=== PATIENT | female | born 1960 | race Caucasian/White ===

== ENCOUNTER 2016-06-09 10:45 | Outpatient (CLI) | payer MEDICAID ==
[~2016-06-09] VITALS: Ht 172.7 cm; Wt 99.1 kg
[~2016-06-09 10:45] MED LIST: ACET-93 PO; AMIT100T2 PO; AMIT150T3 PO; AMIT25TA9 PO; AMIT50TA3 PO; AMIT75TA2 PO; AMT10T PO; ATRV10T PO; BACL10TA; BACL10TA PC; BACL10TA PO; BREX0.5T PO; BSP10T PO; BUSP15TA60 PO; BUTA1TAB46 PO; CARI250T PO; CARI350T PO; CEFD300C16; CEFD300C3 PO; CEFU250S PO; CEFU500T63 PO; CELE-63 PO; CEPH-507 PO; CINN1CAP PO; CIPR500T78 PO; CLIN150C17 PO; CLON0.1T PO; CPR500T PO; CRS350T PO; CYCL10TA9 PO; DICL75TA2 PO; DICY10CA26; DIPH1TAB25 PO; DULO60CA58 PO; ESCI20TA2 PO; ESTR1TAB24 PO; ETD200C PO; FAMO-119 PO; FAMO20TA5 PO; FNT100TD TD; FURO20TA4 PO; GABA600T2 PO; GABA800T PO; GABA800T2 PO; GBPN300C PO; GLMP4T PO; HYDR-3583 PO; HYDR-3812 PO; HYDR-700 PO; HYDR118S10 PO; HYDROXYZINE PO; INSU100C SQ; INSU100I14 SC; INSU100I14 SQ; INSU100I23 SQ; INSU100I29 SC; INSU100I29 SQ; INSU100V16 SQ; INSU100V3 SC; INSU100V5 SQ; INSULIN DETEMIR SQ; KETO10TA PO; LD5PT TOP; LEVE1U SQ; LEVO500T2 PO; LOPE1TAB13 PO; LOSA25TA2 PO; LOSA25TA21 PO; MAGN400T6 PO; MELO-195 PO; MELO15TA39 PO; METF500T8 PO; METO10TA3 PO; METO5TAB79 PO; METR500T PO; MGX400T PO; MORP30TA28 PO; MTF500T PO; Meloxicam PO; Metoclopramide Hcl PO; NITR-65 PO; NITR100C10 PO; ONDA-42 SL; ONDA8TAB13 PO; ONDN4T PO; OXC5T PO; PANT40SU PO; PANT40TA3 PO; PHEN200T27 PO; POTA10CA43 PO; POTA10TA6 PO; PRAV20TA3 PO; PRAV40TA PO; PRD20T PO; PREG25CA PO; PROC10TA PO; PROC10TA23 PO; PROC5TAB PO; PRV20T PO; RANI150T90 PO; RT-ALBUINH IH; RT-ALBUINH INH; SUCR1TAB PO; SULF1TAB38 PO; TIZA4TAB3 PO; TIZA4TAB55 PO; TOPI50TA13 PO; TRAM50TA2 PO; TRAZ50TA67 PO; TRM50T PO; TRM50TRX; VALA100033 PO; flexeril PO
--- OUTSIDE RECORDS SUMMARY | 2016-06-09 10:48 | XMS REPORT | Continuity of Care Document ---
Author Author [facility] Organization [facility] Address Unknown Phone Unavailable Care Team Providers Care Clinical Coordinator Name Role Phone Burt Rivera PCP [phone] Source Comments Some departments are not documenting in the electronic medical record. If you do not see the information that you expected, contact Release of Information in the Health Information Management department at [phone] for further assistance in locating additional records.[facility] Active Allergies and Adverse Reactions No Known [...]
[2016-06-09] MEDS ORDERED: LIDOCAINE 1% INJ 20 ML (XYLOCAINE) VIAL ONE (11:19)
[2016-06-09] MEDS ORDERED: BUPIVACAINE 0.25% 30 ML (SENSORCAINE) VIAL ONE (11:19)
[2016-06-09] MEDS ORDERED: TRIAMCINOLONE ACET (KENALOG-40) 40 MG/ML 1 ML VIAL ONE (11:19)
[2016-06-09 11:36] VITALS: BP 159/98
[2016-06-09 12:04] VITALS: BP 117/105
--- NOTE | 2016-06-09 13:28 | Pain Medicine-Procedure ---
Procedure Pre-Op/Post-Op Diagnosis Diagnosis: hip osteoarthritis Indications for Operation Hip pain Attending Surgeon Brian Procedure Date of Service: Jun 09, 2016 PROCEDURE: Left hip injection under flouroscopic guidance PROCEDURE IN DETAIL: After obtaining informed consent from the patient, the patient's chart was reviewed. The patient was brought to the procedure room and placed in the supine position. The left hip was prepped with antiseptic solution. Then, the joint was identified under fluoroscopic guidance. 2 ml's of 1% Lidocaine was used to anesthetize the skin. A 22 gauge 3.5 inch spinal needle was inserted through the skin under fluoroscopic guidance until the needle touched the femur at the neck on the left side. Then, after negative aspiration, 2 ml of Omnipaque 300 dye was injected under fluoroscopic guidance which showed good spread of the dye inside the joint. Then, after negative aspiration, 80 mg of kenalog was injected mixed with 4 ml of 0.25% Marcaine. The needle was then flushed with 1% lidocaine and removed. The patient tolerated the procedure well and a band-Aid was applied and the patient was taken to the recovery room in stable condition. Complications None SABRINA ROGERS MD Jun 09, 2016 1:28 pm
[2016-06-19] MEDS ORDERED: MAGN400T6 PO (09:30)
[2016-06-19] MEDS ORDERED: HYDR-3816 PO (09:30)
[2016-06-19] MEDS ORDERED: INSU100I29 SQ (09:30)
== END 2016-06-09 12:07 | disposition home or self-care (01) ==
LOC: CARD 10:45
PROVIDERS: ATTEND Pain Medicine Pain Medicine
DX: M16.12 Unilateral primary osteoarthritis, left hip (principal); M51.16 Intervertebral disc disorders with radiculopathy, lumbar region; M41.86 Other forms of scoliosis, lumbar region; Z79.899 Other long term (current) drug therapy
CPT/HCPCS: 20610

== ENCOUNTER 2016-06-13 10:47 | Emergency (ER) | payer MEDICAID ==
[~2016-06-13] VITALS: Ht 172.7 cm; Wt 99.1 kg
--- NOTE | 2016-06-13 10:56 | ED General ---
General Stated Complaint: HIGH BLOOD SUGAR Source of Information: Patient, EMS Exam Limitations: No Limitations History of Present Illness Time Seen by Provider: 10:54 Initial Comments To ER from Dr. Leonel Marquez's office with reports of hyperglycemia. States that her blood sugar was too high to read this morning prior to taking her morning dose of 20 units of NovoLog. She called Dr. Marquez who instructed her to come to the office. They gave her 10 units of NovoLog subcutaneous at 930. Upon EMS arrival at 1045 she remained too high to read. She reports a slight cough/shortness of breath recently. No unilateral leg swelling. No fevers or chills. No dysuria. Timing/Duration: 1-2 Days Severity: Moderate Associated Systoms: No Fever/Chills, No Headaches, No Loss of Appetite, No Nausea/Vomiting Allergies and Home Medications Allergies Coded Allergies: No Known Drug Allergies (Unverified , 11/24/09) Home Medications Albuterol Sulfate 8.5 Gm Hfa.aer.ad 2 PUFF IH Q4H PRN PRN SHORTNESS OF BREATH ( Reported) Amitriptyline HCl 100 Mg Tablet 100 MG PO HS (Reported) Brexpiprazole 0.5 Mg Tablet 0.5 MG PO 1400 (Reported) LAST FILLED #30 04-02-16 Cefdinir 300 Mg Capsule #10 300 MG PO BID Prescribed by: LEONEL MARQUEZ on 05/21/16 1241 Cefuroxime Axetil 500 Mg Tablet #14 500 MG PO BID Prescribed by: DESIREE SEPULVEDA on 06/13/16 1355 Fluconazole 100 Mg Tablet #3 100 MG PO DAILY Prescribed by: DESIREE SEPULVEDA on 06/13/16 1355 Furosemide 20 Mg Tablet 20 MG PO DAILY PRN PRN SWELLING (Reported) LAST FILLED #7 02-02-16 Gabapentin 800 Mg Tablet #30 800 MG PO QID PRN PRN PAIN LAST FILLED #120 03-16-16 Prescribed by: LEONEL MARQUEZ on 05/12/16 0859 Insulin Aspart 300 Units/3 Ml Solution #15 1 UNITS SQ UD (Reported) Insulin Detemir 100 Unit/1 Ml Insuln.pen #30 20 UNIT SQ BID Prescribed by: LEONEL MARQUEZ on 05/12/16 0859 Magnesium Oxide 400 Mg Tablet 10Days 400 MG PO BIDPC Prescribed by: LEONEL MARQUEZ on 05/12/16 0859 Meloxicam 15 Mg Tablet 15 MG PO DAILY (Reported) Potassium Chloride 10 Meq Tablet.er #30 20 MEQ PO DAILY Prescribed by: LEONEL MARQUEZ on 05/12/16 0859 Pravastatin Sodium 20 Mg Tablet 20 MG PO HS (Reported) LAST FILLED #30 03-16-16 Ranitidine HCl 150 Mg Tablet 75 MG PO BID (Reported) LAST FILLED #30 03-07-16 TAKES 1/2 (150MG) TABLET Sucralfate 1 Gm Tablet 1 GM PO ACHS (Reported) LAST FILLED #120 03-09-16 Constitutional: see HPI EENTM: other (also reports thrush on her tongue) see HPI Respiratory: see HPI cough Genitourinary: no symptoms reported Skin: no symptoms reported Psychiatric/Neurological: No Symptoms Reported Hematologic/Lymphatic: No Symptoms Reported Past Wgifwwk-Ojorbz-Ltflrc Hx Patient Social History Type Used: Cigarettes Recent Hopitalizations: Yes (ALTERED MENTAL STATUS) Immunizations Up To Date Tetanus Booster (TDap): Less than 5yrs PED Vaccines UTD: Yes Date of Pneumonia Vaccine: Apr 04, 2013 Date of Influenza Vaccine: Apr 18, 2016 Seasonal Allergies Seasonal Allergies: No Surgeries HX Surgeries: Yes (HERNIA REPAIR, URETHRAL DILATION? 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 Genitourinary Hx Genitourinary Disorders: Yes (URETHRAL DILATION) Genitourinary Disorders: Bladder Infection, UTI-Chronic Gastrointestinal Hx Gastrointestinal Disorders: Yes Gastrointestinal Disorders: Gastroesophageal Reflux, Chronic Diarrhea, Gall Bladder Disease Musculoskeletal Hx Musculoskeletal Disorders: Yes (SCIATICA; CHRONIC PAIN COMPLAINTS) Musculoskeletal Disorders: Degenerate Disk Disease, Osteoporosis, Arthritis, Chronic Back Pain Endocrine Hx Endocrine Disorders: Yes Endocrine Disorders: Diabetes, Insulin dep HEENT HX ENT Disorders: No Cancer Hx Cancer: No Psychosocial Hx Psychiatric Problems: Yes (EXTENSIVE PSYCH ISSUES) Behavioral Health Disorders: Sleep Difficulties Integumentary HX Skin/Integumentary Disorder: No Blood Transfusions Hx Blood Disorders: No Family Medical History Significant Family History: No Pertinent Family Hx, Asthma, CAD Under 55 Years Old, COPD, Diabetes, Hypertension, Migraines, Psychiatric Problems, Renal Disease, Seizures, Stroke Family Medial History: Arthritis Asthma 19 MOTHER Cardiovascular disease 19 MOTHER Completed stroke Coronary thrombosis Diabetes mellitus 19 MOTHER Glaucoma 19 MOTHER Headache disorder 19 MOTHER Hypercholesterolemia 19 MOTHER Hypertension 19 MOTHER Kidney disease Myocardial infarction 19 FATHER 19 MOTHER Neoplasm Psychosocial problem Respiratory disorder Seizure disorder No Family History of: AIDS Abdominal aortic aneurysm [place]'s disease Alcoholism Alzheimer's disease Aphasia Cancer of mouth Cataracts Colon cancer Congenital disease Congenital heart disease Cystic fibrosis Deafness or hearing loss Dementia Drug abuse Dysphasia Fibrocystic disease of breast Gastroenteritis Infertility Not obtainable due to adoption Osteoporosis Parkinson's disease Prostate cancer Severe allergy Thyroid disease Tuberculosis Visual disorder Physical Exam Vital Signs Vital Sign - Last 12Hours 06/13/16 11:00 Temp 97.9 Pulse 108 Resp 25 B/P 120/74 Pulse Ox 98 O2 Delivery Nasal Cannula O2 Flow Rate 2 Capillary Refill : General Appearance: No Apparent Distress WD/WN Chronically ill Eyes: Bilateral Eye EOMI, Bilateral Eye Normal Inspection, Bilateral Eye PERRL HEENT: PERRL/EOMI TMs Normal Other (thrush noted) Neck: Full Range of Motion Normal Inspection Respiratory: Normal Breath Sounds No Accessory Muscle Use No Respiratory Distress Gastrointestinal: Normal Bowel Sounds Non Tender Soft Extremity: Normal Capillary Refill Normal Inspection Neurologic/Psychiatric: Alert Oriented x3 No Motor/Sensory Deficits Other ( surprisingly, patient is alert and oriented and sitting up in bed talking today. This is much different from her usual presentation) Skin: Normal Color Warm/Dry Progress/Results/Core Measures Results/Orders Lab Results Laboratory Tests Test 06/13/16 10:52 06/13/16 11:21 06/13/16 12:04 06/13/16 13:01 Range/Units Glucometer > 600 *H 362 H 255 H 70-110 MG/DL Alanine Aminotransferase (ALT/SGPT) 13 0-55 U/L Albumin 3.7 3.2-4.5 G/DL Alkaline Phosphatase 665 H 40-136 U/L Anion Gap 16 H 5-14 MMOL/L Aspartate Amino Transf (AST/SGOT) 16 5-34 U/L BUN/Creatinine Ratio 14 Basophils # (Auto) 0.1 0.0-0.1 10^3/uL Basophils (%) (Auto) 1 0-10 % Blood Urea Nitrogen 19 H 7-18 MG/DL Calcium Level 9.5 8.5-10.1 MG/DL Carbon Dioxide Level 16 L 21-32 MMOL/L Chloride Level 96 L 98-107 MMOL/L Creatinine 1.38 H 0.60-1.30 MG/DL Eosinophils # (Auto) 0.0 0.0-0.3 10^3/uL Eosinophils (%) (Auto) 0 0-10 % Estimat Glomerular Filtration Rate 40 Glucose Level 636 *H 70-105 MG/DL Hematocrit 33 L 35-52 % Hemoglobin 11.7 11.5-16.0 G/DL Lymphocytes # (Auto) 3.2 1.0-4.0 X 10^3 Lymphocytes (%) (Auto) 38 12-44 % Mean Corpuscular Hemoglobin 29 25-34 PG Mean Corpuscular Hemoglobin Concent 36 32-36 G/DL Mean Corpuscular Volume 81 80-99 FL Mean Platelet Volume 11.0 H 7.4-10.4 FL Monocytes # (Auto) 0.8 0.0-1.0 X 10^3 Monocytes (%) (Auto) 10 0-12 % Neutrophils # (Auto) 4.2 1.8-7.8 X 10^3 Neutrophils (%) (Auto) 51 42-75 % Platelet Count 248 130-400 10^3/uL Potassium Level 4.2 3.6-5.0 MMOL/L Red Blood Count 4.08 L 4.35-5.85 10^6/uL Red Cell Distribution Width 14.5 10.0-14.5 % Sodium Level 128 L 135-145 MMOL/L Total Bilirubin 0.6 0.1-1.0 MG/DL Total Protein 7.4 6.4-8.2 G/DL White Blood Count 8.3 4.3-11.0 10^3/uL Test 06/13/16 13:13 06/13/16 13:18 Range/Units Urine Bacteria MODERATE H /HPF Urine Bilirubin NEGATIVE NEGATIVE Urine Casts NONE /LPF Urine Clarity SLIGHTLY CLOUDY Urine Color YELLOW Urine Crystals NONE /LPF Urine Culture Indicated YES Urine Glucose (UA) 4+ H NEGATIVE Urine Ketones 3+ H NEGATIVE Urine Leukocyte Esterase 3+ H NEGATIVE Urine Mucus NEGATIVE /LPF Urine Nitrite NEGATIVE NEGATIVE Urine Protein 2+ H NEGATIVE Urine RBC 0-2 /HPF Urine RBC (Auto) 1+ H NEGATIVE Urine Specific [place] 1.010 L 1.016-1.022 Urine Squamous Epithelial Cells 5-10 /HPF Urine Urobilinogen 1 NORMAL MG/DL Urine WBC >100 H /HPF Urine pH 6.5 5-9 Anion Gap 13 5-14 MMOL/L BUN/Creatinine Ratio 18 Blood Urea Nitrogen 19 H 7-18 MG/DL Calcium Level 9.2 8.5-10.1 MG/DL Carbon Dioxide Level 17 L 21-32 MMOL/L Chloride Level 101 98-107 MMOL/L Creatinine 1.06 0.60-1.30 MG/DL Estimat Glomerular Filtration Rate 54 Glucose Level 213 H 70-105 MG/DL Potassium Level 3.6 3.6-5.0 MMOL/L Sodium Level 131 L 135-145 MMOL/L My Orders Orders-DESIREE SEPULVEDA APRN Cbc With Automated Diff (06/13/16 10:53) Comprehensive Metabolic Panel (06/13/16 10:53) Ua Culture If Indicated (06/13/16 10:53) Chest Pa/Lat (2 View) (06/13/16 10:53) Insulin (Regular) Human (Humulin R (Per (06/13/16 11:00) Ns Iv 1000 Ml (Sodium Chloride 0.9%) (06/13/16 12:00) Ns Iv 1000 Ml (Sodium Chloride 0.9%) (06/13/16 12:00) Ondansetron Injection (Zofran Injectio (06/13/16 12:15) Accucheck Stat ONCE (06/13/16 13:02) Accucheck Stat ONCE (06/13/16 13:02) Accucheck Stat ONCE (06/13/16 13:02) Basic Metabolic Panel (06/13/16 13:09) Urine Culture (06/13/16 13:13) Ceftriaxone Injection (Rocephin Injectio (06/13/16 13:45) Medications Given in ED Current Medications Medications Dose Ordered Sig/Aurea Route Start Time Stop Time Status Last Admin Dose Admin Ceftriaxone Sodium/Sodium Chloride 50 ml @ 100 mls/hr ONCE ONCE IV 06/13/16 13:45 06/13/16 14:14 06/13/16 13:50 100 MLS/HR Insulin Human Regular 10 unit ONCE ONCE IV 06/13/16 11:00 06/13/16 11:01 DC 06/13/16 11:21 10 UNIT Ondansetron HCl 4 mg 4 mg ONCE ONCE IVP 1/10/17 12:15 06/13/16 12:16 DC 06/13/16 12:14 4 MG Vital Signs/I&O Vital Sign - Last 12Hours 06/13/16 11:00 Temp 97.9 Pulse 108 Resp 25 B/P 120/74 Pulse Ox 98 O2 Delivery Nasal Cannula O2 Flow Rate 2 Diagnostic Imaging Diagonstic Imaging: Xray Comments NAME: [facility] REC#: [id number] PT STATUS: REG ER : 1960 PHYSICIAN: DESIREE SEPULVEDA APRN ADMIT DATE: 06/13/16/ER Draft Date of Exam:06/13/16 CHEST PA/LAT (2 VIEW) INDICATION: Hyperglycemia, shortness of air. Compared 05/21/2016. FINDINGS: The lungs are clear. Rightward convexity thoracic scoliosis noted. There is no acute chest wall pathology. No effusion. No free air beneath the diaphragms. IMPRESSION: No acute-appearing abnormality. Dictated on workstation # [id number] Dict: 06/13/16 1134 Trans: 06/13/16 1140 YASSINE [id number] Interpreted by: KIRILL ARGUETA Electronically signed by: Departure Communication Progress Notes 1400-GCS remains 15, she is alert no distress and remains better than her typical appearance in the emergency room which is to say that she is not currently obtunded or altered. Impression Impression: Primary Impression: UTI (urinary tract infection) Additional Impressions: DKA (diabetic ketoacidoses) Thrush Disposition: HOME, SELF-CARE Condition: Stable Departure-Patient Inst. Decision time for Depature: 13:53 Referrals: LEONEL MARQUEZ MD (PCP/Family) Primary Care Physician Patient Instructions: Diabetic Ketoacidosis, Thrush, Urinary Tract Infection, Adult (DC) Add. Discharge Instructions: 1. Keep a very close eye on her blood sugars checking them at least 3 times a day for the next 3 days because of the urinary tract infection will make her sugars go higher than usual. You should take insulin according to her sliding scale take care 2. Follow-up with Dr. Marquez this week 3. Scripts Fluconazole (Diflucan)100 Mg [id number] Mg PO DAILY #3 TAB Prov:DESIREE SEPULVEDA APRN 06/13/16 Cefuroxime Axetil (Ceftin)500 Mg [id number] Mg PO BID #14 TAB Prov:DESIREE SEPULVEDA APRN 06/13/16 Copy Copies To 1: LEONEL MARQUEZ MD, PETER J APRN Jun 13, 2016 10:56
[2016-06-13] MEDS ORDERED: inSUlin (REGULAR) HUMAN 1 UNIT/0.01 ML (CHARGE PER UNIT) IV ONE (11:00)
[2016-06-13 11:30] LABS: BASOPHILS # (AUTO) 0.1 10^3/uL (0.0-0.1); BASOPHILS % (AUTO) 1 % (0-10); EOSINOPHILS % (AUTO) 0 % (0-10); LYMPHOCYTES # (AUTO) 3.2 X 10^3 (1.0-4.0); LYMPHOCYTES % (AUTO) 38 % (12-44); MEAN CORPUSCULAR HEMOGLOBIN 29 PG (25-34); MEAN CORPUSCULAR HGB CONC 36 G/DL (32-36); MEAN CORPUSCULAR VOLUME 81 FL (80-99); MONOCYTES # (AUTO) 0.8 X 10^3 (0.0-1.0); MONOCYTES % (AUTO) 10 % (0-12); NEUTROPHILS # (AUTO) 4.2 X 10^3 (1.8-7.8); NEUTROPHILS % (AUTO) 51 % (42-75); PLATELET COUNT 248 10^3/uL (130-400); RED BLOOD COUNT 4.08 10^6/uL (4.35-5.85); RED CELL DISTRIBUTION WIDTH 14.5 % (10.0-14.5); WHITE BLOOD COUNT 8.3 10^3/uL (4.3-11.0)
--- NOTE | 2016-06-13 11:40 | Diagnostic Imaging Report ---
INDICATION: Hyperglycemia, shortness of air. Compared 05/21/2016. FINDINGS: The lungs are clear. Rightward convexity thoracic scoliosis noted. There is no acute chest wall pathology. No effusion. No free air beneath the diaphragms. IMPRESSION: No acute-appearing abnormality. Dictated by: Dictated on workstation # [id number]
[2016-06-13 11:47] LABS: ALBUMIN 3.7 G/DL (3.2-4.5); BILIRUBIN,TOTAL 0.6 MG/DL (0.1-1.0); CALCIUM 9.5 MG/DL (8.5-10.1); CREATININE SERUM 1.38 MG/DL (0.60-1.30); POTASSIUM 4.2 MMOL/L (3.6-5.0); TOTAL PROTEIN 7.4 G/DL (6.4-8.2)
[2016-06-13] MEDS ORDERED: NS IV 1000 ML 1,000 ML IV SCH ×2 (12:00)
[2016-06-13] MEDS ORDERED: ONDANSETRON 4 MG/2 ML (SDV) Z0FRAN IVP ONE (12:15)
[2016-06-13 13:21] LABS: BILIRUBIN,URINE NEGATIVE (NEGATIVE); KETONES,URINE 3+ (NEGATIVE); LEUKOCYTE ESTERASE ,URINE 3+ (NEGATIVE); NITRITE,URINE NEGATIVE (NEGATIVE); PH,URINE 6.5 (5-9); PROTEIN,URINE 2+ (NEGATIVE); UROBILINOGEN,URINE 1 MG/DL (NORMAL)
[2016-06-13 13:32] LABS: WBC,URINE >100 /HPF
[2016-06-13 13:37] LABS: CALCIUM 9.2 MG/DL (8.5-10.1); CREATININE SERUM 1.06 MG/DL (0.60-1.30); POTASSIUM 3.6 MMOL/L (3.6-5.0)
[2016-06-13] MEDS ORDERED: cefTRIAXone INJECTION 1,000 MG in NORMAL SALINE (BAXTER MINI) 50 ML IV ONE (13:45)
[2016-06-13] MEDS ORDERED: FLUC100T PO (13:55)
[2016-06-13] MEDS ORDERED: CEFU500T PO (13:55)
[2016-06-13 14:22] VITALS: BP 120/74
[2016-06-14] MEDS ORDERED: GABA800T2 PO (12:45)
[2016-06-14] MEDS ORDERED: INSU100I29 SQ (13:23)
[2016-06-14] MEDS ORDERED: RANI150T11 PO (13:23)
[2016-06-14] MEDS ORDERED: LIDO15SO2 MM (13:58)
[2016-06-14] MEDS ORDERED: BACL10TA PO (13:58)
[2016-06-14] MEDS ORDERED: NYST1000 MM (13:58)
[2016-06-14] MEDS ORDERED: FLUC200T5 PO (13:58)
[2016-06-14] MEDS ORDERED: CEFU500T PO (13:58)
[2016-06-19] MEDS ORDERED: INSU100I29 SQ (09:30)
[2016-06-19] MEDS ORDERED: MAGN400T6 PO (09:30)
[2016-06-19] MEDS ORDERED: HYDR-3816 PO (09:30)
== END 2016-06-13 14:22 | disposition home or self-care (01) ==
LOC: EDUNIT# 10:47 → ER 10:48
DX: E11.69 Type 2 diabetes mellitus with other specified complication (principal); N39.0 Urinary tract infection, site not specified; B37.0 Candidal stomatitis; I10 Essential (primary) hypertension; Z79.899 Other long term (current) drug therapy; Z79.4 Long term (current) use of insulin
CPT/HCPCS: 36415; 71020; 80048; 80053; 81000; 82962; 85025; 87088; 96361; 96365; 96375

== ENCOUNTER 2016-06-14 08:43 | Inpatient (IN) | payer MEDICAID ==
[~2016-06-14] VITALS: Ht 172.7 cm; Wt 93.4 kg
[2016-06-14] VITALS (8 sets, daily range): BP systolic 83–118; BP diastolic 61–90
[~2016-06-14 08:43] MED LIST changes: +CEFU500T PO; +FLUC100T PO
--- OUTSIDE RECORDS SUMMARY | 2016-06-14 08:48 | XMS REPORT | Continuity of Care Document ---
Author Author [facility] Organization [facility] Address Unknown Phone Unavailable Care Team Providers Care Quill Cleaning Machine Operator Name Role Phone Burt Rivera PCP [phone] Source Comments Some departments are not documenting in the electronic medical record. If you do not see the information that you expected, contact Release of Information in the Health Information Management department at [phone] for further assistance in locating additional records.[facility] Active Allergies and Adverse Reactions No Known [...]
[2016-06-14 09:02] LABS: BASOPHILS # (AUTO) 0.1 10^3/uL (0.0-0.1); BASOPHILS % (AUTO) 2 % (0-10); EOSINOPHILS % (AUTO) 0 % (0-10); LYMPHOCYTES # (AUTO) 2.7 X 10^3 (1.0-4.0); LYMPHOCYTES % (AUTO) 38 % (12-44); MEAN CORPUSCULAR HEMOGLOBIN 29 PG (25-34); MEAN CORPUSCULAR HGB CONC 35 G/DL (32-36); MEAN CORPUSCULAR VOLUME 81 FL (80-99); MEAN PLATELET VOLUME 11.4 FL (7.4-10.4); MONOCYTES # (AUTO) 0.7 X 10^3 (0.0-1.0); MONOCYTES % (AUTO) 9 % (0-12); NEUTROPHILS # (AUTO) 3.7 X 10^3 (1.8-7.8); NEUTROPHILS % (AUTO) 52 % (42-75); PLATELET COUNT 248 10^3/uL (130-400); RED BLOOD COUNT 4.02 10^6/uL (4.35-5.85); RED CELL DISTRIBUTION WIDTH 14.8 % (10.0-14.5); WHITE BLOOD COUNT 7.2 10^3/uL (4.3-11.0)
[2016-06-14 09:22] LABS: ALBUMIN 3.5 G/DL (3.2-4.5); BILIRUBIN,TOTAL 0.4 MG/DL (0.1-1.0); CALCIUM 9.1 MG/DL (8.5-10.1); CREATININE SERUM 1.69 MG/DL (0.60-1.30); POTASSIUM 4.2 MMOL/L (3.6-5.0); TOTAL PROTEIN 7.2 G/DL (6.4-8.2)
[2016-06-14] MEDS ORDERED: inSUlin REGULAR TPN/DRIP ONLY 250 UNITS in NORMAL SALINE 247.5 ML IV STA (09:25)
[2016-06-14 09:30] LABS: ACETAMINOPHEN < 10 UG/ML (10-30); ALCOHOL < 10 MG/DL (<10); MAGNESIUM 1.6 MG/DL (1.8-2.4); SALICYLATE < 5.0 MG/DL (5.0-20.0)
[2016-06-14] MEDS ORDERED: inSUlin (REGULAR) HUMAN 1 UNIT/0.01 ML (CHARGE PER UNIT) IV ONE (09:30)
[2016-06-14] MEDS ORDERED: NS IV 1000 ML 1,000 ML IV ONE (09:30)
[2016-06-14 10:01] LABS: ABG BASE EXCESS -16.7 MMOL/L (-2.5-2.5); ABG OXYGEN SATURATION 99 % (94-100); ABG PO2 122 MMHG (79-93); ABG TCO2 8.5 MMOL/L (21.0-31.0)
[2016-06-14 10:03] LABS: ABG PCO2 17 MMHG (35-45); ABG PH 7.29 (7.37-7.43)
[2016-06-14 10:04] LABS: ABG HCO3 8 MMOL/L (23-27); ALLENS TEST POSITIVE; PATIENT TEMP 97.7
--- NOTE | 2016-06-14 10:13 | ED General ---
General Chief Complaint: Trauma-Non Activation Stated Complaint: FALL/HEAD INJURY Nursing Triage Note: PT ARRIVED PER EMS, PT FELL AT HOME AND HIT L SIDE OF HEAD. NO LOC. FSBS FOR [id number] Nursing Sepsis Screen: No Definite Risk Source of Information: Patient, EMS Exam Limitations: No Limitations History of Present Illness Time Seen by Provider: 09:00 Initial Comments Patient lost her balance and fell at home striking the back of her head on the floor. She called 911. They noticed patient had decreased level of consciousness. She denies vomiting. She was seen in the [facility] department yesterday for hyperglycemia and urinary tract infection. She received supplemental insulin and was prescribed an antibiotic. Location Injury Occurred: HOME Allergies and Home Medications Allergies Coded Allergies: No Known Drug Allergies (Unverified , 11/24/09) Home Medications Albuterol Sulfate 8.5 Gm Hfa.aer.ad 2 PUFF IH Q4H PRN PRN SHORTNESS OF BREATH ( Reported) Amitriptyline HCl 100 Mg Tablet 100 MG PO HS (Reported) Brexpiprazole 0.5 Mg Tablet 0.5 MG PO 1400 (Reported) LAST FILLED #30 16 Cefdinir 300 Mg Capsule #10 300 MG PO BID Prescribed by: LEONEL MARQUEZ on 05/21/16 1241 Cefuroxime Axetil 500 Mg Tablet #14 500 MG PO BID Prescribed by: DESIREE SEPULVEDA on 06/13/16 1355 Fluconazole 100 Mg Tablet #3 100 MG PO DAILY Prescribed by: DESIREE SEPULVEDA on 06/13/16 1355 Furosemide 20 Mg Tablet 20 MG PO DAILY PRN PRN SWELLING (Reported) LAST FILLED #7 02-02-16 Gabapentin 800 Mg Tablet #30 800 MG PO QID PRN PRN PAIN LAST FILLED #120 03-16-16 Prescribed by: LEONEL MARQUEZ on 05/12/16 0859 Insulin Aspart 300 Units/3 Ml Solution #15 1 UNITS SQ UD (Reported) Insulin Detemir 100 Unit/1 Ml Insuln.pen #30 20 UNIT SQ BID Prescribed by: LEONEL MARQUEZ on 05/12/16 08 Magnesium Oxide 400 Mg Tablet 10Days 400 MG PO BIDPC Prescribed by: LEONEL MARQUEZ on 05/12/16 0859 Meloxicam 15 Mg Tablet 15 MG PO DAILY (Reported) Potassium Chloride 10 Meq Tablet.er #30 20 MEQ PO DAILY Prescribed by: LEONEL MARQUEZ on 05/12/16 0859 Pravastatin Sodium 20 Mg Tablet 20 MG PO HS (Reported) LAST FILLED #30 03-16-16 Ranitidine HCl 150 Mg Tablet 75 MG PO BID (Reported) LAST FILLED #30 03-07-16 TAKES 1/2 (150MG) TABLET Sucralfate 1 Gm Tablet 1 GM PO ACHS (Reported) LAST FILLED #120 03-09-16 Constitutional: No fever, malaise weakness Respiratory: no symptoms reported Cardiovascular: no symptoms reported Gastrointestinal: No vomiting Musculoskeletal: no symptoms reported Psychiatric/Neurological: Headache Hematologic/Lymphatic: No Symptoms Reported All Other Systems Reviewed Negative Unless Noted: Yes Past Okxzwml-Tgngar-Klcson Hx Patient Social History Alcohol Use: Denies Use Recreational Drug Use: Yes (TOBACCO) Smoking Status: Current Everyday Smoker Type Used: Cigarettes Recent Foreign Travel: No Contact w/Someone Who Travel: No Recent Infectious Disease Expo: No Recent Hopitalizations: Yes (ALTERED MENTAL STATUS) Physical Abuse Screen: No Sexual Abuse: No Immunizations Up To Date Tetanus Booster (TDap): Less than 5yrs PED Vaccines UTD: Yes Date of Pneumonia Vaccine: Apr 04, 2013 Date of Influenza Vaccine: Apr 18, 2016 Seasonal Allergies Seasonal Allergies: No Surgeries HX Surgeries: Yes (HERNIA REPAIR, URETHRAL DILATION? 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 Genitourinary Hx Genitourinary Disorders: Yes (URETHRAL DILATION) Genitourinary Disorders: Bladder Infection, UTI-Chronic Gastrointestinal Hx Gastrointestinal Disorders: Yes Gastrointestinal Disorders: Gastroesophageal Reflux, Chronic Diarrhea, Gall Bladder Disease Musculoskeletal Hx Musculoskeletal Disorders: Yes (SCIATICA; CHRONIC PAIN COMPLAINTS) Musculoskeletal Disorders: Degenerate Disk Disease, Osteoporosis, Arthritis, Chronic Back Pain Endocrine Hx Endocrine Disorders: Yes Endocrine Disorders: Diabetes, Insulin dep HEENT HX ENT Disorders: No Cancer Hx Cancer: No Psychosocial Hx Psychiatric Problems: Yes (EXTENSIVE PSYCH ISSUES) Behavioral Health Disorders: Sleep Difficulties Integumentary HX Skin/Integumentary Disorder: No Blood Transfusions Hx Blood Disorders: No Family Medical History Significant Family History: No Pertinent Family Hx, Asthma, CAD Under 55 Years Old, COPD, Diabetes, Hypertension, Migraines, Psychiatric Problems, Renal Disease, Seizures, Stroke Family Medial History: Arthritis Asthma 19 MOTHER Cardiovascular disease 19 MOTHER Completed stroke Coronary thrombosis Diabetes mellitus 19 MOTHER Glaucoma 19 MOTHER Headache disorder 19 MOTHER Hypercholesterolemia 19 MOTHER Hypertension 19 MOTHER Kidney disease Myocardial infarction 19 FATHER 19 MOTHER Neoplasm Psychosocial problem Respiratory disorder Seizure disorder No Family History of: AIDS Abdominal aortic aneurysm Winchester's disease Alcoholism Alzheimer's disease Aphasia Cancer of mouth Cataracts Colon cancer Congenital disease Congenital heart disease Cystic fibrosis Deafness or hearing loss Dementia Drug abuse Dysphasia Fibrocystic disease of breast Gastroenteritis Infertility Not obtainable due to adoption Osteoporosis Parkinson's disease Prostate cancer Severe allergy Thyroid disease Tuberculosis Visual disorder Physical Exam Vital Signs Vital Sign - Last 12Hours 06/14/16 08:43 Temp 98.1 Pulse 124 Resp 20 B/P 105/79 Pulse Ox 96 Capillary Refill : Less Than 3 Seconds General Appearance: No Apparent Distress (very drowsy) WD/WN Obese Eyes: Bilateral Eye EOMI, Bilateral Eye PERRL HEENT: PERRL/EOMI Pharynx Normal Neck: Supple Respiratory: Lungs Clear Normal Breath Sounds Cardiovascular: Regular Rate, Rhythm No Edema Gastrointestinal: Non Tender Soft Extremity: Normal Inspection Normal Range of Motion Neurologic/Psychiatric: No Motor/Sensory Deficits 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 Norm as Tested Other (very drowsy) Skin: Normal Color Warm/Dry Progress/Results/Core Measures Results/Orders Lab Results Laboratory Tests Test 06/14/16 08:52 06/14/16 09:39 Range/Units Acetaminophen Level < 10 L 10-30 UG/ML Alanine Aminotransferase (ALT/SGPT) 14 0-55 U/L Albumin 3.5 3.2-4.5 G/DL Alkaline Phosphatase 573 H 40-136 U/L Anion Gap 21 H 5-14 MMOL/L Aspartate Amino Transf (AST/SGOT) 13 5-34 U/L BUN/Creatinine Ratio 16 Basophils # (Auto) 0.1 0.0-0.1 10^3/uL Basophils (%) (Auto) 2 0-10 % Blood Urea Nitrogen 27 H 7-18 MG/DL Calcium Level 9.1 8.5-10.1 MG/DL Carbon Dioxide Level 9 *L 21-32 MMOL/L Chloride Level 98 98-107 MMOL/L Creatinine 1.69 H 0.60-1.30 MG/DL Eosinophils # (Auto) 0.0 0.0-0.3 10^3/uL Eosinophils (%) (Auto) 0 0-10 % Estimat Glomerular Filtration Rate 32 Glucose Level 746 *H 70-105 MG/DL Hematocrit 33 L 35-52 % Hemoglobin 11.5 11.5-16.0 G/DL Lymphocytes # (Auto) 2.7 1.0-4.0 X 10^3 Lymphocytes (%) (Auto) 38 12-44 % Magnesium Level 1.6 L 1.8-2.4 MG/DL Mean Corpuscular Hemoglobin 29 25-34 PG Mean Corpuscular Hemoglobin Concent 35 32-36 G/DL Mean Corpuscular Volume 81 80-99 FL Mean Platelet Volume 11.4 H 7.4-10.4 FL Monocytes # (Auto) 0.7 0.0-1.0 X 10^3 Monocytes (%) (Auto) 9 0-12 % Neutrophils # (Auto) 3.7 1.8-7.8 X 10^3 Neutrophils (%) (Auto) 52 42-75 % Platelet Count 248 130-400 10^3/uL Potassium Level 4.2 3.6-5.0 MMOL/L Red Blood Count 4.02 L 4.35-5.85 10^6/uL Red Cell Distribution Width 14.8 H 10.0-14.5 % Salicylates Level < 5.0 L 5.0-20.0 MG/DL Serum Alcohol < 10 <10 MG/DL Sodium Level 128 L 135-145 MMOL/L Total Bilirubin 0.4 0.1-1.0 MG/DL Total Protein 7.2 6.4-8.2 G/DL White Blood Count 7.2 4.3-11.0 10^3/uL Alexandr Test POSITIVE Arterial Blood Base Excess -16.7 L -2.5-2.5 MMOL/L Arterial Blood HCO3 8 *L 23-27 MMOL/L Arterial Blood Oxygen Saturation 99 94-100 % Arterial Blood Partial Pressure CO2 17 *L 35-45 MMHG Arterial Blood Partial Pressure O2 122 H 79-93 MMHG Arterial Blood Total CO2 8.5 L 21.0-31.0 MMOL/L Arterial Blood pH 7.29 *L 7.37-7.43 Blood Gas Inspired Oxygen NO Blood Gas Patient Temperature 97.7 Blood Gas Puncture Site RIGHT RADIAL Blood Gas Ventilator Setting NO Labs were reviewed My Orders Orders-THEODORE DOHERTY MD Cbc With Automated Diff (06/14/16 08:56) Comprehensive Metabolic Panel (06/14/16 08:56) Ua Culture If Indicated (06/14/16 08:56) Ct Head/Cervical Spine Wo (06/14/16 08:56) Acetaminophen (06/14/16 09:04) Alcohol (06/14/16 09:04) Drug Screen Stat (Urine) (06/14/16 09:04) Magnesium (06/14/16 09:04) Salicylate (06/14/16 09:04) Arterial Blood Gas (06/14/16 09:39) Ns Iv 1000 Ml (Sodium Chloride 0.9%) (06/14/16 09:30) Insulin (Regular) Human (Humulin R (Per (06/14/16 09:30) Insulin Regular Tpn/Drip Only (Humulin R (06/14/16 09:25) Medications Given in ED Current Medications Medications Dose Ordered Sig/Aurea Route Start Time Stop Time Status Last Admin Dose Admin Insulin Human Regular 9 unit ONCE ONCE IV 06/14/16 09:30 06/14/16 09:31 DC 06/14/16 09:44 9 UNIT Sodium Chloride 1,000 ml @ 0 mls/hr Q0M ONCE IV 06/14/16 09:30 06/14/16 09:31 DC 06/14/16 09:44 1,000 MLS/HR Vital Signs/I&O Vital Sign - Last 12Hours 06/14/16 08:43 Temp 98.1 Pulse 124 Resp 20 B/P 105/79 Pulse Ox 96 Blood Pressure Mean: 88 Diagnostic Imaging Comments Date of Exam:06/14/16 CT HEAD/CERVICAL SPINE WO Clinical indication: Patient is status post fall and hit back of head. Exam: Head CT without IV contrast. Axial CT scan of the cervical spine with sagittal and coronal reformations. Comparison: CT scan of brain performed without IV contrast dated 05/09/2016. CT scan of the cervical spine dated 12/20/2015. Findings: Head CT: There is no evidence of acute cerebral infarct, intracranial hemorrhage, or gross mass effect. There is normal roberts-white matter distinction. The brain parenchymal volume appears appropriate for patient's age. There is no significant midline shift or herniation. There is no evidence of hydrocephalus. The basal cisterns are unremarkable. The skull, extracranial soft tissue, and orbits are unremarkable. There is a small mucous retention cyst in right maxillary sinus. Cervical spine: There is no acute cervical spine fracture or dislocation. There is straightening of the cervical spine posture. There is stable cervical spine degenerative disease with vertebral body spurs and mild facet arthropathy. There is stable moderate loss of intervertebral disc height at the C5-C6 and C6-C7 levels. There is no prevertebral soft tissue swelling. The neck soft tissue structures show no significant abnormality. Lung apices are clear. Impression: 1: There is no evidence of acute intracranial process. 2.: Stable cervical spine degenerative disease with no acute fracture or dislocation. Critical Care Note Critical Care Total Time (minutes) Total critical care time so this patient was 45 minutes Departure Communication Time/Spoke to Admitting Phy: 10:[address] Leonel Marquez saw the patient in the emergency department after a contacted him via phone. Impression Impression: Primary Impression: diabetic ketoacidosis Additional Impressions: Urinary tract infection Minor head injury without loss of consciousness Disposition: 01 HOME, SELF-CARE Condition: Stable Decision to Admit Reason: Admit from ER (General) Decision to Admit/Date: Jun 14, 2016 Time/Decision to Admit Time: 10:11 Departure-Patient Inst. Referrals: LEONEL MARQUEZ MD (PCP/Family) Primary Care Physician THEODORE DOHERTY MD Jun 14, 2016 10:13
--- NOTE | 2016-06-14 10:20 | Diagnostic Imaging Report ---
Clinical indication: Patient is status post fall and hit back of head. Exam: Head CT without IV contrast. Axial CT scan of the cervical spine with sagittal and coronal reformations. Comparison: CT scan of brain performed without IV contrast dated 05/09/2016. CT scan of the cervical spine dated 12/20/2015. Findings: Head CT: There is no evidence of acute cerebral infarct, intracranial hemorrhage, or gross mass effect. There is normal roberts-white matter distinction. The brain parenchymal volume appears appropriate for patient's age. There is no significant midline shift or herniation. There is no evidence of hydrocephalus. The basal cisterns are unremarkable. The skull, extracranial soft tissue, and orbits are unremarkable. There is a small mucous retention cyst in right maxillary sinus. Cervical spine: There is no acute cervical spine fracture or dislocation. There is straightening of the cervical spine posture. There is stable cervical spine degenerative disease with vertebral body spurs and mild facet arthropathy. There is stable moderate loss of intervertebral disc height at the C5-C6 and C6-C7 levels. There is no prevertebral soft tissue swelling. The neck soft tissue structures show no significant abnormality. Lung apices are clear. Impression: 1: There is no evidence of acute intracranial process. 2: Stable cervical spine degenerative disease with no acute fracture or dislocation. Dictated by: Dictated on workstation # [id number]
[2016-06-14] MEDS ORDERED: 1/2 NS W/KCL 20 MEQ/L 1,000 ML IV ONE (11:25)
[2016-06-14] MEDS: 1/2 NS W/KCL 20 MEQ/L 1,000 ML IV SCH ×3 (11:45→23:45)
[2016-06-14] MEDS ORDERED: D5 1/2 NS IV 1,000 ML IV SCH (11:45)
[2016-06-14] MEDS: DEXTROSE 10% IV SOLUTION 1,000 ML IV SCH ×2 (11:45→21:45)
[2016-06-14] MEDS: REGULAR inSUlin DRIP 250 UNITS/NS 250 ML IV SCH ×2 (11:45)
[2016-06-14] MEDS: D5 1/2 NS W/KCL 20 MEQ/L 1,000 ML IV SCH ×4 (11:45→22:05)
[2016-06-14] MEDS ORDERED: cefTRIAXone 1 GM/NS 50 ML IVPB IV SCH ×4 (12:00→21:00)
--- NOTE | 2016-06-14 12:36 | History & Physicial ---
History of Present Illness History of Present Illness Reason for visit/HPI 55 yo Female well known to me from clinic and inpatient stays-- Pt has history of multiple inpatient stays for DKA, hypoglycemia, altered mental status. Admitted for DKA today- Pt reports she stood up at home and fell backwards hitting her head. No loss of consciousness. Pt reports for past week she has been trying to get her blood sugar under control- meter keeps reading high- unable to get blood sugar down with sliding scale. Mouth sores- x 2-3 days- white areas on lower lip, tongue, throat that are raw and painful. Pt has lost 10# in the past 2 weeks due to decreased appetite and now mouth pain. Has polydipsia, denies polyuria. Pt was seen at my clinic yesterday for hyperglycemia, mouth sores and generalized weakness- I sent her to the ER via ambulance and she was evaluated - Blood sugars were down to 200s when she left the ER yesterday evening- She was given insulin injections, 2L NS IVF, rocephin. She was dx with DKA, thrush and UTI yesterday - sent home with her SSI, fluconazole. As above pt returned to the ER this AM via EMS because of her continued weakness and now a fall. She reports her blood sugar was 300s this AM. Reports doing alright in regards to her mood- of the [employer] worker who was friend gets her down. -Otherwise pt reports doing alright mentally. Denies SI, HI. -Endorses that general health issues are getting her down. -No LOC episodes as far as she is aware of. -Does go to outpatient PT twice weekly. Date of Admission Jun 14, 2016 at 10:24 I consulted on this patient on 06/14/16 12:27 Attending Physician Leonel Marquez MD Admitting Physician Leonel Marquez MD Consult Allergies and Home Medications Allergies Coded Allergies: No Known Drug Allergies (Unverified , 11/24/09) Home Medications Albuterol Sulfate 8.5 Gm Hfa.aer.ad 2 PUFF IH Q4H PRN PRN SHORTNESS OF BREATH ( Reported) Amitriptyline HCl 100 Mg Tablet 100 MG PO HS (Reported) Baclofen 10 Mg Tablet 10 MG PO TID PRN PRN MUSCLE SPASMS (Reported) Brexpiprazole 0.5 Mg Tablet 0.5 MG PO 1400 (Reported) LAST FILLED #30 12/09/16 Cefuroxime Axetil 500 Mg Tablet 500 MG PO BID (Reported) FILLED 06/13/16 #14 FOR A 7 DAY THERAPY Fluconazole 200 Mg Tablet 200 MG PO DAILY (Reported) FILLED 06/13/16 #10 FOR A 10 DAY THERAPY Furosemide 20 Mg Tablet 20 MG PO DAILY (Reported) LAST FILLED #30 05/12/16 Gabapentin 800 Mg Tablet 800 MG PO QID (Reported) Insulin Aspart 300 Units/3 Ml Solution SQ SLIDING/SCALE (Reported) Insulin Detemir 100 Unit/1 Ml Insuln.pen 20 UNITS SQ BID (Reported) Lidocaine HCl 15 Ml Solution 5 ML MM Q4H PRN PRN PAIN (Reported) FILLED 06/13/16 #100ML Meloxicam 15 Mg Tablet 15 MG PO DAILY (Reported) Nystatin 100,000 Unit/1 Ml Oral.susp 4 ML MM BID (Reported) FILLED 06/13/16 #80ML FOR A 10 DAY THERAPY Pravastatin Sodium 20 Mg Tablet 20 MG PO HS (Reported) LAST FILLED #30 05/12/16 Ranitidine HCl 150 Mg Tablet 150 MG PO DAILY (Reported) Sucralfate 1 Gm Tablet 1 GM PO ACHS (Reported) LAST FILLED #120 05/12/16 Past Dioxaff-Ulrtyg-Axyhhd Hx Patient Social History Alcohol Use: Denies Use Recreational Drug Use: Yes (TOBACCO) Smoking Status: Current Everyday Smoker Type Used: Cigarettes Physical Abuse Screen: No Sexual Abuse: No Recent Foreign Travel: No Contact w/other who traveled: No Recent Hopitalizations: Yes (ALTERED MENTAL STATUS) Recent Infectious Disease Expo: No Immunizations Up To Date Tetanus Booster (TDap): Less than 5yrs Date of Pneumonia Vaccine: Apr 04, 2013 Date of Influenza Vaccine: Apr 18, 2016 Seasonal Allergies Seasonal Allergies: No Surgeries HX Surgeries: Yes (HERNIA REPAIR, URETHRAL DILATION? ) Surgeries: Abdominal, Appendectomy, Bladder Surgery, Gallbladder, Hysterectomy , Tonsillectomy Respiratory Hx Respiratory Disorders: Yes (O2 AT HS) Respiratory Disorders: COPD Cardiovascular Hx Cardiovascular Disorders: Yes Cardiac Disorders: High Cholesterol, Hypertension Neurological Hx Neurological Disorders: Yes Neurological Disorders: Headaches /Migraines Reproductive System Hx Reproductive Disorders: No Sexually Transmitted Disease: No HIV/AIDS: No Female Reproductive Disorders: Denies Genitourinary Hx Genitourinary Disorders: Yes (URETHRAL DILATION) Genitourinary Disorders: Bladder Infection, UTI-Chronic Gastrointestinal Hx Gastrointestinal Disorders: Yes Gastrointestinal Disorders: Gastroesophageal Reflux, Chronic Diarrhea, Gall Bladder Disease Musculoskeletal Hx Musculoskeletal Disorders: Yes (SCIATICA; CHRONIC PAIN COMPLAINTS) Musculoskeletal Disorders: Degenerate Disk Disease, Osteoporosis, Arthritis, Chronic Back Pain Endocrine Hx Endocrine Disorders: Yes Endocrine Disorders: Diabetes, Insulin dep HEENT HX ENT Disorders: No Cancer Hx Cancer: No Psychosocial Hx Psychiatric Problems: Yes (EXTENSIVE PSYCH ISSUES) Behavioral Health Disorders: Sleep Difficulties Integumentary HX Skin/Integumentary Disorder: No Blood Transfusions Hx Blood Disorders: No Family Medical History Significant Family History: No Pertinent Family Hx, Asthma, CAD Under 55 Years Old, COPD, Diabetes, Hypertension, Migraines, Psychiatric Problems, Renal Disease, Seizures, Stroke Family Hx: Arthritis Asthma 19 MOTHER Cardiovascular disease 19 MOTHER Completed stroke Coronary thrombosis Diabetes mellitus 19 MOTHER Glaucoma 19 MOTHER Headache disorder 19 MOTHER Hypercholesterolemia 19 MOTHER Hypertension 19 MOTHER Kidney disease Myocardial infarction 19 FATHER 19 MOTHER Neoplasm Psychosocial problem Respiratory disorder Seizure disorder No Family History of: AIDS Abdominal aortic aneurysm Jin's disease Alcoholism Alzheimer's disease Aphasia Cancer of mouth Cataracts Colon cancer Congenital disease Congenital heart disease Cystic fibrosis Deafness or hearing loss Dementia Drug abuse Dysphasia Fibrocystic disease of breast Gastroenteritis Infertility Not obtainable due to adoption Osteoporosis Parkinson's disease Prostate cancer Severe allergy Thyroid disease Tuberculosis Visual disorder Constitutional: No chills, No diaphoresis, dizzinessNo fever, weakness weight loss EENTM: blurred visionNo double vision, No ear pain Respiratory: dyspnea on exertionNo hemoptysis, No phlegm, short of breath Cardiovascular: No chest pain Gastrointestinal: abdominal painNo constipation, No diarrhea, dysphagia Genitourinary: No dysuria Musculoskeletal: No back pain Skin: No change in hair/nails Psychiatric/Neurological: Anxiety Depressed Physical Exam Vital Signs Vital Sign - Last 12Hours 06/14/16 08:43 Temp 98.1 Pulse 124 Resp 20 B/P 105/79 Pulse Ox 96 Capillary Refill : Less Than 3 Seconds General Appearance: WD/WN Mild Distress HEENT: PERRL/EOMI Other (mouth- thrush noted on tongue, lips palate- white plaques,erythema) Neck: Full Range of Motion Normal Inspection Non Tender Supple Respiratory: Chest Non Tender Lungs Clear Normal Breath Sounds No Accessory Muscle Use No Respiratory Distress Cardiovascular: Regular Rate, Rhythm No Edema Gastrointestinal: Normal Bowel Sounds Non Tender Soft Rectal: Deferred Back: No CVA Tenderness No Vertebral Tenderness Extremity: Normal Inspection Normal Range of Motion Non Tender No Calf Tenderness Neurologic/Psychiatric: Alert Oriented x3 No Motor/Sensory Deficits Normal Mood/Affect Skin: Warm/Dry Other (cap refill 3sec) Assessment/Plan Assessment and Plan 55 yo F Weakness leading to a fall- CT head negative DKA- protocol, insulin gtts High anion gap metabolic acidosis- correcting DKA uncontrolled Diabetes Mellitus II with insulin dependence- hga1c 8.1 04/29/16 - will continue adjusting insulin after DKA episode is resolved. acute renal insufficiency- due to DKA, dehydration- Cr 1.69 continue IVF- No contrast, NSAIDS. Cystitis without hematuria-- rocephin 1g IV Thrush- continue fluconazole, nystatin swish/spit hypomagnesemia-1.6 replacing hypokalemia- replacing in IVF when blood sugar starts going down. pseudohyponatremia due to DKA.- monitor COPD- continue inhalers. Bipolar disorder- continue home meds. Dispo: DKA protocol, monitor in ICU I did tell pt today in ER that with these frequent hospitalizations I would recommend prison placement because it is imminent that she will one of these times. Expect pt to recover from this DKA but overall her Prognosis is poor. LEONEL MARQUEZ MD Jun 14, 2016 12:36 LEONEL MARQUEZ MD Jun 14, 2016 12:36
[2016-06-14] MEDS ORDERED: GABA800T2 PO (12:45)
[2016-06-14] MEDS: NYSTATIN ORAL SUSP 5 ML UDC PO SCH ×2 (12:55→18:00)
[2016-06-14 13:01] LABS: BILIRUBIN,URINE NEGATIVE (NEGATIVE); KETONES,URINE 4+ (NEGATIVE); LEUKOCYTE ESTERASE ,URINE 1+ (NEGATIVE); NITRITE,URINE NEGATIVE (NEGATIVE); PH,URINE 6 (5-9); PROTEIN,URINE 2+ (NEGATIVE); UROBILINOGEN,URINE NORMAL (NORMAL)
[2016-06-14 13:09] LABS: WBC,URINE RARE /HPF; YEAST,URINE FEW /HPF
[2016-06-14] MEDS ORDERED: RANI150T11 PO (13:23)
[2016-06-14] MEDS ORDERED: INSU100I29 SQ (13:23)
[2016-06-14] MEDS ORDERED: BACL10TA PO (13:58)
[2016-06-14] MEDS ORDERED: LIDO15SO2 MM (13:58)
[2016-06-14] MEDS ORDERED: FLUC200T5 PO (13:58)
[2016-06-14] MEDS ORDERED: NYST1000 MM (13:58)
[2016-06-14] MEDS ORDERED: CEFU500T PO (13:58)
[2016-06-14] MEDS ORDERED: RT-ALBUTEROL SULF 2.5 MG/3 ML PRE-MIX VIAL INH PRN (14:00)
[2016-06-14 14:06] LABS: CALCIUM 9.1 MG/DL (8.5-10.1); CREATININE SERUM 1.34 MG/DL (0.60-1.30); POTASSIUM 3.2 MMOL/L (3.6-5.0)
[2016-06-14] MEDS: ONDANSETRON 4 MG/2 ML (SDV) Z0FRAN IV PRN ×2 (14:41→18:53)
--- NOTE | 2016-06-14 15:39 | Diagnostic Imaging Report ---
INDICATION: Central venous catheter evaluation. FINDINGS: Single portable view of the chest is obtained. Since 06/13/2016, there has been placement of right upper extremity PICC with catheter tip projecting over the lower superior vena cava near the right atrial junction. Lungs are clear without evidence of pneumothorax or consolidation. No significant pleural fluid is identified. IMPRESSION: No evidence of complication related to right central venous catheter placement. Dictated by: Dictated on workstation # [id number]
[2016-06-14] MEDS ORDERED: MAGNESIUM 1 GM/100 ML IVPB 100 ML IV ONE ×2 (17:16→18:42)
[2016-06-14] MEDS: MAGNESIUM 1 GM/100 ML IVPB 100 ML IV SCH ×3 (17:23→22:55)
[2016-06-14] MEDS: fluCOnazole (DIFLUCAN) 100 MG TAB PO SCH (17:23)
[2016-06-14] MEDS: cefTRIAXone 1 GM/NS 50 ML IVPB IV SCH ×2 (17:24)
[2016-06-14] MEDS ORDERED: KCL 20 MEQ TAB (K-DUR) PO ONE (18:00)
[2016-06-14] MEDS ORDERED: LIDOCAINE 2% VISCOUS 15 ML UDC MM PRN (18:45)
[2016-06-14] MEDS: KCL 20 MEQ TAB (K-DUR) PO SCH ×2 (18:53→20:39)
[2016-06-14] MEDS: AMITRIPTYLINE 50 MG (ELAVIL) TAB PO SCH (20:40)
[2016-06-14 21:47] LABS: ANION GAP 9 MMOL/L (5-14); BLOOD UREA NITROGEN 20 MG/DL (7-18); BUN/CREATININE RATIO 23; CALCIUM 8.5 MG/DL (8.5-10.1); CARBON DIOXIDE 17 MMOL/L (21-32); CHLORIDE 108 MMOL/L (98-107); CREATININE SERUM 0.86 MG/DL (0.60-1.30); GFR ESTIMATED > 60; GLUCOSE 124 MG/DL (70-105); MAGNESIUM 1.6 MG/DL (1.8-2.4); POTASSIUM 3.4 MMOL/L (3.6-5.0); SODIUM 134 MMOL/L (135-145)
[2016-06-14] MEDS ORDERED: GABAPENTIN 300 MG (NEURONTIN) CAP PO ONE (22:45)
[2016-06-14] MEDS ORDERED: HYDROcodone/APAP 10 MG/325 MG (LORTAB) TAB PO ONE (22:45)
[2016-06-15] VITALS (24 sets, daily range): BP systolic 94–144; BP diastolic 62–93
[2016-06-15] MEDS: MAGNESIUM 1 GM/100 ML IVPB 100 ML IV SCH ×2 (00:02→06:00)
[2016-06-15 01:20] LABS: BASOPHILS % (AUTO) 0 % (0-10); EOSINOPHILS % (AUTO) 0 % (0-10); LYMPHOCYTES # (AUTO) 2.4 X 10^3 (1.0-4.0); LYMPHOCYTES % (AUTO) 36 % (12-44); MEAN CORPUSCULAR HEMOGLOBIN 28 PG (25-34); MEAN CORPUSCULAR HGB CONC 35 G/DL (32-36); MEAN CORPUSCULAR VOLUME 81 FL (80-99); MEAN PLATELET VOLUME 10.5 FL (7.4-10.4); MONOCYTES # (AUTO) 0.7 X 10^3 (0.0-1.0); MONOCYTES % (AUTO) 10 % (0-12); NEUTROPHILS # (AUTO) 3.6 X 10^3 (1.8-7.8); NEUTROPHILS % (AUTO) 54 % (42-75); PLATELET COUNT 215 10^3/uL (130-400); RED BLOOD COUNT 3.35 10^6/uL (4.35-5.85); RED CELL DISTRIBUTION WIDTH 14.8 % (10.0-14.5); WHITE BLOOD COUNT 6.7 10^3/uL (4.3-11.0)
[2016-06-15 01:40] LABS: ANISOCYTOSIS SLIGHT; BAND NEUTROPHILS 0 %; BASOPHILS % (MANUAL) 0 %; EOSINOPHILS % (MANUAL) 0 %; HYPOCHROMASIA SLIGHT; LYMPHOCYTES % (MANUAL) 26 %; MICROCYTOSIS SLIGHT; NEUTROPHILS % (MANUAL) 62 %
[2016-06-15 01:57] LABS: THYROID STIMULATING HORMONE 0.61 UIU/ML (0.35-4.94)
[2016-06-15] MEDS: D5 1/2 NS W/KCL 20 MEQ/L 1,000 ML IV SCH ×6 (02:14→22:49)
[2016-06-15] MEDS: 1/2 NS W/KCL 20 MEQ/L 1,000 ML IV SCH ×6 (03:45→23:45)
[2016-06-15] MEDS: cefTRIAXone 1 GM/NS 50 ML IVPB IV SCH ×2 (04:12)
[2016-06-15 05:06] LABS: BASOPHILS # (AUTO) 0.1 10^3/uL (0.0-0.1); BASOPHILS % (AUTO) 1 % (0-10); EOSINOPHILS % (AUTO) 0 % (0-10); LYMPHOCYTES # (AUTO) 2.6 X 10^3 (1.0-4.0); LYMPHOCYTES % (AUTO) 40 % (12-44); MEAN CORPUSCULAR HEMOGLOBIN 28 PG (25-34); MEAN CORPUSCULAR HGB CONC 35 G/DL (32-36); MEAN CORPUSCULAR VOLUME 81 FL (80-99); MEAN PLATELET VOLUME 10.6 FL (7.4-10.4); MONOCYTES # (AUTO) 0.6 X 10^3 (0.0-1.0); MONOCYTES % (AUTO) 9 % (0-12); NEUTROPHILS # (AUTO) 3.2 X 10^3 (1.8-7.8); NEUTROPHILS % (AUTO) 50 % (42-75); PLATELET COUNT 233 10^3/uL (130-400); RED BLOOD COUNT 3.41 10^6/uL (4.35-5.85); RED CELL DISTRIBUTION WIDTH 14.7 % (10.0-14.5); WHITE BLOOD COUNT 6.3 10^3/uL (4.3-11.0)
[2016-06-15 05:25] LABS: ANION GAP 8 MMOL/L (5-14); BLOOD UREA NITROGEN 15 MG/DL (7-18); BUN/CREATININE RATIO 19; CALCIUM 8.5 MG/DL (8.5-10.1); CARBON DIOXIDE 14 MMOL/L (21-32); CHLORIDE 113 MMOL/L (98-107); CREATININE SERUM 0.77 MG/DL (0.60-1.30); GFR ESTIMATED > 60; GLUCOSE 77 MG/DL (70-105); PHOSPHORUS 1.2 MG/DL (2.3-4.7); POTASSIUM 4.3 MMOL/L (3.6-5.0); SODIUM 135 MMOL/L (135-145)
[2016-06-15] MEDS: POTASSIUM CL 10MEQ/50ML IVPB 50 ML IV SCH (06:00)
[2016-06-15] MEDS: NYSTATIN ORAL SUSP 5 ML UDC PO SCH ×5 (06:00→23:21)
[2016-06-15] MEDS: KCL 20 MEQ TAB (K-DUR) PO SCH (06:00)
--- NOTE | 2016-06-15 06:41 | Progress Note (SOAP) ---
Subjective Subjective/Events-last exam 55 yo F with improving DKA. Pt is complaining about abdominal pain but unable to describe it. Says she feels better- A little hysteric though where she will outburst screaming of abdominal pain then stop screaming and go back to sleep. Denies nausea/vomiting. Pt refusing heparin. Review of Systems General: No Chills, No Night Sweats HEENT: No Head Aches Pulmonary: No Dyspnea, No Cough Cardiovascular: No: Chest Pain, Palpitations Gastrointestinal: : Abdominal PainNo: Nausea, Vomiting Genitourinary: No Dysuria, No Frequency Musculoskeletal: No: neck pain Neurological: : Weakness Objective Exam Vital Signs Date Time Temp Pulse Resp B/P Pulse Ox O2 Delivery O2 Flow Rate FiO2 06/15/16 06:00 87 18 124/80 98 Room Air 06/15/16 05:00 85 18 108/71 98 Room Air 06/15/16 04:00 89 17 106/66 97 Room Air 06/15/16 04:00 97 Room Air 06/15/16 03:00 89 16 101/63 97 Room Air 06/15/16 02:18 98.0 06/15/16 02:00 96 19 96/64 95 Room Air 06/15/16 01:00 93 19 94/62 94 Room Air 06/15/16 01:00 93 06/15/16 00:00 96.6 103 14 115/72 95 Room Air 06/15/16 00:00 97 Room Air 06/14/16 23:00 112 25 104/84 96 Room Air 06/14/16 22:00 110 16 113/71 98 Room Air 06/14/16 21:00 112 14 108/87 100 Room Air 06/14/16 20:17 97 Room Air 06/14/16 20:00 98.0 108 21 112/68 97 Room Air 06/14/16 20:00 97 Room Air 06/14/16 19:00 108 06/14/16 19:00 108 30 83/61 99 Room Air 06/14/16 17:00 107 20 Room Air 06/14/16 16:00 98 Room Air 06/14/16 16:00 111 24 Room Air 06/14/16 14:00 117 13 102/76 98 Room Air 06/14/16 13:46 99 06/14/16 13:00 120 06/14/16 13:00 118 16 111/78 99 Room Air 06/14/16 11:00 98.1 116 18 118/90 99 Room Air 06/14/16 11:00 99 Room Air 06/14/16 10:48 121 20 99 06/14/16 08:43 98.1 124 20 105/79 96 I & O 06/15/16 07:00 Intake Total 3398 ml Output Total 550 ml Balance 2848 ml Capillary Refill : Less Than 3 Seconds General Appearance: No Apparent Distress WD/WN Mild Distress (when she complains of abdominal pain) HEENT: PERRL/EOMI Neck: Full Range of Motion Respiratory: Chest Non Tender Lungs Clear Normal Breath Sounds No Accessory Muscle Use No Respiratory Distress Cardiovascular: Regular Rate, Rhythm No Edema Gastrointestinal: normal bowel sounds non tender soft Extremity: Non Tender No Pedal Edema Neurologic/Psychiatric: Alert Normal Mood/Affect Skin: Warm/Dry Results Lab Laboratory Tests 06/14/16 08:52: Acetaminophen Level < 10L, Alanine Aminotransferase (ALT/SGPT) 14, Albumin 3.5, Alkaline Phosphatase 573H, Anion Gap 21H, Aspartate Amino Transf (AST/SGOT) 13, BUN/Creatinine Ratio 16, Basophils # (Auto) 0.1, Basophils (%) (Auto) 2, Blood Urea Nitrogen 27H, Calcium Level 9.1, Carbon Dioxide Level 9*L, Chloride Level 98, Creatinine 1.69H, Eosinophils # (Auto) 0.0, Eosinophils (%) (Auto) 0, Estimat Glomerular Filtration Rate 32, Glucose Level 746*H, Hematocrit 33L, Hemoglobin 11.5, Lymphocytes # (Auto) 2.7, Lymphocytes (%) (Auto) 38, Magnesium Level 1.6L, Mean Corpuscular Hemoglobin 29, Mean Corpuscular Hemoglobin Concent 35, Mean Corpuscular Volume 81, Mean Platelet Volume 11.4H, Monocytes # (Auto) 0.7, Monocytes (%) (Auto) 9, Neutrophils # (Auto) 3.7, Neutrophils (%) (Auto) 52 , Phosphorus Level 3.6, Platelet Count 248, Potassium Level 4.2, Red Blood Count 4.02L, Red Cell Distribution Width 14.8H, Salicylates Level < 5.0L, Serum Alcohol < 10, Sodium Level 128L, Total Bilirubin 0.4, Total Protein 7.2, White Blood Count 7.2 06/14/16 09:39: Alexandr Test POSITIVE, Arterial Blood Base Excess -16.7L, Arterial Blood HCO3 8*L , Arterial Blood Oxygen Saturation 99, Arterial Blood Partial Pressure CO2 17*L , Arterial Blood Partial Pressure O2 122H, Arterial Blood Total CO2 8.5L, Arterial Blood pH 7.29*L, Blood Gas Inspired Oxygen NO, Blood Gas Patient Temperature 97.7, Blood Gas Puncture Site RIGHT RADIAL, Blood Gas Ventilator Setting NO 06/14/16 12:30: Ur Tricyclic Antidepressants Screen POSITIVEH, Urine Amphetamines Screen NEGATIVE, Urine Bacteria TRACE, Urine Barbiturates Screen NEGATIVE, Urine Benzodiazepines Screen NEGATIVE, Urine Bilirubin NEGATIVE, Urine Cannabinoids Screen NEGATIVE, Urine Casts NONE, Urine Clarity CLEAR, Urine Cocaine Screen NEGATIVE, Urine Color YELLOW, Urine Crystals NONE, Urine Culture Indicated NO, Urine Glucose (UA) 4+H, Urine Ketones 4+H, Urine Leukocyte Esterase 1+H, Urine Methadone Screen NEGATIVE, Urine Methamphetamines Screen NEGATIVE, Urine Mucus NEGATIVE, Urine Nitrite NEGATIVE, Urine Opiates Screen NEGATIVE, Urine Oxycodone Screen NEGATIVE, Urine Phencyclidine Screen NEGATIVE, Urine Propoxyphene Screen NEGATIVE, Urine Protein 2+H, Urine RBC 0-2, Urine RBC (Auto ) 1+H, Urine Specific [place] 1.010L, Urine Squamous Epithelial Cells 2-5, Urine Urobilinogen NORMAL, Urine WBC RARE, Urine Yeast FEWH, Urine pH 6 06/14/16 12:40: Glucometer 356H 06/14/16 13:30: Anion Gap 14, BUN/Creatinine Ratio 19, Blood Urea Nitrogen 25H, Calcium Level 9.1, Carbon Dioxide Level 15L, Chloride Level 106, Creatinine 1.34H, Estimat Glomerular Filtration Rate 41, Glucose Level 253H, Potassium Level 3.2L, Sodium Level 135 06/14/16 13:51: Glucometer 251H 06/14/16 14:45: Glucometer 228H 06/14/16 16:57: Glucometer 205H 06/14/16 17:38: Glucometer 238H 06/14/16 18:52: Glucometer 214H 06/14/16 19:42: Glucometer 205H 06/14/16 21:20: Glucometer 124H, Anion Gap 9, BUN/Creatinine Ratio 23, Blood Urea Nitrogen 20H, Calcium Level 8.5, Carbon Dioxide Level 17L, Chloride Level 108H, Creatinine 0.86, Estimat Glomerular Filtration Rate > 60, Glucose Level 124H, Magnesium Level 1.6L, Potassium Level 3.4L, Sodium Level 134L 06/14/16 21:54: Glucometer 143H 06/14/16 22:29: Glucometer 214H 06/14/16 23:26: Glucometer 245H 06/15/16 00:29: Glucometer 272H 06/15/16 01:10: Anisocytosis SLIGHT, Band Neutrophils 0, Basophils # (Auto) 0.0, Basophils % ( Manual) 0, Basophils (%) (Auto) 0, Eosinophils # (Auto) 0.0, Eosinophils % ( Manual) 0, Eosinophils (%) (Auto) 0, Free Thyroxine 1.02, Hematocrit 27L, Hemoglobin 9.5L, Hypochromasia SLIGHT, Lactic Acid Level 1.6, Lymphocytes # ( Auto) 2.4, Lymphocytes % (Manual) 26, Lymphocytes (%) (Auto) 36, Mean Corpuscular Hemoglobin 28, Mean Corpuscular Hemoglobin Concent 35, Mean Corpuscular Volume 81, Mean Platelet Volume 10.5H, Microcytosis SLIGHT, Monocytes # (Auto) 0.7, Monocytes % (Manual) 12, Monocytes (%) (Auto) 10, Neutrophils # (Auto) 3.6, Neutrophils % (Manual) 62, Neutrophils (%) (Auto) 54, Platelet Count 215, Red Blood Count 3.35L, Red Cell Distribution Width 14.8H, Thyroid Stimulating Hormone (TSH) 0.61, White Blood Count 6.7 06/15/16 01:13: Glucometer 208H 06/15/16 02:16: Glucometer 168H 06/15/16 03:57: Glucometer 107 06/15/16 04:55: Anion Gap 8, BUN/Creatinine Ratio 19, Basophils # (Auto) 0.1, Basophils (%) ( Auto) 1, Blood Urea Nitrogen 15, Calcium Level 8.5, Carbon Dioxide Level 14L, Chloride Level 113H, Creatinine 0.77, Eosinophils # (Auto) 0.0, Eosinophils (%) (Auto) 0, Estimat Glomerular Filtration Rate > 60, Glucose Level 77, Hematocrit 28L, Hemoglobin 9.7L, Lymphocytes # (Auto) 2.6, Lymphocytes (%) (Auto) 40, Magnesium Level 2.0, Mean Corpuscular Hemoglobin 28, Mean Corpuscular Hemoglobin Concent 35, Mean Corpuscular Volume 81, Mean Platelet Volume 10.6H, Monocytes # (Auto) 0.6, Monocytes (%) (Auto) 9, Neutrophils # (Auto) 3.2, Neutrophils (%) (Auto) 50, Phosphorus Level 1.2L, Platelet Count 233, Potassium Level 4.3, Red Blood Count 3.41L, Red Cell Distribution Width 14.7H, Sodium Level 135, White Blood Count 6.3 06/15/16 05:48: Glucometer 148H Assessment/Plan Assessment/Plan Assess & Plan/Chief Complaint 55 yo F Weakness leading to a fall- CT head negative DKA- improved- anion gap closed High anion gap metabolic acidosis- resolved uncontrolled Diabetes Mellitus II with insulin dependence- hga1c 8.1 04/29/16 - will continue adjusting insulin - pt is noncompliant with diet and insulin regimen at home. Usually have good control of blood sugar inpatient as the variables of diet and insulin is controlled. acute renal insufficiency- due to DKA, dehydration- Cr 1.69 continue IVF- No contrast, NSAIDS. improved. Cystitis without hematuria-- rocephin 1g IV- culture pending Thrush- continue fluconazole, nystatin swish/spit x7days hypomagnesemia- replacing hypokalemia- replacing in IVF hypophosphatemia- replacing pseudohyponatremia resolved COPD- continue inhalers. Bipolar disorder- monitor her mental status- will slowly add back psych meds. DVT ppx: SCDs, Pt refusing Heparin Dispo: - I recommend intermediate placement due to her not being able to care for herself. Expect pt to recover from this DKA but overall her Prognosis is poor. Pt is admitted to nearly every 1.5-2weeks for either hypoglycemia, DKA, or altered mental status. She is going to end up dying in the near future if she continues down this path. Diagnosis/Problems: Clinical Quality Measures DVT/VTE Risk/Contraindication: Risk Factor Score Per Nursin RFS Level Per Nursing on Admit: 1=Low/No VTE PPX NALDO MARQUEZ MD Jun 15, 2016 06:41
[2016-06-15] MEDS: DEXTROSE 10% IV SOLUTION 1,000 ML IV SCH ×2 (07:45→16:55)
[2016-06-15] MEDS: FAMOTIDINE 20 MG (PEPCID) TABLET PO SCH (08:00)
[2016-06-15] MEDS: SODIUM PHOSPHATE INJ 15 MM in NS (IVPB) 100 ML IV SCH (08:01)
[2016-06-15] MEDS ORDERED: FUROSEMIDE 20 MG (LASIX) TAB PO SCH (09:00)
[2016-06-15] MEDS ORDERED: CATHETER FLUSH 10 ML SYR IV PRN (10:00)
[2016-06-15 11:10] LABS: ANION GAP 9 MMOL/L (5-14); BLOOD UREA NITROGEN 13 MG/DL (7-18); BUN/CREATININE RATIO 16; CALCIUM 8.6 MG/DL (8.5-10.1); CARBON DIOXIDE 14 MMOL/L (21-32); CHLORIDE 111 MMOL/L (98-107); CREATININE SERUM 0.82 MG/DL (0.60-1.30); GFR ESTIMATED > 60; GLUCOSE 130 MG/DL (70-105); POTASSIUM 4.3 MMOL/L (3.6-5.0); SODIUM 134 MMOL/L (135-145)
[2016-06-15] MEDS: GABAPENTIN 300 MG (NEURONTIN) CAP PO PRN ×2 (11:22→20:27)
--- NOTE | 2016-06-15 11:52 | Diagnostic Imaging Report ---
INDICATION: Diabetic ketoacidosis, head injury, urinary tract infection, ICU care. FINDINGS: A portable upright view of the chest is unchanged from yesterday. A right arm PICC line remains in good position. Lungs are clear. The heart, mediastinum and pulmonary vascularity are normal. IMPRESSION: Normal chest. Dictated by: Dictated on workstation # [id number]
[2016-06-15] MEDS ORDERED: inSUlin DETERMIR 1 UNIT/0.01 ML (LEVEMIR) CHARGE PER UNIT SQ NR ×2 (13:30→21:00)
[2016-06-15 14:51] LABS: ANION GAP 8 MMOL/L (5-14); BLOOD UREA NITROGEN 11 MG/DL (7-18); BUN/CREATININE RATIO 15; CALCIUM 8.1 MG/DL (8.5-10.1); CARBON DIOXIDE 14 MMOL/L (21-32); CHLORIDE 112 MMOL/L (98-107); CREATININE SERUM 0.73 MG/DL (0.60-1.30); GFR ESTIMATED > 60; GLUCOSE 93 MG/DL (70-105); SODIUM 134 MMOL/L (135-145)
[2016-06-15] MEDS: REGULAR inSUlin DRIP 250 UNITS/NS 250 ML IV SCH ×2 (15:03)
[2016-06-15] MEDS: fluCOnazole (DIFLUCAN) 100 MG TAB PO SCH (16:55)
[2016-06-15] MEDS: AMITRIPTYLINE 50 MG (ELAVIL) TAB PO SCH (20:23)
[2016-06-15] MEDS: ONDANSETRON 4 MG/2 ML (SDV) Z0FRAN IV PRN (20:23)
[2016-06-15 20:39] LABS: ANION GAP 8 MMOL/L (5-14); BLOOD UREA NITROGEN 10 MG/DL (7-18); BUN/CREATININE RATIO 11; CARBON DIOXIDE 14 MMOL/L (21-32); CHLORIDE 107 MMOL/L (98-107); CREATININE SERUM 0.87 MG/DL (0.60-1.30); GFR ESTIMATED > 60; GLUCOSE 390 MG/DL (70-105); PHOSPHORUS 2.4 MG/DL (2.3-4.7); POTASSIUM 4.8 MMOL/L (3.6-5.0); SODIUM 129 MMOL/L (135-145)
[2016-06-15] MEDS: inSUlin (REGULAR) HUMAN 1 UNIT/0.01 ML (CHARGE PER UNIT) SC SCH ×2 (20:39→23:26)
[2016-06-15] MEDS: SUCRALFATE 1 GM (CARAFATE) TAB PO SCH (21:00)
[2016-06-15] MEDS ORDERED: SODIUM PHOSPHATE INJ 15 MM in NS (IVPB) 100 ML IV ONE (21:00)
[2016-06-16] VITALS (14 sets, daily range): BP systolic 105–146; BP diastolic 59–84
[2016-06-16] MEDS: D5 1/2 NS W/KCL 20 MEQ/L 1,000 ML IV SCH (02:36)
[2016-06-16] MEDS: inSUlin (REGULAR) HUMAN 1 UNIT/0.01 ML (CHARGE PER UNIT) SC SCH (04:00)
[2016-06-16 04:19] LABS: BASOPHILS % (AUTO) 1 % (0-10); EOSINOPHILS % (AUTO) 1 % (0-10); LYMPHOCYTES # (AUTO) 2.3 X 10^3 (1.0-4.0); LYMPHOCYTES % (AUTO) 46 % (12-44); MEAN CORPUSCULAR HEMOGLOBIN 28 PG (25-34); MEAN CORPUSCULAR HGB CONC 35 G/DL (32-36); MEAN CORPUSCULAR VOLUME 82 FL (80-99); MEAN PLATELET VOLUME 10.9 FL (7.4-10.4); MONOCYTES # (AUTO) 0.4 X 10^3 (0.0-1.0); MONOCYTES % (AUTO) 9 % (0-12); NEUTROPHILS # (AUTO) 2.2 X 10^3 (1.8-7.8); NEUTROPHILS % (AUTO) 44 % (42-75); PLATELET COUNT 208 10^3/uL (130-400); RED BLOOD COUNT 3.15 10^6/uL (4.35-5.85); RED CELL DISTRIBUTION WIDTH 15.3 % (10.0-14.5)
[2016-06-16 04:45] LABS: ANION GAP 9 MMOL/L (5-14); BLOOD UREA NITROGEN 9 MG/DL (7-18); BUN/CREATININE RATIO 12; CARBON DIOXIDE 13 MMOL/L (21-32); CHLORIDE 111 MMOL/L (98-107); CREATININE SERUM 0.74 MG/DL (0.60-1.30); GFR ESTIMATED > 60; GLUCOSE 135 MG/DL (70-105); MAGNESIUM 1.1 MG/DL (1.8-2.4); PHOSPHORUS 2.5 MG/DL (2.3-4.7); POTASSIUM 4.5 MMOL/L (3.6-5.0); SODIUM 133 MMOL/L (135-145)
[2016-06-16] MEDS: 1/2 NS W/KCL 20 MEQ/L 1,000 ML IV SCH (04:52)
[2016-06-16] MEDS: DEXTROSE 10% IV SOLUTION 1,000 ML IV SCH (04:52)
[2016-06-16] MEDS: POTASSIUM CL 10MEQ/50ML IVPB 50 ML IV SCH (04:59)
[2016-06-16] MEDS: KCL 20 MEQ TAB (K-DUR) PO SCH (05:21)
[2016-06-16] MEDS: NYSTATIN ORAL SUSP 5 ML UDC PO SCH ×4 (05:21→23:51)
[2016-06-16] MEDS: SUCRALFATE 1 GM (CARAFATE) TAB PO SCH ×4 (05:21→20:13)
[2016-06-16] MEDS: cefTRIAXone INJECTION 1,000 MG in NORMAL SALINE (BAXTER MINI) 50 ML IV SCH (05:22)
[2016-06-16] MEDS: MAGNESIUM 1 GM/100 ML IVPB 100 ML IV SCH ×2 (05:22→08:49)
[2016-06-16] MEDS: SODIUM PHOSPHATE INJ 15 MM in NS (IVPB) 100 ML IV SCH (06:45)
[2016-06-16] MEDS ORDERED: NS 100 ML (IVPB) BAG IV ONE (08:00)
[2016-06-16] MEDS ORDERED: IOHEXOL 350 MG/ML 100 ML (OMNIPAQUE 350) VIAL IV ONE (08:00)
[2016-06-16] MEDS: FAMOTIDINE 20 MG (PEPCID) TABLET PO SCH (08:08)
[2016-06-16] MEDS: inSUlin DETERMIR 1 UNIT/0.01 ML (LEVEMIR) CHARGE PER UNIT SQ SCH ×2 (08:09→20:56)
--- NOTE | 2016-06-16 08:10 | Progress Note (SOAP) ---
Subjective Subjective/Events-last exam 55 yo F still complaining of abdominal pain- intermittent/worsens. Denies nausea, vomiting. This AM pt reports she will do inpt rehab but refused SNF placement. Pt recognized me as her doctor but forgot my name. Review of Systems General: No Chills, No Night Sweats HEENT: No Head Aches, No Visual Changes Pulmonary: No Dyspnea, No Cough Cardiovascular: No: Chest Pain, Palpitations Gastrointestinal: : Abdominal PainNo: Nausea, Vomiting Genitourinary: No Dysuria, No Frequency Musculoskeletal: No: neck pain Neurological: : Weakness Objective Exam Vital Signs Date Time Temp Pulse Resp B/P Pulse Ox O2 Delivery O2 Flow Rate FiO2 06/16/16 07:50 Nasal Cannula 2.00 06/16/16 06:00 97 20 137/81 97 Room Air 06/16/16 05:00 98 20 127/78 98 Room Air 06/16/16 04:11 97.6 Room Air 06/16/16 04:00 99 126/78 97 Room Air 06/16/16 03:55 99 Room Air 06/16/16 03:00 107 15 123/77 100 Room Air 06/16/16 02:00 104 22 130/83 98 Room Air 06/16/16 01:00 106 06/16/16 01:00 104 20 105/68 97 Room Air 06/16/16 00:00 109 14 129/81 97 Room Air 06/16/16 00:00 99 Room Air 06/15/16 23:35 Nasal Cannula 2.00 06/15/16 23:00 106 24 144/82 98 Room Air 06/15/16 22:15 97 Room Air 06/15/16 22:00 106 22 133/81 Room Air 06/15/16 21:00 107 25 126/73 99 Room Air 06/15/16 20:00 106 13 125/87 99 Room Air 06/15/16 20:00 99 Room Air 06/15/16 20:00 97.6 06/15/16 19:00 105 06/15/16 19:00 104 19 133/93 99 Room Air 06/15/16 18:00 94 22 140/80 98 Room Air 06/15/16 17:00 98 21 142/85 98 Room Air 06/15/16 16:00 101 16 127/78 99 Room Air 06/15/16 16:00 97 Room Air 06/15/16 16:00 97.5 Room Air 06/15/16 15:00 98 20 120/75 99 Room Air 06/15/16 14:00 97 23 135/80 99 Room Air 06/15/16 13:00 93 18 131/80 98 Room Air 06/15/16 13:00 96 06/15/16 12:00 97 16 123/84 98 Room Air 06/15/16 12:00 97 Room Air 06/15/16 12:00 97.5 Room Air 06/15/16 11:00 99 17 123/67 99 Room Air 06/15/16 10:00 96 14 127/84 96 Room Air 06/15/16 09:00 89 15 120/84 100 Room Air 06/15/16 08:20 99 Room Air I & O 06/16/16 07:00 Intake Total 3260 ml Output Total 4400 ml Balance -1140 ml Capillary Refill : Less Than 3 Seconds General Appearance: No Apparent Distress WD/WN Mild Distress (regarding abdominal pain) HEENT: PERRL/EOMI Neck: Full Range of Motion Supple Respiratory: Chest Non Tender Lungs Clear Normal Breath Sounds Cardiovascular: Regular Rate, Rhythm No Edema Gastrointestinal: normal bowel sounds non tender soft Extremity: Normal Capillary Refill Normal Inspection Non Tender Neurologic/Psychiatric: Alert Other (slow mentation) Skin: Normal Color Warm/Dry Results Lab Laboratory Tests 06/15/16 09:16: Glucometer 168H 06/15/16 10:15: Glucometer 139H 06/15/16 10:47: Anion Gap 9, BUN/Creatinine Ratio 16, Blood Urea Nitrogen 13, Calcium Level 8.6 , Carbon Dioxide Level 14L, Chloride Level 111H, Creatinine 0.82, Estimat Glomerular Filtration Rate > 60, Glucose Level 130H, Potassium Level 4.3, Sodium Level 134L 06/15/16 11:16: Glucometer 185H 06/15/16 12:12: Glucometer 208H 06/15/16 13:29: Glucometer 178H 06/15/16 14:19: Glucometer 148H 06/15/16 14:30: Anion Gap 8, BUN/Creatinine Ratio 15, Blood Urea Nitrogen 11, Calcium Level 8.1L , Carbon Dioxide Level 14L, Chloride Level 112H, Creatinine 0.73, Estimat Glomerular Filtration Rate > 60, Glucose Level 93, Potassium Level 4.0, Sodium Level 134L 06/15/16 15:25: Glucometer 119H 06/15/16 16:18: Glucometer 121H 06/15/16 20:17: Anion Gap 8, BUN/Creatinine Ratio 11, Blood Urea Nitrogen 10, Calcium Level 8.0L , Carbon Dioxide Level 14L, Chloride Level 107, Creatinine 0.87, Estimat Glomerular Filtration Rate > 60, Glucose Level 390H, Phosphorus Level 2.4, Potassium Level 4.8, Sodium Level 129L 06/15/16 20:30: Glucometer 370H 06/15/16 23:23: Glucometer 305H 06/16/16 01:47: Glucometer 208H 06/16/16 03:54: Glucometer 156H 06/16/16 04:00: Anion Gap 9, BUN/Creatinine Ratio 12, Basophils # (Auto) 0.0, Basophils (%) ( Auto) 1, Blood Urea Nitrogen 9, Calcium Level 8.0L, Carbon Dioxide Level 13L, Chloride Level 111H, Creatinine 0.74, Eosinophils # (Auto) 0.0, Eosinophils (%) (Auto) 1, Estimat Glomerular Filtration Rate > 60, Glucose Level 135H, Hematocrit 26L, Hemoglobin 8.9L, Lymphocytes # (Auto) 2.3, Lymphocytes (%) (Auto ) 46H, Magnesium Level 1.1L, Mean Corpuscular Hemoglobin 28, Mean Corpuscular Hemoglobin Concent 35, Mean Corpuscular Volume 82, Mean Platelet Volume 10.9H, Monocytes # (Auto) 0.4, Monocytes (%) (Auto) 9, Neutrophils # (Auto) 2.2, Neutrophils (%) (Auto) 44, Phosphorus Level 2.5, Platelet Count 208, Potassium Level 4.5, Red Blood Count 3.15L, Red Cell Distribution Width 15.3H, Sodium Level 133L, White Blood Count 5.0 Assessment/Plan Assessment/Plan Assess & Plan/Chief Complaint 55 yo F Weakness leading to a fall- CT head negative- PT/OT- to be evaluated for inpt rehab DKA- improved- anion gap closed High anion gap metabolic acidosis- resolved uncontrolled Diabetes Mellitus II with insulin dependence- hga1c 8.1 04/29/16 - will continue adjusting insulin - pt is noncompliant with diet and insulin regimen at home. Usually have good control of blood sugar inpatient as the variables of diet and insulin is controlled. acute renal insufficiency- due to DKA, dehydration- Cr 1.69 continue IVF- No contrast, NSAIDS. improved. Chronic pain- gabapentin 800mg qid prn= pt takes this dosing at home and reports that Dr. Torres started her on it. Thrush- continue fluconazole, nystatin swish/spit x7days abdominal pain- diffuse- obtaining a CT ab/pelvis- review of previous imaging - hepatic steatosis, splenomegaly- hypomagnesemia- replacing hypokalemia- replacing in IVF hypophosphatemia- replacing pseudohyponatremia resolved COPD- continue inhalers. Bipolar disorder- monitor her mental status- will slowly add back psych meds. DVT ppx: SCDs, Pt refusing Heparin Dispo: - I recommend alf placement due to her not being able to care for herself. Pt is agreeable to [facility] but refuses SNU. Pt is admitted to nearly every 1.5-2weeks for either hypoglycemia, DKA, or altered mental status. She is going to end up dying in the near future if she continues down this path. Case Management consult -to be evaluated for Inpt rehab Diagnosis/Problems: Clinical Quality Measures DVT/VTE Risk/Contraindication: Risk Factor Score Per Nursin RFS Level Per Nursing on Admit: 1=Low/No VTE PPX NALDO MARQUEZ MD Jun 16, 2016 08:10
[2016-06-16] MEDS: inSUlin ASPART (NovoLOG) 1 UNIT/0.01 ML (CHARGE PER UNIT) SC SCH ×4 (08:17→20:56)
--- NOTE | 2016-06-16 08:47 | Diagnostic Imaging Report ---
INDICATION: Head injury Portable chest 2:59 AM Right upper extremity PICC line tip projects over the SVC. Heart size and pulmonary vascularity are normal. Lungs are clear. There are no effusions or pneumothoraces. There is scoliosis of the thoracic spine convex to the right. IMPRESSION: No acute abnormalities in the chest Dictated by: Dictated on workstation # [id number]
--- NOTE | 2016-06-16 10:46 | Occupational Therapy Eval ---
OT Evaluation-General/PLF Medical Diagnosis Admission Date Jun 14, 2016 at 10:24 Onset Date: Jun 14, 2016 Therapy Diagnosis Therapy Diagnosis: DKA, weakness, fell at home Height/Weight Height (Feet): 5 Height (Inches): 8.00 Weight (Pounds): 206 Weight (Ounces): 1.0 Precautions Precautions/Isolations: Fall Prevention, Standard Precautions Safety Interventions: Bed Exit Alarm, Reorient-Attempt Weight Bear Status Weight Bearing Restriction: Weight Bearing/Tolerated Referral Referral Reason: Evaluation/Treatment Medical History Pertinent Medical History: Arthritis, COPD, DM, GERD, HTN, Renal Insufficiency , Smoking Current History Patient admitted from home due to a fall in which she could not get up. Family called ambulance and she was brought to ER and admitted. She reports today her blood sugar was high. Reviewed History: Yes Social History Home: Single Level Current Living Status: Other Family Entry Into Home: Stairs With Railing ADL-Prior Level of Function DME/Equipment: Bath Bench, Grab Bars DME/Equipment Comments Bars at toilet, walker. She was receiving the services of home care. Lives with multiple family members in the home. Occupation: Disabled Drive Self: Yes OT Current Status Subjective "Ok." Pain Numeric Pain Scale: 8 Location Body Site: Abdomen Pain Description: Acute Appearance Patient semi reclined in bed when OT/PT entered the room for the requested evaluation. Agreeable to assessment. Pleasant and cooperative. Reports she has noticed increased shortness of breath the last several days. She is a smoker with COPD. Mental Status/Objective Patient Orientation: Person, Place, Situation Attachments: IV Current Glasses/Contacts: No Hearing Aids: No Dentures/Partials: No Hand Dominance: Right Upper Extremity ROM Within functional limits. Upper Extremity Coordination Within normal limits. Upper Extremity Sensation Intact Upper Extremity Strength Within normal limits Edema: None ADL-Treatment ADL-Current She reports independent in her self care at home. She does not cook very much or participate in IADL as other family members have assumed this responsibility. Functional [place] Measure 0=Not Assessed/NA 4=Minimal Assistance 1=Total Assistance 5=Supervision or Setup 2=Maximal Assistance 6=Modified [place] 3=Moderate Assistance 7=Complete IndependenceIRFPAI Quality Coding Scale 6 Independent with activity with or without an assistive device 5 Patient requires set up or clean up by helper. Patient completes activity by themselves 4 Supervision or touching assist (CGA). [place] provide cues , steadying assist 3 The helper provides less than half the effort to complete the activity 2 The helper provides more than half the effort to complete the activity 1 Dependent. The helper does all the effort to complete an activity 7 Patient refused to complete or attempt activity 9 The patient did not perform the activity before the current illness or injury 88 Not attempted due to Medical conditions or safety concerns Patient not formally FIM at this time. She was ambulatory with the roller walker and stand by. She ambulated into the bathroom with stand by, seated self independently to void, used bath wipes to cleanse gregg area independently. Washed hands at the sink upon request independently. Ambulated back to bedroom and seated self in chair without problems. Education OT Patient Education: Other (Needs to sit up in the chair to avoid pneumonia.) Teaching Recipient: Patient OT Short Term Goals Short Term Goals Time Frame: Jun 23, 2016 Eating(FIM): 7 Grooming(FIM): 7 Bathing(FIM): 6 Upper Body Dressing(FIM): 6 Lower Body Dressing(FIM): 6 Toileting(FIM): 6 Transfers (B,C,W/C) (FIM): 6 Toilet/Commode Transfer(FIM): 6 Tub Transfer(FIM): 6 Shower Transfer(FIM): 6 1=Demonstrate adherence to instructed precautions during ADL tasks. 2=Patient will verbalize/demonstrate understanding of assistive devices/ modifications for ADL. 3=Patient will improve strength/tolerance for activity to enable patient to perform ADL's. OT Assistant Professor Goals Senior Living Goals Time Frame: 14 days Eating (FIM): 7 Grooming(FIM): 7 Bathing(FIM): 7 Upper Body Dressing(FIM): 7 Lower Body Dressing(FIM): 7 Toileting(FIM): 7 Transfers (B,C,W/C) (FIM): 7 Toilet/Commode Transfer(FIM): 7 Tub Transfer(FIM): 7 Shower Transfer(FIM): 7 1=Demonstrate adherence to instructed precautions during ADL tasks. 2=Patient will verbalize/demonstrate understanding of assistive devices/ modifications for ADL. 3=Patient will improve strength/tolerance for activity to enable patient to perform ADL's. OT Education/Plan Problem List/Assessment Assessment: Decreased Activ Tolerance Patient appeared short of breath during ambulation and with minimal participation in ADL. Questionable safety risk at home due to shortness of breath and reported weakness. Discharge Recommendations Plan/Recommendations: Continue POC Target Placement Home Patient/Family Goals Return prior living situation. Treatment Plan/Plan of Care Treatment,Training & Education: Yes Patient would benefit from OT for education, treatment and training to promote independence in ADL's, mobility, safety and/or upper extremity function for ADL' s. # of days/week Will see daily, length of stay, as needed Sunday. Rehab Potential: Guarded Time/GCodes Start Time: 10:05 Stop Time: 10:30 Total Time Billed (hr/min): 25 Billed Treatment Time Visit, ANTHONY Echevarria Codes Necessary: RIGO Benjamin OT Jun 16, 2016 10:46
--- NOTE | 2016-06-16 11:06 | Physical Therapy Evaluation ---
PT Evaluation-General Medical Diagnosis Admission Date Jun 14, 2016 at 10:24 Medical Diagnosis: DKA Onset Date: Jun 16, 2016 Therapy Diagnosis Therapy Diagnosis: weakness Height/Weight Height (Feet): 5 Height (Inches): 8.00 Weight (Pounds): 206 Weight (Ounces): 1.0 Precautions Precautions/Isolations: Fall Prevention, Standard Precautions Referral Physician: Alfonzo Reason for Referral: Evaluation/Treatment Medical History Pertinent Medical History: Arthritis, COPD, DM, GERD, HTN, Renal Insufficiency , Smoking Additional Medical History Frequent hospitalizations recently due to blood sugar issues and respiratory issues. Current History Admitted due to fall at home and inability to get up. Pt admitted with elevated blood sugar and DKA. Reviewed History: Yes Social History Home: Single Level Current Living Status: Other Family Entry Into Home: Stairs With Railing Prior/Core FIM Prior Level of Function Functional [place] Measure 0=Not Assessed/NA 4=Minimal Assistance 1=Total Assistance 5=Supervision or Setup 2=Maximal Assistance 6=Modified [place] 3=Moderate Assistance 7=Complete [place] Pt reports she was using a FWW at home. Pt reports she is often home alone and performs all self care unassisted. Pt reports she still drives. PT Evaluation-Current Subjective Agreeable to PT. No complaints at this time. Pleasant and cooperative Pain Numeric Pain Scale: 6 Location: Posterior Location Body Site: Back Pain Description: Ache, Pressure Pt/Family Goals Pt expresses that she desires to return home when she is functionally able. Objective Patient Orientation: Person, Confused (slight noted. ), Place, Time, Situation Problem Solving: Fair Attachments: IV ROM/Strength ROM Lower Extremities WNL Strenght Lower Extremities grossly 4/5 Integumentary/Posture Integumentary intact Bowel Incontinence: No Bladder Incontinence: No Posture rounded shoulders in standing; lacks full hip extension in standing; able to correct but her resting posture is forward flexed and rounded shoulders. Neuromuscular (Tone, Coordination, Reflexes) intact for functional activity Sensory Vision: Functional Hearing: Functional Hand Dominance: Right Sensation Right Lower Extremit: Intact Sensation Left Lower Extremity: Intact Transfers Functional [place] Measure 0=Not Assessed/NA 4=Minimal Assistance 1=Total Assistance 5=Supervision or Setup 2=Maximal Assistance 6=Modified [place] 3=Moderate Assistance 7=Complete [place] Transfers (B, C, W/C) (FIM): 5 Pt was able to perform all transfers at a SBA level with no physicial assist necessary. Recorded pt at a SBA level as this is the first time this clinician has seen the patient during this hospital stay. SBA indicated for safety purposes. Gait Mode of Locomotion: Walk Anticipated Mode of Locomotion: Walk Gait (FIM): 5 Distance (FIM): 3=150 ft Gait Level of Assist: 5 Gait Assistive Device: FWW Comments/Gait Description Rounded shoulders and forward flexed at the hips. No physical assist indicated , SBA only for safety purposes. Balance Sitting Static: Good Sitting Dynamic: Good Standing Static: Good Standing Dynamic: Good Treatment Pt transferred on/off toilet, performed gregg care and stood at sink to wash hands with no physical assist; she required supervision for safety but did not need help to complete. Functional mobility in room with turns and sidestepping with FWW with SBA. Pt up in chair with chair alarm activited post treatment. Assessment/Needs Pt presents with a complicated medical history and frequent readmissions for medical issues. Pt has a history of poorly managed diabetes and also experiences respiratory complications often. She does admit to smoking. Pt presents with a decrease in functional activity tolerance as well as becoming SOA with activity. She had no safety issues that presented during evaluaiton and treatment, but concern that she has diminished safety awareness and insight due to her poor self management of medical situation. She is able to complete mobility and transfer tasks without assist but concern lies within the diminished safety awareness presentation. Rehab Potential: Guarded PT Residential Goals Residential Goals PT Assistant Director Of Security Goals Time Frame: Jun 21, 2016 Transfers (B,C,W/C) (FIM): 6 Gait (FIM): 6 Gait distance (FIM): 3=150 ft Gait Assistive Device: FWW Goal is for patient to demonstrate that she is mod indep with functional mobility and improved safety awareness. PT Plan Problem List Problem List: Activity Tolerance, Functional Strength, Safety, Gait Treatment/Plan Treatment Plan: Continue Plan of Care Treatment Plan: Bed Mobility, Education, Functional Activity Fidel, Functional Strength, Gait, Safety, Therapeutic Exercise, Transfers Treatment Duration: Jun 21, 2016 # of days/week 5-6 Visits Per Week: 5-6 Safety Risks/Education Patient Education: Transfer Techniques, Safety Issues Teaching Recipient: Patient Teaching Methods: Demonstration, Discussion Response to Teaching: Reinforcement Needed Time/GCodes Time In: 1005 Time Out: 1030 Total Billed Treatment Time: 25 Total Billed Treatment visit EV 15 FA 10 Co treat with OT for comprehensive assessment of her mobility and self care skills. ALISSA BEASLEY PT Jun 16, 2016 11:06
--- NOTE | 2016-06-16 14:47 | Diagnostic Imaging Report ---
PROCEDURE: CT abdomen and pelvis with contrast. TECHNIQUE: Multiple contiguous axial images were obtained through the abdomen and pelvis after administration of intravenous contrast. INDICATION: Abdominal pain. 100 mL of Omnipaque 350 is administered intravenously. FINDINGS: There is minimal atelectasis in the right lung base. There is mild nodularity in the liver contour suggestive of early cirrhosis. There is minimal amount of perihepatic fluid seen. The portal vein is patent and is slightly dilated at 1.7 cm in caliber. This may relate to early portal hypertension. The gallbladder has been surgically removed. The spleen is mildly enlarged at 15 x 12.9 x 6.3 cm. The adrenals appear unremarkable. There is mild fat stranding seen around the pancreas may relate to pancreatitis without evidence of pancreatic necrosis or associated fluid collections. There is mild prominence of perihepatic lymph nodes including a 1.4 cm node along the common hepatic artery. The kidneys have symmetric enhancement and contrast excretion. There is no hydronephrosis. The abdominal aorta is normal in caliber. No paraaortic significantly enlarged lymph nodes seen. Surgical suture near the base of the cecum is likely related to prior appendectomy and surgical sutures in the pelvis appear to relate to prior hysterectomy. The urinary bladder appears unremarkable. There is no bowel obstruction. There is scoliosis in the lumbar spine with significant curvature, convex to the left and centered around L3 level. IMPRESSION: 1. There is peripancreatic fatty stranding concerning for mild pancreatitis. Correlate clinically and with pancreatic enzymes. Mildly enlarged peripancreatic lymph nodes are also seen. 2. There is suggestion of cirrhosis with minimal perihepatic fluid and mild enlargement of the spleen. Dictated by: Dictated on workstation # [id number]
[2016-06-16] MEDS: GABAPENTIN 400 MG (NEURONTIN) CAP PO PRN (16:08)
[2016-06-16] MEDS: HYDROcodone/APAP 7.5 MG/325 MG (LORTAB, LORCET PLUS) TABLET PO PRN (16:43)
[2016-06-16] MEDS: fluCOnazole (DIFLUCAN) 100 MG TAB PO SCH (17:19)
[2016-06-16] MEDS: LACTATED RINGERS 1,000 ML IV SCH (17:19)
[2016-06-16] MEDS: AMITRIPTYLINE 50 MG (ELAVIL) TAB PO SCH (20:13)
[2016-06-17] VITALS: BP 108/71
[2016-06-17] MEDS: LACTATED RINGERS 1,000 ML IV SCH ×3 (04:05→16:18)
[2016-06-17 04:12] VITALS: BP 116/69
[2016-06-17] MEDS: KCL 20 MEQ TAB (K-DUR) PO SCH (04:21)
[2016-06-17] MEDS: NYSTATIN ORAL SUSP 5 ML UDC PO SCH ×3 (05:20→17:25)
[2016-06-17] MEDS: cefTRIAXone INJECTION 1,000 MG in NORMAL SALINE (BAXTER MINI) 50 ML IV SCH (05:20)
[2016-06-17] MEDS: SUCRALFATE 1 GM (CARAFATE) TAB PO SCH ×4 (05:20→21:40)
[2016-06-17 05:46] LABS: BASOPHILS % (AUTO) 1 % (0-10); EOSINOPHILS # (AUTO) 0.1 10^3/uL (0.0-0.3); EOSINOPHILS % (AUTO) 1 % (0-10); LYMPHOCYTES % (AUTO) 48 % (12-44); MEAN CORPUSCULAR HEMOGLOBIN 29 PG (25-34); MEAN CORPUSCULAR HGB CONC 35 G/DL (32-36); MEAN CORPUSCULAR VOLUME 83 FL (80-99); MEAN PLATELET VOLUME 10.8 FL (7.4-10.4); MONOCYTES # (AUTO) 0.4 X 10^3 (0.0-1.0); MONOCYTES % (AUTO) 10 % (0-12); NEUTROPHILS # (AUTO) 1.7 X 10^3 (1.8-7.8); NEUTROPHILS % (AUTO) 40 % (42-75); PLATELET COUNT 199 10^3/uL (130-400); RED CELL DISTRIBUTION WIDTH 15.5 % (10.0-14.5); WHITE BLOOD COUNT 4.1 10^3/uL (4.3-11.0)
[2016-06-17 06:14] LABS: ALBUMIN 2.6 G/DL (3.2-4.5); ANION GAP 7 MMOL/L (5-14); BLOOD UREA NITROGEN 5 MG/DL (7-18); BUN/CREATININE RATIO 7; CALCIUM 8.5 MG/DL (8.5-10.1); CARBON DIOXIDE 18 MMOL/L (21-32); CHLORIDE 110 MMOL/L (98-107); CREATININE SERUM 0.75 MG/DL (0.60-1.30); GFR ESTIMATED > 60; GLUCOSE 222 MG/DL (70-105); LIPASE 525 U/L (8-78); MAGNESIUM 1.3 MG/DL (1.8-2.4); PHOSPHORUS 2.8 MG/DL (2.3-4.7); POTASSIUM 4.4 MMOL/L (3.6-5.0); SODIUM 135 MMOL/L (135-145)
[2016-06-17] MEDS: HYDROcodone/APAP 7.5 MG/325 MG (LORTAB, LORCET PLUS) TABLET PO PRN ×3 (06:21→22:38)
[2016-06-17] MEDS: inSUlin ASPART (NovoLOG) 1 UNIT/0.01 ML (CHARGE PER UNIT) SC SCH ×4 (06:27→21:42)
--- NOTE | 2016-06-17 06:45 | Progress Note (SOAP) ---
Subjective Subjective/Events-last exam 55 yo F with DKA- improving- now has abdominal pain due to pancreatitis- No overnight events- eating breakfast this AM. Denies nausea/vomiting/diarrhea. Pt does not feel like going home today due to abdominal pain and overall fatigue from frequent medical problems. Review of Systems General: No Chills, No Night Sweats HEENT: No Head Aches, No Visual Changes Pulmonary: No Dyspnea, No Cough Cardiovascular: No: Chest Pain, Palpitations Gastrointestinal: : Abdominal Pain (upper quadrants,)No: Nausea, Vomiting Genitourinary: No Dysuria, No Frequency Musculoskeletal: No: neck pain Neurological: : Weakness Objective Exam Vital Signs Date Time Temp Pulse Resp B/P Pulse Ox O2 Delivery O2 Flow Rate FiO2 06/17/16 04:12 96.6 87 18 116/69 97 Nasal Cannula 06/17/16 00:00 97.9 98 18 108/71 97 Nasal Cannula 2.00 06/16/16 21:00 Room Air 06/16/16 20:49 95 Room Air 06/16/16 20:19 98.4 103 16 118/70 95 Room Air 06/16/16 16:42 97.0 101 18 105/59 100 Room Air 06/16/16 12:00 98.2 96 22 113/79 98 Room Air 06/16/16 09:38 Room Air 06/16/16 09:38 97.2 100 18 119/67 100 Room Air 06/16/16 09:00 109 13 139/82 97 Room Air 06/16/16 08:00 98 Room Air 06/16/16 08:00 98.5 06/16/16 08:00 98 10 134/80 98 Room Air 06/16/16 07:50 Nasal Cannula 2.00 06/16/16 07:00 103 11 146/84 98 Room Air 06/16/16 07:00 98 I & O 06/17/16 07:00 Intake Total 2320 ml Output Total 950 ml Balance 1370 ml Capillary Refill : Less Than 3 Seconds General Appearance: No Apparent Distress WD/WN HEENT: PERRL/EOMI Neck: Full Range of Motion Respiratory: Chest Non Tender Lungs Clear Normal Breath Sounds Cardiovascular: Regular Rate, Rhythm No Edema Gastrointestinal: normal bowel sounds soft tenderness Extremity: Non Tender No Calf Tenderness Neurologic/Psychiatric: Alert Oriented x3 Normal Mood/Affect (back to near baseline) Skin: Warm/Dry Results Lab Laboratory Tests 06/16/16 08:08: Glucometer 368H 06/16/16 10:57: Glucometer 305H 06/16/16 16:04: Glucometer 108 06/16/16 18:15: Magnesium Level 1.6L 06/16/16 20:42: Glucometer 245H 06/17/16 05:40: Albumin 2.6L, Anion Gap 7, BUN/Creatinine Ratio 7, Basophils # (Auto) 0.0, Basophils (%) (Auto) 1, Blood Urea Nitrogen 5L, Calcium Level 8.5, Carbon Dioxide Level 18L, Chloride Level 110H, Creatinine 0.75, Eosinophils # (Auto) 0.1, Eosinophils (%) (Auto) 1, Estimat Glomerular Filtration Rate > 60, Glucose Level 222H, Hematocrit 25L, Hemoglobin 8.6L, Lipase 525H, Lymphocytes # (Auto) 2.0, Lymphocytes (%) (Auto) 48H, Magnesium Level 1.3L, Mean Corpuscular Hemoglobin 29, Mean Corpuscular Hemoglobin Concent 35, Mean Corpuscular Volume 83, Mean Platelet Volume 10.8H, Monocytes # (Auto) 0.4, Monocytes (%) (Auto) 10 , Neutrophils # (Auto) 1.7L, Neutrophils (%) (Auto) 40L, Phosphorus Level 2.8, Platelet Count 199, Potassium Level 4.4, Red Blood Count 3.00L, Red Cell Distribution Width 15.5H, Sodium Level 135, White Blood Count 4.1L Assessment/Plan Assessment/Plan Assess & Plan/Chief Complaint 55 yo F Weakness leading to a fall- CT head negative- PT/OT- to be evaluated for inpt rehab DKA- improved- anion gap closed uncontrolled Diabetes Mellitus II with insulin dependence- hga1c 8.1 04/29/16 - will continue adjusting insulin - pt is noncompliant with diet and insulin regimen at home. Usually have good control of blood sugar inpatient as the variables of diet and insulin is controlled. acute renal insufficiency- due to DKA, dehydration- resolved continue IVF- Avoid contrast, NSAIDS. Chronic pain- gabapentin 800mg qid prn= pt takes this dosing at home and reports that Dr. Torres started her on it. Thrush- continue fluconazole, nystatin swish/spit x7days Abdominal pain due to pancreatitis diffuse- CT ab/pelvis-06/16/16 pancreatitis - lipase elevated- IVF, pain control ADAT hypomagnesemia- replacing hypokalemia- replacing prn hypophosphatemia- improved COPD- continue inhalers. Bipolar disorder- monitor her mental status- will slowly add back psych meds. DVT ppx: SCDs, Pt refusing Heparin Dispo: - I recommend long term placement due to her not being able to care for herself. Pt is admitted to nearly every 1.5-2weeks for either hypoglycemia, DKA, or altered mental status. She is going to end up dying in the near future if she continues down this path. -Pt does not quality for Inpt Rehab- Pt refuses jail home placement. Pt will go home and continue her outpt PT. Possibly d/c 06/18/16 Diagnosis/Problems: Clinical Quality Measures DVT/VTE Risk/Contraindication: Risk Factor Score Per Nursin RFS Level Per Nursing on Admit: 1=Low/No VTE PPX NALDO MARQUEZ MD Jun 17, 2016 06:44
[2016-06-17] MEDS: MAGNESIUM 1 GM/100 ML IVPB 100 ML IV SCH ×6 (08:31→21:42)
[2016-06-17] MEDS: FAMOTIDINE 20 MG (PEPCID) TABLET PO SCH (08:32)
[2016-06-17] MEDS: inSUlin DETERMIR 1 UNIT/0.01 ML (LEVEMIR) CHARGE PER UNIT SQ SCH ×2 (08:33→21:41)
--- NOTE | 2016-06-17 09:57 | Physical Therapy Daily Note ---
PT Daily Note-Current Subjective Pt. in bed and agrees to therapy. Says she hopes to D/C tomorrow. Mental Status Patient Orientation: Person, Place, Time, Situation Transfers Functional [place] Measure 0=Not Assessed/NA 4=Minimal Assistance 1=Total Assistance 5=Supervision or Setup 2=Maximal Assistance 6=Modified [place] 3=Moderate Assistance 7=Complete IndependenceIRFPAI Quality Coding Scale 6 Independent with activity with or without an assistive device 5 Patient requires set up or clean up by helper. Patient completes activity by themselves 4 Supervision or touching assist (CGA). [place] provide cues , steadying assist 3 The helper provides less than half the effort to complete the activity 2 The helper provides more than half the effort to complete the activity 1 Dependent. The helper does all the effort to complete an activity 7 Patient refused to complete or attempt activity 9 The patient did not perform the activity before the current illness or injury 88 Not attempted due to Medical conditions or safety concerns Transfers (B, C, W/C) (FIM): 5 Supine to/from Sit: 6 Sit to/from Stand: 5 toilet transfer: SBA Gait Training Gait (FIM): 4 Distance (FIM): 3=150 ft Distance: 230 ft Gait Level of Assist: 4 Gait Persons Needed: 1 Gait Assistive Device: FWW pt. had 1 mild LOB needing min A from therapist to correct Treatments transfers, gait, toileting Assessment Current Status: Good Progress Pt. did well with transfers and gait, slight unsteadiness on 1 occasion during gait with therapist assist to correct. Pt. up in chair post session with chair alarm set, call light and all needs met. PT Short Term Goals Short Term Goals Transfers (B,C,W/C) (FIM): 6 PT Senior Care Goals Television Script Writer Goals PT Television Script Writer Goals Time Frame: Jun 21, 2016 Transfers (B,C,W/C) (FIM): 6 Gait (FIM): 6 Gait distance (FIM): 3=150 ft Gait Assistive Device: FWW PT Plan Treatment/Plan Treatment Plan: Continue Plan of Care Treatment Plan: Bed Mobility, Education, Functional Activity Fidel, Functional Strength, Gait, Safety, Therapeutic Exercise, Transfers Treatment Duration: Jun 21, 2016 Visits Per Week: 5-6 Time/GCodes Time In: 932 Time Out: 1048 Total Billed Treatment Time: 16 Total Billed Treatment 1, GT 16' PETRONA PALMA PT Jun 17, 2016 09:57
[2016-06-17 11:46] VITALS: BP 87/62
[2016-06-17 16:00] VITALS: BP 100/67
[2016-06-17] MEDS: fluCOnazole (DIFLUCAN) 100 MG TAB PO SCH (17:25)
[2016-06-17 19:50] VITALS: BP 106/67
[2016-06-17] MEDS: AMITRIPTYLINE 50 MG (ELAVIL) TAB PO SCH (21:40)
[2016-06-17] MEDS: GABAPENTIN 400 MG (NEURONTIN) CAP PO PRN (21:41)
[2016-06-18 00:05] VITALS: BP 105/59
[2016-06-18] MEDS: NYSTATIN ORAL SUSP 5 ML UDC PO SCH ×4 (00:32→16:37)
[2016-06-18] MEDS: LACTATED RINGERS 1,000 ML IV SCH (02:36)
[2016-06-18] MEDS: cefTRIAXone INJECTION 1,000 MG in NORMAL SALINE (BAXTER MINI) 50 ML IV SCH (05:00)
[2016-06-18 05:17] LABS: BASOPHILS % (AUTO) 0 % (0-10); EOSINOPHILS # (AUTO) 0.1 10^3/uL (0.0-0.3); EOSINOPHILS % (AUTO) 2 % (0-10); LYMPHOCYTES # (AUTO) 1.8 X 10^3 (1.0-4.0); LYMPHOCYTES % (AUTO) 41 % (12-44); MEAN CORPUSCULAR HEMOGLOBIN 28 PG (25-34); MEAN CORPUSCULAR HGB CONC 34 G/DL (32-36); MEAN CORPUSCULAR VOLUME 84 FL (80-99); MEAN PLATELET VOLUME 10.6 FL (7.4-10.4); MONOCYTES # (AUTO) 0.4 X 10^3 (0.0-1.0); MONOCYTES % (AUTO) 9 % (0-12); NEUTROPHILS # (AUTO) 2.1 X 10^3 (1.8-7.8); NEUTROPHILS % (AUTO) 47 % (42-75); PLATELET COUNT 189 10^3/uL (130-400); RED BLOOD COUNT 2.94 10^6/uL (4.35-5.85); RED CELL DISTRIBUTION WIDTH 15.7 % (10.0-14.5); WHITE BLOOD COUNT 4.5 10^3/uL (4.3-11.0)
[2016-06-18] MEDS: GABAPENTIN 400 MG (NEURONTIN) CAP PO PRN ×2 (05:31→16:37)
[2016-06-18] MEDS: SUCRALFATE 1 GM (CARAFATE) TAB PO SCH ×4 (05:32→20:17)
[2016-06-18 05:34] LABS: ANION GAP 8 MMOL/L (5-14); BLOOD UREA NITROGEN 6 MG/DL (7-18); BUN/CREATININE RATIO 8; CALCIUM 8.5 MG/DL (8.5-10.1); CARBON DIOXIDE 21 MMOL/L (21-32); CHLORIDE 106 MMOL/L (98-107); CREATININE SERUM 0.78 MG/DL (0.60-1.30); GFR ESTIMATED > 60; GLUCOSE 227 MG/DL (70-105); MAGNESIUM 1.8 MG/DL (1.8-2.4); PHOSPHORUS 3.4 MG/DL (2.3-4.7); POTASSIUM 4.5 MMOL/L (3.6-5.0); SODIUM 135 MMOL/L (135-145)
[2016-06-18] MEDS: inSUlin ASPART (NovoLOG) 1 UNIT/0.01 ML (CHARGE PER UNIT) SC SCH ×4 (06:17→21:17)
[2016-06-18] MEDS: HYDROcodone/APAP 7.5 MG/325 MG (LORTAB, LORCET PLUS) TABLET PO PRN ×2 (07:06→16:18)
--- NOTE | 2016-06-18 07:22 | Progress Note (SOAP) ---
Subjective Subjective/Events-last exam 55 yo female with abdominal pain- Pt reports her abdominal pain is a little better- she is not nauseated or vomiting. Tolerating PO okay. Reports she has not had a bowel movement in 8 days. Chart review from nursing says 1 bowel movement yesterday. Pt not quite ready to go home due to her abdominal pain not under control. Review of Systems General: No Chills, No Night Sweats HEENT: No Head Aches, No Visual Changes Pulmonary: No Dyspnea, No Cough Cardiovascular: No: Chest Pain, Palpitations Gastrointestinal: : Abdominal PainNo: Nausea, Vomiting Genitourinary: No Dysuria, No Frequency Musculoskeletal: No: neck pain, shoulder pain Neurological: : Weakness Objective Exam Vital Signs Date Time Temp Pulse Resp B/P Pulse Ox O2 Delivery O2 Flow Rate FiO2 06/18/16 00:05 97.6 93 20 105/59 97 Room Air 06/17/16 19:50 97.4 99 20 106/67 99 Room Air 06/17/16 16:00 97.5 91 20 100/67 97 Room Air 06/17/16 11:46 99.6 100 19 87/62 96 Room Air 06/17/16 09:00 Room Air I & O 06/18/16 07:00 Intake Total 4022 ml Output Total 3500 ml Balance 522 ml Capillary Refill : Less Than 3 SecondsLess Than 3 Seconds General Appearance: Mild Distress HEENT: PERRL/EOMI Neck: Full Range of Motion Non Tender Supple Respiratory: Chest Non Tender Lungs Clear Normal Breath Sounds Cardiovascular: Regular Rate, Rhythm Gastrointestinal: normal bowel soundsNo abnormal bowel sounds, No distended, No guarding, No rebound, tenderness (epigastric- across her abdomen. ) Extremity: Normal Capillary Refill Normal Range of Motion Neurologic/Psychiatric: Alert Oriented x3 No Motor/Sensory Deficits Normal Mood/Affect Skin: Warm/Dry Results Lab Laboratory Tests 06/17/16 11:04: Glucometer 291H 06/17/16 15:55: Glucometer 256H 06/17/16 19:35: Magnesium Level 1.7L 06/17/16 20:36: Glucometer 155H 06/18/16 05:00: Anion Gap 8, BUN/Creatinine Ratio 8, Basophils # (Auto) 0.0, Basophils (%) (Auto ) 0, Blood Urea Nitrogen 6L, Calcium Level 8.5, Carbon Dioxide Level 21, Chloride Level 106, Creatinine 0.78, Eosinophils # (Auto) 0.1, Eosinophils (%) ( Auto) 2, Estimat Glomerular Filtration Rate > 60, Glucose Level 227H, Hematocrit 25L, Hemoglobin 8.3L, Lymphocytes # (Auto) 1.8, Lymphocytes (%) (Auto ) 41, Magnesium Level 1.8, Mean Corpuscular Hemoglobin 28, Mean Corpuscular Hemoglobin Concent 34, Mean Corpuscular Volume 84, Mean Platelet Volume 10.6H, Monocytes # (Auto) 0.4, Monocytes (%) (Auto) 9, Neutrophils # (Auto) 2.1, Neutrophils (%) (Auto) 47, Phosphorus Level 3.4, Platelet Count 189, Potassium Level 4.5, Red Blood Count 2.94L, Red Cell Distribution Width 15.7H, Sodium Level 135, White Blood Count 4.5 Assessment/Plan Assessment/Plan Assess & Plan/Chief Complaint 55 yo F Abdominal pain due to pancreatitis diffuse- CT ab/pelvis-06/16/16 pancreatitis - lipase elevated- IVF, pain control ADAT Weakness leading to a fall- CT head negative- will continue inpt PT- has PT as outpt DKA- improved- anion gap closed uncontrolled Diabetes Mellitus II with insulin dependence- hga1c 8.1 04/29/16 - will continue adjusting insulin - pt is noncompliant with diet and insulin regimen at home. Usually have good control of blood sugar inpatient as the variables of diet and insulin is controlled. acute renal insufficiency- due to DKA, dehydration- resolved continue IVF- Avoid contrast, NSAIDS. Chronic pain- gabapentin 800mg qid prn= pt takes this dosing at home and reports that Dr. Torres started her on it. Thrush- continue fluconazole, nystatin swish/spit x7days hypomagnesemia- replacing starting po replacement hypokalemia- replacing prn hypophosphatemia- improved COPD- continue inhalers. Bipolar disorder- monitor her mental status- will slowly add back psych meds. constipation- miralax DVT ppx: SCDs, Pt refusing Heparin Dispo: - I recommend usp placement due to her not being able to care for herself. Pt is admitted to nearly every 1.5-2weeks for either hypoglycemia, DKA, or altered mental status. She is going to end up dying in the near future if she continues down this path. -Pt does not quality for Inpt Rehab- Pt refuses prison home placement. Pt will go home and continue her outpt PT. Possibly d/c 06/19/16 - need to get her over this bout of pancreatitis Diagnosis/Problems: Clinical Quality Measures DVT/VTE Risk/Contraindication: Risk Factor Score Per Nursin RFS Level Per Nursing on Admit: 1=Low/No VTE PPX NALDO MARQUEZ MD Jun 18, 2016 07:21
[2016-06-18 08:00] VITALS: BP 97/57
[2016-06-18] MEDS: MAGNESIUM OXIDE (MAG-OX)400 MG TAB PO SCH ×2 (08:41→16:37)
[2016-06-18] MEDS: FAMOTIDINE 20 MG (PEPCID) TABLET PO SCH (08:41)
[2016-06-18] MEDS: POLYETHYLENE GLYCOL 17 GM (MIRALAX) PACK PO SCH ×2 (08:41→20:17)
[2016-06-18] MEDS: inSUlin DETERMIR 1 UNIT/0.01 ML (LEVEMIR) CHARGE PER UNIT SQ SCH ×2 (08:42→21:16)
[2016-06-18] MEDS: fluCOnazole (DIFLUCAN) 100 MG TAB PO SCH (16:18)
[2016-06-18 16:56] VITALS: BP 107/57
[2016-06-18] MEDS: AMITRIPTYLINE 50 MG (ELAVIL) TAB PO SCH (20:17)
[2016-06-19] VITALS: BP 117/61
[2016-06-19] MEDS: GABAPENTIN 400 MG (NEURONTIN) CAP PO PRN ×2 (00:04→08:02)
[2016-06-19] MEDS: NYSTATIN ORAL SUSP 5 ML UDC PO SCH ×3 (00:05→11:44)
[2016-06-19] MEDS: cefTRIAXone INJECTION 1,000 MG in NORMAL SALINE (BAXTER MINI) 50 ML IV SCH (04:27)
[2016-06-19] MEDS: HYDROcodone/APAP 7.5 MG/325 MG (LORTAB, LORCET PLUS) TABLET PO PRN (04:27)
[2016-06-19 04:40] LABS: BASOPHILS # (AUTO) 0.1 10^3/uL (0.0-0.1); BASOPHILS % (AUTO) 1 % (0-10); EOSINOPHILS # (AUTO) 0.1 10^3/uL (0.0-0.3); EOSINOPHILS % (AUTO) 2 % (0-10); LYMPHOCYTES # (AUTO) 2.1 X 10^3 (1.0-4.0); LYMPHOCYTES % (AUTO) 42 % (12-44); MEAN CORPUSCULAR HEMOGLOBIN 28 PG (25-34); MEAN CORPUSCULAR HGB CONC 34 G/DL (32-36); MEAN CORPUSCULAR VOLUME 85 FL (80-99); MEAN PLATELET VOLUME 10.1 FL (7.4-10.4); MONOCYTES # (AUTO) 0.5 X 10^3 (0.0-1.0); MONOCYTES % (AUTO) 9 % (0-12); NEUTROPHILS # (AUTO) 2.4 X 10^3 (1.8-7.8); NEUTROPHILS % (AUTO) 46 % (42-75); PLATELET COUNT 184 10^3/uL (130-400); RED BLOOD COUNT 2.99 10^6/uL (4.35-5.85); WHITE BLOOD COUNT 5.1 10^3/uL (4.3-11.0)
[2016-06-19 04:55] LABS: ALANINE AMINOTRANSFERASE 10 U/L (0-55); ALBUMIN 2.6 G/DL (3.2-4.5); ANION GAP 10 MMOL/L (5-14); ASPARTATE AMINO TRANSFERASE 26 U/L (5-34); BILIRUBIN,DIRECT 0.1 MG/DL (0.0-0.3); BILIRUBIN,INDIRECT 0.1 MG/DL; BILIRUBIN,TOTAL 0.2 MG/DL (0.1-1.0); BLOOD UREA NITROGEN 9 MG/DL (7-18); BUN/CREATININE RATIO 12; CALCIUM 8.4 MG/DL (8.5-10.1); CARBON DIOXIDE 22 MMOL/L (21-32); CHLORIDE 104 MMOL/L (98-107); CREATININE SERUM 0.76 MG/DL (0.60-1.30); GFR ESTIMATED > 60; GLUCOSE 146 MG/DL (70-105); MAGNESIUM 1.2 MG/DL (1.8-2.4); PHOSPHORUS 4.3 MG/DL (2.3-4.7); POTASSIUM 4.4 MMOL/L (3.6-5.0); SODIUM 136 MMOL/L (135-145); TOTAL PROTEIN 5.1 G/DL (6.4-8.2)
[2016-06-19] MEDS: SUCRALFATE 1 GM (CARAFATE) TAB PO SCH ×2 (05:30→10:22)
[2016-06-19] MEDS: inSUlin ASPART (NovoLOG) 1 UNIT/0.01 ML (CHARGE PER UNIT) SC SCH ×2 (05:31→11:44)
[2016-06-19 08:01] VITALS: BP 108/61
[2016-06-19] MEDS: MAGNESIUM OXIDE (MAG-OX)400 MG TAB PO SCH (08:02)
[2016-06-19] MEDS: FAMOTIDINE 20 MG (PEPCID) TABLET PO SCH (08:02)
[2016-06-19] MEDS: inSUlin DETERMIR 1 UNIT/0.01 ML (LEVEMIR) CHARGE PER UNIT SQ SCH (08:03)
[2016-06-19] MEDS ORDERED: MAGNESIUM 1 GM/100 ML IVPB 400 ML IV ONE (08:57)
[2016-06-19] MEDS: MAGNESIUM 1 GM/100 ML IVPB 100 ML IV SCH ×3 (09:09→10:03)
--- NOTE | 2016-06-19 09:23 | Discharge Summary ---
Diagnosis/Chief Complaint Date of Admission Jun 14, 2016 at 10:24 am Date of Discharge June 19, 2016 Discharge Date: Admission Diagnosis Admission Diagnosis 55 yo F Weakness leading to a fall- CT head negative DKA- protocol, insulin gtts High anion gap metabolic acidosis- correcting DKA uncontrolled Diabetes Mellitus II with insulin dependence- hga1c 8.1 04/29/16 - will continue adjusting insulin after DKA episode is resolved. acute renal insufficiency- due to DKA, dehydration- Cr 1.69 continue IVF- No contrast, NSAIDS. Cystitis without hematuria-- rocephin 1g IV Thrush- continue fluconazole, nystatin swish/spit hypomagnesemia-1.6 replacing hypokalemia- replacing in IVF when blood sugar starts going down. pseudohyponatremia due to DKA.- monitor COPD- continue inhalers. Bipolar disorder- continue home meds. Dispo: DKA protocol, monitor in ICU I did tell pt today in ER that with these frequent hospitalizations I would recommend long term placement because it is imminent that she will one of these times. Expect pt to recover from this DKA but overall her Prognosis is poor. Discharge Diagnosis Abdominal pain due to pancreatitis- improved Weakness leading to a fall- DKA- resolved uncontrolled Diabetes Mellitus II with insulin dependence- improved acute renal insufficiency- resolved Chronic pain- Thrush- hypomagnesemia- hypokalemia- hypophosphatemia- COPD- Bipolar disorder- constipation- Reason Hospital Visit 55 yo Female well known to me from clinic and inpatient stays-- Pt has history of multiple inpatient stays for DKA, hypoglycemia, altered mental status. Admitted for DKA today- Pt reports she stood up at home and fell backwards hitting her head. No loss of consciousness. Pt reports for past week she has been trying to get her blood sugar under control- meter keeps reading high- unable to get blood sugar down with sliding scale. Mouth sores- x 2-3 days- white areas on lower lip, tongue, throat that are raw and painful. Pt has lost 10# in the past 2 weeks due to decreased appetite and now mouth pain. Has polydipsia, denies polyuria. Pt was seen at my clinic yesterday for hyperglycemia, mouth sores and generalized weakness- I sent her to the ER via ambulance and she was evaluated - Blood sugars were down to 200s when she left the ER yesterday evening- She was given insulin injections, 2L NS IVF, rocephin. She was dx with DKA, thrush and UTI yesterday - sent home with her SSI, fluconazole. As above pt returned to the ER this AM via EMS because of her continued weakness and now a fall. She reports her blood sugar was 300s this AM. 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 -Otherwise pt reports doing alright mentally. Denies SI, HI. -Endorses that general health issues are getting her down. -No LOC episodes as far as she is aware of. -Does go to outpatient PT twice weekly. Discharge Summary Hospital Course Hospital Course 55-year-old female admitted to the ICU for diabetic ketoacidosis. She was started on insulin drip and DKA protocol followed. On day 2 of admission the insulin drip was discontinued but it was noted her bicarbonate level was low. Her anion gap metabolic acidosis was resolved. Patient was continued on subcutaneous insulin. Patient was transferred to fourth floor as she was deemed stable to get out of the ICU. Patient did continue to complain of abdominal pain. A CT abdomen and pelvis was ordered that did demonstrate pancreatitis. She was placed on lactated Ringer IV fluids and her diet was allowed to be advanced as tolerated. Pain was controlled with hydrocodone/ apap. patient's pancreatitis improved over the next couple days as did her bicarbonate with the lactated Ringer's. IV fluids were discontinued. it was noted during this hospitalization patient had low magnesium low potassium. Both of which were replaced IV and by mouth. She will continue magnesium as an outpatient. As for patient's thrush it is greatly improved with fluconazole and nystatin. She'll complete both as an outpatient. As for her weakness she will continue physical therapy as an outpatient. Patient is to start taking MiraLAX for her constipation. Physical therapy and occupational therapy evaluated patient for possible rehabilitation placement but she did not qualify. I suggested to the patient to be placed in an assisted-living facility as her hospital admissions are too frequent and they're constantly either hypoglycemia or hyperglycemia or altered mental status. I have had multiple discussions with patient regarding that she is going to in the near future due to the previous mentioned reasons. Patient declines admission to the assisted living and would like to return home. Patient was deemed stable for discharge and was discharged to home. She'll follow-up with [facility] in 1 week. Procedures None. Discharge Physical Examination Allergies: Coded Allergies: No Known Drug Allergies (Unverified , 11/24/09) Vitals & I&Os Vital Signs Date Time Temp Pulse Resp B/P Pulse Ox O2 Delivery O2 Flow Rate FiO2 06/19/16 14:00 76 18 108/61 90 2.00 06/19/16 09:30 Room Air 06/19/16 08:01 97.2 General Appearance: Alert, Oriented X3 HEENT: Atraumatic Respiratory: Clear to Auscultation Cardiovascular: Regular Rate Abdominal: Normal Bowel Sounds, Soft Extremities: No Clubbing Skin: No Rashes Neuro: Strength at 5/5 X4 Ext Discharge Home Medications Reviewed and agree with Discharge Medication list on patient's Discharge Instruction sheet Condition at Discharge Stable Instructions to Patient/Family Please see electronic discharge instructions given to patient. Clinical Quality Measures DVT/VTE Risk/Contraindication: Risk Factor Score Per Nursin RFS Level Per Nursing on Admit: 1=Low/No VTE NALDO MARTINEZ MD Jun 19, 2016 09:23 Instruction sheet Instructions to Patient/Family Please see electonic discharge instructions given to patient. Clinical Quality Measures DVT/VTE Risk/Contraindication: Risk Factor Score Per Nursin RFS Level Per Nursing on Admit: 1=Low/No VTE NALDO MARTINEZ MD Jun 19, 2016 09:23
[2016-06-19] MEDS ORDERED: HYDR-3816 PO (09:30)
[2016-06-19] MEDS ORDERED: INSU100I29 SQ (09:30)
[2016-06-19] MEDS ORDERED: MAGN400T6 PO (09:30)
[2016-06-19] MEDS ORDERED: POLYETHYLENE GLYCOL 17 GM (MIRALAX) PACK PO PRN (09:30)
--- NOTE | 2016-06-19 09:34 | Discharge Inst-Simple/Standard ---
Discharge Inst-Standard Discharge Medications New, Converted or Re-Newed RX: Other (sent to pharmacy and on chart.) Patient Instructions/Follow Up Plan of Care/Instructions/FU: Will finish fluconazole for oral thrush 06/24/16 Continue outpatient PT Continue magnesium tablets. Activity as Tolerated: Yes Discharge Diet: Eat Small Frequent Meals, ADA Diet Return to The Hospital For: hypoglycemia, hyperglycemia, AMS fever other concerns NALDO MARQUEZ MD Jun 19, 2016 09:34
--- NOTE | 2016-06-19 10:35 | Physical Therapy Progress Note ---
Therapy Progress Note Pt refused PT this morning due to being discharged today and she wanted to rest. Confirmed per nursing, pt is supposed to discharge today. 1 visit (9:55-10:03) NED CORBIN PTA Jun 19, 2016 10:35
[2016-06-19 14:00] VITALS: BP 108/61
== END 2016-06-19 14:20 | disposition home or self-care (01) | DRG 637 ==
LOC: EDUNIT# 08:43 → ER 08:44 → ICU 10:24 → 4TH 06-16 09:37
PROVIDERS: ADMIT Family Medicine; ATTEND Family Medicine
DX: E13.10 Other specified diabetes mellitus with ketoacidosis without coma (principal); E11.65 Type 2 diabetes mellitus with hyperglycemia; E87.2 Acidosis; N28.9 Disorder of kidney and ureter, unspecified; K85.90 Acute pancreatitis without necrosis or infection, unspecified; E86.0 Dehydration; N30.90 Cystitis, unspecified without hematuria; Z79.4 Long term (current) use of insulin; B37.0 Candidal stomatitis; E83.42 Hypomagnesemia; E87.6 Hypokalemia; J44.9 Chronic obstructive pulmonary disease, unspecified; S09.90XA Unspecified injury of head, initial encounter; F31.9 Bipolar disorder, unspecified; W19.XXXA Unspecified fall, initial encounter; Y99.8 Other external cause status; Y92.019 Unspecified place in single-family (private) house as the place of occurrence of the external cause; F17.210 Nicotine dependence, cigarettes, uncomplicated; E78.00 Pure hypercholesterolemia, unspecified; I10 Essential (primary) hypertension; K21.9 Gastro-esophageal reflux disease without esophagitis; M81.0 Age-related osteoporosis without current pathological fracture; M19.90 Unspecified osteoarthritis, unspecified site; E83.39 Other disorders of phosphorus metabolism; K59.09 Other constipation
CPT/HCPCS: 36415; 36569; 70450; 71010; 72125; 74177; 76937; 80048; 80053; 80069; 80076; 80306; 80320; 80329; 81000; 82805; 82962; 83605; 83690; 83735; 84100; 84439; 84443; 85025; 94760; 96361; 96374

== ENCOUNTER 2016-06-20 10:36 | Outpatient (RCR) | payer MEDICAID ==
--- OUTSIDE RECORDS SUMMARY | 2016-05-24 10:02 | XMS REPORT | Continuity of Care Document ---
Author Author [facility] Organization [facility] Address Unknown Phone Unavailable Care Team Providers Care Colon Therapist Name Role Phone Burt Rivera PCP [phone] Source Comments Some departments are not documenting in the electronic medical record. If you do not see the information that you expected, contact Release of Information in the Health Information Management department at [phone] for further assistance in locating additional records.[facility] Active Allergies and Adverse Reactions No Known Allergies Current Medications Prescription Sig. Disp. Refills Start End Date Status Date glimepiride (AMARYL) 4 mg Take 4 mg by mouth daily Active tablet with breakfast. metFORMIN (GLUCOPHAGE) Take 500 mg by mouth Active 500 mg tablet twice daily. Active Problems Not on file Social History Tobacco Use Types Packs/Day Years Used Date Smoker, Current Status 1.5 Unknown Last Filed Vital Signs Vital Sign Reading Time Taken Blood Pressure 152/96 01/22/2007 2:17 PM CDT Pulse 80 01/22/2007 2:17 PM CDT Temperature 36.7 C (98.1 F) 01/22/2007 2:16 PM CDT Respiratory Rate - - Height - - Weight 121.564 kg (268 lb) 01/22/2007 2:16 PM CDT Body Mass Index - - Oxygen Saturation - - Plan of Care Health Maintenance Due Date Last Done Comments Physical (Comprehensive) 1969 Exam Pertussis Vaccine 1973 Tetanus Vaccine 12/24/1979 Cervical Cancer Screening 12/24/1983 Breast Cancer Screening 2002 Colorectal Cancer 2012 Screening Influenza Vaccine 02/03/2016 Results from Last 3 Months Not on file
[~2016-06-20 10:36] MED LIST changes: +FLUC200T5 PO; +HYDR-3816 PO; +LIDO15SO2 MM; +NYST1000 MM; +RANI150T11 PO
[2016-06-26] MEDS ORDERED: POTA10TA10 PO (10:17)
[2016-06-26] MEDS ORDERED: INSU100I29 SQ (10:17)
[2016-06-26] MEDS ORDERED: MAGN400T29 PO (10:17)
[2016-06-26] MEDS ORDERED: INSU100V3 SC (10:17)
[2016-06-26] MEDS ORDERED: HYDR-3816 PO (10:17)
[2016-06-26] MEDS ORDERED: FLUC200T5 PO (10:17)
[2016-06-26] MEDS ORDERED: ACET-77 PO (10:17)
[2016-06-26] MEDS ORDERED: FURO20TA4 PO (10:17)
[2016-06-26] MEDS ORDERED: NCT14P TD (10:17)
[2016-07-11] MEDS ORDERED: ONDA4TAB8 PO (10:56)
[2016-07-11] MEDS ORDERED: MAGN400T29 PO (10:56)
== END 2016-07-18 15:31 | disposition home or self-care (01) ==
PROVIDERS: ATTEND Family Medicine
DX: R53.1 Weakness (principal)

== ENCOUNTER 2016-06-24 14:42 | Inpatient (IN) | payer MEDICAID ==
[~2016-06-24] VITALS: Ht 162.6 cm; Wt 90.3 kg
[2016-06-24] VITALS (9 sets, daily range): BP systolic 100–140; BP diastolic 73–104
--- OUTSIDE RECORDS SUMMARY | 2016-06-24 14:47 | XMS REPORT | Continuity of Care Document ---
Author Author [facility] Organization [facility] Address Unknown Phone Unavailable Care Team Providers Care Process Pumper Name Role Phone Burt Rivera PCP [phone] Source Comments Some departments are not documenting in the electronic medical record. If you do not see the information that you expected, contact Release of Information in the Health Information Management department at [phone] for further assistance in locating additional records.[facility] Active Allergies and Adverse Reactions No [...]
[2016-06-24 15:30] LABS: BASOPHILS # (AUTO) 0.1 10^3/uL (0.0-0.1); BASOPHILS % (AUTO) 1 % (0-10); EOSINOPHILS # (AUTO) 0.2 10^3/uL (0.0-0.3); EOSINOPHILS % (AUTO) 3 % (0-10); LYMPHOCYTES # (AUTO) 2.1 X 10^3 (1.0-4.0); LYMPHOCYTES % (AUTO) 30 % (12-44); MEAN CORPUSCULAR HEMOGLOBIN 29 PG (25-34); MEAN CORPUSCULAR HGB CONC 34 G/DL (32-36); MEAN CORPUSCULAR VOLUME 85 FL (80-99); MEAN PLATELET VOLUME 10.8 FL (7.4-10.4); MONOCYTES # (AUTO) 0.4 X 10^3 (0.0-1.0); MONOCYTES % (AUTO) 6 % (0-12); NEUTROPHILS # (AUTO) 4.3 X 10^3 (1.8-7.8); NEUTROPHILS % (AUTO) 61 % (42-75); PLATELET COUNT 219 10^3/uL (130-400); RED BLOOD COUNT 4.49 10^6/uL (4.35-5.85); RED CELL DISTRIBUTION WIDTH 17.9 % (10.0-14.5); WHITE BLOOD COUNT 7.1 10^3/uL (4.3-11.0)
[2016-06-24] MEDS ORDERED: inSUlin (REGULAR) HUMAN 1 UNIT/0.01 ML (CHARGE PER UNIT) SC ONE (15:45)
--- NOTE | 2016-06-24 15:55 | ED General ---
General Chief Complaint: Glucose Problems Stated Complaint: WEAKNESS Nursing Triage Note: c/o generalized weakness. Pt smells of acetone. Reports BS elevated. Nursing Sepsis Screen: No Definite Risk Source of Information: Patient Exam Limitations: No Limitations History of Present Illness Time Seen by Provider: 15:54 Initial Comments To ER with reports of generalized weakness. She arrives per EMS from home. States that her blood sugar read too high to read last night. She did take her Levemir insulin. No recent fevers or chills. Timing/Duration: 1-2 Days Severity: Moderate Associated Systoms: Denies Symptoms Allergies and Home Medications Allergies Coded Allergies: No Known Drug Allergies (Unverified , 11/24/09) Home Medications Albuterol Sulfate 8.5 Gm Hfa.aer.ad 2 PUFF IH Q4H PRN PRN SHORTNESS OF BREATH ( Reported) Amitriptyline HCl 100 Mg Tablet 100 MG PO HS (Reported) Baclofen 10 Mg Tablet 10 MG PO TID PRN PRN MUSCLE SPASMS (Reported) Fluconazole 200 Mg Tablet 200 MG PO DAILY (Reported) FILLED 06/13/16 #10 FOR A 10 DAY THERAPY Gabapentin 800 Mg Tablet 800 MG PO QID (Reported) Hydrocodone/Acetaminophen 1 Each Tablet #20 1 EA PO Q8HR PRN PRN MODERATE PAIN Prescribed by: LEONEL MEJÍA on 06/19/16 0930 Insulin Aspart 300 Units/3 Ml Solution SQ SLIDING/SCALE (Reported) Insulin Detemir 100 Unit/1 Ml Insuln.pen #6 30 UNITS SQ BID Prescribed by: LEONEL MEJÍA on 06/19/16 0930 Lidocaine HCl 15 Ml Solution 5 ML MM Q4H PRN PRN PAIN (Reported) FILLED 06/13/16 #100ML Magnesium Oxide 400 Mg Tablet #60 400 MG PO BIDPC Prescribed by: LEONEL MEJÍA on 06/19/16 0930 Meloxicam 15 Mg Tablet 15 MG PO DAILY (Reported) Nystatin 100,000 Unit/1 Ml Oral.susp 4 ML MM BID (Reported) FILLED 06/13/16 #80ML FOR A 10 DAY THERAPY Pravastatin Sodium 20 Mg Tablet 20 MG PO HS (Reported) LAST FILLED #30 05/12/16 Ranitidine HCl 150 Mg Tablet 150 MG PO DAILY (Reported) Sucralfate 1 Gm Tablet 1 GM PO ACHS (Reported) LAST FILLED #120 05/12/16 Constitutional: see HPINo chills, No fever, malaise weakness EENTM: see HPI Respiratory: no symptoms reported Cardiovascular: no symptoms reported Genitourinary: no symptoms reported Musculoskeletal: no symptoms reported Psychiatric/Neurological: No Symptoms Reported Hematologic/Lymphatic: No Symptoms Reported Immunological/Allergic: no symptoms reported Past Pyhkhre-Qkwuhn-Ddxmpp Hx Patient Social History Alcohol Use: Denies Use Recreational Drug Use: Yes (TOBACCO) Smoking Status: Unknown if Ever Smoked Type Used: Cigarettes Recent Foreign Travel: No Contact w/Someone Who Travel: No Recent Infectious Disease Expo: No Recent Hopitalizations: Yes (ALTERED MENTAL STATUS) Physical Abuse Screen: No Sexual Abuse: No Immunizations Up To Date Tetanus Booster (TDap): Less than 5yrs PED Vaccines UTD: Yes Date of Pneumonia Vaccine: Apr 04, 2013 Date of Influenza Vaccine: Apr 18, 2016 Seasonal Allergies Seasonal Allergies: No Surgeries HX Surgeries: Yes (HERNIA REPAIR, URETHRAL DILATION? ) Surgeries: Abdominal, Appendectomy, Bladder Surgery, Gallbladder, Hysterectomy , Tonsillectomy Respiratory Hx Respiratory Disorders: Yes (O2 AT HS) Respiratory Disorders: Pneumonia Cardiovascular Hx Cardiac Disorders: Yes Cardiac Disorders: High Cholesterol, Hypertension Neurological Hx Neurological Disorders: Yes Neurological Disorders: Headaches /Migraines Reproductive System : No Hx Reproductive Disorders: No Sexually Transmitted Disease: No HIV/AIDS: No Female Reproductive Disorders: Denies [employer]IC History: Hysterectomy Genitourinary Hx Genitourinary Disorders: Yes (URETHRAL DILATION) Genitourinary Disorders: Bladder Infection, UTI-Chronic Gastrointestinal Hx Gastrointestinal Disorders: Yes Gastrointestinal Disorders: Gastroesophageal Reflux, Chronic Diarrhea, Gall Bladder Disease Musculoskeletal Hx Musculoskeletal Disorders: Yes (SCIATICA; CHRONIC PAIN COMPLAINTS) Musculoskeletal Disorders: Degenerate Disk Disease, Osteoporosis, Arthritis, Chronic Back Pain Endocrine Hx Endocrine Disorders: Yes Endocrine Disorders: Diabetes, Insulin dep HEENT HX ENT Disorders: No Cancer Hx Cancer: No Psychosocial Hx Psychiatric Problems: Yes (EXTENSIVE PSYCH ISSUES) Behavioral Health Disorders: Sleep Difficulties Integumentary HX Skin/Integumentary Disorder: No Blood Transfusions Hx Blood Disorders: No Family Medical History Significant Family History: No Pertinent Family Hx, Asthma, CAD Under 55 Years Old, COPD, Diabetes, Hypertension, Migraines, Psychiatric Problems, Renal Disease, Seizures, Stroke Family Medial History: Arthritis Asthma 19 MOTHER Cardiovascular disease 19 MOTHER Completed stroke Coronary thrombosis Diabetes mellitus 19 MOTHER Glaucoma 19 MOTHER Headache disorder 19 MOTHER Hypercholesterolemia 19 MOTHER Hypertension 19 MOTHER Kidney disease Myocardial infarction 19 FATHER 19 MOTHER Neoplasm Psychosocial problem Respiratory disorder Seizure disorder No Family History of: AIDS Abdominal aortic aneurysm Jin's disease Alcoholism Alzheimer's disease Aphasia Cancer of mouth Cataracts Colon cancer Congenital disease Congenital heart disease Cystic fibrosis Deafness or hearing loss Dementia Drug abuse Dysphasia Fibrocystic disease of breast Gastroenteritis Infertility Not obtainable due to adoption Osteoporosis Parkinson's disease Prostate cancer Severe allergy Thyroid disease Tuberculosis Visual disorder Physical Exam Vital Signs Vital Sign - Last 12Hours 06/24/16 14:42 Temp 97.5 Pulse 119 Resp 20 B/P 108/74 Pulse Ox 100 O2 Delivery Room Air Capillary Refill : Less Than 3 Seconds General Appearance: No Apparent Distress WD/WN Chronically ill Eyes: Bilateral Eye EOMI, Bilateral Eye Normal Inspection, Bilateral Eye PERRL HEENT: PERRL/EOMI TMs Normal Neck: Full Range of Motion Normal Inspection Respiratory: Normal Breath Sounds No Accessory Muscle Use No Respiratory Distress Other (tachypneic) Cardiovascular: Normal Peripheral Pulses Tachycardia Gastrointestinal: Non Tender Soft Extremity: Normal Capillary Refill Normal Inspection Neurologic/Psychiatric: Alert Oriented x3 No Motor/Sensory Deficits Skin: Normal Color Warm/Dry Progress/Results/Core Measures Results/Orders Lab Results Laboratory Tests Test 06/24/16 15:03 06/24/16 15:15 06/24/16 15:25 Range/Units Glucometer 418 *H 70-110 MG/DL Basophils # (Auto) 0.1 0.0-0.1 10^3/uL Basophils (%) (Auto) 1 0-10 % Eosinophils # (Auto) 0.2 0.0-0.3 10^3/uL Eosinophils (%) (Auto) 3 0-10 % Hematocrit 38 35-52 % Hemoglobin 12.8 # 11.5-16.0 G/DL Lymphocytes # (Auto) 2.1 1.0-4.0 X 10^3 Lymphocytes (%) (Auto) 30 12-44 % Mean Corpuscular Hemoglobin 29 25-34 PG Mean Corpuscular Hemoglobin Concent 34 32-36 G/DL Mean Corpuscular Volume 85 80-99 FL Mean Platelet Volume 10.8 H 7.4-10.4 FL Monocytes # (Auto) 0.4 0.0-1.0 X 10^3 Monocytes (%) (Auto) 6 0-12 % Neutrophils # (Auto) 4.3 1.8-7.8 X 10^3 Neutrophils (%) (Auto) 61 42-75 % Platelet Count 219 130-400 10^3/uL Red Blood Count 4.49 4.35-5.85 10^6/uL Red Cell Distribution Width 17.9 H 10.0-14.5 % White Blood Count 7.1 4.3-11.0 10^3/uL Alanine Aminotransferase (ALT/SGPT) 15 0-55 U/L Albumin 3.6 3.2-4.5 G/DL Alkaline Phosphatase 948 H 40-136 U/L Anion Gap 22 H 5-14 MMOL/L Aspartate Amino Transf (AST/SGOT) 17 5-34 U/L BUN/Creatinine Ratio 10 Blood Urea Nitrogen 12 7-18 MG/DL Calcium Level 8.7 8.5-10.1 MG/DL Carbon Dioxide Level 5 *L 21-32 MMOL/L Chloride Level 102 98-107 MMOL/L Creatinine 1.15 0.60-1.30 MG/DL Estimat Glomerular Filtration Rate 49 Glucose Level 432 *H 70-105 MG/DL Potassium Level 6.1 H 3.6-5.0 MMOL/L Sodium Level 129 L 135-145 MMOL/L Total Bilirubin 0.4 0.1-1.0 MG/DL Total Protein 6.6 6.4-8.2 G/DL My Orders Orders-DESIREE SEPULVEDA APRN Cbc With Automated Diff (06/24/16 14:58) Comprehensive Metabolic Panel (06/24/16 14:58) Ua Culture If Indicated (06/24/16 14:58) Saline Lock/Iv-Start (06/24/16 14:58) Accucheck Stat ONCE (06/24/16 14:58) Insulin (Regular) Human (Humulin R (Per (06/24/16 15:45) Ns Iv 1000 Ml (Sodium Chloride 0.9%) (06/24/16 15:45) Drug Screen Stat (Urine) (06/24/16 16:11) Hemoglobin A1c (06/24/16 16:13) Medications Given in ED Current Medications Medications Dose Ordered Sig/Aurea Route Start Time Stop Time Status Last Admin Dose Admin Insulin Human Regular 10 unit ONCE ONCE SC 06/24/16 15:45 06/24/16 15:46 DC 06/24/16 16:05 10 UNIT Vital Signs/I&O Vital Sign - Last 12Hours 06/24/16 06/24/16 14:42 16:05 Temp 97.5 97.5 Pulse 119 Resp 20 B/P 108/74 Pulse Ox 100 O2 Delivery Room Air Blood Pressure Mean: 85 Point of Care Testing Finger Stick Blood Glucose: 418 Blood Glucose Action Taken: RN NOTIFIED Departure Communication Time/Spoke to Admitting Phy: 16:[address] Al who is on-call for Dr. Leonel Mejía, patient's new primary care provider. Given her hypocarbia she'll be admitted to ICU on DKA protocol. Impression Impression: Primary Impression: DKA (diabetic ketoacidoses) Qualified Code: E13.10 - Other specified diabetes mellitus with ketoacidosis without coma Disposition: ADMITTED INPATIENT Condition: Stable Decision to Admit Reason: Admit from ER (General) Decision to Admit/Date: Jun 24, 2016 Time/Decision to Admit Time: 16:14 Departure-Patient Inst. Referrals: LEONEL MEJÍA MD (PCP/Family) Primary Care Physician DESIREE SEPULVEDA APRN Jun 24, 2016 15:55
[2016-06-24 16:01] LABS: ALBUMIN 3.6 G/DL (3.2-4.5); BILIRUBIN,TOTAL 0.4 MG/DL (0.1-1.0); CALCIUM 8.7 MG/DL (8.5-10.1); CREATININE SERUM 1.15 MG/DL (0.60-1.30); TOTAL PROTEIN 6.6 G/DL (6.4-8.2)
[2016-06-24 16:02] LABS: POTASSIUM 6.1 MMOL/L (3.6-5.0)
[2016-06-24] MEDS: NS IV 1000 ML 1,000 ML IV SCH (16:05)
[2016-06-24 16:39] LABS: ABG BASE EXCESS -18.9 MMOL/L (-2.5-2.5); ABG OXYGEN SATURATION 98 % (94-100); ABG PO2 115 MMHG (79-93)
[2016-06-24 16:40] LABS: ABG PCO2 16 MMHG (35-45); ABG PH 7.24 (7.37-7.43)
[2016-06-24 16:41] LABS: ABG HCO3 7 MMOL/L (23-27); ALLENS TEST POSITIVE; PATIENT TEMP 97.5
[2016-06-24] MEDS: D5 1/2 NS W/KCL 20 MEQ/L 1,000 ML IV SCH ×2 (17:26→20:43)
[2016-06-24] MEDS: DEXTROSE 10% IV SOLUTION 1,000 ML IV SCH ×2 (17:26→23:39)
[2016-06-24] MEDS ORDERED: NS IV 1000 ML 1,000 ML IV ONE (17:26)
[2016-06-24] MEDS: 1/2 NS IV SOLUTION 1,000 ML IV SCH ×2 (17:26→21:26)
[2016-06-24] MEDS: 1/2 NS W/KCL 20 MEQ/L 1,000 ML IV SCH ×2 (17:26→21:26)
[2016-06-24] MEDS ORDERED: D5 1/2 NS 1000 ML IV SOLUTION 1,000 ML IV SCH (17:30)
[2016-06-24] MEDS ORDERED: inSUlin REGULAR TPN/DRIP ONLY 250 UNITS in NORMAL SALINE 250 ML IV SCH (17:30)
[2016-06-24] MEDS ORDERED: NS (IVPB) 250 ML ONE (17:31)
[2016-06-24] MEDS ORDERED: SODIUM BICARB 8.4% 50 MEQ/50 ML (ABBOTT) SYR IV ONE (18:00)
[2016-06-24 18:21] LABS: CALCIUM 9.2 MG/DL (8.5-10.1); CREATININE SERUM 1.05 MG/DL (0.60-1.30); POTASSIUM 4.1 MMOL/L (3.6-5.0)
[2016-06-24] MEDS ORDERED: ONDANSETRON 4 MG/2 ML (SDV) Z0FRAN IV PRN ×2 (20:15→20:37)
[2016-06-24 22:20] LABS: BILIRUBIN,URINE NEGATIVE (NEGATIVE); KETONES,URINE 4+ (NEGATIVE); LEUKOCYTE ESTERASE ,URINE 1+ (NEGATIVE); NITRITE,URINE NEGATIVE (NEGATIVE); PH,URINE 6 (5-9); PROTEIN,URINE 3+ (NEGATIVE); UROBILINOGEN,URINE NORMAL (NORMAL)
[2016-06-24] MEDS ORDERED: METOCLOPRAMIDE INJ 10 MG/2 ML (REGLAN) ONE (22:35)
[2016-06-24] MEDS ORDERED: METOCLOPRAMIDE INJ 10 MG/2 ML (REGLAN) IVP ONE (22:45)
[2016-06-25] VITALS (24 sets, daily range): BP systolic 85–122; BP diastolic 51–86
[2016-06-25 00:15] LABS: CALCIUM 8.3 MG/DL (8.5-10.1); CREATININE SERUM 0.97 MG/DL (0.60-1.30); POTASSIUM 3.6 MMOL/L (3.6-5.0)
[2016-06-25] MEDS: 1/2 NS IV SOLUTION 1,000 ML IV SCH ×5 (01:26→17:26)
[2016-06-25] MEDS: D5 1/2 NS W/KCL 20 MEQ/L 1,000 ML IV SCH ×5 (01:26→17:26)
[2016-06-25] MEDS: 1/2 NS W/KCL 20 MEQ/L 1,000 ML IV SCH ×5 (01:26→17:26)
[2016-06-25] MEDS ORDERED: ACETAMINOPHEN 325 MG TABLET/CAPLET (TYLENOL) ONE (01:34)
[2016-06-25] MEDS: NS IV 1000 ML 1,000 ML IV SCH ×2 (01:45→11:45)
[2016-06-25] MEDS ORDERED: ACETAMINOPHEN 325 MG TABLET/CAPLET (TYLENOL) PO ONE (02:00)
[2016-06-25 03:59] LABS: BASOPHILS # (AUTO) 0.1 10^3/uL (0.0-0.1); BASOPHILS % (AUTO) 1 % (0-10); EOSINOPHILS # (AUTO) 0.1 10^3/uL (0.0-0.3); EOSINOPHILS % (AUTO) 1 % (0-10); LYMPHOCYTES # (AUTO) 2.6 X 10^3 (1.0-4.0); LYMPHOCYTES % (AUTO) 35 % (12-44); MEAN CORPUSCULAR HEMOGLOBIN 29 PG (25-34); MEAN CORPUSCULAR HGB CONC 33 G/DL (32-36); MEAN CORPUSCULAR VOLUME 86 FL (80-99); MEAN PLATELET VOLUME 10.1 FL (7.4-10.4); MONOCYTES # (AUTO) 0.8 X 10^3 (0.0-1.0); MONOCYTES % (AUTO) 11 % (0-12); NEUTROPHILS # (AUTO) 3.9 X 10^3 (1.8-7.8); NEUTROPHILS % (AUTO) 53 % (42-75); PLATELET COUNT 218 10^3/uL (130-400); RED BLOOD COUNT 3.39 10^6/uL (4.35-5.85); RED CELL DISTRIBUTION WIDTH 17.5 % (10.0-14.5); WHITE BLOOD COUNT 7.4 10^3/uL (4.3-11.0)
[2016-06-25 04:10] LABS: CALCIUM 8.2 MG/DL (8.5-10.1); CREATININE SERUM 0.97 MG/DL (0.60-1.30); PHOSPHORUS 1.9 MG/DL (2.3-4.7); POTASSIUM 3.2 MMOL/L (3.6-5.0)
[2016-06-25 04:19] LABS: MAGNESIUM 0.9 MG/DL (1.8-2.4)
[2016-06-25] MEDS: POTASSIUM CL 10MEQ/50ML IVPB 50 ML IV SCH (04:52)
[2016-06-25] MEDS: MAGNESIUM 1 GM/100 ML IVPB 100 ML IV SCH ×7 (04:53→10:35)
[2016-06-25] MEDS: KCL 20 MEQ TAB (K-DUR) PO SCH (04:53)
[2016-06-25] MEDS ORDERED: KCL 20 MEQ TAB (K-DUR) PO ONE ×2 (05:00→08:00)
--- NOTE | 2016-06-25 07:55 | Diagnostic Imaging Report ---
Indication: Dyspnea. Diabetic ketoacidosis. Findings: Upright portable chest shows normal heart size and vascularity. The lungs are clear. There is no effusion or pneumothorax. Impression: Normal chest. There is no change from 06/16/16. Dictated by: Dictated on workstation # [id number]
[2016-06-25] MEDS ORDERED: SODIUM BICARB 8.4% 50 MEQ/50 ML (ABBOTT) SYR IV ONE (10:15)
[2016-06-25] MEDS ORDERED: HYDROcodone/APAP 5 MG/325 MG (LORTAB) TAB PO PRN (10:15)
[2016-06-25] MEDS ORDERED: FAMOTIDINE 20MG/2ML IV (PEPCID) IVP ONE (10:15)
--- NOTE | 2016-06-25 10:20 | History & Physicial ---
History of Present Illness History of Present Illness Reason for visit/HPI This is a 55 year old female with a know history of diabetes mellitus--insulin requiring--with poor control who presented to the emergency room with elevated blood sugar and worsening weakness. She reported that she had nausea, vomiting , and diarrhea 3 days prior to her presentation to the emergency room. She states that her blood sugars usually run 200 to 250 but the day that she presented to the emergency room, her blood sugars were too high to read on her monitor. She does state she took her insulin on the days she was sick despite her nause, vomiting and diarrhea. Upon examination in the emergency room, her blood sugar was 432 with a bicarbonate of 5 and anion gap of 22. It was decided she would be admitted to the ICU for diabetic ketoacidosis. Date of Admission Jun 24, 2016 at 16:08 I consulted on this patient on 06/25/16 10:15 Attending Physician Leonel Marquez MD Admitting Physician Leonel Marquez MD Consult Allergies and Home Medications Allergies Coded Allergies: No Known Drug Allergies (Unverified , 11/24/09) Home Medications Albuterol Sulfate 8.5 Gm Hfa.aer.ad 2 PUFF IH Q4H PRN PRN SHORTNESS OF BREATH ( Reported) Amitriptyline HCl 100 Mg Tablet 100 MG PO HS (Reported) Baclofen 10 Mg Tablet 10 MG PO TID PRN PRN MUSCLE SPASMS (Reported) Fluconazole 200 Mg Tablet 200 MG PO DAILY (Reported) FILLED 06/13/16 #10 FOR A 10 DAY THERAPY Gabapentin 800 Mg Tablet 800 MG PO QID (Reported) Hydrocodone/Acetaminophen 1 Each Tablet #20 1 EA PO Q8HR PRN PRN MODERATE PAIN Prescribed by: LEONEL MARQUEZ on 06/19/16 0930 Insulin Aspart 300 Units/3 Ml Solution SQ SLIDING/SCALE (Reported) Insulin Detemir 100 Unit/1 Ml Insuln.pen #6 30 UNITS SQ BID Prescribed by: LEONEL MARQUEZ on 06/19/16 0930 Lidocaine HCl 15 Ml Solution 5 ML MM Q4H PRN PRN PAIN (Reported) FILLED 06/13/16 #100ML Magnesium Oxide 400 Mg Tablet #60 400 MG PO BIDPC Prescribed by: LEONEL MARQUEZ on 06/19/16 0930 Meloxicam 15 Mg Tablet 15 MG PO DAILY (Reported) Nystatin 100,000 Unit/1 Ml Oral.susp 4 ML MM BID (Reported) FILLED 06/13/16 #80ML FOR A 10 DAY THERAPY Pravastatin Sodium 20 Mg Tablet 20 MG PO HS (Reported) LAST FILLED #30 05/12/16 Ranitidine HCl 150 Mg Tablet 150 MG PO DAILY (Reported) Sucralfate 1 Gm Tablet 1 GM PO ACHS (Reported) LAST FILLED #120 05/12/16 Past Lkcliax-[id number]-Sujbkc Hx Patient Social History Employed/Student: unemployed (on disability) Alcohol Use: Denies Use Recreational Drug Use: Yes (TOBACCO) Smoking Status: Unknown if Ever Smoked Type Used: Cigarettes Physical Abuse Screen: No Sexual Abuse: No Recent Foreign Travel: No Contact w/other who traveled: No Recent Hopitalizations: Yes (ALTERED MENTAL STATUS) Recent Infectious Disease Expo: No Immunizations Up To Date Tetanus Booster (TDap): Less than 5yrs Date of Pneumonia Vaccine: Apr 04, 2013 Date of Influenza Vaccine: Apr 18, 2016 Seasonal Allergies Seasonal Allergies: No Surgeries HX Surgeries: Yes (HERNIA REPAIR, URETHRAL DILATION? ) Surgeries: Abdominal, Appendectomy, Bladder Surgery, Gallbladder, Hysterectomy , Tonsillectomy Respiratory Hx Respiratory Disorders: Yes (O2 AT HS) Respiratory Disorders: COPD Cardiovascular Hx Cardiovascular Disorders: Yes Cardiac Disorders: High Cholesterol, Hypertension Neurological Hx Neurological Disorders: Yes Neurological Disorders: Headaches /Migraines Reproductive System : No Hx Reproductive Disorders: No Sexually Transmitted Disease: No HIV/AIDS: No Female Reproductive Disorders: Denies Genitourinary Hx Genitourinary Disorders: Yes (URETHRAL DILATION) Genitourinary Disorders: Bladder Infection, UTI-Chronic Gastrointestinal Hx Gastrointestinal Disorders: Yes Gastrointestinal Disorders: Gastroesophageal Reflux, Chronic Diarrhea, Gall Bladder Disease Musculoskeletal Hx Musculoskeletal Disorders: Yes (SCIATICA; CHRONIC PAIN COMPLAINTS) Musculoskeletal Disorders: Degenerate Disk Disease, Osteoporosis, Arthritis, Chronic Back Pain Endocrine Hx Endocrine Disorders: Yes Endocrine Disorders: Diabetes, Insulin dep HEENT HX ENT Disorders: No Cancer Hx Cancer: No Psychosocial Hx Psychiatric Problems: Yes (EXTENSIVE PSYCH ISSUES) Behavioral Health Disorders: Sleep Difficulties Integumentary HX Skin/Integumentary Disorder: No Blood Transfusions Hx Blood Disorders: No Family Medical History Significant Family History: No Pertinent Family Hx, Asthma, CAD Under 55 Years Old, COPD, Diabetes, Hypertension, Migraines, Psychiatric Problems, Renal Disease, Seizures, Stroke Family Hx: Arthritis Asthma 19 MOTHER Cardiovascular disease 19 MOTHER Completed stroke Coronary thrombosis Diabetes mellitus 19 MOTHER Glaucoma 19 MOTHER Headache disorder 19 MOTHER Hypercholesterolemia 19 MOTHER Hypertension 19 MOTHER Kidney disease Myocardial infarction 19 FATHER 19 MOTHER Neoplasm Psychosocial problem Respiratory disorder Seizure disorder No Family History of: AIDS Abdominal aortic aneurysm [place]'s disease Alcoholism Alzheimer's disease Aphasia Cancer of mouth Cataracts Colon cancer Congenital disease Congenital heart disease Cystic fibrosis Deafness or hearing loss Dementia Drug abuse Dysphasia Fibrocystic disease of breast Gastroenteritis Infertility Not obtainable due to adoption Osteoporosis Parkinson's disease Prostate cancer Severe allergy Thyroid disease Tuberculosis Visual disorder Constitutional: malaise weakness EENTM: No blurred vision, No dental problems, No double vision, No ear discharge, No ear pain, No epistaxis, No eye pain, No hearing loss, No hoarseness, No mouth pain, No mouth swelling, No no symptoms reported, No nose congestion, No nose pain, No other, No see HPI, No tearing, No throat pain, No throat swelling, No vision loss Respiratory: No no symptoms reported, No see HPI, No cough, No dyspnea on exertion, No hemoptysis, No orthopnea, No phlegm, No short of breath, No stridor , No wheezing, No other Cardiovascular: No no symptoms reported, No see HPI, No chest pain, No edema, No Hx of Intervention, No palpitations, No syncope, No vascular heart diseas, No other Gastrointestinal: diarrhea loss of appetite nausea vomiting Genitourinary: No no symptoms reported, No see HPI, No decreased output, No discharge, No dysuria, No frequency, No hematuria, No hesitancy, No incontinence , No nocturia, No pain, No other Musculoskeletal: back pain (chronic) muscle pain muscle weakness Skin: No no symptoms reported, No see HPI, No change in color, No change in hair/nails, No dryness, No hx of skin cancer, No lesions, No lumps, No pruritus , No rash, No other Psychiatric/Neurological: Weakness Physical Exam Vital Signs Vital Sign - Last 12Hours 06/24/16 14:42 Temp 97.5 Pulse 119 Resp 20 B/P 108/74 Pulse Ox 100 O2 Delivery Room Air Capillary Refill : Less Than 3 Seconds General Appearance: No Apparent Distress HEENT: Other Neck: Supple Respiratory: Lungs Clear Cardiovascular: Gallop/S3 Tachycardia Gastrointestinal: Normal Bowel Sounds Soft Tenderness (generalized) Rectal: Deferred Back: No CVA Tenderness Extremity: Non Tender No Calf Tenderness No Pedal Edema Neurologic/Psychiatric: Alert Oriented x3 Skin: Normal Color Warm/Dry Lymphatic: No Adenopathy Comments Laboratory Tests 06/24/16 15:03: Glucometer 418*H 06/24/16 15:15: Basophils # (Auto) 0.1, Basophils (%) (Auto) 1, Eosinophils # (Auto) 0.2, Eosinophils (%) (Auto) 3, Hematocrit 38, Hemoglobin 12.8#, Hemoglobin A1c 12.0H , Lymphocytes # (Auto) 2.1, Lymphocytes (%) (Auto) 30, Mean Corpuscular Hemoglobin 29, Mean Corpuscular Hemoglobin Concent 34, Mean Corpuscular Volume 85, Mean Platelet Volume 10.8H, Monocytes # (Auto) 0.4, Monocytes (%) (Auto) 6, Neutrophils # (Auto) 4.3, Neutrophils (%) (Auto) 61, Platelet Count 219, Red Blood Count 4.49, Red Cell Distribution Width 17.9H, White Blood Count 7.1 06/24/16 15:25: Alanine Aminotransferase (ALT/SGPT) 15, Albumin 3.6, Alkaline Phosphatase 948H, Anion Gap 22H, Aspartate Amino Transf (AST/SGOT) 17, BUN/Creatinine Ratio 10, Blood Urea Nitrogen 12, Calcium Level 8.7, Carbon Dioxide Level 5*L, Chloride Level 102, Creatinine 1.15, Estimat Glomerular Filtration Rate 49, Glucose Level 432*H, Potassium Level 6.1H, Sodium Level 129L, Total Bilirubin 0.4, Total Protein 6.6 06/24/16 16:30: Alexandr Test POSITIVE, Arterial Blood Base Excess -18.9L, Arterial Blood HCO3 7*L , Arterial Blood Oxygen Saturation 98, Arterial Blood Partial Pressure CO2 16*L , Arterial Blood Partial Pressure O2 115H, Arterial Blood Total CO2 7.0L, Arterial Blood pH 7.24*L, Blood Gas Inspired Oxygen N/A, Blood Gas Patient Temperature 97.5, Blood Gas Puncture Site RIGHT RADIAL, Blood Gas Ventilator Setting NO 06/24/16 17:15: Glucometer 216H 06/24/16 17:55: Anion Gap 19H, BUN/Creatinine Ratio 10, Blood Urea Nitrogen 11, Calcium Level 9.2, Carbon Dioxide Level 8*L, Chloride Level 107, Creatinine 1.05, Estimat Glomerular Filtration Rate 55, Glucose Level 223H, Potassium Level 4.1, Sodium Level 134L 06/24/16 18:26: Glucometer 207H 06/24/16 19:41: Glucometer 319H 06/24/16 20:47: Glucometer 252H 06/24/16 21:51: Glucometer 167H 06/24/16 22:00: Ur Tricyclic Antidepressants Screen POSITIVEH, Urine Amphetamines Screen NEGATIVE, Urine Bacteria TRACE, Urine Barbiturates Screen NEGATIVE, Urine Benzodiazepines Screen NEGATIVE, Urine Bilirubin NEGATIVE, Urine Cannabinoids Screen NEGATIVE, Urine Casts NONE, Urine Clarity CLEAR, Urine Cocaine Screen NEGATIVE, Urine Color YELLOW, Urine Crystals NONE, Urine Culture Indicated NO, Urine Glucose (UA) 4+H, Urine Ketones 4+H, Urine Leukocyte Esterase 1+H, Urine Methadone Screen NEGATIVE, Urine Methamphetamines Screen NEGATIVE, Urine Mucus NEGATIVE, Urine Nitrite NEGATIVE, Urine Opiates Screen NEGATIVE, Urine Oxycodone Screen NEGATIVE, Urine Phencyclidine Screen NEGATIVE, Urine Propoxyphene Screen NEGATIVE, Urine Protein 3+H, Urine RBC 50-100H, Urine RBC ( Auto) 4+H, Urine Specific [place] 1.020, Urine Squamous Epithelial Cells 5-10, Urine Urobilinogen NORMAL, Urine WBC NONE, Urine pH 6 06/24/16 22:22: Glucometer 120H 06/24/16 23:04: Glucometer 125H 06/24/16 23:34: Glucometer 146H 06/24/16 23:50: Anion Gap 16H, BUN/Creatinine Ratio 12, Blood Urea Nitrogen 12, Calcium Level 8.3L, Carbon Dioxide Level 10L, Chloride Level 106, Creatinine 0.97, Estimat Glomerular Filtration Rate 60, Glucose Level 136H, Potassium Level 3.6, Sodium Level 132L 06/25/16 00:27: Glucometer 168H 06/25/16 01:26: Glucometer 134H 06/25/16 02:01: Glucometer 149H 06/25/16 03:10: Glucometer 193H 06/25/16 03:20: Anion Gap 15H, BUN/Creatinine Ratio 11, Basophils # (Auto) 0.1, Basophils (%) ( Auto) 1, Blood Urea Nitrogen 11, Calcium Level 8.2L, Carbon Dioxide Level 11L, Chloride Level 105, Creatinine 0.97, Eosinophils # (Auto) 0.1, Eosinophils (%) ( Auto) 1, Estimat Glomerular Filtration Rate 60, Glucose Level 182H, Hematocrit 29L, Hemoglobin 9.7#L, Lymphocytes # (Auto) 2.6, Lymphocytes (%) (Auto) 35, Magnesium Level 0.9*L, Mean Corpuscular Hemoglobin 29, Mean Corpuscular Hemoglobin Concent 33, Mean Corpuscular Volume 86, Mean Platelet Volume 10.1, Monocytes # (Auto) 0.8, Monocytes (%) (Auto) 11, Neutrophils # (Auto) 3.9, Neutrophils (%) (Auto) 53, Phosphorus Level 1.9L, Platelet Count 218, Potassium Level 3.2L, Red Blood Count 3.39L, Red Cell Distribution Width 17.5H, Sodium Level 131L, White Blood Count 7.4 06/25/16 04:05: Glucometer 226H 06/25/16 05:18: Glucometer 129H 06/25/16 06:08: Glucometer 190H 06/25/16 06:55: Glucometer 224H 06/25/16 08:24: Glucometer 221H 06/25/16 09:27: Glucometer 202H Assessment/Plan Assessment and Plan 1. Acute Diabetic Ketoacidosis--admit to ICU on DKA protocol 2. Uncontrolled Diabetes mellitus--insulin requiring 3. Chronic Back Pain with Radiculopathy--on chronic narcotics Clinical Quality Measures DVT/VTE Risk/Contraindication: Risk Factor Score Per Nursin RFS Level Per Nursing on Admit: 2=Moderate ANNETTE MAURICE DO Jun 25, 2016 10:20
[2016-06-25] MEDS ORDERED: inSUlin REGULAR TPN/DRIP ONLY 250 UNITS in NORMAL SALINE 247.5 ML IV SCH (11:15)
[2016-06-25] MEDS: ACETAMINOPHEN 500 MG TAB (TYLENOL) PO PRN (13:07)
[2016-06-25] MEDS: DEXTROSE 10% IV SOLUTION 1,000 ML IV SCH (14:15)
[2016-06-25 14:49] LABS: ANION GAP 11 MMOL/L (5-14); BLOOD UREA NITROGEN 9 MG/DL (7-18); BUN/CREATININE RATIO 9; CALCIUM 8.6 MG/DL (8.5-10.1); CARBON DIOXIDE 16 MMOL/L (21-32); CHLORIDE 105 MMOL/L (98-107); CREATININE SERUM 0.95 MG/DL (0.60-1.30); GFR ESTIMATED > 60; GLUCOSE 126 MG/DL (70-105); POTASSIUM 4.2 MMOL/L (3.6-5.0); SODIUM 132 MMOL/L (135-145)
[2016-06-25] MEDS ORDERED: inSUlin DETERMIR 1 UNIT/0.01 ML (LEVEMIR) CHARGE PER UNIT SQ ONE ×2 (14:53→15:00)
[2016-06-25] MEDS ORDERED: NS W/KCL 20 MEQ/L 1,000 ML IV ONE (16:09)
[2016-06-25] MEDS: inSUlin ASPART (NovoLOG) 1 UNIT/0.01 ML (CHARGE PER UNIT) SC SCH ×2 (16:19→21:13)
[2016-06-25] MEDS: NS W/KCL 20 MEQ/L 1,000 ML IV SCH (20:45)
[2016-06-25] MEDS: FAMOTIDINE 20MG/2ML IV (PEPCID) IVP SCH (21:13)
[2016-06-26] VITALS (15 sets, daily range): BP systolic 102–146; BP diastolic 65–95
[2016-06-26] MEDS: ACETAMINOPHEN 500 MG TAB (TYLENOL) PO PRN (02:17)
[2016-06-26 04:34] LABS: BASOPHILS % (AUTO) 0 % (0-10); EOSINOPHILS # (AUTO) 0.1 10^3/uL (0.0-0.3); EOSINOPHILS % (AUTO) 1 % (0-10); LYMPHOCYTES # (AUTO) 1.6 X 10^3 (1.0-4.0); LYMPHOCYTES % (AUTO) 34 % (12-44); MEAN CORPUSCULAR HEMOGLOBIN 28 PG (25-34); MEAN CORPUSCULAR HGB CONC 33 G/DL (32-36); MEAN CORPUSCULAR VOLUME 84 FL (80-99); MONOCYTES # (AUTO) 0.4 X 10^3 (0.0-1.0); MONOCYTES % (AUTO) 9 % (0-12); NEUTROPHILS # (AUTO) 2.6 X 10^3 (1.8-7.8); NEUTROPHILS % (AUTO) 56 % (42-75); PLATELET COUNT 195 10^3/uL (130-400); RED BLOOD COUNT 3.34 10^6/uL (4.35-5.85); RED CELL DISTRIBUTION WIDTH 17.3 % (10.0-14.5); WHITE BLOOD COUNT 4.7 10^3/uL (4.3-11.0)
[2016-06-26 05:05] LABS: ANION GAP 10 MMOL/L (5-14); BLOOD UREA NITROGEN 7 MG/DL (7-18); BUN/CREATININE RATIO 8; CALCIUM 8.5 MG/DL (8.5-10.1); CARBON DIOXIDE 16 MMOL/L (21-32); CHLORIDE 105 MMOL/L (98-107); CREATININE SERUM 0.84 MG/DL (0.60-1.30); GFR ESTIMATED > 60; GLUCOSE 234 MG/DL (70-105); MAGNESIUM 1.7 MG/DL (1.8-2.4); PHOSPHORUS 2.7 MG/DL (2.3-4.7); POTASSIUM 4.2 MMOL/L (3.6-5.0); SODIUM 131 MMOL/L (135-145)
[2016-06-26] MEDS: KCL 20 MEQ TAB (K-DUR) PO SCH (05:20)
[2016-06-26] MEDS: POTASSIUM CL 10MEQ/50ML IVPB 50 ML IV SCH (05:20)
[2016-06-26] MEDS: MAGNESIUM 1 GM/100 ML IVPB 100 ML IV SCH ×3 (05:20→06:30)
[2016-06-26] MEDS: inSUlin ASPART (NovoLOG) 1 UNIT/0.01 ML (CHARGE PER UNIT) SC SCH ×4 (06:30→22:43)
[2016-06-26] MEDS: FAMOTIDINE 20MG/2ML IV (PEPCID) IVP SCH ×2 (08:42→21:05)
--- NOTE | 2016-06-26 09:02 | Diagnostic Imaging Report ---
EXAMINATION: Portable erect AP chest obtained at 434h. INDICATION: Dyspnea The heart size is within normal limits and stable when compared to 06/25/16. The lungs remain clear. There is still no sign of failure, pneumonia or of a pleural effusion. The mediastinum is not widened. The osseous structures are intact. IMPRESSION: Stable chest. There has been no adverse change since the prior exam. Dictated by: Dictated on workstation # [id number]
[2016-06-26] MEDS: NS W/KCL 20 MEQ/L 1,000 ML IV SCH (09:15)
--- NOTE | 2016-06-26 09:16 | Progress Note (SOAP) ---
Subjective Subjective/Events-last exam 55 yo F admitted for DKA- doing better- insulin gtts is off. Pt reports she had 3 days of not feeling well with some vomiting and diarrhea. This am she reports improving. She has been taking her insulin. ER told her she should not leave the hospital until she gets a port placed due to her being a difficult iv start especially when she is dehydrated and in DKA. Review of Systems General: No Chills, No Night Sweats HEENT: No Head Aches Pulmonary: No Dyspnea, No Cough Cardiovascular: No: Chest Pain Gastrointestinal: No: Nausea, Vomiting Genitourinary: No Dysuria, No Frequency Musculoskeletal: No: shoulder pain Neurological: : WeaknessNo: Numbness Objective Exam Vital Signs Date Time Temp Pulse Resp B/P Pulse Ox O2 Delivery O2 Flow Rate FiO2 06/26/16 08:00 97.3 Room Air 06/26/16 07:00 101 06/26/16 06:00 85 9 115/83 97 Room Air 06/26/16 05:00 87 12 107/65 99 Room Air 06/26/16 04:00 92 12 114/75 96 Room Air 06/26/16 04:00 96 Room Air 06/26/16 04:00 98.0 06/26/16 03:00 93 14 119/72 98 Room Air 06/26/16 02:00 96 12 120/78 98 Room Air 06/26/16 01:00 89 13 104/72 96 Room Air 06/26/16 01:00 92 06/26/16 00:00 96 Room Air 06/26/16 00:00 98 22 102/76 97 Room Air 06/26/16 00:00 97.8 06/25/16 23:00 98 18 121/82 97 Room Air 06/25/16 22:00 97 10 91/55 97 Room Air 06/25/16 21:00 101 12 97/60 97 Room Air 06/25/16 20:00 98.2 105 14 122/77 99 Room Air 06/25/16 20:00 96 Room Air 06/25/16 19:00 100 108/74 97 Room Air 06/25/16 19:00 98 06/25/16 18:00 96 105/77 99 Room Air 06/25/16 17:00 97 110/78 98 Room Air 06/25/16 16:00 98.1 Room Air 06/25/16 16:00 98 109/71 98 Room Air 06/25/16 15:00 96 108/70 98 Room Air 06/25/16 14:00 101 06/25/16 14:00 101 106/73 96 Room Air 06/25/16 13:00 118 120/81 99 Room Air 06/25/16 12:00 100 105/72 95 Room Air 06/25/16 12:00 97.6 Room Air 06/25/16 11:00 104 96/55 96 Room Air 06/25/16 10:00 105 105/76 95 Room Air I & O 06/26/16 07:00 Intake Total 2550 ml Output Total 4800 ml Balance -2250 ml Capillary Refill : Less Than 3 Seconds General Appearance: No Apparent Distress HEENT: PERRL/EOMI Neck: Full Range of Motion Non Tender Respiratory: Chest Non Tender Lungs Clear Cardiovascular: Regular Rate, Rhythm No Edema Gastrointestinal: normal bowel sounds non tender soft Extremity: Normal Capillary Refill Neurologic/Psychiatric: Alert Oriented x3 Skin: Warm/Dry Results Lab Laboratory Tests 06/25/16 09:27: Glucometer 202H 06/25/16 10:33: Glucometer 268H 06/25/16 11:41: Glucometer 262H 06/25/16 12:41: Glucometer 179H 06/25/16 13:42: Glucometer 118H 06/25/16 14:15: Glucometer 137H 06/25/16 14:25: Anion Gap 11, BUN/Creatinine Ratio 9, Blood Urea Nitrogen 9, Calcium Level 8.6, Carbon Dioxide Level 16L, Chloride Level 105, Creatinine 0.95, Estimat Glomerular Filtration Rate > 60, Glucose Level 126H, Magnesium Level 2.5H, Potassium Level 4.2, Sodium Level 132L 06/25/16 16:14: Glucometer 228H 06/25/16 21:09: Glucometer 315H 06/26/16 04:12: Anion Gap 10, BUN/Creatinine Ratio 8, Basophils # (Auto) 0.0, Basophils (%) ( Auto) 0, Blood Urea Nitrogen 7, Calcium Level 8.5, Carbon Dioxide Level 16L, Chloride Level 105, Creatinine 0.84, Eosinophils # (Auto) 0.1, Eosinophils (%) ( Auto) 1, Estimat Glomerular Filtration Rate > 60, Glucose Level 234H, Hematocrit 28L, Hemoglobin 9.3L, Lymphocytes # (Auto) 1.6, Lymphocytes (%) (Auto ) 34, Magnesium Level 1.7L, Mean Corpuscular Hemoglobin 28, Mean Corpuscular Hemoglobin Concent 33, Mean Corpuscular Volume 84, Mean Platelet Volume 10.0, Monocytes # (Auto) 0.4, Monocytes (%) (Auto) 9, Neutrophils # (Auto) 2.6, Neutrophils (%) (Auto) 56, Phosphorus Level 2.7, Platelet Count 195, Potassium Level 4.2, Red Blood Count 3.34L, Red Cell Distribution Width 17.3H, Sodium Level 131L, White Blood Count 4.7 Microbiology 06/24/16 MRSA Screen - Final, Complete MRSA not isolated Assessment/Plan Assessment/Plan Assess & Plan/Chief Complaint 55 yo F admitted 06/24/16 diarrhea- resolved Weakness- improving. DKA- improved- anion gap closed, bicarb improving uncontrolled Diabetes Mellitus II with insulin dependence- hga1c 8.1 04/29/16 - will continue adjusting insulin - pt is noncompliant with diet and insulin regimen at home. Chronic pain- gabapentin 800mg qid prn hypomagnesemia- replacing continuing po replacement hypokalemia- replacing prn COPD- continue inhalers. Bipolar disorder- monitor her mental status- will slowly add back psych meds. constipation- miralax prn- holding as pt reports diarrhea. DVT ppx: SCDs Dispo: - I recommend fpc placement due to her not being able to care for herself. Pt is admitted to nearly every 1.5-2weeks for either hypoglycemia, DKA, or altered mental status. She is going to end up dying in the near future if she continues down this path. -Will order PT for her weakness -consulting Dr Nayak for port placement as IV starts are difficult and eventually infiltrate- need good iv access as pt has frequent DKA admissions and critical Mg levels. Diagnosis/Problems: Clinical Quality Measures DVT/VTE Risk/Contraindication: Risk Factor Score Per Nursin RFS Level Per Nursing on Admit: 2=Moderate NALDO MARQUEZ MD Jun 26, 2016 09:16
[2016-06-26] MEDS: GABAPENTIN 400 MG (NEURONTIN) CAP PO PRN ×2 (09:46→21:05)
[2016-06-26] MEDS ORDERED: INSU100V3 SC (10:17)
[2016-06-26] MEDS ORDERED: HYDR-3816 PO (10:17)
[2016-06-26] MEDS ORDERED: FURO20TA4 PO (10:17)
[2016-06-26] MEDS ORDERED: POTA10TA10 PO (10:17)
[2016-06-26] MEDS ORDERED: MAGN400T29 PO (10:17)
[2016-06-26] MEDS ORDERED: FLUC200T5 PO (10:17)
[2016-06-26] MEDS ORDERED: NCT14P TD (10:17)
[2016-06-26] MEDS ORDERED: ACET-77 PO (10:17)
[2016-06-26] MEDS ORDERED: INSU100I29 SQ (10:17)
--- NOTE | 2016-06-26 10:57 | Progress Note-Standard ---
Standard Progress Note Progress Notes/Assess & Plan Progress/Assessment & Plan 06/26/16:asked to place an [id number] to achieve long-term venous access. Right internal jugular approach would be used. Final Diagnosis poor venous access. Diabetes mellitus KAMALA ANDRADE MD Jun 26, 2016 10:57 am
--- NOTE | 2016-06-26 10:57 | Progress Note-Pre Operative ---
Pre-Operative Progress Note H&P Reviewed The H&P was reviewed, patient examined and no changes noted. Date H&P Reviewed: Jun 26, 2016 Time H&P Reviewed: 10:56 Pre-Operative Diagnosis: Poor venous access KAMALA ANDRADE MD Jun 26, 2016 10:57 am
[2016-06-26] MEDS: inSUlin DETERMIR 1 UNIT/0.01 ML (LEVEMIR) CHARGE PER UNIT SQ SCH ×2 (11:55→22:43)
[2016-06-26] MEDS ORDERED: BUP/EPI 0.25% 1:200,000 (MARCAINE) 30 ML VIAL ONE (11:55)
[2016-06-26] MEDS ORDERED: HEParin (CENTRAL IV FLUSH) 500 UNIT/5 ML SYR ONE (11:55)
[2016-06-26] MEDS ORDERED: proPOfol 200 MG/20 ML (DIPRIVAN) VIAL IV ONE (13:22)
[2016-06-26] MEDS ORDERED: MIDAZOLAM 2 MG/2 ML (VERSED) VIAL ONE (13:22)
[2016-06-26] MEDS ORDERED: fentaNYL INJECTION 100 MCG/2 ML AMP ONE (13:22)
[2016-06-26] MEDS ORDERED: ceFAZolin INJECTION 2,000 MG in NS (IVPB) 50 ML IV NR (14:00)
[2016-06-26] MEDS: LACTATED RINGERS 1,000 ML IV SCH ×2 (15:35→21:20)
[2016-06-26] MEDS ORDERED: SCOPOLAMINE 1.5 MG (TRANSDERM-SCOP) PATCH ONE (17:17)
[2016-06-26] MEDS ORDERED: PHENYLEPHRINE 100 MCG/ML 10 ML (ANESTHESIA) SYR ONE (17:31)
[2016-06-26] MEDS ORDERED: FAMOTIDINE 20MG/2ML IV (PEPCID) ONE (17:31)
[2016-06-26] MEDS ORDERED: SEVOFLURANE (ULTANE) 15 ML INHAL SOLN ONE ×3 (17:31→18:06)
[2016-06-26] MEDS ORDERED: LACTATED RINGERS 1,000 ML IV ONE (17:31)
[2016-06-26] MEDS ORDERED: ONDANSETRON 4 MG/2 ML (SDV) Z0FRAN ONE (17:31)
--- NOTE | 2016-06-26 17:40 | Progress Note-Post Operative ---
Post-Operative Progess Note Pre-Operative Diagnosis Poor venous access Post-Operative Diagnosis same Post-Op Procedure Note Date of Procedure: Jun 26, 2016 Name of Procedure: [id number] placement Anesthesia Type Gen. KAMALA ANDRADE MD Jun 26, 2016 5:40 pm
[2016-06-26] MEDS ORDERED: fentaNYL INJECTION 100 MCG/2 ML AMP IVP PRN (17:45)
--- NOTE | 2016-06-26 19:28 | Diagnostic Imaging Report ---
Indication: Port placement. Examination: Fluoroscopic evaluation of the chest from 06/26/2016. Findings: A single fluoroscopic image of the chest was provided. This is a limited intraoperative evaluation. A right-sided jugular line is seen with the tip likely at the junction of the SVC and right atrium. Followup chest x-ray could better evaluate. Impression: Limited intraoperative evaluation, as described. Dictated by: Dictated on workstation # [id number]
[2016-06-26] MEDS: AMITRIPTYLINE 50 MG (ELAVIL) TAB PO SCH (21:05)
[2016-06-26] MEDS: MAGNESIUM OXIDE (MAG-OX)400 MG TAB PO SCH (21:08)
[2016-06-26] MEDS: HYDROcodone/APAP 7.5 MG/325 MG (LORTAB, LORCET PLUS) TABLET PO PRN (22:44)
[2016-06-27] VITALS: BP 95/57
[2016-06-27 03:30] VITALS: BP 102/62
[2016-06-27] MEDS: ACETAMINOPHEN 500 MG TAB (TYLENOL) PO PRN (04:32)
[2016-06-27 04:51] LABS: BASOPHILS % (AUTO) 0 % (0-10); EOSINOPHILS # (AUTO) 0.1 10^3/uL (0.0-0.3); EOSINOPHILS % (AUTO) 1 % (0-10); LYMPHOCYTES # (AUTO) 2.3 X 10^3 (1.0-4.0); LYMPHOCYTES % (AUTO) 42 % (12-44); MEAN CORPUSCULAR HEMOGLOBIN 29 PG (25-34); MEAN CORPUSCULAR HGB CONC 34 G/DL (32-36); MEAN CORPUSCULAR VOLUME 85 FL (80-99); MEAN PLATELET VOLUME 9.8 FL (7.4-10.4); MONOCYTES # (AUTO) 0.4 X 10^3 (0.0-1.0); MONOCYTES % (AUTO) 8 % (0-12); NEUTROPHILS # (AUTO) 2.7 X 10^3 (1.8-7.8); NEUTROPHILS % (AUTO) 49 % (42-75); PLATELET COUNT 181 10^3/uL (130-400); RED BLOOD COUNT 3.33 10^6/uL (4.35-5.85); RED CELL DISTRIBUTION WIDTH 17.6 % (10.0-14.5); WHITE BLOOD COUNT 5.5 10^3/uL (4.3-11.0)
[2016-06-27 05:27] LABS: ANION GAP 9 MMOL/L (5-14); BLOOD UREA NITROGEN 6 MG/DL (7-18); BUN/CREATININE RATIO 8; CARBON DIOXIDE 20 MMOL/L (21-32); CHLORIDE 109 MMOL/L (98-107); CREATININE SERUM 0.78 MG/DL (0.60-1.30); GFR ESTIMATED > 60; GLUCOSE 105 MG/DL (70-105); PHOSPHORUS 3.5 MG/DL (2.3-4.7); POTASSIUM 3.9 MMOL/L (3.6-5.0); SODIUM 138 MMOL/L (135-145)
[2016-06-27] MEDS: inSUlin ASPART (NovoLOG) 1 UNIT/0.01 ML (CHARGE PER UNIT) SC SCH ×4 (05:57→21:08)
[2016-06-27] MEDS: POTASSIUM CL 10MEQ/50ML IVPB 50 ML IV SCH (05:57)
[2016-06-27] MEDS: MAGNESIUM 1 GM/100 ML IVPB 100 ML IV SCH ×5 (05:57→13:24)
[2016-06-27 08:00] VITALS: BP 95/65
[2016-06-27] MEDS ORDERED: SCOPOLAMINE 1.5 MG (TRANSDERM-SCOP) PATCH ONE (08:00)
[2016-06-27] MEDS: LACTATED RINGERS 1,000 ML IV SCH ×2 (08:12→18:46)
[2016-06-27] MEDS: MAGNESIUM OXIDE (MAG-OX)400 MG TAB PO SCH ×2 (08:14→17:10)
[2016-06-27] MEDS: FAMOTIDINE 20MG/2ML IV (PEPCID) IVP SCH ×2 (08:14→19:53)
[2016-06-27] MEDS: HYDROcodone/APAP 7.5 MG/325 MG (LORTAB, LORCET PLUS) TABLET PO PRN ×2 (08:14→17:10)
[2016-06-27] MEDS: inSUlin DETERMIR 1 UNIT/0.01 ML (LEVEMIR) CHARGE PER UNIT SQ SCH ×2 (08:15→21:08)
[2016-06-27] MEDS: GABAPENTIN 400 MG (NEURONTIN) CAP PO PRN ×2 (08:27→15:24)
--- NOTE | 2016-06-27 08:48 | Progress Note (SOAP) ---
Subjective Subjective/Events-last exam CC: weakness, DKA- No overnight events- successful placement of infusaport- by Dr. Nayak- Pt reports she is feeling well- much improved- likely to go home tomorrow. Review of Systems General: No Chills, No Night Sweats HEENT: No Head Aches, No Visual Changes Pulmonary: No Dyspnea, No Cough Cardiovascular: No: Chest Pain, Palpitations Gastrointestinal: No: Abdominal Pain, Nausea, Vomiting Genitourinary: No Dysuria Neurological: : Weakness Objective Exam Vital Signs Date Time Temp Pulse Resp B/P Pulse Ox O2 Delivery O2 Flow Rate FiO2 06/27/16 03:30 98.0 91 16 102/62 96 Room Air 06/27/16 00:00 98.7 98 16 95/57 93 Room Air 06/26/16 19:39 97.8 99 18 106/75 98 Room Air 06/26/16 14:00 107 18 123/69 99 Room Air 06/26/16 13:00 98 06/26/16 13:00 96 20 126/80 96 Room Air 06/26/16 12:00 92 16 122/80 96 Room Air 06/26/16 12:00 98.3 Room Air 06/26/16 10:00 84 9 132/78 98 Room Air 06/26/16 09:00 76 6 146/95 98 Room Air I & O 06/27/16 07:00 Intake Total 2650 ml Output Total 3800 ml Balance -1150 ml Capillary Refill : Less Than 3 Seconds General Appearance: No Apparent Distress WD/WN HEENT: PERRL/EOMI Respiratory: Chest Non Tender Lungs Clear Normal Breath Sounds No Accessory Muscle Use Other (right chest infusaport) Cardiovascular: Regular Rate, Rhythm No Edema Gastrointestinal: normal bowel sounds non tender soft Extremity: Normal Range of Motion Non Tender Neurologic/Psychiatric: Alert Oriented x3 Results Lab Laboratory Tests 06/26/16 11:34: Glucometer 418*H 06/26/16 16:42: Glucometer 97 06/26/16 18:07: Glucometer 79 06/26/16 19:02: Glucometer 135H 06/26/16 22:11: Glucometer 320H 06/27/16 04:45: Anion Gap 9, BUN/Creatinine Ratio 8, Basophils # (Auto) 0.0, Basophils (%) (Auto ) 0, Blood Urea Nitrogen 6L, Calcium Level 9.0, Carbon Dioxide Level 20L, Chloride Level 109H, Creatinine 0.78, Eosinophils # (Auto) 0.1, Eosinophils (%) (Auto) 1, Estimat Glomerular Filtration Rate > 60, Glucose Level 105, Hematocrit 28L, Hemoglobin 9.5L, Lymphocytes # (Auto) 2.3, Lymphocytes (%) (Auto ) 42, Magnesium Level 1.4L, Mean Corpuscular Hemoglobin 29, Mean Corpuscular Hemoglobin Concent 34, Mean Corpuscular Volume 85, Mean Platelet Volume 9.8, Monocytes # (Auto) 0.4, Monocytes (%) (Auto) 8, Neutrophils # (Auto) 2.7, Neutrophils (%) (Auto) 49, Phosphorus Level 3.5, Platelet Count 181, Potassium Level 3.9, Red Blood Count 3.33L, Red Cell Distribution Width 17.6H, Sodium Level 138, White Blood Count 5.5 Microbiology 06/24/16 MRSA Screen - Final, Complete MRSA not isolated Assessment/Plan Assessment/Plan Assess & Plan/Chief Complaint 55 yo F admitted 06/24/16 diarrhea- resolved Weakness- improving. DKA- improved- anion gap closed, bicarb improving uncontrolled Diabetes Mellitus II with insulin dependence- hga1c 8.1 04/29/16 - will continue adjusting insulin - pt is noncompliant with diet and insulin regimen at home. Chronic pain- gabapentin 800mg qid prn hypomagnesemia- replacing IV continuing po replacement hypokalemia- replacing prn COPD- continue inhalers. Bipolar disorder- monitor her mental status- will slowly add back psych meds. constipation- miralax prn- holding as pt reports diarrhea. DVT ppx: SCDs Dispo: - I recommend intermediate placement due to her not being able to care for herself. Pt declines- will return home. Plan to d/c to home tomorrow - she will continue outpt PT. Pt is admitted to nearly every 1.5-2weeks for either hypoglycemia, DKA, or altered mental status. She is going to end up dying in the near future if she continues down this path. -PT for her weakness -Right side infusa-port placed 06/26/16 Diagnosis/Problems: Clinical Quality Measures DVT/VTE Risk/Contraindication: Risk Factor Score Per Nursin RFS Level Per Nursing on Admit: 2=Moderate NALDO MARQUEZ MD Jun 27, 2016 08:48
--- NOTE | 2016-06-27 09:59 | Physical Therapy Evaluation ---
PT Evaluation-General Medical Diagnosis Admission Date Jun 24, 2016 at 16:08 Medical Diagnosis: DKA Onset Date: Jun 24, 2016 Therapy Diagnosis Therapy Diagnosis: weakness Height/Weight Height (Feet): 5 Height (Inches): 4.00 Weight (Pounds): 199 Weight (Ounces): 5.0 Precautions Precautions/Isolations: Fall Prevention, Standard Precautions Referral Physician: Leonel Mejía Reason for Referral: Evaluation/Treatment Medical History Pertinent Medical History: Arthritis, COPD, DM (insulin dep), GERD, HTN, Renal Insufficiency, Smoking Additional Medical History daily smoker, high cholesterol, HTN, DDD, osteoporosis, chronic back pain. Current History Admitted with DKA. Prior to admit, pt reports 3 day history of nausea, vomiting and diarrhea. Reviewed History: Yes Social History Home: Single Level Current Living Status: Other Family (daughter's family) Entry Into Home: Stairs With Railing PT Steps Into Home: 3 Prior/Core FIM Prior Level of Function Functional [place] Measure 0=Not Assessed/NA 4=Minimal Assistance 1=Total Assistance 5=Supervision or Setup 2=Maximal Assistance 6=Modified [place] 3=Moderate Assistance 7=Complete [place] Pt reports she has a FWW at home but has not been using it. Reports she is indep with functional mobility in home and is still driving. PT Evaluation-Current Subjective Pt reports she is feeling better. Agreeable to PT. When questioned, pt reports she is drinking soda that is 1/2 diet and 1/2 regular; daily soda drinker. Reports "I probably don't eat the right food." Notes she typically eats a sandwich or a microwave meal. Pain Numeric Pain Scale: 3 Location: Posterior Location Body Site: Back Pain Description: Ache ("just my normal pain") Pt/Family Goals Pt's goals are to discharge back to her daughter's home. She wants to return to outpt PT. Objective Patient Orientation: Person, Place, Time, Situation Problem Solving: Fair (poor ability to self manage) Attachments: IV ROM/Strength ROM Lower Extremities WNL Strenght Lower Extremities WFL Integumentary/Posture Integumentary Intact Bowel Incontinence: No Bladder Incontinence: No Posture forward flexed at hips with ambulation; rounded shoulders. Neuromuscular (Tone, Coordination, Reflexes) intact and functional Sensory Vision: Functional Hearing: Functional Hand Dominance: Right Sensation Right Lower Extremit: Intact Sensation Left Lower Extremity: Intact Transfers Functional [place] Measure 0=Not Assessed/NA 4=Minimal Assistance 1=Total Assistance 5=Supervision or Setup 2=Maximal Assistance 6=Modified [place] 3=Moderate Assistance 7=Complete [place] Transfers (B, C, W/C) (FIM): 6 Supine to/from Sit: 6 Sit to/from Stand: 6 Pt is mod indep with all functional transfers including toilet transfer. No LOB or safety concerns noted at this visit. Gait Mode of Locomotion: Walk Anticipated Mode of Locomotion: Walk Gait (FIM): 6 Distance (FIM): 3=150 ft Distance: 300 ft Gait Level of Assist: 6 Gait Assistive Device: FWW Comments/Gait Description Forward flexed with gait using FWW. No LOB noted. Able to manage in room, bathroom and hallway without assist. Balance Sitting Static: Good Sitting Dynamic: Good Standing Static: Good Standing Dynamic: Good Treatment Gait assessment and functional transfers. Education on safety with all mobility. Assessment/Needs Pt presents with multiple history of medical issues as listed above that may impact her functional progress. Medically, multiple systems affected, DM, respiratory, HTN, chronic back pain and her presentation is unstable due to multiple hospital admissions in the recent past. She is mod indep with functional mobility at this time but that could change drastically with her unstable medical issues. She will benefit from short term PT services while hospitalized to maintain her mobility. Rehab Potential: Guarded (complicated medical history) PT Care Home Goals Network Operations Manager Goals PT Network Operations Manager Goals Time Frame: Jun 30, 2016 Transfers (B,C,W/C) (FIM): 7 Gait (FIM): 6 Continue to educate on self are and compliance with follow up therapy and treatment. PT Plan Problem List Problem List: Activity Tolerance, Functional Strength, Safety Treatment/Plan Treatment Plan: Continue Plan of Care Treatment Plan: Functional Activity Fidel, Functional Strength, Gait, Transfers Treatment Duration: Jun 30, 2016 # of days/week 5 Visits Per Week: 5 Pt/Family Agrees w/Plan: Yes Safety Risks/Education Patient Education: Disease Process, Safety Issues Teaching Recipient: Patient Teaching Methods: Discussion Response to Teaching: Verbalize Understanding Spent much time educating on safety in her home as well as discussing the importance of smoking cessation as well ad following her dietary precautions due to DM and multiple hospital admits with DKA. Time/GCodes Time In: 940 Time Out: 1005 Total Billed Treatment Time: 25 Total Billed Treatment visit Virgen 25 ALISSA BEASLEY PT Jun 27, 2016 09:59
--- NOTE | 2016-06-27 09:59 | OPERATIVE REPORT ---
PROCEDURE PHYSICIAN: KAMALA ANDRADE DATE OF PROCEDURE: 06/26/2016 PREOPERATIVE DIAGNOSIS: 1. Diabetes. 2. Poor venous access. POSTOPERATIVE DIAGNOSIS: 1. Diabetes. 2. Poor venous access. OPERATION: 1. Ultrasound localization of right internal jugular vein. 2. Intraoperative fluoroscopy. 3. Zkufop-b-[id number] placement. SURGEON: Nael. ANESTHESIA: General anesthesia. BLOOD LOSS: Minimal. FLUIDS: 500 mL crystalloids. TYPE OF WOUND: Type I (clean wound). INDICATION FOR THE PROCEDURE: This lady has poor venous access and has just been admitted with diabetic ketoacidosis. To facilitate long-term venous access, placing an [id number] was felt to be reasonable. Informed consent was obtained after reviewing the operative details and complications of bacteremia, malfunction of the catheter, requiring replacement and local wound infection. DESCRIPTION OF THE PROCEDURE: She was placed supine on the operating table and general anesthesia induced using a laryngeal mask airway. 2 grams of Ancef were administered intravenously as prophylaxis against wound infection. Sequential compression devices were placed around her legs, to minimize the risk of venous thrombosis. Her neck and upper chest were prepared and draped in the usual sterile manner. Right internal jugular vein was localized using a 10 MHz ultrasound probe and a floppy guidewire introduced into the heart, under fluoroscopy. A subcutaneous pocket was created over the infraclavicular fossa and the Regis catheter brought into the neck, in a retrograde fashion. It was then advanced into the heart, under fluoroscopy, using the peel-away sheath. I was able to aspirate and flush the system without any difficulty. The port was then secured to the pectoralis tissue, using 2-0 Prolene sutures. The incision was then closed using 3-0 Vicryl for the subcutaneous tissue and 4-0 Vicryl for skin, in a subcuticular fashion. Pre-emptive analgesia was established using 0.25% Marcaine with epinephrine. The port was accessed at the end of the operation. She tolerated the procedure well, was extubated in the operating room and taken to the recovery room in a stable condition. [place], sponges, and instruments were correct at the end of the operation. Job ID: [id number] Dictated Date: 06/26/2016 17:39:32 Underground Production Foreperson Date: 06/27/2016 09:54:05 / lauren BALES
--- NOTE | 2016-06-27 10:02 | Anesthesia-General Post-Op ---
General Patient Condition Mental Status/LOC: Same as Preop Cardiovascular: Satisfactory Nausea/Vomiting: Absent Respiratory: Satisfactory Pain: Controlled Complications: Absent Post Op Complications Complications None Follow Up Care/Instructions Patient Instructions None needed. Anesthesia/Patient Condition Patient Condition Patient is doing well, no complaints, stable vital signs, no apparent adverse anesthesia problems. No complications reported per nursing. D/C home per [facility] Criteria: No KULDEEP SCHROEDER CRNA Jun 27, 2016 10:02
[2016-06-27 12:02] VITALS: BP 91/63
[2016-06-27 16:00] VITALS: BP 102/69
[2016-06-27] MEDS: AMITRIPTYLINE 50 MG (ELAVIL) TAB PO SCH (19:53)
[2016-06-28] VITALS: BP 129/84
[2016-06-28] MEDS: GABAPENTIN 400 MG (NEURONTIN) CAP PO PRN ×2 (00:04→08:33)
[2016-06-28 05:36] LABS: BASOPHILS % (AUTO) 0 % (0-10); EOSINOPHILS # (AUTO) 0.1 10^3/uL (0.0-0.3); EOSINOPHILS % (AUTO) 1 % (0-10); LYMPHOCYTES # (AUTO) 2.3 X 10^3 (1.0-4.0); LYMPHOCYTES % (AUTO) 45 % (12-44); MEAN CORPUSCULAR HEMOGLOBIN 29 PG (25-34); MEAN CORPUSCULAR HGB CONC 33 G/DL (32-36); MEAN CORPUSCULAR VOLUME 86 FL (80-99); MONOCYTES # (AUTO) 0.4 X 10^3 (0.0-1.0); MONOCYTES % (AUTO) 9 % (0-12); NEUTROPHILS # (AUTO) 2.2 X 10^3 (1.8-7.8); NEUTROPHILS % (AUTO) 44 % (42-75); PLATELET COUNT 156 10^3/uL (130-400); RED BLOOD COUNT 3.02 10^6/uL (4.35-5.85); RED CELL DISTRIBUTION WIDTH 17.8 % (10.0-14.5)
[2016-06-28] MEDS: inSUlin ASPART (NovoLOG) 1 UNIT/0.01 ML (CHARGE PER UNIT) SC SCH ×2 (06:00→12:01)
[2016-06-28 06:15] LABS: ANION GAP 10 MMOL/L (5-14); BLOOD UREA NITROGEN 9 MG/DL (7-18); BUN/CREATININE RATIO 13; CALCIUM 8.5 MG/DL (8.5-10.1); CARBON DIOXIDE 22 MMOL/L (21-32); CHLORIDE 105 MMOL/L (98-107); GFR ESTIMATED > 60; GLUCOSE 110 MG/DL (70-105); SODIUM 137 MMOL/L (135-145)
[2016-06-28] MEDS: MAGNESIUM 1 GM/100 ML IVPB 100 ML IV SCH ×3 (08:33→10:55)
[2016-06-28] MEDS: MAGNESIUM OXIDE (MAG-OX)400 MG TAB PO SCH (08:33)
[2016-06-28] MEDS: inSUlin DETERMIR 1 UNIT/0.01 ML (LEVEMIR) CHARGE PER UNIT SQ SCH (08:34)
[2016-06-28] MEDS: HYDROcodone/APAP 7.5 MG/325 MG (LORTAB, LORCET PLUS) TABLET PO PRN (08:34)
[2016-06-28] MEDS: FAMOTIDINE 20MG/2ML IV (PEPCID) IVP SCH (08:36)
--- NOTE | 2016-06-28 08:46 | Discharge Summary ---
Diagnosis/Chief Complaint Date of Admission Jun 24, 2016 at 16:08 Date of Discharge Jun 28, 2016 Discharge Date: Admission Diagnosis Admission Diagnosis 1. Acute Diabetic Ketoacidosis--admit to ICU on DKA protocol 2. Uncontrolled Diabetes mellitus--insulin requiring 3. Chronic Back Pain with Radiculopathy--on chronic narcotics Discharge Diagnosis 55 yo F admitted 06/24/16 diarrhea- resolved Weakness- improving. DKA- resolved uncontrolled Diabetes Mellitus II with insulin dependence- Chronic pain- hypomagnesemia- hypokalemia- COPD Bipolar disorder- constipation- improved Reason Hospital Visit 55 yo F admitted for diabetic ketoacidosis provoked by poorly controlled diabetes and acute illness of nausea/vomiting/diarrhea. DKA protocol initiated. Discharge Summary Hospital Course Hospital Course 55 yo F admitted 06/24/16 and discharged 06/28/16. She had another occurence of diabetic ketoacidosis. This resolved without issue following the DKA protocol. Also pt had hypomagnesemia- this was replaced po and IV. Pharmacy/medication review demonstrated she is not taking magnesium at home because her last fill date was in May and the bottle had most of the pills in it. Due to difficult IV -Right side infusa-port placed 06/26/[address] Nayak. - I recommend custodial placement due to her not being able to care for herself. Pt declines- will return home. She will continue outpt PT. Follow up in 1-2 weeks. Labs Procedures Right chest- infusaport Consultations Dr. Nayak Discharge Physical Examination Allergies: Coded Allergies: No Known Drug Allergies (Unverified , 11/24/09) Vitals & I&Os Vital Signs Date Time Temp Pulse Resp B/P Pulse Ox O2 Delivery O2 Flow Rate FiO2 06/28/16 16:00 94 18 110/77 97 06/28/16 11:20 97.2 Room Air General Appearance: Alert, Oriented X3, Cooperative HEENT: Atraumatic, Other (right chest- infusaport) Respiratory: Clear to Auscultation Cardiovascular: Regular Rate Abdominal: Soft Skin: No Rashes Neuro: Normal Gait, Normal Speech Psych/Mental Status: Mental Status NL Discharge Home Medications Reviewed and agree with Discharge Medication list on patient's Discharge Instruction sheet Condition at Discharge stable Instructions to Patient/Family Please see electronic discharge instructions given to patient. Clinical Quality Measures DVT/VTE Risk/Contraindication: Risk Factor Score Per Nursin RFS Level Per Nursing on Admit: 2=Moderate NALDO MARQUEZ MD Jun 28, 2016 08:46 Glucose Level 110H, Hematocrit 26L, Hemoglobin 8.6L, Lymphocytes (%) (Auto) 45H , Magnesium Level 1.5L, Red Blood Count 3.02L, Red Cell Distribution Width 17.8H 06/28/16 06:02: Glucometer 115H Procedures None. Discharge Physical Examination Allergies: Coded Allergies: No Known Drug Allergies (Unverified , 11/24/09) Vitals & I&Os Vital Signs Date Time Temp Pulse Resp B/P Pulse Ox O2 Delivery O2 Flow Rate FiO2 06/28/16 00:00 98.7 99 16 129/84 99 Room Air General Appearance: Alert, Oriented X3, Cooperative HEENT: Atraumatic, Other (right chest- infusaport) Respiratory: Clear to Auscultation Cardiovascular: Regular Rate Abdominal: Soft Skin: No Rashes Neuro: Normal Gait, Normal Speech Psych/Mental Status: Mental Status NL Discharge Home Medications Reviewed and agree with Discharge Medication list on patient's Discharge Instruction sheet Condition at Discharge stable Instructions to Patient/Family Please see electronic discharge instructions given to patient. Clinical Quality Measures DVT/VTE Risk/Contraindication: Risk Factor Score Per Nursin RFS Level Per Nursing on Admit: 2=Moderate NALDO MARQUEZ MD Jun 28, 2016 08:46
--- NOTE | 2016-06-28 09:18 | Discharge Inst-Simple/Standard ---
Discharge Inst-Standard Discharge Medications New, Converted or Re-Newed RX: Other Patient Instructions/Follow Up Plan of Care/Instructions/FU: resume insulin regimen and improve diet and po (cut out the regular soda) Activity as Tolerated: Yes Discharge Diet: ADA Diet NALDO MARQUEZ MD Jun 28, 2016 9:18 am
[2016-06-28 11:20] VITALS: BP 110/77
--- NOTE | 2016-06-28 13:10 | Physical Therapy Daily Note ---
PT Daily Note-Current Subjective Pt sitting up in bed upon arrival. Pt enthusiastically agreed to PT and wanted to walk despite being discharged this afternoon. Pain Numeric Pain Scale: 0-No Pain Location: No Pain Reported Mental Status Patient Orientation: Person, Place, Time, Situation Attachments: IV Transfers Functional [place] Measure 0=Not Assessed/NA 4=Minimal Assistance 1=Total Assistance 5=Supervision or Setup 2=Maximal Assistance 6=Modified [place] 3=Moderate Assistance 7=Complete IndependenceIRFPAI Quality Coding Scale 6 Independent with activity with or without an assistive device 5 Patient requires set up or clean up by helper. Patient completes activity by themselves 4 Supervision or touching assist (CGA). [place] provide cues , steadying assist 3 The helper provides less than half the effort to complete the activity 2 The helper provides more than half the effort to complete the activity 1 Dependent. The helper does all the effort to complete an activity 7 Patient refused to complete or attempt activity 9 The patient did not perform the activity before the current illness or injury 88 Not attempted due to Medical conditions or safety concerns Transfers (B, C, W/C) (FIM): 6 Scootin Rollin Supine to/from Sit: 6 Sit to/from Stand: 6 Weight Bearing Weight Bearing Restriction: Full Weight Bearing Location Restriction: LE Bilateral Gait Training Distance (FIM): 3=150 ft Distance: 200' Gait Level of Assist: 6 Gait Persons Needed: 1 Gait Assistive Device: FWW Pt walked with a steady, normalized gait pattern with no LOB. PT just managed IV pole for pt. Treatments Pt transferred from supine to EOB to standing using FWW at [facility] [place]. Pt ambulated to rest room independently by using FWW. Pt then used FWW to ambulate in hallway at [facility] [place] [facility]. PT just assisted pt with IV pole. Pt reurned back to room to rest at end of walk. Pt was left at end of tx with all needs met. Assessment Current Status: Good Progress Pt fatigues after walk but walks independently with FWW as well as transfers Mod I. PT Composition Floor Setter Goals Senior Living Goals PT Composition Floor Setter Goals Time Frame: Jun 30, 2016 Transfers (B,C,W/C) (FIM): 7 Gait (FIM): 6 PT Plan Problem List Problem List: Activity Tolerance, Gait Treatment/Plan Treatment Plan: Continue Plan of Care Treatment Plan: Functional Activity Fidel, Functional Strength, Gait, Transfers Treatment Duration: Jun 30, 2016 Visits Per Week: 5 Safety Risks/Education Patient Education: Gait Training, Transfer Techniques, Correct Positioning, Safety Issues Teaching Recipient: Patient Teaching Methods: Discussion Response to Teaching: Verbalize Understanding Time/GCodes Time In: 1045 Time Out: 1105 Total Billed Treatment Time: 20 Total Billed Treatment visit, FA (20m) NED CORBIN PTA Jun 28, 2016 13:10
[2016-06-28 16:00] VITALS: BP 110/77
== END 2016-06-28 16:20 | disposition home or self-care (01) | DRG 639 ==
LOC: EDUNIT# 14:42 → ER 14:43 → ICU 16:08 → 4TH 06-26 19:35
PROVIDERS: ADMIT Family Medicine; ATTEND Family Medicine
PROC: 0JH60XZ Insertion of Tunneled Vascular Access Device into Chest Subcutaneous Tissue and Fascia, Open Approach (ICD-10-PCS; 2016-06-26)
PROC: 02HV33Z Insertion of Infusion Device into Superior Vena Cava, Percutaneous Approach (ICD-10-PCS; principal; 2016-06-26 17:00)
DX: E13.10 Other specified diabetes mellitus with ketoacidosis without coma (principal); F17.210 Nicotine dependence, cigarettes, uncomplicated; I10 Essential (primary) hypertension; E78.00 Pure hypercholesterolemia, unspecified; K21.9 Gastro-esophageal reflux disease without esophagitis; J44.9 Chronic obstructive pulmonary disease, unspecified; R19.7 Diarrhea, unspecified; R53.1 Weakness; G89.29 Other chronic pain; E83.42 Hypomagnesemia; E87.6 Hypokalemia; F31.9 Bipolar disorder, unspecified; K59.00 Constipation, unspecified; Z79.4 Long term (current) use of insulin; Z91.11 Patient's noncompliance with dietary regimen; Z91.14 Patient's other noncompliance with medication regimen
CPT/HCPCS: 36415; 71010; 80048; 80053; 80306; 81000; 82805; 82962; 83036; 83735; 84100; 85025; 87081; 93041; 96360; 96372

== ENCOUNTER 2016-07-07 13:45 | Outpatient (RCR) | payer MEDICAID ==
[~2016-07-07] VITALS: Ht 162.6 cm; Wt 90.4 kg
--- OUTSIDE RECORDS SUMMARY | 2016-07-07 13:39 | XMS REPORT | Continuity of Care Document ---
Author Author [facility] Organization [facility] Address Unknown Phone Unavailable Care Team Providers Care Forming Process Worker Name Role Phone Burt Rivera PCP [phone] Source Comments Some departments are not documenting in the electronic medical record. If you do not see the information that you expected, contact Release of Information in the Health Information Management department at [phone] for further assistance in locating additional records.[facility] Active Allergies and Adverse Reactions [...]
[~2016-07-07 13:45] MED LIST changes: +ACET-77 PO; +HEParin (CENTRAL IV FLUSH) 500 UNIT/5 ML SYR ONE; +MAGN400T29 PO; +NCT14P TD; +POTA10TA10 PO
--- OUTSIDE RECORDS SUMMARY | 2016-07-07 13:49 | XMS REPORT | Continuity of Care Document ---
Author Author [facility] Organization [facility] Address Unknown Phone Unavailable Care Team Providers Care Chair Inspector And Leveler Name Role Phone Burt Rivera PCP [phone] Source Comments Some departments are not documenting in the electronic medical record. If you do not see the information that you expected, contact Release of Information in the Health Information Management department at [phone] for further assistance in locating additional records.[facility] Active Allergies and Adverse Reactions [...]
[2016-07-07 13:55] VITALS: BP 108/58
[2016-07-07] MEDS ORDERED: HEParin (CENTRAL IV FLUSH) 500 UNIT/5 ML SYR IV SCH (14:00)
[2016-07-11] MEDS ORDERED: ONDA4TAB8 PO (10:56)
[2016-07-11] MEDS ORDERED: MAGN400T29 PO (10:56)
[2016-07-31] MEDS ORDERED: BACL10TA PO (10:49)
[2016-07-31] MEDS ORDERED: ONDA4TAB11 PO (10:49)
[2016-07-31] MEDS ORDERED: MAGN400T6 PO (10:49)
[2016-08-09] MEDS ORDERED: PANT40TA3 PO (08:34)
[2016-08-09] MEDS ORDERED: GABA-490 PO (08:34)
[2016-08-09] MEDS ORDERED: INSU100V3 SC (08:34)
[2016-08-09] MEDS ORDERED: SULF1TAB35 PO (08:34)
[2016-08-09] MEDS ORDERED: INSU100V5 SQ (08:34)
[2016-08-09] MEDS ORDERED: LORA-404 PO (08:59)
[2016-08-09] MEDS ORDERED: NCT21TD TD (09:05)
== END 2016-10-05 | disposition home or self-care (01) ==
LOC: SDC 13:45
PROVIDERS: ATTEND Family Medicine
DX: Z45.2 Encounter for adjustment and management of vascular access device (principal)
CPT/HCPCS: 96523

== ENCOUNTER 2016-07-10 17:42 | Inpatient (IN) | payer MEDICAID ==
[2016-07-10] VITALS (15 sets, daily range): BP systolic 98–127; BP diastolic 58–108
[~2016-07-10] VITALS: Ht 162.6 cm; Wt 89.1 kg
[~2016-07-10 17:42] MED LIST changes: -HEParin (CENTRAL IV FLUSH) 500 UNIT/5 ML SYR ONE
--- OUTSIDE RECORDS SUMMARY | 2016-07-10 17:48 | XMS REPORT | Continuity of Care Document ---
Author Author [facility] Organization [facility] Address Unknown Phone Unavailable Care Team Providers Care Bowling Alley Floors Installer Name Role Phone Burt Rivera PCP [phone] Source Comments Some departments are not documenting in the electronic medical record. If you do not see the information that you expected, contact Release of Information in the Health Information Management department at [phone] for further assistance in locating additional records.[place] [...]
[2016-07-10] MEDS ORDERED: NS IV 1000 ML 1,000 ML IV ONE ×2 (18:09→20:24)
--- NOTE | 2016-07-10 18:17 | ED General ---
General Chief Complaint: Glucose Problems Stated Complaint: SHORTNESS OF BREATH/WEAKNESS Source of Information: Patient, Old Records History of Present Illness Time Seen by Provider: 17:55 Initial Comments PT ARRIVES VIA POV FROM HOME C/O SHORTNESS OF BREATH X 1 WEEK--NO DIFFERENT TODAY, STATES SHE HAS NOT SOUGHT CARE FOR THIS UNTIL TODAY. STATES "I JUST CAN'T GO ON LIKE THIS" NO CHEST PAIN NO SWELLING IN LEGS/ FEET OR PAIN IN CALVES HAS HAD MILD NON-PRODUCTIVE COUGH X 2-3 DAYS NO FEVER STATES SHE HAS BEEN TOLD HER HEART RATE IS HIGH, BUT HAS NO SENSATION OF RAPID HEART RATE--( NOT A NEW PROBLEM) C/O GENERALIZED WEAKNESS C/O NO APPETITE--STATES SHE HAS NOT HAD ANY FOOD FOR A COUPLE OF DAYS--STATES " I JUST CAN'T EAT"--DENIES ANY NAUSEA/VOMITING/DIARRHEA OR ABDOMINAL PAIN C/O SEVERE THIRST--HAS BEEN DRINKING LOTS OF WATER, BUT MOUTH IS EXTREMELY DRY NO URINARY SYMPTOMS PT IS DIABETIC, STATES HER BLOOD SUGARS HAVE BEEN "HIGH--IN THE 300'S" STATES HER TOLD HER NOT TO TAKE ANY OF HER MEDICATIONS EXCEPT INSULIN, WHICH SHE CLAIMS SHE DID THIS AM. PT CONTINUES TO SMOKE AT LEAST 1 PPD PT WITH MULTITUDE OF VISITS/ADMITS--18 IN LAST YEAR. MOST FOR DKA IN ER 06/13/16 FOR UTI ADMITTED 06/14- 06/19 FOR DKA AND UTI ADMITTED 06/24-06/28 FOR DKA STATES SHE SAW DR. MARQUEZ LAST WEEK FOR FOLLOW UP. NO ADDITIONAL TESTS OR MEDICATIONS, AND CLAIMS HE TOLD HER NOT TO TAKE ANY OF HER MEDICATIONS EXCEPT INSULIN PT WITH EXTREME NON-COMPLIANCE IN ALL ASPECTS OF CARE DOES NOT ROUTINELY CHECK BLOOD SUGAR HAS BEEN ADVISED MULTIPLE TIMES THAT SHE NEEDS [facility] PLACEMENT IT IS OBVIOUS THAT PT CAN NO LONGER CARE FOR HERSELF, BUT PT HAS REFUSED PCP: DR. Brent MARQUEZ Allergies and Home Medications Allergies Coded Allergies: No Known Drug Allergies (Unverified , 11/24/09) Home Medications Amitriptyline HCl 100 Mg Tablet 100 MG PO HS (Reported) LAST FILLED #30 05-12-16 (BUBBLE PACK EMPTY) Gabapentin 800 Mg Tablet 800 MG PO QID (Reported) FILLED #120 05-12-16 (#102 LEFT IN BUBBLE PACK) Hydrocodone/Acetaminophen 1 Each Tablet 1 TAB PO Q8H PRN PRN MODERATE PAIN ( Reported) Insulin Aspart 300 Units/3 Ml Solution SQ SLIDING/SCALE (Reported) Insulin Detemir 100 Unit/1 Ml Insuln.pen 30 UNIT SQ BID (Reported) Meloxicam 15 Mg Tablet 15 MG PO DAILY (Reported) Nicotine 1 Each Patch.td24 14 MG TD DAILY (Reported) #14 FILLED 05-15-16 (#10 PATCHES LEFT IN BOX) Pravastatin Sodium 20 Mg Tablet 20 MG PO HS (Reported) LAST FILLED #30 05/12/16 (#23 TABS LEFT IN BUBBLE PACK) Ranitidine HCl 150 Mg Tablet 75 MG PO BID (Reported) LAST FILLED #30 05-12-16 (#21 TABS LEFT IN BUBBLE PACK) TAKE 1/2 (150MG) TABLET Sucralfate 1 Gm Tablet 1 GM PO ACHS (Reported) LAST FILLED #120 05/12/16 (#87 TABS LEFT IN BUBBLE PACK) Constitutional: see HPINo chills, No diaphoresis, No dizziness, No fever, malaise weakness weight loss (LOTS 25 # IN LAST 1 1/2 MONTHS) EENTM: other (DRY MOUTH) see HPI Respiratory: see HPI cough dyspnea on exertion short of breathNo wheezing Cardiovascular: see HPINo chest pain, No edema, No palpitations, No syncope Gastrointestinal: No abdominal pain, No constipation, No diarrhea, loss of appetiteNo nausea, No vomiting Genitourinary: no symptoms reported Musculoskeletal: no symptoms reported Skin: no symptoms reported Psychiatric/Neurological: No Symptoms ReportedDenies Headache, Denies Numbness , Denies Paresthesia, Denies Seizure, Denies Tingling, Denies Tremors Hematologic/Lymphatic: No Symptoms Reported Immunological/Allergic: no symptoms reported Past Meiwfoo-Wzwsuj-Bvevjk Hx Patient Social History Alcohol Use: Occasionally Uses Recreational Drug Use: No Smoking Status: Current Everyday Smoker (1 PPD) Type Used: Cigarettes Recent Foreign Travel: No Contact w/Someone Who Travel: No Recent Hopitalizations: Yes Immunizations Up To Date Tetanus Booster (TDap): Less than 5yrs PED Vaccines UTD: Yes Date of Pneumonia Vaccine: Apr 04, 2013 Date of Influenza Vaccine: Apr 18, 2016 Seasonal Allergies Seasonal Allergies: No Surgeries HX Surgeries: Yes (HERNIA REPAIR, URETHRAL DILATION? 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 Genitourinary Hx Genitourinary Disorders: Yes (URETHRAL DILATION) Genitourinary Disorders: Bladder Infection, UTI-Chronic Gastrointestinal Hx Gastrointestinal Disorders: Yes Gastrointestinal Disorders: Gastroesophageal Reflux, Chronic Diarrhea, Gall Bladder Disease Musculoskeletal Hx Musculoskeletal Disorders: Yes (SCIATICA; CHRONIC PAIN COMPLAINTS) Musculoskeletal Disorders: Degenerate Disk Disease, Osteoporosis, Arthritis, Chronic Back Pain Endocrine Hx Endocrine Disorders: Yes Endocrine Disorders: Diabetes, Insulin dep HEENT HX ENT Disorders: No Cancer Hx Cancer: No Psychosocial Hx Psychiatric Problems: Yes (EXTENSIVE PSYCH ISSUES) Behavioral Health Disorders: Sleep Difficulties, Anxiety, Depression Integumentary HX Skin/Integumentary Disorder: No Blood Transfusions Hx Blood Disorders: Yes (ANEMIA OF CHRONIC DISEASE) Family Medical History Significant Family History: Asthma, CAD Under 55 Years Old, COPD, Diabetes, Hypertension, Migraines, Psychiatric Problems, Renal Disease, Seizures, Stroke Family Medial History: Arthritis Asthma 19 MOTHER Cardiovascular disease 19 MOTHER Completed stroke Coronary thrombosis Diabetes mellitus 19 MOTHER Glaucoma 19 MOTHER Headache disorder 19 MOTHER Hypercholesterolemia 19 MOTHER Hypertension 19 MOTHER Kidney disease Myocardial infarction 19 FATHER 19 MOTHER Neoplasm Psychosocial problem Respiratory disorder Seizure disorder No Family History of: AIDS Abdominal aortic aneurysm Laclede's disease Alcoholism Alzheimer's disease Aphasia Cancer of mouth Cataracts Colon cancer Congenital disease Congenital heart disease Cystic fibrosis Deafness or hearing loss Dementia Drug abuse Dysphasia Fibrocystic disease of breast Gastroenteritis Infertility Not obtainable due to adoption Osteoporosis Parkinson's disease Prostate cancer Severe allergy Thyroid disease Tuberculosis Visual disorder Physical Exam Vital Signs Vital Sign - Last 12Hours 07/10/16 07/10/16 18:00 20:15 Temp 98.1 Pulse 114 Resp 20 B/P 135/90 Pulse Ox 96 O2 Delivery Room Air Capillary Refill : General Appearance: No Apparent Distress WD/WN Other (REEKS OF CIGARETTES. MILDLY LETHARGIC, SPEECH SLOW AND THICK-TONGUED DUE TO EXTREMELY DRY ORAL MUCOSA. TALKS AT LENGTH WITHOUT DIFFICULTY. NO EVIDENCE OF DISCOMFORT OR DYSPNEA ) HEENT: PERRL/EOMINo Photophobia, Other (DRY ORAL MUCOSA) Neck: Full Range of Motion Normal Inspection Non Tender SuppleNo Carotid Bruit , No JVD Respiratory: Normal Breath Sounds No Accessory Muscle Use No Respiratory Distress Cardiovascular: No Edema No Murmur Normal Peripheral Pulses Tachycardia Gastrointestinal: Normal Bowel Sounds No Organomegaly Non Tender Soft Back: No CVA Tenderness Extremity: Normal Capillary Refill Normal Inspection Normal Range of Motion Non Tender No Calf Tenderness No Pedal Edema Neurologic/Psychiatric: Alert Oriented x3 No Motor/Sensory Deficits 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 Norm as Tested Other (FLAT AFFECT) Skin: Normal Color Warm/Dry Other (POOR TURGOR) Progress/Results/Core Measures Results/Orders Lab Results Laboratory Tests Test 07/10/16 18:06 07/10/16 18:25 07/10/16 18:35 07/10/16 18:52 Range/Units Glucometer > 600 *H 70-110 MG/DL Alexandr Test YES-POS YES-POS Arterial Blood Base Excess -9.7 L -9.9 L -2.5-2.5 MMOL/L Arterial Blood HCO3 11 *L 14 *L 23-27 MMOL/L Arterial Blood Oxygen Saturation 100 98 94-100 % Arterial Blood Partial Pressure CO2 15 *L 26 L 35-45 MMHG Arterial Blood Partial Pressure O2 174 H 92 79-93 MMHG Arterial Blood Total CO2 11.7 L 15.0 L 21.0-31.0 MMOL/L Arterial Blood pH 7.49 H 7.36 L 7.37-7.43 Blood Gas Inspired Oxygen RA RA Blood Gas Patient Temperature 98.8 98.8 Blood Gas Puncture Site L RAD RR Blood Gas Ventilator Setting NO NO Activated Partial Thromboplast Time 29 24-35 SEC Alanine Aminotransferase (ALT/SGPT) < 6 0-55 U/L Albumin 3.3 3.2-4.5 G/DL Alkaline Phosphatase 485 H 40-136 U/L Amylase Level 24 L 25-125 U/L Anion Gap 19 H 5-14 MMOL/L Aspartate Amino Transf (AST/SGOT) 6 5-34 U/L B-Type Natriuretic Peptide 19.6 <100.0 PG/ML BUN/Creatinine Ratio 6 Basophils # (Auto) 0.0 0.0-0.1 10^3/uL Basophils (%) (Auto) 0 0-10 % Blood Urea Nitrogen 8 7-18 MG/DL Calcium Level 9.4 8.5-10.1 MG/DL Carbon Dioxide Level 15 L 21-32 MMOL/L Chloride Level 89 L 98-107 MMOL/L Creatine Kinase MB 0.4 <6.6 NG/ML Creatinine 1.32 H 0.60-1.30 MG/DL Eosinophils # (Auto) 0.0 0.0-0.3 10^3/uL Eosinophils (%) (Auto) 0 0-10 % Estimat Glomerular Filtration Rate 42 Glucose Level 805 *H 70-105 MG/DL Hematocrit 29 L 35-52 % Hemoglobin 9.9 L 11.5-16.0 G/DL INR Comment 1.1 0.8-1.4 Lipase 169 H 8-78 U/L Lymphocytes # (Auto) 1.5 1.0-4.0 X 10^3 Lymphocytes (%) (Auto) 23 12-44 % Magnesium Level 1.4 L 1.8-2.4 MG/DL Mean Corpuscular Hemoglobin 28 25-34 PG Mean Corpuscular Hemoglobin Concent 35 32-36 G/DL Mean Corpuscular Volume 81 80-99 FL Mean Platelet Volume 11.3 H 7.4-10.4 FL Monocytes # (Auto) 0.6 0.0-1.0 X 10^3 Monocytes (%) (Auto) 9 0-12 % Neutrophils # (Auto) 4.4 1.8-7.8 X 10^3 Neutrophils (%) (Auto) 68 42-75 % Platelet Count 276 130-400 10^3/uL Potassium Level 3.6 3.6-5.0 MMOL/L Prothrombin Time 14.2 12.2-14.7 SEC Red Blood Count 3.56 L 4.35-5.85 10^6/uL Red Cell Distribution Width 16.5 H 10.0-14.5 % Sodium Level 123 *L 135-145 MMOL/L TSH [facility] Testing 0.77 0.35-4.94 UIU/ML Total Bilirubin 0.5 0.1-1.0 MG/DL Total Creatine Kinase 8 L 29-168 U/L Total Protein 6.9 6.4-8.2 G/DL Troponin I < 0.30 <0.30 NG/ML White Blood Count 6.5 4.3-11.0 10^3/uL Lactic Acid Level 1.2 0.5-2.0 MMOL/L Test 07/10/16 20:10 07/10/16 20:17 07/10/16 20:42 07/10/16 22:00 Range/Units Ur Tricyclic Antidepressants Screen POSITIVE H NEGATIVE Urine Amphetamines Screen NEGATIVE NEGATIVE Urine Bacteria FEW H /HPF Urine Barbiturates Screen NEGATIVE NEGATIVE Urine Benzodiazepines Screen NEGATIVE NEGATIVE Urine Bilirubin NEGATIVE NEGATIVE Urine Cannabinoids Screen NEGATIVE NEGATIVE Urine Casts NONE /LPF Urine Clarity CLEAR Urine Cocaine Screen NEGATIVE NEGATIVE Urine Color YELLOW Urine Crystals NONE /LPF Urine Culture Indicated YES Urine Glucose (UA) 4+ H NEGATIVE Urine Ketones 4+ H NEGATIVE Urine Leukocyte Esterase 3+ H NEGATIVE Urine Methadone Screen NEGATIVE NEGATIVE Urine Methamphetamines Screen NEGATIVE NEGATIVE Urine Mucus NEGATIVE /LPF Urine Nitrite NEGATIVE NEGATIVE Urine Opiates Screen NEGATIVE NEGATIVE Urine Oxycodone Screen NEGATIVE NEGATIVE Urine Phencyclidine Screen NEGATIVE NEGATIVE Urine Propoxyphene Screen NEGATIVE NEGATIVE Urine Protein 1+ H NEGATIVE Urine RBC 5-10 H /HPF Urine RBC (Auto) 1+ H NEGATIVE Urine Specific Echo 1.005 L 1.016-1.022 Urine Squamous Epithelial Cells 2-5 /HPF Urine Urobilinogen NORMAL NORMAL MG/DL Urine WBC TNTC H /HPF Urine pH 6.5 5-9 Glucometer > 600 *H 254 H 70-110 MG/DL Anion Gap 18 H 5-14 MMOL/L BUN/Creatinine Ratio 6 Blood Urea Nitrogen 7 7-18 MG/DL Calcium Level 9.4 8.5-10.1 MG/DL Carbon Dioxide Level 18 L 21-32 MMOL/L Chloride Level 96 L 98-107 MMOL/L Creatinine 1.19 0.60-1.30 MG/DL Estimat Glomerular Filtration Rate 47 Glucose Level 389 H 70-105 MG/DL Potassium Level 2.5 *L 3.6-5.0 MMOL/L Sodium Level 132 L 135-145 MMOL/L Test 07/10/16 22:53 07/11/16 00:22 07/11/16 00:25 07/11/16 01:26 Range/Units Glucometer 209 H 272 H 356 H 70-110 MG/DL Anion Gap 18 H 5-14 MMOL/L BUN/Creatinine Ratio 8 Blood Urea Nitrogen 7 7-18 MG/DL Calcium Level 8.9 8.5-10.1 MG/DL Carbon Dioxide Level 15 L 21-32 MMOL/L Chloride Level 97 L 98-107 MMOL/L Creatinine 0.88 0.60-1.30 MG/DL Estimat Glomerular Filtration Rate > 60 Glucose Level 280 H 70-105 MG/DL Phosphorus Level 2.0 L 2.3-4.7 MG/DL Potassium Level 3.4 L 3.6-5.0 MMOL/L Sodium Level 130 L 135-145 MMOL/L Test 07/11/16 02:27 07/11/16 03:13 07/11/16 03:15 07/11/16 04:38 Range/Units Glucometer 445 *H 425 *H 258 H 70-110 MG/DL Anion Gap 14 5-14 MMOL/L BUN/Creatinine Ratio 7 Blood Urea Nitrogen 7 7-18 MG/DL Calcium Level 8.5 8.5-10.1 MG/DL Carbon Dioxide Level 17 L 21-32 MMOL/L Chloride Level 96 L 98-107 MMOL/L Creatinine 0.97 0.60-1.30 MG/DL Estimat Glomerular Filtration Rate 60 Glucose Level 408 *H 70-105 MG/DL Potassium Level 2.8 L 3.6-5.0 MMOL/L Sodium Level 127 L 135-145 MMOL/L Basophils # (Auto) 0.0 0.0-0.1 10^3/uL Basophils (%) (Auto) 0 0-10 % Eosinophils # (Auto) 0.1 0.0-0.3 10^3/uL Eosinophils (%) (Auto) 2 0-10 % Hematocrit 26 L 35-52 % Hemoglobin 8.7 L 11.5-16.0 G/DL Lymphocytes # (Auto) 1.9 1.0-4.0 X 10^3 Lymphocytes (%) (Auto) 29 12-44 % Mean Corpuscular Hemoglobin 27 25-34 PG Mean Corpuscular Hemoglobin Concent 34 32-36 G/DL Mean Corpuscular Volume 80 80-99 FL Mean Platelet Volume 10.7 H 7.4-10.4 FL Monocytes # (Auto) 0.5 0.0-1.0 X 10^3 Monocytes (%) (Auto) 7 0-12 % Neutrophils # (Auto) 4.2 1.8-7.8 X 10^3 Neutrophils (%) (Auto) 63 42-75 % Platelet Count 248 130-400 10^3/uL Red Blood Count 3.17 L 4.35-5.85 10^6/uL Red Cell Distribution Width 16.4 H 10.0-14.5 % White Blood Count 6.7 4.3-11.0 10^3/uL Micro Results Microbiology 07/10/16 Influenza Types A,B Antigen (THERESA) - Final, Complete My Orders Orders-ALYSSA SORIA DO Accucheck Stat ONCE (07/10/16 18:09) Saline Lock/Iv-Start (07/10/16 18:09) Ekg Tracing (07/10/16 18:09) Monitor-Rhythm Ecg Trace Only (07/10/16 18:09) Amylase (07/10/16 18:09) Arterial Blood Gas (07/10/16 18:09) BNP (07/10/16 18:09) Cbc With Automated Diff (07/10/16 18:09) Comprehensive Metabolic Panel (07/10/16 18:09) Creatine Kinase (07/10/16 18:09) Creatine Kinase Mb (07/10/16 18:09) Drug Screen Stat (Urine) (07/10/16 18:09) Lactic Acid Analyzer (07/10/16 18:09) Lipase (07/10/16 18:09) Magnesium (07/10/16 18:09) Protime With Inr (07/10/16 18:09) Partial Thromboplastin Time (07/10/16 18:09) Thyroid Analyzer (07/10/16 18:09) Troponin I (07/10/16 18:09) Ua Culture If Indicated (07/10/16 18:09) Blood Culture (07/10/16 18:09) Influenza A And B Antigens (07/10/16 18:09) Chest 1 View, Ap/Pa Only (07/10/16 18:09) Saline Lock/Iv-Start (07/10/16 18:09) Ns Iv 1000 Ml (Sodium Chloride 0.9%) (07/10/16 18:09) Catheter(Urinary) Insert & Ass 03,15 (07/10/16 18:46) Insulin (Regular) Human (Humulin R (Per (07/10/16 19:00) Arterial Blood Gas (07/10/16 18:47) Sodium Bicarbonate 8.4% Syr (Sodium Bica (07/10/16 19:00) Urine Culture (07/10/16 20:10) Medications Given in ED Current Medications Medications Dose Ordered Sig/Aurea Route Start Time Stop Time Status Last Admin Dose Admin Sodium Chloride 1,000 ml @ 0 mls/hr Q0M ONCE IV 07/10/16 18:09 07/10/16 18:11 DC 07/10/16 19:31 0 MLS/HR Vital Signs/I&O Vital Sign - Last 12Hours 07/10/16 07/10/16 07/10/16 07/10/16 18:00 19:59 20:15 20:25 Temp 98.1 98.5 97.2 Pulse 114 105 113 Resp 20 20 18 B/P 135/90 113/65 Pulse Ox 96 96 99 96 O2 Delivery Room Air 07/10/16 07/10/16 07/10/16 07/10/16 20:30 20:38 20:45 21:00 Pulse 117 113 112 112 Resp 13 20 12 B/P 108/68 127/108 100/60 Pulse Ox 98 98 99 O2 Delivery Room Air Room Air Room Air 07/10/16 07/10/16 07/10/16 07/10/16 21:15 21:30 21:45 22:00 Pulse 112 106 111 109 Resp 35 12 12 11 B/P 99/63 99/69 113/58 103/71 Pulse Ox 96 96 97 94 O2 Delivery Room Air Room Air Room Air Room Air 07/10/16 07/10/16 07/10/16 07/10/16 22:15 22:30 22:45 23:00 Pulse 114 112 108 109 Resp 10 16 10 15 B/P 117/82 98/67 104/71 103/71 Pulse Ox 95 96 96 93 O2 Delivery Room Air Room Air Room Air Room Air 07/10/16 07/10/16 07/10/16 07/11/16 23:15 23:30 23:45 00:00 Temp 98.1 Pulse 108 108 107 107 Resp 13 21 16 13 B/P 106/68 106/70 114/70 106/66 Pulse Ox 93 92 94 91 O2 Delivery Room Air Room Air Room Air Room Air 07/11/16 07/11/16 07/11/16 07/11/16 00:15 00:30 00:35 01:00 Pulse 105 104 102 Resp 11 23 B/P 110/63 108/63 Pulse Ox 93 98 94 O2 Delivery Room Air Room Air 2/7/17 2/7/17 2/7/17 2/7/17 01:00 01:15 01:30 01:45 Pulse 102 102 101 103 Resp 19 27 22 10 B/P 96/62 101/61 107/70 103/63 Pulse Ox 94 95 97 93 O2 Delivery Room Air Room Air Room Air Room Air 07/11/16 07/11/16 07/11/16 07/11/16 02:00 02:15 02:30 03:00 Pulse 104 103 102 100 Resp 8 13 11 12 B/P 103/63 101/59 100/62 100/60 Pulse Ox 94 93 93 93 O2 Delivery Room Air Room Air Room Air Room Air 07/11/16 07/11/16 07/11/16 03:30 04:00 04:38 Pulse 99 98 Resp 25 8 B/P 102/65 101/68 Pulse Ox 92 94 98 O2 Delivery Room Air Room Air Progress Note : Progress Note ACCUCHECK "HIGH" ON ARRIVAL--> 600 NO URINE OBTAINED DURING ER STAY AND PT DECLINES CATHETER IN ER. NO DETERIORATION IN PT'S CONDITION DURING ER STAY ECG Initial ECG Impression Time: 17:59 Initial ECG Rate: 117 Initial ECG Rhythm: S.Tach Initial ECG Comparisson: Unchanged Diagnostic Imaging Comments CXR--NO ACUTE PROCESS, PER RADIOLOGIST REPORT @ 1922 Reviewed: Reviewed by Me Departure Communication Progress Notes 1840--SPOKE WITH DR. Brent MARQUEZ, ACCEPTS PT FOR ADMIT Impression Impression: Primary Impression: DKA (diabetic ketoacidoses) Additional Impressions: Non-compliance Electrolyte imbalance Anemia of chronic disease DEHYDRATION WITH ACUTE RENAL INSUFFICIENCY MILD PANCREATITIS Disposition: ADMITTED INPATIENT Condition: Stable Decision to Admit Reason: Admit from ER (General) Decision to Admit/Date: Jul 10, 2016 Time/Decision to Admit Time: 18:40 Departure-Patient Inst. Referrals: NALDO MARQUEZ MD (PCP/Family) Primary Care Physician ALYSSA SORIA DO Jul 10, 2016 18:17
[2016-07-10 18:38] LABS: ABG BASE EXCESS -9.7 MMOL/L (-2.5-2.5); ABG OXYGEN SATURATION 100 % (94-100); ABG PH 7.49 (7.37-7.43); ABG PO2 174 MMHG (79-93); ABG TCO2 11.7 MMOL/L (21.0-31.0)
[2016-07-10 18:39] LABS: ALLENS TEST YES-POS
[2016-07-10 18:40] LABS: PATIENT TEMP 98.8
[2016-07-10 18:41] LABS: ABG HCO3 11 MMOL/L (23-27); ABG PCO2 15 MMHG (35-45)
[2016-07-10 18:45] LABS: BASOPHILS % (AUTO) 0 % (0-10); EOSINOPHILS % (AUTO) 0 % (0-10); LYMPHOCYTES # (AUTO) 1.5 X 10^3 (1.0-4.0); LYMPHOCYTES % (AUTO) 23 % (12-44); MEAN CORPUSCULAR HEMOGLOBIN 28 PG (25-34); MEAN CORPUSCULAR HGB CONC 35 G/DL (32-36); MEAN CORPUSCULAR VOLUME 81 FL (80-99); MEAN PLATELET VOLUME 11.3 FL (7.4-10.4); MONOCYTES # (AUTO) 0.6 X 10^3 (0.0-1.0); MONOCYTES % (AUTO) 9 % (0-12); NEUTROPHILS # (AUTO) 4.4 X 10^3 (1.8-7.8); NEUTROPHILS % (AUTO) 68 % (42-75); PLATELET COUNT 276 10^3/uL (130-400); RED BLOOD COUNT 3.56 10^6/uL (4.35-5.85); RED CELL DISTRIBUTION WIDTH 16.5 % (10.0-14.5); WHITE BLOOD COUNT 6.5 10^3/uL (4.3-11.0)
[2016-07-10 18:51] LABS: ABG BASE EXCESS -9.9 MMOL/L (-2.5-2.5); ABG OXYGEN SATURATION 98 % (94-100); ABG PCO2 26 MMHG (35-45); ABG PH 7.36 (7.37-7.43); ABG PO2 92 MMHG (79-93)
[2016-07-10 18:53] LABS: ABG HCO3 14 MMOL/L (23-27)
[2016-07-10 18:54] LABS: ALLENS TEST YES-POS; PATIENT TEMP 98.8
[2016-07-10] MEDS ORDERED: inSUlin (REGULAR) HUMAN 1 UNIT/0.01 ML (CHARGE PER UNIT) IV ONE (19:00)
[2016-07-10] MEDS ORDERED: SODIUM BICARB 8.4% 50 MEQ/50 ML (ABBOTT) SYR IV ONE (19:00)
[2016-07-10 19:01] LABS: INR 1.1 (0.8-1.4); PROTHROMBIN TIME PATIENT 14.2 SEC (12.2-14.7)
[2016-07-10 19:13] LABS: ALANINE AMINOTRANSFERASE < 6 U/L (0-55); ALBUMIN 3.3 G/DL (3.2-4.5); AMYLASE 24 U/L (25-125); ANION GAP 19 MMOL/L (5-14); ASPARTATE AMINO TRANSFERASE 6 U/L (5-34); BILIRUBIN,TOTAL 0.5 MG/DL (0.1-1.0); BLOOD UREA NITROGEN 8 MG/DL (7-18); BUN/CREATININE RATIO 6; CALCIUM 9.4 MG/DL (8.5-10.1); CARBON DIOXIDE 15 MMOL/L (21-32); CHLORIDE 89 MMOL/L (98-107); CREATINE KINASE 8 U/L (29-168); CREATININE SERUM 1.32 MG/DL (0.60-1.30); GFR ESTIMATED 42; LIPASE 169 U/L (8-78); MAGNESIUM 1.4 MG/DL (1.8-2.4); POTASSIUM 3.6 MMOL/L (3.6-5.0); TOTAL PROTEIN 6.9 G/DL (6.4-8.2)
--- NOTE | 2016-07-10 19:15 | Diagnostic Imaging Report ---
INDICATION: Shortness of breath COMPARISON: 06/26/16 FINDINGS: Single view of the chest demonstrates clear lungs bilaterally. The heart size is normal. There is no pneumothorax. There is a right IJ Port-A-Cath. IMPRESSION: Negative chest. Dictated by: Dictated on workstation # [id number]
[2016-07-10 19:27] LABS: GLUCOSE 805 MG/DL (70-105); SODIUM 123 MMOL/L (135-145)
[2016-07-10 19:33] LABS: TROPONIN I < 0.30 NG/ML (<0.30)
[2016-07-10 20:19] LABS: BILIRUBIN,URINE NEGATIVE (NEGATIVE); KETONES,URINE 4+ (NEGATIVE); LEUKOCYTE ESTERASE ,URINE 3+ (NEGATIVE); NITRITE,URINE NEGATIVE (NEGATIVE); PH,URINE 6.5 (5-9); PROTEIN,URINE 1+ (NEGATIVE); UROBILINOGEN,URINE NORMAL (NORMAL)
[2016-07-10] MEDS ORDERED: inSUlin REGULAR TPN/DRIP ONLY 250 UNITS in NORMAL SALINE 250 ML IV SCH (20:30)
[2016-07-10] MEDS ORDERED: D5 1/2 NS 1000 ML IV SOLUTION 1,000 ML IV SCH (20:30)
[2016-07-10] MEDS ORDERED: NS (IVPB) 100 ML ONE (20:32)
[2016-07-10 20:35] LABS: WBC,URINE TNTC /HPF
--- NOTE | 2016-07-10 20:52 | History & Physicial ---
History of Present Illness History of Present Illness Reason for visit/HPI 55 yo F well known to me in clinic and inpatient setting for frequent admissions for DKA, as well as AMS due to overmedication and/or hypoglycemia. Review of recent admissions goes as follows- 01/24/16, 04/25/16, 05/09/16, , 06/14/16, 06/25/16, 07/10/16. Pt reports that she has felt weak for past few months/weeks. She gets short of breath walking with her walking in her hallway at home. This is multifactorial - with big components due to deconditioning, chronic medical conditions, obesity , and anemia. Pt reports today it has continued- her blood sugars have been elevated to over 300. She has not ate much over the past couple days. She is only using her levemir and not novolog. She has vomited nonbloody emesis 3x in past 2 days. I recommended pt proceed to ER today when she called my office- I told her to hold her other medications (central acting meds) and continue her insulin. Pt did not have a ride to come to my office or the ER. Pt admitted to ICU for diabetic ketoacidosis. Blood sugar 800. Cr 1.32. Magnesium 1.4. Will treat pt for DKA and involve case management with placement. Date of Admission Jul 10, 2016 at 18:40 I consulted on this patient on 07/10/16 20:46 Attending Physician Leonel Marquez MD Admitting Physician Leonel Marquez MD Consult Allergies and Home Medications Allergies Coded Allergies: No Known Drug Allergies (Unverified , 11/24/09) Home Medications Amitriptyline HCl 100 Mg Tablet 100 MG PO HS (Reported) Gabapentin 800 Mg Tablet 800 MG PO QID (Reported) FILLED #120 05-12-16 Insulin Aspart 300 Units/3 Ml Solution 15 UNITS SQ WM (Reported) Insulin Detemir 100 Unit/1 Ml Insuln.pen 30 UNIT SQ BID (Reported) Magnesium Oxide 400 Mg Tablet 400 MG PO BID (Reported) Meloxicam 15 Mg Tablet 15 MG PO DAILY (Reported) Ondansetron 4 Mg Tab.rapdis 4-8 MG PO Q6H PRN PRN NAUSEA (Reported) Pravastatin Sodium 20 Mg Tablet 20 MG PO HS (Reported) LAST FILLED #30 05/12/16 Ranitidine HCl 150 Mg Tablet 75 MG PO BID (Reported) LAST FILLED #30 05-12-16 TAKE 1/2 (150MG) TABLET Sucralfate 1 Gm Tablet 1 GM PO ACHS (Reported) LAST FILLED #120 05/12/16 Past Yonsuax-Waolzp-Bnukar Hx Patient Social History Marrital Status: single Alcohol Use: Denies Use Recreational Drug Use: No Smoking Status: Current Everyday Smoker Type Used: Cigarettes Physical Abuse Screen: No Sexual Abuse: No Recent Foreign Travel: No Contact w/other who traveled: No Recent Hopitalizations: Yes Recent Infectious Disease Expo: No Immunizations Up To Date Tetanus Booster (TDap): Less than 5yrs Date of Pneumonia Vaccine: Apr 04, 2013 Date of Influenza Vaccine: Apr 18, 2016 Seasonal Allergies Seasonal Allergies: No Surgeries HX Surgeries: Yes (HERNIA REPAIR, URETHRAL DILATION? ; PORT RIGHT CHEST ) Surgeries: Abdominal, Appendectomy, Bladder Surgery, Gallbladder, Hysterectomy , Tonsillectomy Respiratory Hx Respiratory Disorders: Yes (O2 AT HS) Respiratory Disorders: COPD Cardiovascular Hx Cardiovascular Disorders: Yes Cardiac Disorders: High Cholesterol, Hypertension Neurological Hx Neurological Disorders: Yes Neurological Disorders: Headaches /Migraines Reproductive System Hx Reproductive Disorders: No Sexually Transmitted Disease: No HIV/AIDS: No Female Reproductive Disorders: Menstrual Problems Genitourinary Hx Genitourinary Disorders: Yes (URETHRAL DILATION) Genitourinary Disorders: Bladder Infection, UTI-Chronic Gastrointestinal Hx Gastrointestinal Disorders: Yes Gastrointestinal Disorders: Gastroesophageal Reflux, Chronic Diarrhea, Gall Bladder Disease Musculoskeletal Hx Musculoskeletal Disorders: Yes (SCIATICA; CHRONIC PAIN COMPLAINTS) Musculoskeletal Disorders: Degenerate Disk Disease, Osteoporosis, Arthritis, Chronic Back Pain Endocrine Hx Endocrine Disorders: Yes Endocrine Disorders: Diabetes, Insulin dep HEENT HX ENT Disorders: No Cancer Hx Cancer: No Psychosocial Hx Psychiatric Problems: Yes (EXTENSIVE PSYCH ISSUES) Behavioral Health Disorders: Sleep Difficulties, Anxiety, Depression Integumentary HX Skin/Integumentary Disorder: No Blood Transfusions Hx Blood Disorders: Yes (ANEMIA OF CHRONIC DISEASE) Family Medical History Significant Family History: Asthma, CAD Under 55 Years Old, COPD, Diabetes, Hypertension, Migraines, Psychiatric Problems, Renal Disease, Seizures, Stroke Family Hx: Arthritis Asthma 19 MOTHER Cardiovascular disease 19 MOTHER Completed stroke Coronary thrombosis Diabetes mellitus 19 MOTHER Glaucoma 19 MOTHER Headache disorder 19 MOTHER Hypercholesterolemia 19 MOTHER Hypertension 19 MOTHER Kidney disease Myocardial infarction 19 FATHER 19 MOTHER Neoplasm Psychosocial problem Respiratory disorder Seizure disorder No Family History of: AIDS Abdominal aortic aneurysm [place]'s disease Alcoholism Alzheimer's disease Aphasia Cancer of mouth Cataracts Colon cancer Congenital disease Congenital heart disease Cystic fibrosis Deafness or hearing loss Dementia Drug abuse Dysphasia Fibrocystic disease of breast Gastroenteritis Infertility Not obtainable due to adoption Osteoporosis Parkinson's disease Prostate cancer Severe allergy Thyroid disease Tuberculosis Visual disorder Constitutional: No chills, No diaphoresis EENTM: No blurred vision, No double vision, No ear pain, No hearing loss Respiratory: No cough, dyspnea on exertion Cardiovascular: No chest pain Gastrointestinal: abdominal pain vomiting Genitourinary: No dysuria, No frequency : No Musculoskeletal: No back pain, No gout, joint pain Skin: No change in color, No change in hair/nails Psychiatric/Neurological: Denies Anxiety, Denies Depressed, Emotional Problems Physical Exam Vital Signs Vital Sign - Last 12Hours 07/10/16 07/10/16 18:00 20:15 Temp 98.1 Pulse 114 Resp 20 B/P 135/90 Pulse Ox 96 O2 Delivery Room Air Capillary Refill : Less Than 3 Seconds General Appearance: No Apparent Distress WD/WN HEENT: PERRL/EOMI Neck: Full Range of Motion Non Tender Supple Respiratory: Chest Non Tender Lungs Clear Cardiovascular: Regular Rate, Rhythm No Edema No Murmur Gastrointestinal: Normal Bowel Sounds SoftNo Abnormal Bowel Sounds, No Distended, No Guarding, Tenderness (diffuse) Rectal: Deferred Back: Normal Inspection Extremity: Normal Range of Motion Non Tender No Calf Tenderness Neurologic/Psychiatric: Alert Oriented x3 No Motor/Sensory Deficits Normal Mood/Affect Skin: Warm/Dry Assessment/Plan Assessment and Plan 55 yo F admitted 07/10/16 Diabetic Ketoacidosis- protocol, insulin gtts High anion gap metabolic acidosis- correcting DKA uncontrolled Diabetes Mellitus II with insulin dependence- hga1c 8.1 04/29/16 - will continue adjusting insulin after DKA episode is resolved. Respiratory distress- oxygen sat normal- likely related to anemia and DKA. acute renal insufficiency- due to DKA, dehydration- Cr 1.32 continue IVF- No contrast, NSAIDS. Cystitis without hematuria-- UA culture pending rocephin 1g IV hypomagnesemia-1.4 replacing hypokalemia- replacing in IVF when blood sugar starts going down. pseudohyponatremia due to DKA.- monitor COPD- continue inhalers. Bipolar disorder- continue home meds. Dispo: DKA protocol, monitor in ICU It is imminent that she will one of these times. Expect pt to recover from this DKA but overall her Prognosis is poor. I (again) recommend [facility] admission- pt agreeable until August 03, 2016 but wants discharged to home by that day. She has errands she needs to get done. Will consult case management. Admissions to [facility]- 01/24/16, 04/25/16, 05/09/16, 05/20/16, 06/14/16, , 07/10/16 Clinical Quality Measures DVT/VTE Risk/Contraindication: Risk Factor Score Per Nursin RFS Level Per Nursing on Admit: 4+=Very High LEONEL MARQUEZ MD Jul 10, 2016 20:52 LEONEL MARQUEZ MD Jul 10, 2016 20:52
[2016-07-10 21:05] LABS: CALCIUM 9.4 MG/DL (8.5-10.1); CREATININE SERUM 1.19 MG/DL (0.60-1.30)
[2016-07-10 21:10] LABS: POTASSIUM 2.5 MMOL/L (3.6-5.0)
[2016-07-10] MEDS ORDERED: POTASSIUM CL 10MEQ/50ML IVPB 200 ML IV ONE (21:43)
[2016-07-10] MEDS: POTASSIUM CL 10MEQ/50ML IVPB 50 ML IV SCH ×3 (21:52→22:46)
[2016-07-10] MEDS: 1/2 NS IV SOLUTION 1,000 ML IV SCH (22:14)
[2016-07-10] MEDS: MAGNESIUM 1 GM/100 ML IVPB 100 ML IV SCH ×2 (22:14→23:16)
[2016-07-10] MEDS: 1/2 NS W/KCL 20 MEQ/L 1,000 ML IV SCH (22:16)
[2016-07-10] MEDS: cefTRIAXone INJECTION 1,000 MG in NS (IVPB) 50 ML IV SCH (22:41)
[2016-07-10] MEDS: D5 1/2 NS W/KCL 20 MEQ/L 1,000 ML IV SCH (23:40)
[2016-07-11] VITALS (25 sets, daily range): BP systolic 85–125; BP diastolic 49–84
[2016-07-11] MEDS: MAGNESIUM 1 GM/100 ML IVPB 100 ML IV SCH ×2 (00:23→01:32)
[2016-07-11 00:57] LABS: ANION GAP 18 MMOL/L (5-14); BLOOD UREA NITROGEN 7 MG/DL (7-18); BUN/CREATININE RATIO 8; CALCIUM 8.9 MG/DL (8.5-10.1); CARBON DIOXIDE 15 MMOL/L (21-32); CHLORIDE 97 MMOL/L (98-107); CREATININE SERUM 0.88 MG/DL (0.60-1.30); GFR ESTIMATED > 60; GLUCOSE 280 MG/DL (70-105); POTASSIUM 3.4 MMOL/L (3.6-5.0); SODIUM 130 MMOL/L (135-145)
[2016-07-11] MEDS: D5 1/2 NS W/KCL 20 MEQ/L 1,000 ML IV SCH ×3 (01:30→08:01)
[2016-07-11] MEDS: 1/2 NS IV SOLUTION 1,000 ML IV SCH ×3 (01:32→08:24)
[2016-07-11] MEDS: 1/2 NS W/KCL 20 MEQ/L 1,000 ML IV SCH ×3 (02:36→08:24)
[2016-07-11 03:36] LABS: CALCIUM 8.5 MG/DL (8.5-10.1); CREATININE SERUM 0.97 MG/DL (0.60-1.30); POTASSIUM 2.8 MMOL/L (3.6-5.0)
[2016-07-11 04:53] LABS: BASOPHILS % (AUTO) 0 % (0-10); EOSINOPHILS # (AUTO) 0.1 10^3/uL (0.0-0.3); EOSINOPHILS % (AUTO) 2 % (0-10); LYMPHOCYTES # (AUTO) 1.9 X 10^3 (1.0-4.0); LYMPHOCYTES % (AUTO) 29 % (12-44); MEAN CORPUSCULAR HEMOGLOBIN 27 PG (25-34); MEAN CORPUSCULAR HGB CONC 34 G/DL (32-36); MEAN CORPUSCULAR VOLUME 80 FL (80-99); MEAN PLATELET VOLUME 10.7 FL (7.4-10.4); MONOCYTES # (AUTO) 0.5 X 10^3 (0.0-1.0); MONOCYTES % (AUTO) 7 % (0-12); NEUTROPHILS # (AUTO) 4.2 X 10^3 (1.8-7.8); NEUTROPHILS % (AUTO) 63 % (42-75); PLATELET COUNT 248 10^3/uL (130-400); RED BLOOD COUNT 3.17 10^6/uL (4.35-5.85); RED CELL DISTRIBUTION WIDTH 16.4 % (10.0-14.5); WHITE BLOOD COUNT 6.7 10^3/uL (4.3-11.0)
[2016-07-11 05:31] LABS: ALANINE AMINOTRANSFERASE 6 U/L (0-55); ALBUMIN 2.9 G/DL (3.2-4.5); ANION GAP 11 MMOL/L (5-14); ASPARTATE AMINO TRANSFERASE 8 U/L (5-34); BILIRUBIN,TOTAL 0.3 MG/DL (0.1-1.0); BLOOD UREA NITROGEN 7 MG/DL (7-18); BUN/CREATININE RATIO 8; CALCIUM 8.7 MG/DL (8.5-10.1); CARBON DIOXIDE 20 MMOL/L (21-32); CHLORIDE 98 MMOL/L (98-107); CREATININE SERUM 0.86 MG/DL (0.60-1.30); GFR ESTIMATED > 60; GLUCOSE 235 MG/DL (70-105); PHOSPHORUS 1.1 MG/DL (2.3-4.7); POTASSIUM 2.8 MMOL/L (3.6-5.0); SODIUM 129 MMOL/L (135-145); TOTAL PROTEIN 5.9 G/DL (6.4-8.2)
[2016-07-11] MEDS: POTASSIUM CL 10MEQ/50ML IVPB 50 ML IV SCH ×5 (05:56→12:18)
[2016-07-11] MEDS ORDERED: MAGNESIUM 1 GM/100 ML IVPB 100 ML IV SCH (06:00)
[2016-07-11] MEDS ORDERED: KCL 20 MEQ TAB (K-DUR) PO SCH (06:00)
[2016-07-11] MEDS ORDERED: POTASSIUM CL 10MEQ/50ML IVPB 50 ML IV SCH (06:00)
[2016-07-11] MEDS: ACETAMINOPHEN 325 MG TABLET/CAPLET (TYLENOL) PO PRN ×3 (06:25→22:24)
--- NOTE | 2016-07-11 07:58 | Progress Note (SOAP) ---
Subjective Subjective/Events-last exam 55 yo F admitted for weakness and diabetic ketoacidosis- no overnight events- following DKA protocol. No issues with urinating. Pt denies nausea, vomiting Pt agrees to go to [place] for about a month- but wants out at beginning of August. Pt picks [facility]- Staff does not think she should go there. Will try [facility] Review of Systems General: No Chills, No Night Sweats HEENT: No Head Aches, No Visual Changes Pulmonary: No Dyspnea, No Cough Cardiovascular: No: Chest Pain, Palpitations Gastrointestinal: No: Abdominal Pain, Nausea, Vomiting Genitourinary: No Dysuria, No Frequency Musculoskeletal: No: neck pain, shoulder pain Neurological: : Weakness Objective Exam Vital Signs Date Time Temp Pulse Resp B/P Pulse Ox O2 Delivery O2 Flow Rate FiO2 07/11/16 06:00 102 11 110/76 95 Room Air 07/11/16 05:00 98 26 95/70 96 Room Air 07/11/16 04:38 98 07/11/16 04:00 97.3 98 8 101/68 94 Room Air 07/11/16 03:30 99 25 102/65 92 Room Air 07/11/16 03:00 100 12 100/60 93 Room Air 07/11/16 02:30 102 11 100/62 93 Room Air 07/11/16 02:15 103 13 101/59 93 Room Air 07/11/16 02:00 104 8 103/63 94 Room Air 07/11/16 01:45 103 10 103/63 93 Room Air 07/11/16 01:30 101 22 107/70 97 Room Air 07/11/16 01:15 102 27 101/61 95 Room Air 07/11/16 01:00 102 19 96/62 94 Room Air 07/11/16 01:00 102 07/11/16 00:35 94 07/11/16 00:30 104 23 108/63 98 Room Air 07/11/16 00:15 105 11 110/63 93 Room Air 07/11/16 00:00 98.1 107 13 106/66 91 Room Air 07/10/16 23:45 107 16 114/70 94 Room Air 07/10/16 23:30 108 21 106/70 92 Room Air 07/10/16 23:15 108 13 106/68 93 Room Air 07/10/16 23:00 109 15 103/71 93 Room Air 07/10/16 22:45 108 10 104/71 96 Room Air 07/10/16 22:30 112 16 98/67 96 Room Air 07/10/16 22:15 114 10 117/82 95 Room Air 07/10/16 22:00 109 11 103/71 94 Room Air 07/10/16 21:45 111 12 113/58 97 Room Air 07/10/16 21:30 106 12 99/69 96 Room Air 07/10/16 21:15 112 35 99/63 96 Room Air 07/10/16 21:00 112 12 100/60 99 Room Air 07/10/16 20:45 112 20 127/108 98 Room Air 07/10/16 20:38 113 07/10/16 20:30 117 13 108/68 98 Room Air 07/10/16 20:25 96 07/10/16 20:15 97.2 113 18 113/65 99 Room Air 07/10/16 19:59 98.5 105 20 96 07/10/16 18:00 98.1 114 20 135/90 96 I & O 07/11/16 07:00 Intake Total 3524 ml Output Total 800 ml Balance 2724 ml Capillary Refill : Less Than 3 Seconds General Appearance: No Apparent Distress WD/WN HEENT: PERRL/EOMI Neck: Full Range of Motion Non Tender Supple Respiratory: Chest Non Tender Lungs Clear Normal Breath Sounds Cardiovascular: Regular Rate, Rhythm No Edema Gastrointestinal: non tender soft Extremity: Normal Inspection Normal Range of Motion Non Tender Neurologic/Psychiatric: Alert Oriented x3 No Motor/Sensory Deficits Normal Mood/Affect Skin: Normal Color Warm/Dry Results Lab Laboratory Tests 07/10/16 18:06: Glucometer > 600*H 07/10/16 18:25: Alexandr Test YES-POS, Arterial Blood Base Excess -9.7L, Arterial Blood HCO3 11*L, Arterial Blood Oxygen Saturation 100, Arterial Blood Partial Pressure CO2 15*L, Arterial Blood Partial Pressure O2 174H, Arterial Blood Total CO2 11.7L, Arterial Blood pH 7.49H, Blood Gas Inspired Oxygen RA, Blood Gas Patient Temperature 98.8, Blood Gas Puncture Site L RAD, Blood Gas Ventilator Setting NO 07/10/16 18:35: Alexandr Test YES-POS, Arterial Blood Base Excess -9.9L, Arterial Blood HCO3 14*L, Arterial Blood Oxygen Saturation 98, Arterial Blood Partial Pressure CO2 26L, Arterial Blood Partial Pressure O2 92, Arterial Blood Total CO2 15.0L, Arterial Blood pH 7.36L, Blood Gas Inspired Oxygen RA, Blood Gas Patient Temperature 98.8 , Blood Gas Puncture Site RR, Blood Gas Ventilator Setting NO, Activated Partial Thromboplast Time 29, Alanine Aminotransferase (ALT/SGPT) < 6, Albumin 3.3, Alkaline Phosphatase 485H, Amylase Level 24L, Anion Gap 19H, Aspartate Amino Transf (AST/SGOT) 6, B-Type Natriuretic Peptide 19.6, BUN/Creatinine Ratio 6, Basophils # (Auto) 0.0, Basophils (%) (Auto) 0, Blood Urea Nitrogen 8, Calcium Level 9.4, Carbon Dioxide Level 15L, Chloride Level 89L, Creatine Kinase MB 0.4, Creatinine 1.32H, Eosinophils # (Auto) 0.0, Eosinophils (%) (Auto ) 0, Estimat Glomerular Filtration Rate 42, Glucose Level 805*H, Hematocrit 29L , Hemoglobin 9.9L, INR Comment 1.1, Lipase 169H, Lymphocytes # (Auto) 1.5, Lymphocytes (%) (Auto) 23, Magnesium Level 1.4L, Mean Corpuscular Hemoglobin 28 , Mean Corpuscular Hemoglobin Concent 35, Mean Corpuscular Volume 81, Mean Platelet Volume 11.3H, Monocytes # (Auto) 0.6, Monocytes (%) (Auto) 9, Neutrophils # (Auto) 4.4, Neutrophils (%) (Auto) 68, Platelet Count 276, Potassium Level 3.6, Prothrombin Time 14.2, Red Blood Count 3.56L, Red Cell Distribution Width 16.5H, Sodium Level 123*L, TSH [place] Testing 0.77, Total Bilirubin 0.5, Total Creatine Kinase 8L, Total Protein 6.9, Troponin I < 0.30, White Blood Count 6.5 07/10/16 18:52: Lactic Acid Level 1.2 07/10/16 20:10: Ur Tricyclic Antidepressants Screen POSITIVEH, Urine Amphetamines Screen NEGATIVE, Urine Bacteria FEWH, Urine Barbiturates Screen NEGATIVE, Urine Benzodiazepines Screen NEGATIVE, Urine Bilirubin NEGATIVE, Urine Cannabinoids Screen NEGATIVE, Urine Casts NONE, Urine Clarity CLEAR, Urine Cocaine Screen NEGATIVE, Urine Color YELLOW, Urine Crystals NONE, Urine Culture Indicated YES, Urine Glucose (UA) 4+H, Urine Ketones 4+H, Urine Leukocyte Esterase 3+H, Urine Methadone Screen NEGATIVE, Urine Methamphetamines Screen NEGATIVE, Urine Mucus NEGATIVE, Urine Nitrite NEGATIVE, Urine Opiates Screen NEGATIVE, Urine Oxycodone Screen NEGATIVE, Urine Phencyclidine Screen NEGATIVE, Urine Propoxyphene Screen NEGATIVE, Urine Protein 1+H, Urine RBC 5-10H, Urine RBC ( Auto) 1+H, Urine Specific [place] 1.005L, Urine Squamous Epithelial Cells 2-5, Urine Urobilinogen NORMAL, Urine WBC TNTCH, Urine pH 6.5 07/10/16 20:17: Glucometer > 600*H 07/10/16 20:42: Anion Gap 18H, BUN/Creatinine Ratio 6, Blood Urea Nitrogen 7, Calcium Level 9.4 , Carbon Dioxide Level 18L, Chloride Level 96L, Creatinine 1.19, Estimat Glomerular Filtration Rate 47, Glucose Level 389H, Potassium Level 2.5*L, Sodium Level 132L 07/10/16 22:00: Glucometer 254H 07/10/16 22:53: Glucometer 209H 07/11/16 00:22: Glucometer 272H 07/11/16 00:25: Anion Gap 18H, BUN/Creatinine Ratio 8, Blood Urea Nitrogen 7, Calcium Level 8.9 , Carbon Dioxide Level 15L, Chloride Level 97L, Creatinine 0.88, Estimat Glomerular Filtration Rate > 60, Glucose Level 280H, Phosphorus Level 2.0L, Potassium Level 3.4L, Sodium Level 130L 07/11/16 01:26: Glucometer 356H 07/11/16 02:27: Glucometer 445*H 07/11/16 03:13: Glucometer 425*H 07/11/16 03:15: Anion Gap 14, BUN/Creatinine Ratio 7, Blood Urea Nitrogen 7, Calcium Level 8.5, Carbon Dioxide Level 17L, Chloride Level 96L, Creatinine 0.97, Estimat Glomerular Filtration Rate 60, Glucose Level 408*H, Potassium Level 2.8L, Sodium Level 127L 07/11/16 04:38: Glucometer 258H, Anion Gap 11, BUN/Creatinine Ratio 8, Blood Urea Nitrogen 7, Calcium Level 8.7, Carbon Dioxide Level 20L, Chloride Level 98, Creatinine 0.86 , Estimat Glomerular Filtration Rate > 60, Glucose Level 235H, Potassium Level 2.8L, Sodium Level 129L, Alanine Aminotransferase (ALT/SGPT) 6, Albumin 2.9L, Alkaline Phosphatase 359H, Aspartate Amino Transf (AST/SGOT) 8, Basophils # ( Auto) 0.0, Basophils (%) (Auto) 0, Eosinophils # (Auto) 0.1, Eosinophils (%) ( Auto) 2, Hematocrit 26L, Hemoglobin 8.7L, Hemoglobin A1c 11.8H, Lymphocytes # ( Auto) 1.9, Lymphocytes (%) (Auto) 29, Magnesium Level 2.0, Mean Corpuscular Hemoglobin 27, Mean Corpuscular Hemoglobin Concent 34, Mean Corpuscular Volume 80, Mean Platelet Volume 10.7H, Monocytes # (Auto) 0.5, Monocytes (%) (Auto) 7, Neutrophils # (Auto) 4.2, Neutrophils (%) (Auto) 63, Phosphorus Level 1.1L, Platelet Count 248, Red Blood Count 3.17L, Red Cell Distribution Width 16.4H, Total Bilirubin 0.3, Total Protein 5.9L, White Blood Count 6.7 07/11/16 05:31: Glucometer 173H 07/11/16 06:24: Glucometer 172H 07/11/16 07:18: Glucometer 218H Microbiology 07/10/16 Influenza Types A,B Antigen (THERESA) - Final, Complete Assessment/Plan Assessment/Plan Assess & Plan/Chief Complaint 55 yo F admitted 07/10/16 Diabetic Ketoacidosis- resolved High anion gap metabolic acidosis- resolved uncontrolled Diabetes Mellitus II with insulin dependence- hga1c 11 07/11/16 - will continue adjusting insulin after DKA episode is resolved. Respiratory distress- oxygen sat normal- likely related to anemia and DKA. - improved acute renal insufficiency- due to DKA, dehydration- continue IVF- improved No contrast, NSAIDS. Cystitis without hematuria-- UA culture pending rocephin 1g IV hypomagnesemia-1.4 on admission- replacing, rechecking in AM hypokalemia- replacing hyponatremia- improving- IVF NS COPD- continue inhalers. Bipolar disorder- monitor Dispo: Transfer to floor. It is imminent that she will one of these times. Expect pt to recover from this DKA but overall her Prognosis is poor. - consult case management. will be working on [facility] placement- Pt needs alf admission to [place] otherwise she will like in near future. Pt aware of this possiblity Of note: Pt's Admissions to [facility]- 01/24/16, 04/25/16, 05/09/16, 05/20, 06/14/16, 06/25/16, 07/10/16 Diagnosis/Problems: Clinical Quality Measures DVT/VTE Risk/Contraindication: Risk Factor Score Per Nursin RFS Level Per Nursing on Admit: 4+=Very High NALDO MARQUEZ MD Jul 11, 2016 07:58
[2016-07-11] MEDS: cefTRIAXone INJECTION 1,000 MG in NS (IVPB) 50 ML IV SCH (08:02)
--- NOTE | 2016-07-11 08:08 | Diagnostic Imaging Report ---
INDICATION: Shortness of air. Study compared 07/10/2016 FINDINGS: Right IJ catheter at the SVC. The lungs are clear. There is no effusion or pneumothorax. No free air beneath the diaphragms. IMPRESSION: No acute appearing abnormality Dictated by: Dictated on workstation # [id number]
[2016-07-11] MEDS ORDERED: inSUlin DETERMIR 1 UNIT/0.01 ML (LEVEMIR) CHARGE PER UNIT SQ SCH (08:15)
[2016-07-11] MEDS ORDERED: FAMOTIDINE 20MG/2ML IV (PEPCID) IV SCH (09:00)
[2016-07-11] MEDS: MAGNESIUM OXIDE (MAG-OX)400 MG TAB PO SCH ×2 (10:00→17:56)
[2016-07-11] MEDS ORDERED: MAGN400T29 PO (10:56)
[2016-07-11] MEDS ORDERED: ONDA4TAB8 PO (10:56)
--- NOTE | 2016-07-11 10:57 | Physical Therapy Evaluation ---
PT Evaluation-General Medical Diagnosis Admission Date Jul 10, 2016 at 18:40 Medical Diagnosis: DKA Onset Date: Jul 10, 2016 Therapy Diagnosis Therapy Diagnosis: debility Height/Weight Height (Feet): 5 Height (Inches): 4.00 Weight (Pounds): 190 Weight (Ounces): 4.8 Precautions Precautions/Isolations: Standard Precautions Referral Physician: Alfonzo Reason for Referral: Evaluation/Treatment Medical History Pertinent Medical History: Arthritis, COPD, DM, GERD, HTN, Renal Insufficiency , Smoking Additional Medical History SOA x 1 wk; no appetite; heavy smoker Current History noncompliant DM Reviewed History: Yes Social History Home: Single Level Current Living Status: Other Family Prior/[facility] Prior Level of Function Functional [place] Measure 0=Not Assessed/NA 4=Minimal Assistance 1=Total Assistance 5=Supervision or Setup 2=Maximal Assistance 6=Modified [place] 3=Moderate Assistance 7=Complete [place] Bed Mobility: 7 Transfers (B,C,W/C) (FIM): 7 Gait: 7 PT Evaluation-Current Subjective Patient is in bed and agrees to PT. Pain Numeric Pain Scale: 0-No Pain Location: No Pain Reported Objective Patient Orientation: Person, Time, Situation Problem Solving: Fair Attachments: IV ROM/Strength ROM Lower Extremities bilateral LE WFL Strenght Lower Extremities bilateral LE WFL Integumentary/Posture Integumentary refer to nursing notes Bowel Incontinence: No Bladder Incontinence: No Posture slight trunk flexed posture due to back issues Neuromuscular (Tone, Coordination, Reflexes) diminished coordination due to medical debility Sensory Vision: Functional Hearing: Functional Sensation Right Lower Extremit: Impaired Sensation Left Lower Extremity: Impaired Transfers Functional [place] Measure 0=Not Assessed/NA 4=Minimal Assistance 1=Total Assistance 5=Supervision or Setup 2=Maximal Assistance 6=Modified [place] 3=Moderate Assistance 7=Complete [place] Transfers (B, C, W/C) (FIM): 6 Scootin Rollin Supine to/from Sit: 6 Sit to/from Stand: 6 Gait Mode of Locomotion: Walk Anticipated Mode of Locomotion: Walk Gait (FIM): 5 Distance (FIM): 3=150 ft Distance: 225' Gait Level of Assist: 5 Gait Persons Needed: 1 Gait Assistive Device: FWW Comments/Gait Description steady, functional gait sequence Balance Sitting Static: Normal Sitting Dynamic: Normal Standing Static: Fair Standing Dynamic: Fair Assessment/Needs 55 y.o. female, will benefit from short term skilled PT to address functional mobility to improve current LOF. Patient admits to heavy smoking and drinking regular pop to this PT. Education with patient on the possible negative side effects of not complying with restrictions of DM. Patient acknowledges this. Rehab Potential: Poor Post Rehab Potential-Barriers: noncompliant DM PT Summer Internship Goals Long-Term Goals PT Summer Internship Goals Time Frame: Jul 17, 2016 Transfers (B,C,W/C) (FIM): 6 Gait (FIM): 6 Gait distance (FIM): 3=150 ft Distance: 250' Gait Level of Assist: 6 Gait Assistive Device: FWW PT Plan Problem List Problem List: Activity Tolerance, Safety Treatment/Plan Treatment Plan: Continue Plan of Care Treatment Plan: Education, Functional Activity Fidel, Functional Strength, Gait , Safety, Therapeutic Exercise, Transfers Treatment Duration: Jul 17, 2016 # of days/week 5-6 Visits Per Week: 5-6 Pt/Family Agrees w/Plan: Yes Safety Risks/Education Patient Education: Disease Process, Safety Issues Teaching Recipient: Patient Teaching Methods: Discussion Response to Teaching: Verbalize Understanding Time/GCodes Time In: 1030 Time Out: 1045 Total Billed Treatment Time: 15 Total Billed Treatment 1 visit EVModC 15 min JESSA JOHN PT Jul 11, 2016 10:56
[2016-07-11] MEDS: NS W/KCL 20 MEQ/L 1,000 ML IV SCH ×2 (11:10→22:24)
[2016-07-11 14:13] LABS: ANION GAP 6 MMOL/L (5-14); BLOOD UREA NITROGEN 6 MG/DL (7-18); BUN/CREATININE RATIO 8; CALCIUM 8.2 MG/DL (8.5-10.1); CARBON DIOXIDE 21 MMOL/L (21-32); CHLORIDE 103 MMOL/L (98-107); CREATININE SERUM 0.76 MG/DL (0.60-1.30); GFR ESTIMATED > 60; GLUCOSE 263 MG/DL (70-105); POTASSIUM 4.2 MMOL/L (3.6-5.0); SODIUM 130 MMOL/L (135-145)
[2016-07-11] MEDS: inSUlin ASPART (NovoLOG) 1 UNIT/0.01 ML (CHARGE PER UNIT) SC SCH ×3 (14:39→22:27)
[2016-07-11] MEDS ORDERED: ONDANSETRON 4 MG (ZOFRAN) ORAL DISSOLVE TAB PO PRN (17:45)
[2016-07-11] MEDS ORDERED: LORazepam 1 MG (ATIVAN) TAB PO PRN (17:45)
[2016-07-11] MEDS: AMITRIPTYLINE 50 MG (ELAVIL) TAB PO SCH (22:25)
[2016-07-11] MEDS: inSUlin DETERMIR 1 UNIT/0.01 ML (LEVEMIR) CHARGE PER UNIT SQ SCH (22:27)
[2016-07-12] VITALS (10 sets, daily range): BP systolic 91–119; BP diastolic 51–68
[2016-07-12] MEDS: inSUlin ASPART (NovoLOG) 1 UNIT/0.01 ML (CHARGE PER UNIT) SC SCH ×4 (06:00→21:45)
[2016-07-12] MEDS: NS W/KCL 20 MEQ/L 1,000 ML IV SCH (06:16)
[2016-07-12 06:24] LABS: BASOPHILS % (AUTO) 0 % (0-10); EOSINOPHILS # (AUTO) 0.1 10^3/uL (0.0-0.3); EOSINOPHILS % (AUTO) 2 % (0-10); LYMPHOCYTES # (AUTO) 1.8 X 10^3 (1.0-4.0); LYMPHOCYTES % (AUTO) 39 % (12-44); MEAN CORPUSCULAR HEMOGLOBIN 28 PG (25-34); MEAN CORPUSCULAR HGB CONC 34 G/DL (32-36); MEAN CORPUSCULAR VOLUME 83 FL (80-99); MEAN PLATELET VOLUME 10.4 FL (7.4-10.4); MONOCYTES # (AUTO) 0.3 X 10^3 (0.0-1.0); MONOCYTES % (AUTO) 7 % (0-12); NEUTROPHILS # (AUTO) 2.4 X 10^3 (1.8-7.8); NEUTROPHILS % (AUTO) 52 % (42-75); PLATELET COUNT 221 10^3/uL (130-400); RED BLOOD COUNT 2.88 10^6/uL (4.35-5.85); RED CELL DISTRIBUTION WIDTH 16.6 % (10.0-14.5); WHITE BLOOD COUNT 4.6 10^3/uL (4.3-11.0)
[2016-07-12 06:51] LABS: ANION GAP 8 MMOL/L (5-14); BLOOD UREA NITROGEN 7 MG/DL (7-18); BUN/CREATININE RATIO 10; CALCIUM 8.3 MG/DL (8.5-10.1); CARBON DIOXIDE 19 MMOL/L (21-32); CHLORIDE 109 MMOL/L (98-107); CREATININE SERUM 0.69 MG/DL (0.60-1.30); GFR ESTIMATED > 60; GLUCOSE 108 MG/DL (70-105); MAGNESIUM 1.5 MG/DL (1.8-2.4); PHOSPHORUS 1.4 MG/DL (2.3-4.7); POTASSIUM 3.9 MMOL/L (3.6-5.0); SODIUM 136 MMOL/L (135-145)
--- NOTE | 2016-07-12 07:46 | Progress Note (SOAP) ---
Subjective Subjective/Events-last exam No overnight events; DKA resolved. Pt reporting still feeling weak, and wore out with ambulation. Does not feel like going home. Review of Systems General: No Chills, No Night Sweats HEENT: No Head Aches, No Visual Changes Pulmonary: DyspneaNo Cough Cardiovascular: No: Chest Pain, Edema, Palpitations Gastrointestinal: : Abdominal Pain (some)No: Nausea, Vomiting Genitourinary: No Dysuria, No Frequency Neurological: : WeaknessNo: Confusion, Numbness Objective Exam Vital Signs Date Time Temp Pulse Resp B/P Pulse Ox O2 Delivery O2 Flow Rate FiO2 07/12/16 04:00 97.9 85 16 106/56 95 Room Air 07/12/16 01:00 99.0 96 16 119/54 93 Room Air 07/11/16 20:00 97.8 98 18 101/58 98 Room Air 07/11/16 15:00 103 19 125/79 100 Room Air 07/11/16 14:00 105 17 112/84 100 Room Air 07/11/16 13:00 83 07/11/16 13:00 79 8 101/62 98 Room Air 07/11/16 12:30 97.2 07/11/16 12:00 89 20 100/60 97 Room Air 07/11/16 11:00 89 21 93/49 98 Room Air 07/11/16 10:00 84 19 91/52 96 Room Air 07/11/16 09:00 86 9 89/57 94 Room Air 07/11/16 08:45 98.4 07/11/16 08:00 98 23 85/59 97 Room Air I & O 07/12/16 07:00 Intake Total 1530 ml Output Total 1500 ml Balance 30 ml Capillary Refill : Less Than 3 Seconds General Appearance: Mild Distress HEENT: PERRL/EOMI Neck: Full Range of Motion Non Tender Respiratory: Chest Non Tender Lungs Clear Normal Breath Sounds No Accessory Muscle Use No Respiratory Distress Cardiovascular: Regular Rate, Rhythm No Edema Gastrointestinal: normal bowel sounds non tender soft Extremity: Normal Capillary Refill Non Tender Neurologic/Psychiatric: Alert Oriented x3 Normal Mood/Affect Skin: Warm/Dry Results Lab Laboratory Tests 07/11/16 08:13: Glucometer 353H 07/11/16 09:59: Glucometer 205H 07/11/16 12:20: Glucometer 222H 07/11/16 13:52: Anion Gap 6, BUN/Creatinine Ratio 8, Blood Urea Nitrogen 6L, Calcium Level 8.2L , Carbon Dioxide Level 21, Chloride Level 103, Creatinine 0.76, Estimat Glomerular Filtration Rate > 60, Glucose Level 263H, Potassium Level 4.2, Sodium Level 130L 07/11/16 14:26: Glucometer 275H 07/11/16 17:52: Glucometer 227H 07/11/16 20:56: Glucometer 237H 07/12/16 00:28: Glucometer 206H 07/12/16 05:26: Glucometer 122H 07/12/16 06:00: Anion Gap 8, BUN/Creatinine Ratio 10, Basophils # (Auto) 0.0, Basophils (%) ( Auto) 0, Blood Urea Nitrogen 7, Calcium Level 8.3L, Carbon Dioxide Level 19L, Chloride Level 109H, Creatinine 0.69, Eosinophils # (Auto) 0.1, Eosinophils (%) (Auto) 2, Estimat Glomerular Filtration Rate > 60, Glucose Level 108H, Hematocrit 24L, Hemoglobin 8.0L, Lymphocytes # (Auto) 1.8, Lymphocytes (%) (Auto ) 39, Magnesium Level 1.5L, Mean Corpuscular Hemoglobin 28, Mean Corpuscular Hemoglobin Concent 34, Mean Corpuscular Volume 83, Mean Platelet Volume 10.4, Monocytes # (Auto) 0.3, Monocytes (%) (Auto) 7, Neutrophils # (Auto) 2.4, Neutrophils (%) (Auto) 52, Phosphorus Level 1.4L, Platelet Count 221, Potassium Level 3.9, Red Blood Count 2.88L, Red Cell Distribution Width 16.6H, Sodium Level 136, White Blood Count 4.6 Microbiology 07/11/16 Blood Culture - Preliminary, Resulted No growth 07/10/16 MRSA Screen - Final, Complete MRSA not isolated 07/10/16 Urine Culture - Preliminary, Resulted Assessment/Plan Assessment/Plan Assess & Plan/Chief Complaint 55 yo F admitted 07/10/16 Fatigue/weakness- probably due to deconditioning and anemia Diabetic Ketoacidosis- resolved High anion gap metabolic acidosis- resolved uncontrolled Diabetes Mellitus II with insulin dependence- hga1c 11.8 07/11/16 - will continue adjusting insulin after DKA episode is resolved. Respiratory distress- oxygen sat normal- likely related to anemia and DKA. - improved acute renal insufficiency- due to DKA, dehydration- continue IVF- improved No contrast, NSAIDS. Cystitis without hematuria-- UA culture pending rocephin 1g IV hypomagnesemia-1.4 on admission- replacing, rechecking in AM hypokalemia- replacing hyponatremia- resolved Bipolar disorder- monitor Anemia of chronic disease- transfusing 1unit pRBC to increase her hgb to 9- suspect to see improvement in pt's energy level and prolong her ambulation tolerance. DVT ppx: lovenox- Dispo: Pt's hgb continues to decrease- partially dilutional but definitely anemic will be working up further. Labs support ACD. - consult case management. will be working on [facility] placement- Pt needs custodial admission to [place] otherwise she will likely in near future. Pt aware of this possiblity Of note: Pt's Admissions to [facility]- 01/24/16, 04/25/16, 05/09/16, 05/20, 06/14/16, 06/25/16, 07/10/16 Diagnosis/Problems: Clinical Quality Measures DVT/VTE Risk/Contraindication: Risk Factor Score Per Nursin RFS Level Per Nursing on Admit: 4+=Very High NALDO MARQUEZ MD Jul 12, 2016 7:46 am
[2016-07-12] MEDS: MAGNESIUM 1 GM/100 ML IVPB 100 ML IV SCH ×2 (08:35→09:55)
[2016-07-12] MEDS: ENOXAPARIN 40 MG/0.4 ML (LOVENOX) SYR SQ SCH (08:36)
[2016-07-12] MEDS: MAGNESIUM OXIDE (MAG-OX)400 MG TAB PO SCH ×2 (08:37→18:08)
[2016-07-12] MEDS: inSUlin DETERMIR 1 UNIT/0.01 ML (LEVEMIR) CHARGE PER UNIT SQ SCH ×2 (08:37→21:45)
[2016-07-12] MEDS: cefTRIAXone INJECTION 1,000 MG in NS (IVPB) 50 ML IV SCH (12:10)
[2016-07-12] MEDS: GABAPENTIN 400 MG (NEURONTIN) CAP PO SCH ×3 (12:15→21:45)
[2016-07-12] MEDS ORDERED: NS IV 500 ML 500 ML IV SCH (13:11)
--- NOTE | 2016-07-12 13:16 | Physical Therapy Daily Note ---
PT Daily Note-Current Subjective Pt is supine asleep in bed upon arrival. Pt reports feeling sleepy and wanting her Gabapentin, asked nursing to give. Pt agreed to PT. Mental Status Patient Orientation: Person, Place Attachments: IV Transfers Functional [place] Measure 0=Not Assessed/NA 4=Minimal Assistance 1=Total Assistance 5=Supervision or Setup 2=Maximal Assistance 6=Modified [place] 3=Moderate Assistance 7=Complete IndependenceIRFPAI Quality Coding Scale 6 Independent with activity with or without an assistive device 5 Patient requires set up or clean up by helper. Patient completes activity by themselves 4 Supervision or touching assist (CGA). [place] provide cues , steadying assist 3 The helper provides less than half the effort to complete the activity 2 The helper provides more than half the effort to complete the activity 1 Dependent. The helper does all the effort to complete an activity 7 Patient refused to complete or attempt activity 9 The patient did not perform the activity before the current illness or injury 88 Not attempted due to Medical conditions or safety concerns Transfers (B, C, W/C) (FIM): 5 Scootin Rollin Supine to/from Sit: 5 Sit to/from Stand: 5 Bed to/from Chair: 5 Weight Bearing Weight Bearing Restriction: Full Weight Bearing Location Restriction: LE Bilateral Gait Training Distance (FIM): 1=up to 49 ft Distance: 15' Gait Level of Assist: 5 Gait Persons Needed: 1 Gait Assistive Device: FWW Pt ambulates to restroom using FWW at [facility]. Treatments Pt awakes with PT and is very sleepy. Pt declines walk until receiving Gabapentin but agrees to sitting up in recliner until nursing brings med. Pt transfers to recliner with VC using FWW at [facility]. Pt then feels need to use restroom so transfers from sitting to standing then back to sitting to use restroom. Pt was left with all needs met and nursing to bring med. Assessment Current Status: Fair Progress Pt seemed very confused and asked PT what day it was. Pt reports sleeping okay last night but having trouble remembering today. PT Senior Living Goals Senior Living Goals PT Leather Polisher Goals Time Frame: Jul 17, 2016 Transfers (B,C,W/C) (FIM): 6 Gait (FIM): 6 Gait distance (FIM): 3=150 ft Distance: 250' Gait Level of Assist: 6 Gait Assistive Device: FWW PT Plan Problem List Problem List: Activity Tolerance, Safety, Gait Treatment/Plan Treatment Plan: Continue Plan of Care Treatment Plan: Education, Functional Activity Fidel, Functional Strength, Gait , Safety, Therapeutic Exercise, Transfers Treatment Duration: Jul 17, 2016 Visits Per Week: 5-6 Safety Risks/Education Patient Education: Gait Training, Transfer Techniques, Correct Positioning, Safety Issues Teaching Recipient: Patient Teaching Methods: Discussion Response to Teaching: Verbalize Understanding Time/GCodes Time In: 1005 Time Out: 1020 Total Billed Treatment Time: 15 Total Billed Treatment visit, FA (15m) NED CORBIN VBA DEVELOPER Jul 12, 2016 13:16
[2016-07-12] MEDS: ACETAMINOPHEN 325 MG TABLET/CAPLET (TYLENOL) PO PRN (16:42)
[2016-07-12] MEDS: AMITRIPTYLINE 50 MG (ELAVIL) TAB PO SCH (21:46)
[2016-07-13] VITALS: BP 110/57
[2016-07-13 04:00] VITALS: BP 107/61
[2016-07-13 06:02] LABS: BASOPHILS % (AUTO) 0 % (0-10); EOSINOPHILS # (AUTO) 0.1 10^3/uL (0.0-0.3); EOSINOPHILS % (AUTO) 3 % (0-10); LYMPHOCYTES # (AUTO) 1.7 X 10^3 (1.0-4.0); LYMPHOCYTES % (AUTO) 37 % (12-44); MEAN CORPUSCULAR HEMOGLOBIN 28 PG (25-34); MEAN CORPUSCULAR HGB CONC 33 G/DL (32-36); MEAN CORPUSCULAR VOLUME 84 FL (80-99); MONOCYTES # (AUTO) 0.5 X 10^3 (0.0-1.0); MONOCYTES % (AUTO) 10 % (0-12); NEUTROPHILS # (AUTO) 2.4 X 10^3 (1.8-7.8); NEUTROPHILS % (AUTO) 50 % (42-75); PLATELET COUNT 243 10^3/uL (130-400); RED BLOOD COUNT 3.26 10^6/uL (4.35-5.85); RED CELL DISTRIBUTION WIDTH 16.6 % (10.0-14.5); WHITE BLOOD COUNT 4.7 10^3/uL (4.3-11.0)
[2016-07-13] MEDS: inSUlin ASPART (NovoLOG) 1 UNIT/0.01 ML (CHARGE PER UNIT) SC SCH ×3 (06:08→16:40)
[2016-07-13 06:25] LABS: ANION GAP 8 MMOL/L (5-14); BLOOD UREA NITROGEN 9 MG/DL (7-18); BUN/CREATININE RATIO 13; CALCIUM 8.6 MG/DL (8.5-10.1); CARBON DIOXIDE 23 MMOL/L (21-32); CHLORIDE 103 MMOL/L (98-107); GFR ESTIMATED > 60; GLUCOSE 200 MG/DL (70-105); MAGNESIUM 1.3 MG/DL (1.8-2.4); PHOSPHORUS 2.1 MG/DL (2.3-4.7); POTASSIUM 4.4 MMOL/L (3.6-5.0); SODIUM 134 MMOL/L (135-145)
--- NOTE | 2016-07-13 08:12 | Discharge Inst-Simple/Standard ---
Discharge Inst-Standard Patient Instructions/Follow Up Plan of Care/Instructions/FU: work on eating healthy, small frequent meals- check blood sugar achs and use novolog accordingly. Continue levemir 30units BID Follow up in 1-2 weeks with [facility] Activity as Tolerated: Yes Discharge Diet: Eat Small Frequent Meals Return to The Hospital For: Diabetes related concerns specifically AMS, hypo/hyperglycemia other medical concerns. NALDO MARQUEZ MD Jul 13, 2016 08:12
[2016-07-13] MEDS: MAGNESIUM 1 GM/100 ML IVPB 100 ML IV SCH ×2 (08:20→10:27)
[2016-07-13] MEDS: MAGNESIUM OXIDE (MAG-OX)400 MG TAB PO SCH ×2 (08:20→16:40)
[2016-07-13] MEDS: GABAPENTIN 400 MG (NEURONTIN) CAP PO SCH ×3 (08:20→16:40)
[2016-07-13] MEDS: ENOXAPARIN 40 MG/0.4 ML (LOVENOX) SYR SQ SCH (08:20)
[2016-07-13] MEDS: inSUlin DETERMIR 1 UNIT/0.01 ML (LEVEMIR) CHARGE PER UNIT SQ SCH (08:23)
[2016-07-13 08:49] VITALS: BP 98/54
[2016-07-13 12:44] VITALS: BP 86/54
[2016-07-13 16:00] VITALS: BP 105/75
--- NOTE | 2016-07-13 23:51 | Discharge Summary ---
Diagnosis/Chief Complaint Date of Admission Jul 10, 2016 at 18:40 Date of Discharge Jul 13, 2016 at 18:05 Discharge Date: Jul 13, 2016 Admission Diagnosis Admission Diagnosis 55 yo F admitted 07/10/16 Diabetic Ketoacidosis- protocol, insulin gtts High anion gap metabolic acidosis- correcting DKA uncontrolled Diabetes Mellitus II with insulin dependence- hga1c 8.1 04/29/16 - will continue adjusting insulin after DKA episode is resolved. Respiratory distress- oxygen sat normal- likely related to anemia and DKA. acute renal insufficiency- due to DKA, dehydration- Cr 1.32 continue IVF- No contrast, NSAIDS. Cystitis without hematuria-- UA culture pending rocephin 1g IV hypomagnesemia-1.4 replacing hypokalemia- replacing in IVF when blood sugar starts going down. pseudohyponatremia due to DKA.- monitor COPD- continue inhalers. Bipolar disorder- continue home meds. Dispo: DKA protocol, monitor in ICU It is imminent that she will one of these times. Expect pt to recover from this DKA but overall her Prognosis is poor. I (again) recommend alf admission- pt agreeable until August 03, 2016 but wants discharged to home by that day. She has errands she needs to get done. Will consult case management. Admissions to [facility]- 01/24/16, 04/25/16, 05/09/16, 05/20/16, 06/14/16, , 07/10/16 Discharge Diagnosis Diabetic Ketoacidosis- resolved High anion gap metabolic acidosis- resolved Uncontrolled Diabetes Mellitus II with insulin dependence- Respiratory distress- resolved acute renal insufficiency- resolved hypomagnesemia- hypokalemia- pseudohyponatremia due to DKA- resolved Bipolar disorder- Reason Hospital Visit 55 yo F well known to me in clinic and inpatient setting for frequent admissions for DKA, as well as AMS due to overmedication and/or hypoglycemia. Review of recent admissions goes as follows- 01/24/16, 04/25/16, 05/09/16, , 06/14/16, 06/25/16, 07/10/16. Pt reports that she has felt weak for past few months/weeks. She gets short of breath walking with her walking in her hallway at home. This is multifactorial - with big components due to deconditioning, chronic medical conditions, obesity , and anemia. Pt reports today it has continued- her blood sugars have been elevated to over 300. She has not ate much over the past couple days. She is only using her levemir and not novolog. She has vomited nonbloody emesis 3x in past 2 days. I recommended pt proceed to ER today when she called my office- I told her to hold her other medications (central acting meds) and continue her insulin. Pt did not have a ride to come to my office or the ER. Pt admitted to ICU for diabetic ketoacidosis. Blood sugar 800. Cr 1.32. Magnesium 1.4. Will treat pt for DKA and involve case management with placement. Discharge Summary Hospital Course Hospital Course 54 yo F admitted for reoccuring DKA because pt does not manage her diabetes as closely as she should. DKA protocol followed with good results of resolving the high anioin gap acidosis- Pt was transferred to the floor as she was deemed stable and out of DKA. She was switched to her levemir 30units along with novolog at meal times with a SSI. Pt's magnesium remained low but was replaced IV, she will continue the po magnesium tablets. Also of note pt's hemoglobin has gradually decreased- from 11 in April to now 8. Appears to be due to anemia of chronic disease with frequent She was transfused 1 unit pRBC 07/12/16- no complications. Her anemia of chronic disease improved with the 1 unit of pRBC. No overnight events- pt is ambulating to urinate. No new issues- pt now has chickenpox Pt discharged to home. Labs Laboratory Tests 07/11/16 00:22: Glucometer 272H 07/11/16 00:25: Anion Gap 18H, Carbon Dioxide Level 15L, Chloride Level 97L, Glucose Level 280H , Phosphorus Level 2.0L, Potassium Level 3.4L, Sodium Level 130L 07/11/16 01:26: Glucometer 356H 07/11/16 02:27: Glucometer 445*H 07/11/16 03:13: Glucometer 425*H 07/11/16 03:15: Carbon Dioxide Level 17L, Chloride Level 96L, Glucose Level 408*H, Potassium Level 2.8L, Sodium Level 127L 07/11/16 04:38: Glucometer 258H, Carbon Dioxide Level 20L, Glucose Level 235H, Potassium Level 2.8L, Sodium Level 129L, Albumin 2.9L, Alkaline Phosphatase 359H, Ferritin 353.0H, Hematocrit 26L, Hemoglobin 8.7L, Hemoglobin A1c 11.8H, Mean Platelet Volume 10.7H, Phosphorus Level 1.1L, Red Blood Count 3.17L, Red Cell Distribution Width 16.4H, Total Iron Binding Capacity 169L, Total Protein 5.9L 07/11/16 05:31: Glucometer 173H 07/11/16 06:24: Glucometer 172H 07/11/16 07:18: Glucometer 218H 07/11/16 08:13: Glucometer 353H 07/11/16 09:59: Glucometer 205H 07/11/16 12:20: Glucometer 222H 07/11/16 13:52: Blood Urea Nitrogen 6L, Calcium Level 8.2L, Glucose Level 263H, Sodium Level 130L 07/11/16 14:26: Glucometer 275H 07/11/16 17:52: Glucometer 227H 07/11/16 20:56: Glucometer 237H 07/12/16 00:28: Glucometer 206H 07/12/16 05:26: Glucometer 122H 07/12/16 06:00: Calcium Level 8.3L, Carbon Dioxide Level 19L, Chloride Level 109H, Glucose Level 108H, Hematocrit 24L, Hemoglobin 8.0L, Magnesium Level 1.5L, Phosphorus Level 1.4L, Red Blood Count 2.88L, Red Cell Distribution Width 16.6H 07/12/16 12:52: Glucometer 353H 07/12/16 17:12: Glucometer 112H 07/12/16 21:06: Glucometer 171H 07/13/16 05:45: Glucose Level 200H, Hematocrit 27L, Hemoglobin 9.1L, Magnesium Level 1.3L, Mean Platelet Volume 11.0H, Phosphorus Level 2.1L, Red Blood Count 3.26L, Red Cell Distribution Width 16.6H, Sodium Level 134L 07/13/16 05:54: Glucometer 198H 07/13/16 11:24: Glucometer 292H 07/13/16 11:42: 07/13/16 13:45: 07/13/16 16:36: Glucometer 185H Procedures None. Discharge Physical Examination Allergies: Coded Allergies: No Known Drug Allergies (Unverified , 11/24/09) Vitals & I&Os Vital Signs Date Time Temp Pulse Resp B/P Pulse Ox O2 Delivery O2 Flow Rate FiO2 07/13/16 16:00 98.2 91 18 105/75 98 Room Air General Appearance: Alert, Oriented X3, Cooperative HEENT: PERRLA Respiratory: Clear to Auscultation Cardiovascular: Regular Rate Abdominal: Soft Extremities: No Edema Skin: No Rashes Neuro: Normal Speech Discharge Home Medications Reviewed and agree with Discharge Medication list on patient's Discharge Instruction sheet Condition at Discharge Stable Instructions to Patient/Family Please see electronic discharge instructions given to patient. Clinical Quality Measures DVT/VTE Risk/Contraindication: Risk Factor Score Per Nursin RFS Level Per Nursing on Admit: 4+=Very High NALDO MARQUEZ MD Jul 13, 2016 23:51
== END 2016-07-13 18:05 | disposition home or self-care (01) | DRG 638 ==
LOC: EDUNIT# 17:42 → ER 17:44 → ICU 18:40 → 4TH 07-11 15:33
PROVIDERS: ADMIT Family Medicine; ATTEND Family Medicine
DX: E13.10 Other specified diabetes mellitus with ketoacidosis without coma (principal); E87.1 Hypo-osmolality and hyponatremia; F17.210 Nicotine dependence, cigarettes, uncomplicated; I10 Essential (primary) hypertension; E78.00 Pure hypercholesterolemia, unspecified; K21.9 Gastro-esophageal reflux disease without esophagitis; J44.9 Chronic obstructive pulmonary disease, unspecified; Z79.4 Long term (current) use of insulin; F41.9 Anxiety disorder, unspecified; N28.9 Disorder of kidney and ureter, unspecified; E86.0 Dehydration; N30.90 Cystitis, unspecified without hematuria; E83.42 Hypomagnesemia; E87.6 Hypokalemia; F31.9 Bipolar disorder, unspecified; Z91.19 Patient's noncompliance with other medical treatment and regimen; G47.00 Insomnia, unspecified; D63.8 Anemia in other chronic diseases classified elsewhere; R06.00 Dyspnea, unspecified; R53.1 Weakness
CPT/HCPCS: 36415; 71010; 80048; 80053; 80306; 81000; 82150; 82550; 82553; 82728; 82805; 82962; 83036; 83540; 83605; 83690; 83735; 83880; 84100; 84443; 84484; 85025; 85610; 85730; 86850; 86900; 86901; 86920; 87040; 87081; 87088; 87804; 93005; 93041; 96374; 96375

== ENCOUNTER 2016-07-30 06:33 | Inpatient (IN) | payer MEDICAID ==
[~2016-07-30] VITALS: Ht 172.7 cm; Wt 90.9 kg
[2016-07-30] VITALS (15 sets, daily range): BP systolic 86–108; BP diastolic 54–73
[~2016-07-30 06:33] MED LIST changes: +ONDA4TAB8 PO
--- OUTSIDE RECORDS SUMMARY | 2016-07-30 06:40 | XMS REPORT | Continuity of Care Document ---
Author Author [facility] Organization [facility] Address Unknown Phone Unavailable Care Team Providers Care Terrazzo Journeyman Name Role Phone Burt Rivera PCP [phone] Source Comments Some departments are not documenting in the electronic medical record. If you do not see the information that you expected, contact Release of Information in the Health Information Management department at [phone] for further assistance in locating additional records.[facility] Active Allergies and Adverse Reactions [...]
[2016-07-30] MEDS ORDERED: NS IV 1000 ML 1,000 ML IV ONE ×2 (06:43→08:13)
--- NOTE | 2016-07-30 06:55 | ED General ---
General Chief Complaint: Neurological Problems Stated Complaint: FALL Source of Information: Patient, EMS, Old Records Exam Limitations: No Limitations History of Present Illness Time Seen by Provider: 06:25 Initial Comments This 55-year-old woman presents to the emergency room with complaints of weakness and a fall in the bathroom this morning. She reports having a dream that she needed to go to the restroom. She woke up while still sleepy and attempted to ambulate into the bathroom. She did hit her head on the floor but denies loss of consciousness. The back of her head is a little bit sore. She denies any neck pain or injury. Fingerstick blood sugar for EMS was "high". She has not taken any insulin since yesterday afternoon but is usually on a 5 shot regimen. She has been having problems with weakness since . She reports decreased urine output the last 2 days. She is tachycardic for EMS with a heart rate of 122. She is alert and oriented. Skin appears mildly jaundiced. She has a long history of noncompliance with her diabetes and has some liver dysfunction. She reports some intermittent abdominal discomfort but none at present. Allergies and Home Medications Allergies Coded Allergies: No Known Drug Allergies (Unverified , 11/24/09) Home Medications Amitriptyline HCl 100 Mg Tablet 100 MG PO HS (Reported) Gabapentin 800 Mg Tablet 800 MG PO QID (Reported) FILLED #120 05-12-16 Insulin Aspart 300 Units/3 Ml Solution 15 UNITS SQ WM (Reported) Insulin Detemir 100 Unit/1 Ml Insuln.pen 30 UNIT SQ BID (Reported) Magnesium Oxide 400 Mg Tablet 400 MG PO BID (Reported) Meloxicam 15 Mg Tablet 15 MG PO DAILY (Reported) Ondansetron 4 Mg Tab.rapdis 4-8 MG PO Q6H PRN PRN NAUSEA (Reported) Pravastatin Sodium 20 Mg Tablet 20 MG PO HS (Reported) LAST FILLED #30 05/12/16 Ranitidine HCl 150 Mg Tablet 75 MG PO BID (Reported) LAST FILLED #30 05-12-16 TAKE 1/2 (150MG) TABLET Sucralfate 1 Gm Tablet 1 GM PO ACHS (Reported) LAST FILLED #120 05/12/16 Constitutional: see HPI EENTM: see HPI Respiratory: no symptoms reported Cardiovascular: no symptoms reported Gastrointestinal: no symptoms reported Genitourinary: see HPI : No Musculoskeletal: see HPI Skin: see HPI change in color Psychiatric/Neurological: See HPI Hematologic/Lymphatic: No Symptoms Reported Past Xpyhdnx-Ljmbfv-Gqqnej Hx Patient Social History Alcohol Use: Denies Use Recreational Drug Use: No Smoking Status: Current Everyday Smoker Type Used: Cigarettes Recent Hopitalizations: Yes Immunizations Up To Date Tetanus Booster (TDap): Less than 5yrs PED Vaccines UTD: Yes Date of Pneumonia Vaccine: Apr 04, 2013 Date of Influenza Vaccine: Apr 18, 2016 Seasonal Allergies Seasonal Allergies: No Surgeries HX Surgeries: Yes (HERNIA REPAIR, URETHRAL DILATION? ; PORT RIGHT CHEST ) Surgeries: Abdominal, Appendectomy, Bladder Surgery, Gallbladder, Hysterectomy , Tonsillectomy Respiratory Hx Respiratory Disorders: Yes (O2 AT HS) Respiratory Disorders: Pneumonia, Sleep Apnea, COPD Cardiovascular Hx Cardiac Disorders: Yes Cardiac Disorders: High Cholesterol, Hypertension Neurological Hx Neurological Disorders: Yes Neurological Disorders: Headaches /Migraines Reproductive System Hx Reproductive Disorders: No Sexually Transmitted Disease: No HIV/AIDS: No Female Reproductive Disorders: Menstrual Problems [employer] History: Hysterectomy, Menopausal Genitourinary Hx Genitourinary Disorders: Yes (URETHRAL DILATION) Genitourinary Disorders: Bladder Infection, UTI-Chronic Gastrointestinal Hx Gastrointestinal Disorders: Yes Gastrointestinal Disorders: Gastroesophageal Reflux, Liver Disease/Jaundice ( elevated alkaline phosphatase), Chronic Diarrhea, Gall Bladder Disease Musculoskeletal Hx Musculoskeletal Disorders: Yes (SCIATICA; CHRONIC PAIN COMPLAINTS) Musculoskeletal Disorders: Degenerate Disk Disease, Osteoporosis, Arthritis, Chronic Back Pain Endocrine Hx Endocrine Disorders: Yes Endocrine Disorders: Diabetes, Insulin dep HEENT HX ENT Disorders: No Cancer Hx Cancer: No Psychosocial Hx Psychiatric Problems: Yes (EXTENSIVE PSYCH ISSUES) Behavioral Health Disorders: Sleep Difficulties, Anxiety, Depression Integumentary HX Skin/Integumentary Disorder: No Blood Transfusions Hx Blood Disorders: Yes (ANEMIA OF CHRONIC DISEASE) Family Medical History Significant Family History: Asthma, CAD Under 55 Years Old, COPD, Diabetes, Hypertension, Migraines, Psychiatric Problems, Renal Disease, Seizures, Stroke Family Medial History: Arthritis Asthma 19 MOTHER Cardiovascular disease 19 MOTHER Completed stroke Coronary thrombosis Diabetes mellitus 19 MOTHER Glaucoma 19 MOTHER Headache disorder 19 MOTHER Hypercholesterolemia 19 MOTHER Hypertension 19 MOTHER Kidney disease Myocardial infarction 19 FATHER 19 MOTHER Neoplasm Psychosocial problem Respiratory disorder Seizure disorder No Family History of: AIDS Abdominal aortic aneurysm [place]'s disease Alcoholism Alzheimer's disease Aphasia Cancer of mouth Cataracts Colon cancer Congenital disease Congenital heart disease Cystic fibrosis Deafness or hearing loss Dementia Drug abuse Dysphasia Fibrocystic disease of breast Gastroenteritis Infertility Not obtainable due to adoption Osteoporosis Parkinson's disease Prostate cancer Severe allergy Thyroid disease Tuberculosis Visual disorder Physical Exam Vital Signs Vital Sign - Last 12Hours 07/30/16 06:33 Temp 96.1 Pulse 118 Resp 18 B/P 107/77 Pulse Ox 91 O2 Delivery Room Air Capillary Refill : General Appearance: No Apparent Distress WD/WN HEENT: PERRL/EOMI Other (mucous membranes very dry. Mild scleral icterus.) Neck: Normal Inspection Non Tender Supple Respiratory: Lungs Clear Normal Breath Sounds No Accessory Muscle Use No Respiratory Distress Cardiovascular: No Edema No Murmur Tachycardia Gastrointestinal: Non Tender Soft Extremity: Normal Inspection No Pedal Edema Neurologic/Psychiatric: Alert Oriented x3 No Motor/Sensory Deficits Normal Mood/Affect [employer] II-XII Norm as Tested Other (mentation slightly sluggish) Skin: Normal Color Warm/Dry Progress/Results/Core Measures Results/Orders Lab Results Laboratory Tests Test 07/30/16 06:48 07/30/16 07:30 07/30/16 08:34 07/30/16 08:35 Range/Units Glucometer > 600 *H > 600 *H 70-110 MG/DL Basophils # (Auto) 0.0 0.0-0.1 10^3/uL Basophils (%) (Auto) 0 0-10 % Eosinophils # (Auto) 0.3 0.0-0.3 10^3/uL Eosinophils (%) (Auto) 6 0-10 % Hematocrit 31 L 35-52 % Hemoglobin 10.3 L 11.5-16.0 G/DL Lactic Acid Level 3.1 *H 0.5-2.0 MMOL/L Lymphocytes # (Auto) 0.6 L 1.0-4.0 X 10^3 Lymphocytes (%) (Auto) 12 12-44 % Mean Corpuscular Hemoglobin 28 25-34 PG Mean Corpuscular Hemoglobin Concent 34 32-36 G/DL Mean Corpuscular Volume 84 80-99 FL Mean Platelet Volume 11.1 H 7.4-10.4 FL Monocytes # (Auto) 0.5 0.0-1.0 X 10^3 Monocytes (%) (Auto) 10 0-12 % Neutrophils # (Auto) 3.7 1.8-7.8 X 10^3 Neutrophils (%) (Auto) 72 42-75 % Platelet Count 149 130-400 10^3/uL Red Blood Count 3.64 L 4.35-5.85 10^6/uL Red Cell Distribution Width 16.1 H 10.0-14.5 % Smear Scan YES White Blood Count 5.1 4.3-11.0 10^3/uL Activated Partial Thromboplast Time 29 24-35 SEC Alanine Aminotransferase (ALT/SGPT) 7 0-55 U/L Albumin 3.0 L 3.2-4.5 G/DL Alkaline Phosphatase 465 H 40-136 U/L Ammonia 37 H 11-32 UMOL/L Anion Gap 13 5-14 MMOL/L Aspartate Amino Transf (AST/SGOT) 9 5-34 U/L BUN/Creatinine Ratio 13 Blood Urea Nitrogen 18 7-18 MG/DL Calcium Level 8.4 L 8.5-10.1 MG/DL Carbon Dioxide Level 18 L 21-32 MMOL/L Chloride Level 96 L 98-107 MMOL/L Creatinine 1.38 H 0.60-1.30 MG/DL Estimat Glomerular Filtration Rate 40 Glucose Level 835 *H 70-105 MG/DL INR Comment 1.1 0.8-1.4 Lipase 110 H 8-78 U/L Magnesium Level 1.0 *L 1.8-2.4 MG/DL Potassium Level 3.0 L 3.6-5.0 MMOL/L Prothrombin Time 14.2 12.2-14.7 SEC Sodium Level 127 L 135-145 MMOL/L Total Bilirubin 0.6 0.1-1.0 MG/DL Total Protein 5.9 L 6.4-8.2 G/DL Troponin I < 0.30 <0.30 NG/ML Test 07/30/16 09:20 07/30/16 09:30 Range/Units Urine Bacteria TRACE /HPF Urine Bilirubin NEGATIVE NEGATIVE Urine Casts NONE /LPF Urine Clarity CLEAR Urine Color YELLOW Urine Crystals 0 /LPF Urine Culture Indicated NO Urine Glucose (UA) 4+ H NEGATIVE Urine Ketones 1+ H NEGATIVE Urine Leukocyte Esterase NEGATIVE NEGATIVE Urine Mucus NEGATIVE /LPF Urine Nitrite NEGATIVE NEGATIVE Urine Protein NEGATIVE NEGATIVE Urine RBC 0 /HPF Urine RBC (Auto) NEGATIVE NEGATIVE Urine Specific Whitt 1.005 L 1.016-1.022 Urine Urobilinogen NORMAL NORMAL MG/DL Urine WBC 0 /HPF Urine pH 6.5 5-9 Lactic Acid Level 3.8 *H 0.5-2.0 MMOL/L My Orders Orders-MARTINA TINOCO MD Ammonia (07/30/16 06:43) Cbc With Automated Diff (07/30/16 06:43) Comprehensive Metabolic Panel (07/30/16 06:43) Lactic Acid Analyzer (07/30/16 06:43) Magnesium (07/30/16 06:43) Troponin I (07/30/16 06:43) Ua Culture If Indicated (07/30/16 06:43) Accucheck Stat ONCE (07/30/16 06:43) Saline Lock/Iv-Start (07/30/16 06:43) Ekg Tracing (07/30/16 06:43) Monitor-Rhythm Ecg Trace Only (07/30/16 06:43) Chest 1 View, Ap/Pa Only (07/30/16 06:43) Saline Lock/Iv-Start (07/30/16 06:43) Ns Iv 1000 Ml (Sodium Chloride 0.9%) (07/30/16 06:43) Insulin (Regular) Human (Humulin R (Per (07/30/16 07:00) Ct Head/Cervical Spine Wo (07/30/16 06:48) Protime With Inr (07/30/16 06:48) Partial Thromboplastin Time (07/30/16 06:48) Lipase (07/30/16 07:04) Accucheck Stat ONCE (07/30/16 08:13) Accucheck Stat ONCE (07/30/16 08:13) Ns Iv 1000 Ml (Sodium Chloride 0.9%) (07/30/16 08:13) Insulin (Regular) Human (Humulin R (Per (07/30/16 08:45) Magnesium 1 Gm/100 Ml Ivpb (Magnesium Prabhakar (07/30/16 09:15) Potassium Chloride (Tablet) (Klor Con Ta (07/30/16 09:15) Magnesium 1 Gm/100 Ml Ivpb (Magnesium Prabhakar (07/30/16 09:04) Medications Given in ED Current Medications Medications Dose Ordered Sig/Aurea Route Start Time Stop Time Status Last Admin Dose Admin Insulin Human Regular 15 unit ONCE ONCE IV 07/30/16 08:45 07/30/16 08:46 DC 07/30/16 08:38 15 UNIT Insulin Human Regular 10 unit 10 unit ONCE ONCE IV 07/30/16 07:00 07/30/16 07:01 DC 07/30/16 06:55 10 UNIT Magnesium Sulfate/ Dextrose 100 ml STK-MED ONCE IV 07/30/16 09:04 07/30/16 09:07 DC 07/30/16 09:24 Potassium Chloride 40 meq 40 meq ONCE ONCE PO 07/30/16 09:15 07/30/16 09:16 DC 07/30/16 09:24 40 MEQ Sodium Chloride 1,000 ml @ 0 mls/hr Q0M ONCE IV 07/30/16 06:43 07/30/16 06:47 DC 07/30/16 06:55 1,000 MLS/HR Sodium Chloride 1,000 ml @ 0 mls/hr Q0M ONCE IV 07/30/16 08:13 07/30/16 08:14 DC 07/30/16 08:32 1,000 MLS/HR Vital Signs/I&O Vital Sign - Last 12Hours 07/30/16 07/30/16 07/30/16 06:33 09:38 10:26 Temp 96.1 Pulse 118 94 90 Resp 18 18 B/P 107/77 Pulse Ox 91 97 O2 Delivery Room Air Progress Note #1: Time: 07:07 Progress Note Patient seen and examined. Chart reviewed. Fingerstick blood sugar is still "high". A liter of IV fluids and 10 units of insulin have been ordered. CT of the head and neck is pending. Progress Note #2: Time: 07:42 Progress Note Lab work has been delayed due to difficulty obtaining specimens. Progress Note #3: Time: 08:35 Progress Note After 1 L of IV fluids and 10 units of insulin, patient's blood sugar is still "high". Another liter of IV fluids is infusing and 15 units of insulin IV will be administered. Progress Note #4: Progress Note Blood sugar was still reading "high" just before admission. Insulin drip protocol was ordered to initiate in the ICU. Magnesium 1 g IV was ordered to be started in the emergency room with another 3 g ordered on the bridging orders set. Potassium 40 mEq orally was ordered to be administered in the ER ECG Initial ECG Impression Date: Jul 30, 2016 Initial ECG Impression Time: 06:43 Initial ECG Rate: 115 Initial ECG Rhythm: S.Tach Comment Sinus tachycardia with no acute ST elevation or depression. EKG is similar to prior. Nonspecific intraventricular conduction delay by automated read. No significant axis deviation. Diagnostic Imaging Diagonstic Imaging: CT Plain Films/CT/US/NM/MRI: c-spine, head Comments CT head and cervical spine viewed by me and report reviewed. See report below: NAME: [facility] REC#: [id number] PT STATUS: REG ER : 1960 PHYSICIAN: MARTINA TINOCO MD ADMIT DATE: 07/30/16/ER Signed Date of Exam: 07/30/16 CT HEAD/CERVICAL SPINE WO PROCEDURE: CT head and CT cervical spine without contrast. TECHNIQUE: Multiple contiguous axial images were obtained through the brain and cervical spine without the use of intravenous contrast. Sagittal and coronal reformations through the cervical spine were then performed. INDICATION: Head and neck pain after fall. FINDINGS: The ventricles and sulci are within normal limits. There is no hydrocephalus. There is no midline shift. There is no intracranial mass, hemorrhage or extra-axial fluid collection. The calvarium is intact. The sinuses and mastoid air cells are clear. There is straightening of the normal cervical lordosis. There is multilevel degenerative disc disease. There is no fracture or traumatic subluxation. The odontoid is intact and lateral masses are well aligned. Prevertebral soft tissues are within normal limits. IMPRESSION: 1. No acute intracranial abnormality. 2. Moderate cervical spondylosis and multilevel degenerative disc disease without acute fracture or traumatic subluxation. Dictated by: Dictated on workstation # [id number] Dict: 07/30/16 0837 Trans: 07/30/16 0855 [id number] Interpreted by: DANNIE BOWMAN Electronically signed by:DANNIE BOWMAN 07/30/16 0857 Diagonstic Imaging: Xray Plain Films/CT/US/NM/MRI: chest Comments Chest x-ray viewed by me and report reviewed. See report below: NAME: [facility] REC#: [id number] PT STATUS: REG ER : 1960 PHYSICIAN: MARTINA TINOCO MD ADMIT DATE: 07/30/16/ER Signed Date of Exam: 07/30/16 CHEST 1 VIEW, AP/PA ONLY INDICATION: Dizziness, lethargy and fall. COMPARISON: Comparison made to prior examination from 07/11/2016. FINDINGS: The heart size is normal. Lungs are clear. There is no pleural effusion or pneumothorax. Mediastinum is unremarkable. IMPRESSION: No acute cardiopulmonary abnormality. Dictated by: Dictated on workstation # [id number] Dict: 07/30/16 0805 Trans: 07/30/16 0838 [id number] Interpreted by: DANNIE BOWMAN Electronically signed by:DANNIE BOWMAN 07/30/16 0841 Departure Communication Time/Spoke to Admitting Phy: 09:04 Communication Case was reviewed with Dr. Mcmanus who agrees to admission to the ICU on an insulin drip. Impression Impression: Primary Impression: severe hyperglycemia Additional Impressions: Hypomagnesemia Hypokalemia Hypovolemia Liver dysfunction Elevated lipase Noncompliance with medication regimen Disposition: ADMITTED INPATIENT Condition: Improved Departure-Patient Inst. Decision time for Depature: 08:45 Referrals: NALDO MARQUEZ MD (PCP/Family) Primary Care Physician MARTINA TINOCO MD Jul 30, 2016 6:55 am
[2016-07-30] MEDS ORDERED: inSUlin (REGULAR) HUMAN 1 UNIT/0.01 ML (CHARGE PER UNIT) IV ONE ×2 (07:00→08:45)
[2016-07-30 07:43] LABS: BASOPHILS % (AUTO) 0 % (0-10); EOSINOPHILS # (AUTO) 0.3 10^3/uL (0.0-0.3); EOSINOPHILS % (AUTO) 6 % (0-10); LYMPHOCYTES # (AUTO) 0.6 X 10^3 (1.0-4.0); LYMPHOCYTES % (AUTO) 12 % (12-44); MEAN CORPUSCULAR HEMOGLOBIN 28 PG (25-34); MEAN CORPUSCULAR HGB CONC 34 G/DL (32-36); MEAN CORPUSCULAR VOLUME 84 FL (80-99); MEAN PLATELET VOLUME 11.1 FL (7.4-10.4); MONOCYTES # (AUTO) 0.5 X 10^3 (0.0-1.0); MONOCYTES % (AUTO) 10 % (0-12); NEUTROPHILS # (AUTO) 3.7 X 10^3 (1.8-7.8); NEUTROPHILS % (AUTO) 72 % (42-75); RED BLOOD COUNT 3.64 10^6/uL (4.35-5.85); RED CELL DISTRIBUTION WIDTH 16.1 % (10.0-14.5); WHITE BLOOD COUNT 5.1 10^3/uL (4.3-11.0)
--- NOTE | 2016-07-30 08:31 | Diagnostic Imaging Report ---
INDICATION: Dizziness, lethargy and fall. COMPARISON: Comparison made to prior examination from 07/11/2016. FINDINGS: The heart size is normal. Lungs are clear. There is no pleural effusion or pneumothorax. Mediastinum is unremarkable. IMPRESSION: No acute cardiopulmonary abnormality. Dictated by: Dictated on workstation # [id number]
--- NOTE | 2016-07-30 08:41 | Diagnostic Imaging Report ---
PROCEDURE: CT head and CT cervical spine without contrast. TECHNIQUE: Multiple contiguous axial images were obtained through the brain and cervical spine without the use of intravenous contrast. Sagittal and coronal reformations through the cervical spine were then performed. INDICATION: Head and neck pain after fall. FINDINGS: The ventricles and sulci are within normal limits. There is no hydrocephalus. There is no midline shift. There is no intracranial mass, hemorrhage or extra-axial fluid collection. The calvarium is intact. The sinuses and mastoid air cells are clear. There is straightening of the normal cervical lordosis. There is multilevel degenerative disc disease. There is no fracture or traumatic subluxation. The odontoid is intact and lateral masses are well aligned. Prevertebral soft tissues are within normal limits. IMPRESSION: 1. No acute intracranial abnormality. 2. Moderate cervical spondylosis and multilevel degenerative disc disease without acute fracture or traumatic subluxation. Dictated by: Dictated on workstation # [id number]
[2016-07-30 08:57] LABS: INR 1.1 (0.8-1.4); PROTHROMBIN TIME PATIENT 14.2 SEC (12.2-14.7)
[2016-07-30 09:00] LABS: ALANINE AMINOTRANSFERASE 7 U/L (0-55); AMMONIA 37 UMOL/L (11-32); ANION GAP 13 MMOL/L (5-14); ASPARTATE AMINO TRANSFERASE 9 U/L (5-34); BILIRUBIN,TOTAL 0.6 MG/DL (0.1-1.0); BLOOD UREA NITROGEN 18 MG/DL (7-18); BUN/CREATININE RATIO 13; CALCIUM 8.4 MG/DL (8.5-10.1); CARBON DIOXIDE 18 MMOL/L (21-32); CHLORIDE 96 MMOL/L (98-107); CREATININE SERUM 1.38 MG/DL (0.60-1.30); GFR ESTIMATED 40; LIPASE 110 U/L (8-78); SODIUM 127 MMOL/L (135-145); TOTAL PROTEIN 5.9 G/DL (6.4-8.2)
[2016-07-30 09:02] LABS: GLUCOSE 835 MG/DL (70-105)
[2016-07-30] MEDS ORDERED: MAGNESIUM 1 GM/100 ML IVPB 100 ML IV ONE ×2 (09:04→09:15)
[2016-07-30 09:05] LABS: TROPONIN I < 0.30 NG/ML (<0.30)
[2016-07-30 09:08] LABS: PLATELET COUNT 149 10^3/uL (130-400)
[2016-07-30] MEDS ORDERED: KCL 10 MEQ TAB (MICRO K) PO ONE (09:15)
[2016-07-30 09:33] LABS: BILIRUBIN,URINE NEGATIVE (NEGATIVE); KETONES,URINE 1+ (NEGATIVE); LEUKOCYTE ESTERASE ,URINE NEGATIVE (NEGATIVE); NITRITE,URINE NEGATIVE (NEGATIVE); PH,URINE 6.5 (5-9); PROTEIN,URINE NEGATIVE (NEGATIVE); UROBILINOGEN,URINE NORMAL (NORMAL)
[2016-07-30 09:45] LABS: WBC,URINE 0 /HPF
--- NOTE | 2016-07-30 10:46 | History & Physicial ---
History of Present Illness History of Present Illness Reason for visit/HPI patient fell at home in the bathroom and hematocrit head area Patient is a known diabetic and takes 5 shots a day. Patient states she fell asleep last night and did not take her medicine. Patient had dizziness and lethargy. Surgeries back surgery and hysterectomy. Urine decrease amount Date of Admission Jul 30, 2016 at 09:30 I consulted on this patient on 07/30/16 10:42 Attending Physician Leonel Mejía MD Admitting Physician Leonel Mejía MD Consult Allergies and Home Medications Allergies Coded Allergies: No Known Drug Allergies (Unverified , 11/24/09) Home Medications Amitriptyline HCl 100 Mg Tablet 100 MG PO HS (Reported) Gabapentin 800 Mg Tablet 800 MG PO QID (Reported) FILLED #120 05-12-16 Insulin Aspart 300 Units/3 Ml Solution 15 UNITS SQ WM (Reported) Insulin Detemir 100 Unit/1 Ml Insuln.pen 30 UNIT SQ BID (Reported) Magnesium Oxide 400 Mg Tablet 400 MG PO BID (Reported) Meloxicam 15 Mg Tablet 15 MG PO DAILY (Reported) Ondansetron 4 Mg Tab.rapdis 4-8 MG PO Q6H PRN PRN NAUSEA (Reported) Pravastatin Sodium 20 Mg Tablet 20 MG PO HS (Reported) LAST FILLED #30 05/12/16 Ranitidine HCl 150 Mg Tablet 75 MG PO BID (Reported) LAST FILLED #30 05-12-16 TAKE 1/2 (150MG) TABLET Sucralfate 1 Gm Tablet 1 GM PO ACHS (Reported) LAST FILLED #120 05/12/16 Past Yrxbuto-Hesuoc-Xlszqi Hx Patient Social History Alcohol Use: Denies Use Recreational Drug Use: No Smoking Status: Current Everyday Smoker Type Used: Cigarettes Recent Foreign Travel: No Contact w/other who traveled: No Recent Hopitalizations: Yes Recent Infectious Disease Expo: No Immunizations Up To Date Tetanus Booster (TDap): Less than 5yrs Date of Pneumonia Vaccine: Apr 04, 2013 Date of Influenza Vaccine: Apr 18, 2016 Seasonal Allergies Seasonal Allergies: No Surgeries HX Surgeries: Yes (HERNIA REPAIR, URETHRAL DILATION? ; PORT RIGHT CHEST ) Surgeries: Abdominal, Appendectomy, Bladder Surgery, Gallbladder, Hysterectomy , Tonsillectomy Respiratory Hx Respiratory Disorders: Yes (O2 AT HS) Respiratory Disorders: COPD Cardiovascular Hx Cardiovascular Disorders: Yes Cardiac Disorders: High Cholesterol, Hypertension Neurological Hx Neurological Disorders: Yes Neurological Disorders: Headaches /Migraines Reproductive System Hx Reproductive Disorders: No Sexually Transmitted Disease: No HIV/AIDS: No Female Reproductive Disorders: Menstrual Problems Genitourinary Hx Genitourinary Disorders: Yes (URETHRAL DILATION) Genitourinary Disorders: Bladder Infection, UTI-Chronic Gastrointestinal Hx Gastrointestinal Disorders: Yes Gastrointestinal Disorders: Gastroesophageal Reflux, Liver Disease/Jaundice ( elevated alkaline phosphatase), Chronic Diarrhea, Gall Bladder Disease Musculoskeletal Hx Musculoskeletal Disorders: Yes (SCIATICA; CHRONIC PAIN COMPLAINTS) Musculoskeletal Disorders: Degenerate Disk Disease, Osteoporosis, Arthritis, Chronic Back Pain Endocrine Hx Endocrine Disorders: Yes Endocrine Disorders: Diabetes, Insulin dep HEENT HX ENT Disorders: No Cancer Hx Cancer: No Psychosocial Hx Psychiatric Problems: Yes (EXTENSIVE PSYCH ISSUES) Behavioral Health Disorders: Sleep Difficulties, Anxiety, Depression Integumentary HX Skin/Integumentary Disorder: No Blood Transfusions Hx Blood Disorders: Yes (ANEMIA OF CHRONIC DISEASE) Family Medical History Significant Family History: Asthma, CAD Under 55 Years Old, COPD, Diabetes, Hypertension, Migraines, Psychiatric Problems, Renal Disease, Seizures, Stroke Family Hx: Arthritis Asthma 19 MOTHER Cardiovascular disease 19 MOTHER Completed stroke Coronary thrombosis Diabetes mellitus 19 MOTHER Glaucoma 19 MOTHER Headache disorder 19 MOTHER Hypercholesterolemia 19 MOTHER Hypertension 19 MOTHER Kidney disease Myocardial infarction 19 FATHER 19 MOTHER Neoplasm Psychosocial problem Respiratory disorder Seizure disorder No Family History of: AIDS Abdominal aortic aneurysm [place]'s disease Alcoholism Alzheimer's disease Aphasia Cancer of mouth Cataracts Colon cancer Congenital disease Congenital heart disease Cystic fibrosis Deafness or hearing loss Dementia Drug abuse Dysphasia Fibrocystic disease of breast Gastroenteritis Infertility Not obtainable due to adoption Osteoporosis Parkinson's disease Prostate cancer Severe allergy Thyroid disease Tuberculosis Visual disorder Constitutional: malaise weakness EENTM: no symptoms reported Respiratory: no symptoms reported Cardiovascular: no symptoms reported Gastrointestinal: no symptoms reported Genitourinary: decreased output Physical Exam Vital Signs Vital Sign - Last 12Hours 07/30/16 06:33 Temp 96.1 Pulse 118 Resp 18 B/P 107/77 Pulse Ox 91 O2 Delivery Room Air Capillary Refill : Less Than 3 Seconds General Appearance: No Apparent Distress WD/WN Eyes: Bilateral Eye Normal Inspection HEENT: Normal ENT Inspection Neck: Full Range of Motion Normal Inspection Respiratory: Chest Non Tender Lungs Clear Normal Breath Sounds No Accessory Muscle Use No Respiratory Distress Cardiovascular: Regular Rate, Rhythm No Murmur Gastrointestinal: Non Tender Soft Assessment/Plan Assessment and Plan hypoglycemia. Head trauma. Lethargy. Hypomagnesemia. Electrolyte imbalance. History of noncompliance. JAUN VEGA DO Jul 30, 2016 10:46
[2016-07-30] MEDS ORDERED: inSUlin REGULAR TPN/DRIP ONLY 250 UNITS in NORMAL SALINE 247.5 ML IV SCH ×2 (11:00→11:15)
[2016-07-30] MEDS ORDERED: inSUlin (REGULAR) HUMAN 1 UNIT/0.01 ML (CHARGE PER UNIT) IV PRN (11:15)
[2016-07-30] MEDS ORDERED: ONDANSETRON 4 MG/2 ML (SDV) Z0FRAN IVP PRN (11:15)
[2016-07-30] MEDS ORDERED: INSULIN DRIP 250 UNITS/NS 250 ML IV SCH ×2 (11:15)
[2016-07-30] MEDS ORDERED: DEXTROSE 50% 50 ML (IMS) SYR IV PRN ×2 (11:15)
[2016-07-30] MEDS: NS IV 1000 ML 1,000 ML IV SCH ×2 (11:42→19:19)
[2016-07-30] MEDS: MAGNESIUM 1 GM/D5W 100 ML IVPB IV SCH ×3 (12:37→15:11)
[2016-07-31] VITALS (13 sets, daily range): BP systolic 90–116; BP diastolic 57–71
[2016-07-31 01:03] LABS: ALANINE AMINOTRANSFERASE 6 U/L (0-55); ANION GAP 13 MMOL/L (5-14); ASPARTATE AMINO TRANSFERASE 21 U/L (5-34); BILIRUBIN,TOTAL 0.4 MG/DL (0.1-1.0); BLOOD UREA NITROGEN 12 MG/DL (7-18); BUN/CREATININE RATIO 16; CALCIUM 8.7 MG/DL (8.5-10.1); CARBON DIOXIDE 17 MMOL/L (21-32); CHLORIDE 107 MMOL/L (98-107); CREATININE SERUM 0.76 MG/DL (0.60-1.30); GFR ESTIMATED > 60; GLUCOSE 199 MG/DL (70-105); POTASSIUM 2.8 MMOL/L (3.6-5.0); SODIUM 137 MMOL/L (135-145); TOTAL PROTEIN 5.9 G/DL (6.4-8.2)
[2016-07-31] MEDS: NS IV 1000 ML 1,000 ML IV SCH ×2 (02:11→08:58)
[2016-07-31] MEDS ORDERED: ACETAMINOPHEN 500 MG TAB (TYLENOL) PO PRN (04:00)
[2016-07-31] MEDS ORDERED: ACETAMINOPHEN 325 MG TABLET/CAPLET (TYLENOL) ONE ×2 (04:09→09:06)
[2016-07-31 04:23] LABS: BASOPHILS % (AUTO) 0 % (0-10); EOSINOPHILS # (AUTO) 0.1 10^3/uL (0.0-0.3); EOSINOPHILS % (AUTO) 1 % (0-10); LYMPHOCYTES # (AUTO) 1.8 X 10^3 (1.0-4.0); LYMPHOCYTES % (AUTO) 40 % (12-44); MEAN CORPUSCULAR HEMOGLOBIN 28 PG (25-34); MEAN CORPUSCULAR HGB CONC 34 G/DL (32-36); MEAN CORPUSCULAR VOLUME 84 FL (80-99); MEAN PLATELET VOLUME 11.3 FL (7.4-10.4); MONOCYTES # (AUTO) 0.3 X 10^3 (0.0-1.0); MONOCYTES % (AUTO) 8 % (0-12); NEUTROPHILS # (AUTO) 2.3 X 10^3 (1.8-7.8); NEUTROPHILS % (AUTO) 50 % (42-75); PLATELET COUNT 171 10^3/uL (130-400); RED BLOOD COUNT 3.22 10^6/uL (4.35-5.85); RED CELL DISTRIBUTION WIDTH 16.2 % (10.0-14.5); WHITE BLOOD COUNT 4.6 10^3/uL (4.3-11.0)
[2016-07-31 04:37] LABS: ANION GAP 10 MMOL/L (5-14); BLOOD UREA NITROGEN 11 MG/DL (7-18); BUN/CREATININE RATIO 17; CALCIUM 8.6 MG/DL (8.5-10.1); CARBON DIOXIDE 19 MMOL/L (21-32); CHLORIDE 109 MMOL/L (98-107); CREATININE SERUM 0.66 MG/DL (0.60-1.30); GFR ESTIMATED > 60; GLUCOSE 75 MG/DL (70-105); MAGNESIUM 1.6 MG/DL (1.8-2.4); PHOSPHORUS 1.8 MG/DL (2.3-4.7); POTASSIUM 3.1 MMOL/L (3.6-5.0); SODIUM 138 MMOL/L (135-145)
[2016-07-31] MEDS: MAGNESIUM 1 GM/100 ML IVPB 100 ML IV SCH ×2 (05:44→06:57)
[2016-07-31] MEDS ORDERED: MAGNESIUM 1 GM/100 ML IVPB 100 ML IV SCH (06:00)
[2016-07-31] MEDS ORDERED: KCL 20 MEQ TAB (K-DUR) PO ONE ×2 (06:00→08:00)
[2016-07-31] MEDS ORDERED: POTASSIUM CL 10MEQ/50ML IVPB 50 ML IV SCH (06:00)
[2016-07-31] MEDS ORDERED: KCL 20 MEQ TAB (K-DUR) PO SCH (06:00)
--- NOTE | 2016-07-31 07:57 | Progress Note (SOAP) ---
Subjective Subjective/Events-last exam 55 yo F admitted for DKA- on DKA protocol. Weakness, fatigue. Pt complains of no pain this AM. Reports having a dream yesterday and ended up wandering into her daughter's bathroom to go to the bathroom- falling hitting her head. Pt says she slept for 24hours on Sunday. Tolerating breakfast this AM. Review of Systems General: Fatigue Malaise HEENT: No Head Aches, No Visual Changes Pulmonary: No Dyspnea, No Cough Cardiovascular: No: Chest Pain, Palpitations Gastrointestinal: No: Abdominal Pain, Nausea, Vomiting Genitourinary: No Dysuria Neurological: : Weakness Objective Exam Vital Signs Date Time Temp Pulse Resp B/P Pulse Ox O2 Delivery O2 Flow Rate FiO2 07/31/16 06:00 77 12 104/62 94 Room Air 07/31/16 05:00 76 16 105/67 93 Room Air 07/31/16 04:00 95 07/31/16 04:00 98.1 75 12 105/69 99 Room Air 07/31/16 03:00 75 21 101/67 97 Room Air 07/31/16 02:00 78 18 94/57 95 Room Air 07/31/16 01:00 81 07/31/16 01:00 80 18 106/63 93 Room Air 07/31/16 00:00 97.3 86 19 90/58 96 Room Air 07/31/16 00:00 95 07/30/16 23:00 87 16 94/59 92 Room Air 07/30/16 22:00 88 17 102/70 95 Room Air 07/30/16 21:00 87 14 108/73 97 Room Air 07/30/16 20:00 95 07/30/16 20:00 82 10 97/63 97 Room Air 07/30/16 19:00 85 07/30/16 19:00 87 24 89/60 100 Room Air 07/30/16 18:00 85 14 89/67 99 Room Air 07/30/16 16:59 84 19 89/57 93 Room Air 07/30/16 16:00 82 16 91/61 92 Room Air 07/30/16 15:00 81 20 95/57 92 Room Air 07/30/16 14:00 86 15 97/63 91 Room Air 07/30/16 13:00 91 18 86/55 94 Room Air 07/30/16 13:00 89 07/30/16 12:00 95 18 95/54 96 Room Air 07/30/16 12:00 97.5 Room Air 07/30/16 11:00 86 14 86/56 92 07/30/16 10:26 90 07/30/16 10:10 97.0 89 18 102/61 98 Room Air 07/30/16 10:00 102/61 07/30/16 09:38 94 18 97 I & O 07/31/16 07:00 Intake Total 1760 ml Output Total 1500 ml Balance 260 ml Capillary Refill : Less Than 3 Seconds General Appearance: No Apparent Distress WD/WN HEENT: PERRL/EOMI Neck: Full Range of Motion Non Tender Supple Respiratory: Chest Non Tender Lungs Clear Normal Breath Sounds No Accessory Muscle Use Cardiovascular: Regular Rate, Rhythm No Edema Gastrointestinal: normal bowel sounds non tender soft Extremity: Normal Range of Motion Non Tender Neurologic/Psychiatric: Alert Oriented x3 No Motor/Sensory Deficits Skin: Warm/Dry Results Lab Laboratory Tests 07/30/16 08:34: Glucometer > 600*H 07/30/16 08:35: Activated Partial Thromboplast Time 29, Alanine Aminotransferase (ALT/SGPT) 7, Albumin 3.0L, Alkaline Phosphatase 465H, Ammonia 37H, Anion Gap 13, Aspartate Amino Transf (AST/SGOT) 9, BUN/Creatinine Ratio 13, Blood Urea Nitrogen 18, Calcium Level 8.4L, Carbon Dioxide Level 18L, Chloride Level 96L, Creatinine 1.38H, Estimat Glomerular Filtration Rate 40, Glucose Level 835*H, INR Comment 1.1, Lipase 110H, Magnesium Level 1.0*L, Potassium Level 3.0L, Prothrombin Time 14.2, Sodium Level 127L, Total Bilirubin 0.6, Total Protein 5.9L, Troponin I < 0.30 07/30/16 09:20: Urine Bacteria TRACE, Urine Bilirubin NEGATIVE, Urine Casts NONE, Urine Clarity CLEAR, Urine Color YELLOW, Urine Crystals 0, Urine Culture Indicated NO, Urine Glucose (UA) 4+H, Urine Ketones 1+H, Urine Leukocyte Esterase NEGATIVE, Urine Mucus NEGATIVE, Urine Nitrite NEGATIVE, Urine Protein NEGATIVE, Urine RBC 0, Urine RBC (Auto) NEGATIVE, Urine Specific [place]hman 1.005L, Urine Urobilinogen NORMAL, Urine WBC 0, Urine pH 6.5 07/30/16 09:30: Lactic Acid Level 3.8*H 07/30/16 11:34: Glucometer 552*H 07/30/16 12:41: Glucometer 453*H 07/30/16 13:11: Glucometer 361H 07/30/16 14:13: Glucometer 308H 07/30/16 15:08: Glucometer 299H 07/30/16 16:32: Glucometer 143H 07/30/16 16:38: Glucometer 136H 07/30/16 17:01: Glucometer 167H 07/30/16 17:50: Glucometer 91 07/30/16 18:26: Glucometer 98 07/30/16 20:19: Glucometer 105 07/30/16 21:27: Glucometer 97 07/30/16 22:55: Glucometer 181H 07/30/16 23:55: Glucometer 226H 07/31/16 00:30: Alanine Aminotransferase (ALT/SGPT) 6, Albumin 3.0L, Alkaline Phosphatase 429H, Anion Gap 13, Aspartate Amino Transf (AST/SGOT) 21, BUN/Creatinine Ratio 16, Blood Urea Nitrogen 12, Calcium Level 8.7, Carbon Dioxide Level 17L, Chloride Level 107, Creatinine 0.76, Estimat Glomerular Filtration Rate > 60, Glucose Level 199H, Potassium Level 2.8L, Sodium Level 137, Total Bilirubin 0.4, Total Protein 5.9L 07/31/16 01:17: Glucometer 179H 07/31/16 02:09: Glucometer 141H 07/31/16 03:44: Glucometer 81 07/31/16 03:45: Anion Gap 10, BUN/Creatinine Ratio 17, Basophils # (Auto) 0.0, Basophils (%) ( Auto) 0, Blood Urea Nitrogen 11, Calcium Level 8.6, Carbon Dioxide Level 19L, Chloride Level 109H, Creatinine 0.66, Eosinophils # (Auto) 0.1, Eosinophils (%) (Auto) 1, Estimat Glomerular Filtration Rate > 60, Glucose Level 75, Hematocrit 27L, Hemoglobin 9.0L, Lymphocytes # (Auto) 1.8, Lymphocytes (%) (Auto) 40, Magnesium Level 1.6L, Mean Corpuscular Hemoglobin 28, Mean Corpuscular Hemoglobin Concent 34, Mean Corpuscular Volume 84, Mean Platelet Volume 11.3H, Monocytes # (Auto) 0.3, Monocytes (%) (Auto) 8, Neutrophils # (Auto) 2.3, Neutrophils (%) (Auto) 50, Phosphorus Level 1.8L, Platelet Count 171, Potassium Level 3.1L, Red Blood Count 3.22L, Red Cell Distribution Width 16.2H, Sodium Level 138, White Blood Count 4.6 07/31/16 04:17: Glucometer 87 07/31/16 05:18: Glucometer 142H 07/31/16 06:27: Glucometer 139H Assessment/Plan Assessment/Plan Assess & Plan/Chief Complaint 55 yo F admitted 07/30/16 Fall secondary to Fatigue/weakness- probably due to deconditioning and anemia, CT head negative Diabetic Ketoacidosis- DKA protocol, improved High anion gap metabolic acidosis- gap closed uncontrolled Diabetes Mellitus II with insulin dependence- hga1c 11.8 07/11/16 - will continue adjusting insulin after DKA episode is resolved. -on the bright side [place] has not had a hypoglycemic episode or unconsciousness w/ intubation in months. Lactic acidosis- elevated to 3.8- was not rechecked- checking today. hypomagnesemia-1 on admission- replacing hypokalemia- replacing pseudohyponatremia- resolved Bipolar disorder- monitor Anemia of chronic disease- 1unit pRBC 07/13/16 - will monitor hgb- pt is reporting symptoms of fatigue again and desires another blood transfusion. DVT ppx: lovenox- Dispo: will continue to work on resolving DKA. Again pt moving closer to with these admission. Would benefit from halfway placement to prevent future admissions for DKA but she is denying placement. Of note: Pt's Admissions to [facility]- 01/24/16, 04/25/16, 05/09/16, 05/20, 06/14/16, 06/25/16, 07/10/16, 07/30/16 Diagnosis/Problems: Clinical Quality Measures DVT/VTE Risk/Contraindication: Risk Factor Score Per Nursin RFS Level Per Nursing on Admit: 2=Moderate NALDO MARQUEZ MD Jul 31, 2016 07:57
[2016-07-31] MEDS: inSUlin DETERMIR 1 UNIT/0.01 ML (LEVEMIR) CHARGE PER UNIT SQ SCH ×2 (08:54→22:00)
[2016-07-31] MEDS ORDERED: NS IV 1000 ML 1,000 ML ONE (08:55)
[2016-07-31] MEDS: ENOXAPARIN 40 MG/0.4 ML (LOVENOX) SYR SC SCH (08:58)
[2016-07-31] MEDS ORDERED: ACETAMINOPHEN 325 MG TABLET/CAPLET (TYLENOL) PO PRN (09:10)
[2016-07-31] MEDS ORDERED: ONDA4TAB11 PO (10:49)
[2016-07-31] MEDS ORDERED: MAGN400T6 PO (10:49)
[2016-07-31] MEDS ORDERED: BACL10TA PO (10:49)
[2016-07-31] MEDS: inSUlin ASPART (NovoLOG) 1 UNIT/0.01 ML (CHARGE PER UNIT) SC SCH ×3 (11:44→22:00)
[2016-07-31] MEDS ORDERED: AMITRIPTYLINE 50 MG (ELAVIL) TAB PO SCH (21:00)
[2016-07-31] MEDS: MAGNESIUM OXIDE (MAG-OX)400 MG TAB PO SCH (22:00)
[2016-07-31] MEDS: GABAPENTIN 400 MG (NEURONTIN) CAP PO SCH (22:01)
[2016-08-01] VITALS: BP 102/56
[2016-08-01 04:00] VITALS: BP 104/65
[2016-08-01] MEDS: inSUlin ASPART (NovoLOG) 1 UNIT/0.01 ML (CHARGE PER UNIT) SC SCH ×2 (05:46→11:21)
[2016-08-01 07:08] LABS: BASOPHILS % (AUTO) 0 % (0-10); EOSINOPHILS # (AUTO) 0.1 10^3/uL (0.0-0.3); EOSINOPHILS % (AUTO) 2 % (0-10); LYMPHOCYTES # (AUTO) 1.7 X 10^3 (1.0-4.0); LYMPHOCYTES % (AUTO) 48 % (12-44); MEAN CORPUSCULAR HEMOGLOBIN 28 PG (25-34); MEAN CORPUSCULAR HGB CONC 34 G/DL (32-36); MEAN CORPUSCULAR VOLUME 85 FL (80-99); MEAN PLATELET VOLUME 10.6 FL (7.4-10.4); MONOCYTES # (AUTO) 0.2 X 10^3 (0.0-1.0); MONOCYTES % (AUTO) 6 % (0-12); NEUTROPHILS # (AUTO) 1.6 X 10^3 (1.8-7.8); NEUTROPHILS % (AUTO) 44 % (42-75); PLATELET COUNT 225 10^3/uL (130-400); RED BLOOD COUNT 3.48 10^6/uL (4.35-5.85); RED CELL DISTRIBUTION WIDTH 16.5 % (10.0-14.5); WHITE BLOOD COUNT 3.7 10^3/uL (4.3-11.0)
[2016-08-01 07:26] LABS: ANION GAP 11 MMOL/L (5-14); BLOOD UREA NITROGEN 7 MG/DL (7-18); BUN/CREATININE RATIO 10; CALCIUM 9.1 MG/DL (8.5-10.1); CARBON DIOXIDE 19 MMOL/L (21-32); CHLORIDE 109 MMOL/L (98-107); GFR ESTIMATED > 60; GLUCOSE 108 MG/DL (70-105); MAGNESIUM 1.4 MG/DL (1.8-2.4); POTASSIUM 3.7 MMOL/L (3.6-5.0); SODIUM 139 MMOL/L (135-145)
[2016-08-01] MEDS: MAGNESIUM OXIDE (MAG-OX)400 MG TAB PO SCH (07:59)
[2016-08-01] MEDS: GABAPENTIN 400 MG (NEURONTIN) CAP PO SCH (07:59)
[2016-08-01] MEDS: ENOXAPARIN 40 MG/0.4 ML (LOVENOX) SYR SC SCH (07:59)
[2016-08-01] MEDS: inSUlin DETERMIR 1 UNIT/0.01 ML (LEVEMIR) CHARGE PER UNIT SQ SCH (07:59)
[2016-08-01 08:00] VITALS: BP 120/79
[2016-08-01] MEDS: MAGNESIUM 1 GM/100 ML IVPB 100 ML IV SCH ×3 (08:12→10:12)
[2016-08-01] MEDS ORDERED: CATHETER FLUSH 10 ML SYR IV PRN (08:30)
--- NOTE | 2016-08-01 08:32 | Discharge Summary ---
Diagnosis/Chief Complaint Date of Admission Jul 30, 2016 at 09:30 Date of Discharge Aug 01, 2016 Admission Diagnosis Admission Diagnosis hypoglycemia. Head trauma. Lethargy. Hypomagnesemia. Electrolyte imbalance. History of noncompliance. Discharge Diagnosis Fall secondary to Fatigue/weakness- improved Diabetic Ketoacidosis- resolved High anion gap metabolic acidosis- resolved uncontrolled Diabetes Mellitus II with insulin dependence- hga1c 11.8 07/11/16 - Lactic acidosis- resolved hypomagnesemia- replacing hypokalemia- replacing pseudohyponatremia- resolved Bipolar disorder- monitor Anemia of chronic disease- Reason Hospital Visit Pt admitted for Diabetic ketoacidosis Discharge Summary Hospital Course Hospital Course Patient was admitted for DKA. DKA protocol was followed in the ICU with resolution. Patient was transferred to the floor and continued to improve. Her electrolyte imbalance of hypomagnesemia was improved with IV replacement and discharged to home with by mouth magnesium. As for patient's anemia of chronic disease blood transfusion was not warranted. Patient was deemed stable for discharge and was discharged to home. Ideally would like to get her started with outpatient physical therapy againbut she does not have transportation. Also would like patient to go to full-time longterm but she has declined admission thus far. Patient will follow up in clinic 1-2 weeks. Labs Laboratory Tests 08/01/16 10:47: Glucometer 300H Procedures None. Discharge Physical Examination Allergies: Coded Allergies: No Known Drug Allergies (Unverified , 11/24/09) Vitals & I&Os Vital Signs Date Time Temp Pulse Resp B/P Pulse Ox O2 Delivery O2 Flow Rate FiO2 08/01/16 16:20 08/01/16 09:00 100 Room Air 08/01/16 08:00 98.7 100 18 General Appearance: Alert, Oriented X3, Cooperative HEENT: Atraumatic, PERRLA Respiratory: Clear to Auscultation Cardiovascular: Regular Rate Abdominal: Normal Bowel Sounds, Soft Skin: No Rashes Psych/Mental Status: Mental Status NL Discharge Home Medications Reviewed and agree with Discharge Medication list on patient's Discharge Instruction sheet Condition at Discharge stable Instructions to Patient/Family Please see electronic discharge instructions given to patient. Clinical Quality Measures DVT/VTE Risk/Contraindication: Risk Factor Score Per Nursin RFS Level Per Nursing on Admit: 2=Moderate NALDO MARQUEZ MD Aug 01, 2016 08:32 Instruction sheet Instructions to Patient/Family Please see electonic discharge instructions given to patient. Clinical Quality Measures DVT/VTE Risk/Contraindication: Risk Factor Score Per Nursin RFS Level Per Nursing on Admit: 2=Moderate NALDO MARQUEZ MD Aug 01, 2016 08:32
[2016-08-01] MEDS ORDERED: inSUlin DETERMIR 1 UNIT/0.01 ML (LEVEMIR) CHARGE PER UNIT SQ SCH (09:00)
--- NOTE | 2016-08-01 09:59 | Discharge Inst-Simple/Standard ---
Discharge Inst-Standard Discharge Medications New, Converted or Re-Newed RX: Other Patient Instructions/Follow Up Plan of Care/Instructions/FU: follow up at [facility] in 2 weeks Activity as Tolerated: Yes Discharge Diet: Eat Small Frequent Meals, ADA Diet Return to The Hospital For: hyperglycemia, hypoglycemia- NALDO UNDERWOOD MD Aug 01, 2016 09:59
[2016-08-01] MEDS ORDERED: HEParin (CENTRAL IV FLUSH) 500 UNIT/5 ML SYR IV NR (12:45)
[2016-08-01] MEDS ORDERED: CATHETER FLUSH 10 ML SYR IV SCH (14:00)
== END 2016-08-01 16:20 | disposition home or self-care (01) | DRG 638 ==
LOC: EDUNIT# 06:33 → ER 06:35 → ICU 09:30 → 4TH 07-31 11:04
PROVIDERS: ADMIT Family Medicine; ATTEND Family Medicine
DX: E13.10 Other specified diabetes mellitus with ketoacidosis without coma (principal); E87.1 Hypo-osmolality and hyponatremia; S09.90XA Unspecified injury of head, initial encounter; F17.210 Nicotine dependence, cigarettes, uncomplicated; J44.9 Chronic obstructive pulmonary disease, unspecified; E78.00 Pure hypercholesterolemia, unspecified; I10 Essential (primary) hypertension; G43.909 Migraine, unspecified, not intractable, without status migrainosus; K21.9 Gastro-esophageal reflux disease without esophagitis; M81.0 Age-related osteoporosis without current pathological fracture; M19.90 Unspecified osteoarthritis, unspecified site; Z79.4 Long term (current) use of insulin; F41.9 Anxiety disorder, unspecified; E83.42 Hypomagnesemia; Z91.14 Patient's other noncompliance with medication regimen; E87.6 Hypokalemia; E86.1 Hypovolemia; K76.89 Other specified diseases of liver; F31.9 Bipolar disorder, unspecified; D63.8 Anemia in other chronic diseases classified elsewhere; W19.XXXA Unspecified fall, initial encounter; Y99.8 Other external cause status; Y92.012 Bathroom of single-family (private) house as the place of occurrence of the external cause; Z91.19 Patient's noncompliance with other medical treatment and regimen
CPT/HCPCS: 36415; 70450; 71010; 72125; 80048; 80053; 81000; 82140; 82962; 83605; 83690; 83735; 84100; 84484; 85025; 85610; 85730; 93005; 93041; 96361; 96365; 96375; 96376

== ENCOUNTER 2016-08-03 18:46 | Inpatient (IN) | payer MEDICAID ==
[2016-08-03] VITALS (7 sets, daily range): BP systolic 97–143; BP diastolic 60–80
[~2016-08-03] VITALS: Ht 172.7 cm; Wt 90.8 kg
[~2016-08-03 18:46] MED LIST changes: +ONDA4TAB11 PO
[2016-08-03] MEDS ORDERED: FAMOTIDINE 20MG/2ML IV (PEPCID) ONE (18:50)
--- OUTSIDE RECORDS SUMMARY | 2016-08-03 18:53 | XMS REPORT | Continuity of Care Document ---
Author Author [facility] Organization [facility] Address Unknown Phone Unavailable Care Team Providers Care Care Provider Name Role Phone Burt Rivera PCP [phone] Source Comments Some departments are not documenting in the electronic medical record. If you do not see the information that you expected, contact Release of Information in the Health Information Management department at [phone] for further assistance in locating additional records.[facility] Active Allergies and Adverse Reactions No [...]
[2016-08-03] MEDS ORDERED: NALOXONE 2 MG/2 ML (NARCAN) SYR ONE (18:56)
[2016-08-03] MEDS ORDERED: PROPOFOL DRIP (ICU) 100 ML IV ONE (19:03)
[2016-08-03 19:30] LABS: BILIRUBIN,URINE NEGATIVE (NEGATIVE); KETONES,URINE NEGATIVE (NEGATIVE); LEUKOCYTE ESTERASE ,URINE 1+ (NEGATIVE); NITRITE,URINE POSITIVE (NEGATIVE); PH,URINE 6 (5-9); PROTEIN,URINE 1+ (NEGATIVE); UROBILINOGEN,URINE NORMAL (NORMAL)
[2016-08-03] MEDS ORDERED: FAMOTIDINE 20MG/2ML IV (PEPCID) IVP ONE (19:30)
[2016-08-03] MEDS ORDERED: PANTOPRAZOLE 40 MG/10 ML (PROTONIX) VIAL IV ONE (19:30)
[2016-08-03 19:31] LABS: OCCULT BLOOD NEGATIVE QC NEGATIVE (NEGATIVE); OCCULT BLOOD POSITIVE QC POSITIVE (POSITIVE); OCCULT BLOOD,GASTRIC FLUID POSITIVE (NEGATIVE)
--- NOTE | 2016-08-03 19:33 | ED General ---
General Chief Complaint: Respiratory Problems Stated Complaint: FALL Source of Information: EMS, Old Records Exam Limitations: Physical Impairments History of Present Illness Time Seen by Provider: 18:45 Initial Comments This 55-year-old woman was recently dismissed from the hospital after being treated for severe hyperglycemia and electrolyte disturbances. She is relatively noncompliant with her medical therapies. EMS has been called to the house twice today for falls and altered mental status. After the first evaluation she was alert and oriented and declined transport. However, after the second call, she was noted to have altered mental status. No injuries were noted and she had no complaints of pain. She had tobacco appearing emesis on the scene and was treated with Zofran 8 mg by EMS. EMS noted a brief hypotension in route with a systolic blood pressure of 83. There was concern for hematemesis. She proceeded to vomit on arrival again and gastric Hemoccult was positive. Patient became increasingly altered in her mental status and eventually became unresponsive. Because she had vomiting even after 8 mg of Zofran and had become unresponsive, intubation was felt necessary. See progress notes below. Patient has a history of overdoses. She presently takes multiple medications that could cause overdose problems including baclofen, gabapentin, and amitriptyline. No injury was reported or identified. However, because patient had falls c-collar was placed. Placement of c-collar was delayed due to active vomiting and intubation. Manual C-spine precautions were used during intubation. Allergies and Home Medications Allergies Coded Allergies: No Known Drug Allergies (Unverified , 11/24/09) Home Medications Amitriptyline HCl 100 Mg Tablet 100 MG PO HS (Reported) Baclofen 10 Mg Tablet 10 MG PO TID PRN PRN MUSCLE SPASMS (Reported) Gabapentin 800 Mg Tablet 800 MG PO QID (Reported) FILLED #120 05-12-16 Insulin Aspart 300 Units/3 Ml Solution 10 UNITS SQ WM (Reported) Insulin Detemir 100 Unit/1 Ml Insuln.pen 30 UNIT SQ BID (Reported) Magnesium Oxide 400 Mg Tablet 400 MG PO BID (Reported) LAST FILLED 06/19/16 #60 Meloxicam 15 Mg Tablet 15 MG PO DAILY (Reported) Ondansetron 4 Mg Tab.rapdis 4-8 MG PO Q6H PRN PRN NAUSEA/VOMITING (Reported) TAKES 1-2 (4 MG) TABLETS Pravastatin Sodium 20 Mg Tablet 20 MG PO HS (Reported) LAST FILLED #30 05/12/16 Ranitidine HCl 150 Mg Tablet 75 MG PO BID (Reported) LAST FILLED #30 05-12-16 TAKE 1/2 (150MG) TABLET Sucralfate 1 Gm Tablet 1 GM PO ACHS (Reported) LAST FILLED #120 05/12/16 Constitutional: see HPI EENTM: no symptoms reported Respiratory: no symptoms reported Cardiovascular: no symptoms reported Gastrointestinal: see HPI Genitourinary: no symptoms reported : No Musculoskeletal: no symptoms reported Skin: no symptoms reported Psychiatric/Neurological: See HPI Hematologic/Lymphatic: No Symptoms Reported Immunological/Allergic: no symptoms reported Past Kzbkqrs-Qjneed-Ddpxmq Hx Patient Social History Type Used: Cigarettes Recent Hopitalizations: Yes Immunizations Up To Date Tetanus Booster (TDap): Less than 5yrs PED Vaccines UTD: Yes Date of Pneumonia Vaccine: Apr 04, 2013 Date of Influenza Vaccine: Apr 29, 2016 Seasonal Allergies Seasonal Allergies: No Surgeries HX Surgeries: Yes (HERNIA REPAIR, URETHRAL DILATION? 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 History: Hysterectomy, Menopausal Genitourinary Hx Genitourinary Disorders: Yes (URETHRAL DILATION) Genitourinary Disorders: Bladder Infection, UTI-Chronic Gastrointestinal Hx Gastrointestinal Disorders: Yes Gastrointestinal Disorders: Gastroesophageal Reflux, Liver Disease/Jaundice, Chronic Diarrhea, Gall Bladder Disease Musculoskeletal Hx Musculoskeletal Disorders: Yes (SCIATICA; CHRONIC PAIN COMPLAINTS) Musculoskeletal Disorders: Degenerate Disk Disease, Osteoporosis, Arthritis, Chronic Back Pain Endocrine Hx Endocrine Disorders: Yes Endocrine Disorders: Diabetes, Insulin dep HEENT HX ENT Disorders: No Cancer Hx Cancer: No Psychosocial Hx Psychiatric Problems: Yes (EXTENSIVE PSYCH ISSUES) Behavioral Health Disorders: Sleep Difficulties, Anxiety, Depression Integumentary HX Skin/Integumentary Disorder: No Blood Transfusions Hx Blood Disorders: Yes (ANEMIA OF CHRONIC DISEASE) Family Medical History Significant Family History: Asthma, CAD Under 55 Years Old, COPD, Diabetes, Hypertension, Migraines, Psychiatric Problems, Renal Disease, Seizures, Stroke Family Medial History: Arthritis Asthma 19 MOTHER Cardiovascular disease 19 MOTHER Completed stroke Coronary thrombosis Diabetes mellitus 19 MOTHER Glaucoma 19 MOTHER Headache disorder 19 MOTHER Hypercholesterolemia 19 MOTHER Hypertension 19 MOTHER Kidney disease Myocardial infarction 19 FATHER 19 MOTHER Neoplasm Psychosocial problem Respiratory disorder Seizure disorder No Family History of: AIDS Abdominal aortic aneurysm Jin's disease Alcoholism Alzheimer's disease Aphasia Cancer of mouth Cataracts Colon cancer Congenital disease Congenital heart disease Cystic fibrosis Deafness or hearing loss Dementia Drug abuse Dysphasia Fibrocystic disease of breast Gastroenteritis Infertility Not obtainable due to adoption Osteoporosis Parkinson's disease Prostate cancer Severe allergy Thyroid disease Tuberculosis Visual disorder Physical Exam Vital Signs Vital Sign - Last 12Hours 08/03/16 08/03/16 19:27 19:30 Temp 95.6 Pulse 84 Resp 12 B/P 105/66 Pulse Ox 100 O2 Delivery Mechanical Ventilator FiO2 100 Capillary Refill : General Appearance: WD/WN Other (decreased responsiveness) HEENT: PERRL/EOMI Pharynx Normal Other (dark brown emesis in the naris) Neck: Full Range of Motion Normal Inspection Non Tender Supple Respiratory: Lungs Clear Normal Breath Sounds No Accessory Muscle Use No Respiratory Distress Cardiovascular: Regular Rate, Rhythm No Edema No Murmur Normal Peripheral Pulses Gastrointestinal: Normal Bowel Sounds Non Tender Soft Extremity: Normal Inspection Non Tender No Pedal Edema Other (no deformity) Neurologic/Psychiatric: Other (patient was noted to move upper extremities spontaneously. Patient was not alert enough to cooperate with a neurologic exam. She was initially responsive to voice but not verbal. She quickly became unresponsive over several minutes.) Skin: Normal Color Warm/Dry Date of ETT Placement: Aug 03, 2016 Intubation Method: orotracheal Tube Size: 7.5 Medications: Etomidate, Succinylcholine Positive End Tide CO2: Yes Breath Sounds after Intubation: left greater than right Intubation Complications: other (Decreased right sided breath sounds. Tube pulled back 1 cm. ) Post Intubation Xray: Yes Progress/Results/Core Measures Results/Orders Lab Results Laboratory Tests Test 08/03/16 18:50 08/03/16 19:15 08/03/16 19:23 08/03/16 20:26 Range/Units Glucometer 229 H 70-110 MG/DL Acetaminophen Level < 10 L 10-30 UG/ML Alanine Aminotransferase (ALT/SGPT) 11 0-55 U/L Albumin 2.8 L 3.2-4.5 G/DL Alkaline Phosphatase 432 H 40-136 U/L Ammonia 24 11-32 UMOL/L Anion Gap 13 5-14 MMOL/L Aspartate Amino Transf (AST/SGOT) 23 5-34 U/L BUN/Creatinine Ratio 11 Basophils # (Auto) 0.0 0.0-0.1 10^3/uL Basophils (%) (Auto) 0 0-10 % Blood Urea Nitrogen 8 7-18 MG/DL Calcium Level 8.3 L 8.5-10.1 MG/DL Carbon Dioxide Level 15 L 21-32 MMOL/L Chloride Level 112 H 98-107 MMOL/L Creatinine 0.74 0.60-1.30 MG/DL Eosinophils # (Auto) 0.2 0.0-0.3 10^3/uL Eosinophils (%) (Auto) 5 0-10 % Estimat Glomerular Filtration Rate > 60 Glucose Level 194 H 70-105 MG/DL Hematocrit 28 L 35-52 % Hemoglobin 9.0 L 11.5-16.0 G/DL Lactic Acid Level 2.7 *H 0.5-2.0 MMOL/L Lymphocytes # (Auto) 1.5 1.0-4.0 X 10^3 Lymphocytes (%) (Auto) 32 12-44 % Magnesium Level 1.2 L 1.8-2.4 MG/DL Mean Corpuscular Hemoglobin 28 25-34 PG Mean Corpuscular Hemoglobin Concent 32 32-36 G/DL Mean Corpuscular Volume 87 80-99 FL Mean Platelet Volume 10.3 7.4-10.4 FL Monocytes # (Auto) 0.4 0.0-1.0 X 10^3 Monocytes (%) (Auto) 9 0-12 % Neutrophils # (Auto) 2.5 1.8-7.8 X 10^3 Neutrophils (%) (Auto) 54 42-75 % Platelet Count 120 L 130-400 10^3/uL Potassium Level 3.6 3.6-5.0 MMOL/L Red Blood Count 3.27 L 4.35-5.85 10^6/uL Red Cell Distribution Width 17.3 H 10.0-14.5 % Salicylates Level < 5.0 L 5.0-20.0 MG/DL Serum Alcohol < 10 <10 MG/DL Sodium Level 140 135-145 MMOL/L Total Bilirubin 0.2 0.1-1.0 MG/DL Total Protein 5.5 L 6.4-8.2 G/DL White Blood Count 4.7 4.3-11.0 10^3/uL Gastric Fluid Occult Blood POSITIVE NEGATIVE Ur Tricyclic Antidepressants Screen POSITIVE H NEGATIVE Urine Amphetamines Screen NEGATIVE NEGATIVE Urine Bacteria LARGE H /HPF Urine Barbiturates Screen NEGATIVE NEGATIVE Urine Benzodiazepines Screen NEGATIVE NEGATIVE Urine Bilirubin NEGATIVE NEGATIVE Urine Cannabinoids Screen NEGATIVE NEGATIVE Urine Casts NONE /LPF Urine Clarity SLIGHTLY CLOUDY Urine Cocaine Screen NEGATIVE NEGATIVE Urine Color YELLOW Urine Crystals NONE /LPF Urine Culture Indicated YES Urine Glucose (UA) 4+ H NEGATIVE Urine Ketones NEGATIVE NEGATIVE Urine Leukocyte Esterase 1+ H NEGATIVE Urine Methadone Screen NEGATIVE NEGATIVE Urine Methamphetamines Screen NEGATIVE NEGATIVE Urine Mucus NEGATIVE /LPF Urine Nitrite POSITIVE H NEGATIVE Urine Opiates Screen NEGATIVE NEGATIVE Urine Oxycodone Screen NEGATIVE NEGATIVE Urine Phencyclidine Screen NEGATIVE NEGATIVE Urine Propoxyphene Screen NEGATIVE NEGATIVE Urine Protein 1+ H NEGATIVE Urine RBC 2-5 H /HPF Urine RBC (Auto) 1+ H NEGATIVE Urine Specific [place] 1.010 L 1.016-1.022 Urine Squamous Epithelial Cells 0-2 /HPF Urine Urobilinogen NORMAL NORMAL MG/DL Urine WBC 2-5 /HPF Urine pH 6 5-9 Alexandr Test YES-POS Arterial Blood Base Excess -5.1 L -2.5-2.5 MMOL/L Arterial Blood HCO3 20 L 23-27 MMOL/L Arterial Blood Oxygen Saturation 101 H 94-100 % Arterial Blood Partial Pressure CO2 34 L 35-45 MMHG Arterial Blood Partial Pressure O2 263 H 79-93 MMHG Arterial Blood Total CO2 20.7 L 21.0-31.0 MMOL/L Arterial Blood pH 7.37 7.37-7.43 Blood Gas Inspired Oxygen 100% Blood Gas Patient Temperature 95.6 Blood Gas Puncture Site LT RAD Blood Gas Ventilator Setting YES Test 08/03/16 20:30 08/03/16 22:14 Range/Units Glucometer 168 H 70-110 MG/DL Activated Partial Thromboplast Time 25 24-35 SEC INR Comment 0.9 0.8-1.4 Lactic Acid Level 1.9 0.5-2.0 MMOL/L Prothrombin Time 12.3 12.2-14.7 SEC My Orders Orders-MARTINA ROWLEY MD Famotidine Injection (Pepcid Injection) (08/03/16 18:50) Naloxone Injection (Narcan Injection) (08/03/16 18:56) Propofol Drip (Icu) (Diprivan Drip (Icu) (08/03/16 19:03) Chest 1 View, Ap/Pa Only (08/03/16 19:11) Acetaminophen (08/03/16 19:11) Alcohol (08/03/16 19:11) Ammonia (08/03/16 19:11) Arterial Blood Gas (08/03/16 19:11) Cbc With Automated Diff (08/03/16 19:11) Comprehensive Metabolic Panel (08/03/16 19:11) Drug Screen Stat (Urine) (08/03/16 19:11) Lactic Acid Analyzer (08/03/16 19:11) Magnesium (08/03/16 19:11) Salicylate (08/03/16 19:11) Ua Culture If Indicated (08/03/16 19:11) Blood Culture (08/03/16 19:11) Protime With Inr (08/03/16 19:11) Partial Thromboplastin Time (08/03/16 19:11) Ct Head/Cervical Spine Wo (08/03/16 19:11) Red Cells Leukocytes Reduced (08/03/16 19:22) Implanted Port: Ok To Use (08/03/16 19:22) Occult Blood,Gastric Fluid (08/03/16 19:22) Famotidine Injection (Pepcid Injection) (08/03/16 19:30) Pantoprazole Injection (Protonix Injecti (08/03/16 19:30) Type And Screen (08/03/16 19:22) Accucheck Stat ONCE (08/03/16 19:26) Accucheck Stat ONCE (08/03/16 19:26) Urine Culture (08/03/16 19:23) Ceftriaxone Injection (Rocephin Injectio (08/03/16 20:15) Ekg Tracing (08/03/16 20:46) Monitor-Rhythm Ecg Trace Only (08/03/16 20:46) Magnesium 1 Gm/100 Ml Ivpb (Magnesium Prabhakar (08/03/16 21:15) Sodium Bicarbonate 8.4% Syr (Sodium Bica (08/03/16 21:45) Sodium Bicarbonate 8.4% Syr (Sodium Bica (08/03/16 21:45) Ekg Tracing (08/03/16 21:33) Ns Iv 1000 Ml (Sodium Chloride 0.9%) (08/03/16 21:43) Ns Iv 1000 Ml (Sodium Chloride 0.9%) (08/03/16 22:45) Sodium Bicarbonate 8.4% Syr (Sodium Bica (08/03/16 23:00) Sodium Bicarbonate 8.4% Syr (Sodium Bica (08/03/16 23:00) Sodium Bicarbonate 8.4% Syr (Sodium Bica (08/03/16 23:00) Ekg Tracing (08/03/16 22:55) Medications Given in ED Current Medications Medications Dose Ordered Sig/Aurea Route Start Time Stop Time Status Last Admin Dose Admin Ceftriaxone Sodium 1000 mg/ Sodium Chloride 50 ml @ 100 mls/hr ONCE ONCE IV 08/03/16 20:15 08/03/16 20:44 DC 08/03/16 21:51 100 MLS/HR Famotidine 20 mg STK-MED ONCE .ROUTE 08/03/16 18:50 08/03/16 18:53 DC 08/03/16 18:52 20 MG Magnesium Sulfate/ Dextrose 100 ml @ 100 mls/hr ONCE ONCE IV 08/03/16 21:15 08/03/16 22:14 DC 08/03/16 22:24 100 MLS/HR Naloxone HCl 2 mg 2 mg STK-MED ONCE .ROUTE 08/03/16 18:56 08/03/16 18:59 DC 08/03/16 18:58 2 MG Propofol 100 ml STK-MED ONCE IV 08/03/16 19:03 08/03/16 19:06 DC 08/03/16 19:27 Sodium Bicarbonate 50 meq 50 meq ONCE ONCE IV 08/03/16 21:45 08/03/16 21:46 DC 08/03/16 22:26 50 MEQ Sodium Bicarbonate 50 meq ONCE ONCE IV 08/03/16 21:45 08/03/16 21:46 DC 08/03/16 22:25 50 MEQ Sodium Chloride 1,000 ml STK-MED ONCE .ROUTE 08/03/16 21:43 08/03/16 21:45 DC 08/03/16 21:50 Vital Signs/I&O Vital Sign - Last 12Hours 08/03/16 08/03/16 08/03/16 08/03/16 19:27 19:30 20:03 22:35 Temp 95.6 Pulse 84 84 88 69 Resp 12 18 18 16 B/P 105/66 Pulse Ox 100 100 100 100 O2 Delivery Mechanical Ventilator FiO2 100 100 100 ECG Initial ECG Impression Date: Aug 03, 2016 Initial ECG Impression Time: 20:57 Initial ECG Rate: 82 Initial ECG Rhythm: Normal Sinus Comment Sinus rhythm with no ST elevation or depression. Nonspecific intraventricular conduction delay. QRS is mildly prolonged at 112 ms. EKG : EKG Time: 22:49 Rate: 68 Rhythm: Normal Sinus Comment Sinus rhythm with no ST elevation or depression. Prolonged QRS duration of 114 ms. Diagnostic Imaging Diagonstic Imaging: Xray Plain Films/CT/US/NM/MRI: chest Comments Chest x-ray viewed by me and report reviewed. See report below: NAME: CHERRY ROSE [facility] REC#: [id number] PT STATUS: REG ER : 1960 PHYSICIAN: MARTINA ROWLEY MD ADMIT DATE: 08/03/16/ER Signed Date of Exam: 08/03/16 CHEST 1 VIEW, AP/PA ONLY EXAMINATION: Portable supine AP chest at 7:21 p.m. INDICATION: Respiratory distress, post intubation. FINDINGS: In the interval since the exam performed on 07/30/2016, the patient has been intubated. The ET tube appears to be in good position with the tip overlying the mid portion of the tracheal air shadow. An NG line has also been inserted. The tip of the NG line is not visualized on this exam, but the line extends well below the diaphragm. The central venous catheter on the right noted previously is again evident and no different. The heart size is within normal limits and stable when compared to the prior exam. The lungs are generally clear. There is no sign of failure, pneumonia, or pleural effusion. The mediastinum is not widened. The osseous structures are intact. IMPRESSION: 1. In the interval since the prior exam, the patient has been intubated, and an NG line has been inserted. The supportive tubes and lines appear to be in good position. 2. The overall appearance of the chest is otherwise stable. There is no acute cardiopulmonary abnormality noted. Dictated by: Dictated on workstation # [id number] Dict: 08/03/161942 Trans: 08/03/162106 [id number] Interpreted by: LUCRETIA CHEEK MD Electronically signed by:LUCRETIA CHEEK MD 08/03/162108 Diagonstic Imaging: CT Plain Films/CT/US/NM/MRI: c-spine, head Comments CT head and C-spine viewed by me. Report reviewed and discussed with Dr. Cheek. Report further discussed with Dr. Escobar. See report below: NAME: CHERRY ROSE [facility] REC#: [id number] PT STATUS: REG ER : 1960 PHYSICIAN: MARTINA ROWLEY MD ADMIT DATE: 08/03/16/ER Signed Date of Exam: 08/03/16 CT HEAD/CERVICAL SPINE WO PROCEDURE: CT head and CT cervical spine without contrast. TECHNIQUE: Multiple contiguous axial images were obtained through the brain and cervical spine without the use of intravenous contrast. Sagittal and coronal reformations through the cervical spine were then performed. INDICATION: Fell, head and neck pain. CT OF THE HEAD: There is no mass, shift of the midline, or hemorrhage to suggest an acute intracranial abnormality. The ventricles are not abnormally dilated and stable when compared to the recent CT head exam of 07/30/2016. The cortical atrophy noted on the prior exam is again visualized. The bone windows show no evidence for a fracture or for a destructive lesion. In the interval since the previous exam, considerable mucosal thickening of the ethmoid sinuses has developed. An ET tube and OG tube have also been inserted. IMPRESSION: There is no evidence for an acute intracranial abnormality. CT CERVICAL SPINE: The previous CT cervical spine exam performed on 07/30/2016 failed to show any sign of an acute abnormality. On the axial images of this exam, there is some irregularity of the arch of C1 on the right on the axial views (image 17/81). This is probably secondary to volume averaging as there is no corresponding abnormality seen on the sagittal or coronal reconstructed images. The coronal reconstructed images do show a linear lucency extending longitudinally through the body of C2 on the left. This cannot be confirmed on the sagittal or axial images either and consequently is most likely due to superimposition. No other fracture or acute bony abnormality is identified. There is severe degenerative disc and bony disease involving the mid and lower cervical spine. There is no sign of retropharyngeal edema. The ET and NG lines appear to be in good position where visualized. The lung apices are clear. IMPRESSION: 1. There is no definite evidence for an acute bony abnormality. 2. If clinical concern regarding an underlying abnormality persists, then MRI would be recommended for further study. 3. These results were discussed with Dr. Rowley in the ER. Dictated by: Dictated on workstation # [id number] Dict: 08/03/162004 Trans: 08/03/162123 [id number] Interpreted by: LUCRETIA CHEEK MD Electronically signed by:ULCRETIA CHEEK MD 08/03/162125 Critical Care Note Critical Care Start Time: 18:48 Progress 19:30 - Patient became increasingly less alert until she became unresponsive. Prior to becoming unresponsive she vomited despite administration of Zofran 8 mg IV by EMS. The decision was made for intubation to protect her airway given the altered mental status and vomiting. Narcan was attempted first. A dose of 0.4 mg demonstrated no response. A second dose of 2 mg also yielded in no response. Patient was successfully intubated by this provider on the first attempt. Induction was achieved with etomidate and succinylcholine.Vital signs were stable. A liter of warm saline was infusing. Gastric Hemoccult returned positive. Patient has a unit of oh positive blood immediately available. Protonix 80 mg and Pepcid 20 mg are being administered due to suspected GI bleed. Labs are pending. Patient is currently stable on bag ventilation. CT of the head and C-spine has been ordered. There was no specific report of trauma but patient has had falls today. Manual C-spine precautions were observed during intubation. C-collar was placed after intubation. Blood pressure is stable and patient will be sedated with propofol titrated as needed. 21:23 - Patient remained stable on ventilator. Poison control was contacted and believes her present syndrome resembles baclofen overdose. They advised exercising caution as baclofen may mimic brain for several days. Medication profile was reviewed. They recommend monitoring EKGs closely with the 12-lead EKG every 4 hours 3. If QRS complexes greater than 100 ms they recommended giving bicarbonate 2-3 amp push with an EKG repeated in 15 minutes. QRS is slightly prolonged at this time and bicarbonate will be administered. If QTC is greater than 500 ms they recommend magnesium 1-2 g. Patient presently has hypomagnesemia and magnesium is being replaced in the ER. Poison control was also faxed a document regarding management of tricyclic overdose. Patient also has urinary tract infection and Rocephin will be administered. CT of the head and C-spine viewed by me and report reviewed. Discussed with Dr. Cheek. Case was reviewed with Dr. Escobar who felt there was no need to keep the c-collar in place based on CT report and history. C-collar was removed at his direction. 22:58 - Repeat EKG demonstrated a persistent prolonged QRS duration of 114 ms. I contacted poison control to discuss again. They recommended additional 3 amps of sodium bicarbonate with a repeat EKG 15 minutes later. Patient is being transferred to the unit where these orders will be executed. I was informed the Protonix 80 mg has not yet been administered due to priority of other medications and incompatibilities. This will also be administered in the ICU. Departure Communication Communication Case was reviewed with Dr. Marquez who agrees with admission to the ICU and eICU consult. Recommendations from poison control were reviewed with him. Communication/Consulting Case was reviewed with Dr. Escobar. See notes above. Impression Impression: Primary Impression: Altered mental status Qualified Code: R41.82 - Altered mental status, unspecified Additional Impressions: Urinary tract infection Qualified Code: N39.0 - Urinary tract infection, site not specified Multiple falls Hematemesis Qualified Code: K92.0 - Hematemesis Hypomagnesemia Disposition: ADMITTED INPATIENT Condition: Improved Decision to Admit Reason: Admit from ER (General) Decision to Admit/Date: Aug 03, 2016 Time/Decision to Admit Time: 18:55 Departure-Patient Inst. Referrals: NALDO MARQUEZ MD (PCP/Family) Primary Care Physician MARTINA ROWLEY MD Aug 03, 2016 19:33
[2016-08-03 19:38] LABS: BASOPHILS % (AUTO) 0 % (0-10); EOSINOPHILS # (AUTO) 0.2 10^3/uL (0.0-0.3); EOSINOPHILS % (AUTO) 5 % (0-10); LYMPHOCYTES # (AUTO) 1.5 X 10^3 (1.0-4.0); LYMPHOCYTES % (AUTO) 32 % (12-44); MEAN CORPUSCULAR HEMOGLOBIN 28 PG (25-34); MEAN CORPUSCULAR HGB CONC 32 G/DL (32-36); MEAN CORPUSCULAR VOLUME 87 FL (80-99); MEAN PLATELET VOLUME 10.3 FL (7.4-10.4); MONOCYTES # (AUTO) 0.4 X 10^3 (0.0-1.0); MONOCYTES % (AUTO) 9 % (0-12); NEUTROPHILS # (AUTO) 2.5 X 10^3 (1.8-7.8); NEUTROPHILS % (AUTO) 54 % (42-75); PLATELET COUNT 120 10^3/uL (130-400); RED BLOOD COUNT 3.27 10^6/uL (4.35-5.85); RED CELL DISTRIBUTION WIDTH 17.3 % (10.0-14.5); WHITE BLOOD COUNT 4.7 10^3/uL (4.3-11.0)
[2016-08-03 19:42] LABS: SQUAMOUS EPITHELIAL CELL,UR 0-2 /HPF
--- NOTE | 2016-08-03 19:50 | Diagnostic Imaging Report ---
EXAMINATION: Portable supine AP chest at 7:21 p.m. INDICATION: Respiratory distress, post intubation. FINDINGS: In the interval since the exam performed on 07/30/2016, the patient has been intubated. The ET tube appears to be in good position with the tip overlying the mid portion of the tracheal air shadow. An NG line has also been inserted. The tip of the NG line is not visualized on this exam, but the line extends well below the diaphragm. The central venous catheter on the right noted previously is again evident and no different. The heart size is within normal limits and stable when compared to the prior exam. The lungs are generally clear. There is no sign of failure, pneumonia, or pleural effusion. The mediastinum is not widened. The osseous structures are intact. IMPRESSION: 1. In the interval since the prior exam, the patient has been intubated, and an NG line has been inserted. The supportive tubes and lines appear to be in good position. 2. The overall appearance of the chest is otherwise stable. There is no acute cardiopulmonary abnormality noted. Dictated by: Dictated on workstation # [id number]
[2016-08-03 20:00] LABS: ALANINE AMINOTRANSFERASE 11 U/L (0-55); ALBUMIN 2.8 G/DL (3.2-4.5); AMMONIA 24 UMOL/L (11-32); ANION GAP 13 MMOL/L (5-14); ASPARTATE AMINO TRANSFERASE 23 U/L (5-34); BILIRUBIN,TOTAL 0.2 MG/DL (0.1-1.0); BLOOD UREA NITROGEN 8 MG/DL (7-18); BUN/CREATININE RATIO 11; CALCIUM 8.3 MG/DL (8.5-10.1); CARBON DIOXIDE 15 MMOL/L (21-32); CHLORIDE 112 MMOL/L (98-107); CREATININE SERUM 0.74 MG/DL (0.60-1.30); GFR ESTIMATED > 60; GLUCOSE 194 MG/DL (70-105); MAGNESIUM 1.2 MG/DL (1.8-2.4); POTASSIUM 3.6 MMOL/L (3.6-5.0); SALICYLATE < 5.0 MG/DL (5.0-20.0); SODIUM 140 MMOL/L (135-145); TOTAL PROTEIN 5.5 G/DL (6.4-8.2)
[2016-08-03] MEDS ORDERED: SUCCINYLCHOLINE INJ 100 MG/5 ML SYR INJ ONE (20:00)
[2016-08-03] MEDS ORDERED: NALOXONE 0.4 MG/ML 1 ML (NARCAN) VIAL IV ONE (20:00)
[2016-08-03] MEDS ORDERED: ETOMIDATE IV SOLN 20 MG/10 ML VIAL IV ONE (20:00)
[2016-08-03] MEDS ORDERED: SODIUM BICARB 8.4% 50 MEQ/50 ML (ABBOTT) SYR INJ ONE (20:00)
[2016-08-03 20:01] LABS: ACETAMINOPHEN < 10 UG/ML (10-30); ALCOHOL < 10 MG/DL (<10)
[2016-08-03] MEDS ORDERED: cefTRIAXone INJECTION 1,000 MG in NS (IVPB) 50 ML IV ONE (20:15)
--- NOTE | 2016-08-03 20:24 | Diagnostic Imaging Report ---
PROCEDURE: CT head and CT cervical spine without contrast. TECHNIQUE: Multiple contiguous axial images were obtained through the brain and cervical spine without the use of intravenous contrast. Sagittal and coronal reformations through the cervical spine were then performed. INDICATION: Fell, head and neck pain. CT OF THE HEAD: There is no mass, shift of the midline, or hemorrhage to suggest an acute intracranial abnormality. The ventricles are not abnormally dilated and stable when compared to the recent CT head exam of 07/30/2016. The cortical atrophy noted on the prior exam is again visualized. The bone windows show no evidence for a fracture or for a destructive lesion. In the interval since the previous exam, considerable mucosal thickening of the ethmoid sinuses has developed. An ET tube and OG tube have also been inserted. IMPRESSION: There is no evidence for an acute intracranial abnormality. CT CERVICAL SPINE: The previous CT cervical spine exam performed on 07/30/2016 failed to show any sign of an acute abnormality. On the axial images of this exam, there is some irregularity of the arch of C1 on the right on the axial views (image 17/81). This is probably secondary to volume averaging as there is no corresponding abnormality seen on the sagittal or coronal reconstructed images. The coronal reconstructed images do show a linear lucency extending longitudinally through the body of C2 on the left. This cannot be confirmed on the sagittal or axial images either and consequently is most likely due to superimposition. No other fracture or acute bony abnormality is identified. There is severe degenerative disc and bony disease involving the mid and lower cervical spine. There is no sign of retropharyngeal edema. The ET and NG lines appear to be in good position where visualized. The lung apices are clear. IMPRESSION: 1. There is no definite evidence for an acute bony abnormality. 2. If clinical concern regarding an underlying abnormality persists, then MRI would be recommended for further study. 3. These results were discussed with Dr. Rowley in the ER. Dictated by: Dictated on workstation # [id number]
[2016-08-03 20:34] LABS: ABG BASE EXCESS -5.1 MMOL/L (-2.5-2.5); ABG HCO3 20 MMOL/L (23-27); ABG OXYGEN SATURATION 101 % (94-100); ABG PCO2 34 MMHG (35-45); ABG PH 7.37 (7.37-7.43); ABG PO2 263 MMHG (79-93); ABG TCO2 20.7 MMOL/L (21.0-31.0)
[2016-08-03 20:36] LABS: ALLENS TEST YES-POS; PATIENT TEMP 95.6
[2016-08-03] MEDS ORDERED: MAGNESIUM 1 GM/100 ML IVPB 100 ML IV ONE (21:15)
[2016-08-03] MEDS ORDERED: NS IV 1000 ML 1,000 ML ONE ×2 (21:43→23:43)
[2016-08-03] MEDS ORDERED: SODIUM BICARB 8.4% 50 MEQ/50 ML (ABBOTT) SYR IV ONE ×5 (21:45→23:00)
[2016-08-03] MEDS ORDERED: NS IV 1000 ML 1,000 ML IV SCH ×2 (22:45→23:45)
[2016-08-03 22:47] LABS: INR 0.9 (0.8-1.4); PROTHROMBIN TIME PATIENT 12.3 SEC (12.2-14.7)
[2016-08-03] MEDS ORDERED: PANTOPRAZOLE 40 MG/10 ML (PROTONIX) VIAL ONE (23:30)
[2016-08-03] MEDS: MAGNESIUM 1 GM/100 ML IVPB 100 ML IV SCH (23:37)
[2016-08-03] MEDS ORDERED: CATHETER FLUSH 10 ML SYR IV PRN (23:45)
[2016-08-04] VITALS (55 sets, daily range): BP systolic 80–122; BP diastolic 47–82
[2016-08-04] MEDS ORDERED: PROPOFOL DRIP (ICU) 100 ML IV SCH (00:15)
[2016-08-04] MEDS: MAGNESIUM 1 GM/100 ML IVPB 100 ML IV SCH ×3 (00:50→05:42)
[2016-08-04 01:41] LABS: ABG BASE EXCESS 5.4 MMOL/L (-2.5-2.5); ABG HCO3 29 MMOL/L (23-27); ABG OXYGEN SATURATION 101 % (94-100); ABG PCO2 39 MMHG (35-45); ABG PH 7.48 (7.37-7.43); ABG PO2 199 MMHG (79-93); ABG TCO2 30.5 MMOL/L (21.0-31.0)
[2016-08-04 01:42] LABS: ALLENS TEST YES-POS; PATIENT TEMP 96.5
[2016-08-04] MEDS: inSUlin (REGULAR) HUMAN 1 UNIT/0.01 ML (CHARGE PER UNIT) SC SCH ×6 (04:00→23:32)
[2016-08-04 04:42] LABS: BASOPHILS % (AUTO) 0 % (0-10); EOSINOPHILS # (AUTO) 0.1 10^3/uL (0.0-0.3); EOSINOPHILS % (AUTO) 2 % (0-10); LYMPHOCYTES # (AUTO) 1.7 X 10^3 (1.0-4.0); LYMPHOCYTES % (AUTO) 37 % (12-44); MEAN CORPUSCULAR HEMOGLOBIN 28 PG (25-34); MEAN CORPUSCULAR HGB CONC 32 G/DL (32-36); MEAN CORPUSCULAR VOLUME 87 FL (80-99); MEAN PLATELET VOLUME 10.1 FL (7.4-10.4); MONOCYTES # (AUTO) 0.4 X 10^3 (0.0-1.0); MONOCYTES % (AUTO) 8 % (0-12); NEUTROPHILS # (AUTO) 2.5 X 10^3 (1.8-7.8); NEUTROPHILS % (AUTO) 53 % (42-75); PLATELET COUNT 286 10^3/uL (130-400); RED BLOOD COUNT 3.26 10^6/uL (4.35-5.85); RED CELL DISTRIBUTION WIDTH 17.2 % (10.0-14.5); WHITE BLOOD COUNT 4.7 10^3/uL (4.3-11.0)
[2016-08-04] MEDS ORDERED: DEXTROSE 50% 50 ML (IMS) SYR IV ONE (04:45)
[2016-08-04 04:53] LABS: INR 0.9 (0.8-1.4)
[2016-08-04 05:04] LABS: ALANINE AMINOTRANSFERASE 11 U/L (0-55); ALBUMIN 2.7 G/DL (3.2-4.5); ANION GAP 14 MMOL/L (5-14); ASPARTATE AMINO TRANSFERASE 22 U/L (5-34); BILIRUBIN,TOTAL 0.2 MG/DL (0.1-1.0); BLOOD UREA NITROGEN 7 MG/DL (7-18); BUN/CREATININE RATIO 11; CALCIUM 8.2 MG/DL (8.5-10.1); CARBON DIOXIDE 24 MMOL/L (21-32); CHLORIDE 112 MMOL/L (98-107); CREATININE SERUM 0.62 MG/DL (0.60-1.30); GFR ESTIMATED > 60; MAGNESIUM 2.2 MG/DL (1.8-2.4); PHOSPHORUS 3.8 MG/DL (2.3-4.7); POTASSIUM 3.3 MMOL/L (3.6-5.0); SODIUM 150 MMOL/L (135-145); TOTAL PROTEIN 5.2 G/DL (6.4-8.2)
[2016-08-04 05:18] LABS: GLUCOSE 59 MG/DL (70-105)
[2016-08-04 05:39] LABS: ABG BASE EXCESS 3.7 MMOL/L (-2.5-2.5); ABG HCO3 28 MMOL/L (23-27); ABG OXYGEN SATURATION 99 % (94-100); ABG PCO2 41 MMHG (35-45); ABG PH 7.44 (7.37-7.43); ABG PO2 85 MMHG (79-93); ABG TCO2 29.2 MMOL/L (21.0-31.0); ALLENS TEST YES-POS
[2016-08-04 05:40] LABS: PATIENT TEMP 96.1
[2016-08-04] MEDS: POTASSIUM CL 10MEQ/50ML IVPB 50 ML IV SCH ×5 (05:42→09:45)
[2016-08-04] MEDS: CATHETER FLUSH 10 ML SYR IV SCH ×3 (06:12→20:09)
--- NOTE | 2016-08-04 06:44 | Pulmonary Consultation ---
History of Present Illness History of Present Illness Date of Consultation 08/04/16 06:39 Date of Admission History of Present Illness 55yo with hx of poor medical compliance and who was recently hospitalized . Pt had altered MS and EMS was called to her house. She takes multiple medications including baclofen, gabapentin, and amitriptyline. Pt initially declined transport after the second call pt was more confused. Pt was also vomiting gastric hemoccult was positive in ED. PT was intubated in ED secondary to patient being unresponsive and to secure airway. Pt is currently on diprivan gtt. Unable to obtain ROS. I am consulted for ICU management. Allergies and Home Medications Allergies Coded Allergies: No Known Drug Allergies (Unverified , 11/24/09) Home Medications Amitriptyline HCl 100 Mg Tablet 100 MG PO HS (Reported) Baclofen 10 Mg Tablet 10 MG PO TID PRN PRN MUSCLE SPASMS (Reported) Gabapentin 800 Mg Tablet 800 MG PO QID (Reported) FILLED #120 05-12-16 Insulin Aspart 300 Units/3 Ml Solution 10 UNITS SQ WM (Reported) Insulin Detemir 100 Unit/1 Ml Insuln.pen 30 UNIT SQ BID (Reported) Magnesium Oxide 400 Mg Tablet 400 MG PO BID (Reported) LAST FILLED 06/19/16 #60 Meloxicam 15 Mg Tablet 15 MG PO DAILY (Reported) Ondansetron 4 Mg Tab.rapdis 4-8 MG PO Q6H PRN PRN NAUSEA/VOMITING (Reported) TAKES 1-2 (4 MG) TABLETS Pravastatin Sodium 20 Mg Tablet 20 MG PO HS (Reported) LAST FILLED #30 05/12/16 Ranitidine HCl 150 Mg Tablet 75 MG PO BID (Reported) LAST FILLED #30 05-12-16 TAKE 1/2 (150MG) TABLET Sucralfate 1 Gm Tablet 1 GM PO ACHS (Reported) LAST FILLED #120 05/12/16 Past Vkjeiko-Tjfuwm-Sdjies Hx Patient Social History Alcohol Use: Denies Use Recreational Drug Use: Yes (TOBACCO) Type Used: Cigarettes Recent Foreign Travel: No Contact w/Someone Who Travel: No Recent Infectious Disease Expo: No Recent Hopitalizations: Yes Physical Abuse Screen: No Sexual Abuse: No Immunizations Up To Date Tetanus Booster (TDap): Less than 5yrs PED Vaccines UTD: Yes Date of Pneumonia Vaccine: Apr 04, 2013 Date of Influenza Vaccine: Apr 29, 2016 Seasonal Allergies Seasonal Allergies: No Surgeries HX Surgeries: Yes (HERNIA REPAIR, URETHRAL DILATION? 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 Genitourinary Hx Genitourinary Disorders: Yes (URETHRAL DILATION) Genitourinary Disorders: Bladder Infection, UTI-Chronic Gastrointestinal Hx Gastrointestinal Disorders: Yes Gastrointestinal Disorders: Gastroesophageal Reflux, Liver Disease/Jaundice, Chronic Diarrhea, Gall Bladder Disease Musculoskeletal Hx Musculoskeletal Disorders: Yes (SCIATICA; CHRONIC PAIN COMPLAINTS) Musculoskeletal Disorders: Degenerate Disk Disease, Osteoporosis, Arthritis, Chronic Back Pain Endocrine Hx Endocrine Disorders: Yes Endocrine Disorders: Diabetes, Insulin dep HEENT HX ENT Disorders: No Cancer Hx Cancer: No Psychosocial Hx Psychiatric Problems: Yes (EXTENSIVE PSYCH ISSUES) Behavioral Health Disorders: Sleep Difficulties, Anxiety, Depression Integumentary HX Skin/Integumentary Disorder: No Blood Transfusions Hx Blood Disorders: Yes (ANEMIA OF CHRONIC DISEASE) Family Medical History Significant Family History: Asthma, CAD Under 55 Years Old, COPD, Diabetes, Hypertension, Migraines, Psychiatric Problems, Renal Disease, Seizures, Stroke Family Medial History: Arthritis Asthma 19 MOTHER Cardiovascular disease 19 MOTHER Completed stroke Coronary thrombosis Diabetes mellitus 19 MOTHER Glaucoma 19 MOTHER Headache disorder 19 MOTHER Hypercholesterolemia 19 MOTHER Hypertension 19 MOTHER Kidney disease Myocardial infarction 19 FATHER 19 MOTHER Neoplasm Psychosocial problem Respiratory disorder Seizure disorder No Family History of: AIDS Abdominal aortic aneurysm Jin's disease Alcoholism Alzheimer's disease Aphasia Cancer of mouth Cataracts Colon cancer Congenital disease Congenital heart disease Cystic fibrosis Deafness or hearing loss Dementia Drug abuse Dysphasia Fibrocystic disease of breast Gastroenteritis Infertility Not obtainable due to adoption Osteoporosis Parkinson's disease Prostate cancer Severe allergy Thyroid disease Tuberculosis Visual disorder Exam Exam Vital Signs Date Time Temp Pulse Resp B/P Pulse Ox O2 Delivery O2 Flow Rate FiO2 08/04/16 06:30 107 20 105/82 100 Mechanical Ventilator 30.00 08/04/16 06:15 70 14 90/53 100 Mechanical Ventilator 30.00 08/04/16 06:00 68 13 87/54 100 Mechanical Ventilator 30.00 08/04/16 05:45 70 15 96/59 100 Mechanical Ventilator 30.00 08/04/16 05:30 80 15 103/62 100 Mechanical Ventilator 30.00 08/04/16 05:15 98 31 93/55 93 Mechanical Ventilator 30.00 08/04/16 05:00 88 12 99/58 100 Mechanical Ventilator 30.00 08/04/16 04:45 71 15 95/57 100 Mechanical Ventilator 30.00 08/04/16 04:30 70 14 98/55 100 Mechanical Ventilator 30.00 08/04/16 04:15 70 14 93/55 100 Mechanical Ventilator 30.00 08/04/16 04:00 65 13 85/53 100 Mechanical Ventilator 30.00 08/04/16 04:00 100 70.00 100 08/04/16 03:52 64 14 100 40 08/04/16 03:45 64 14 81/53 100 Mechanical Ventilator 40.00 08/04/16 03:30 63 13 80/51 100 Mechanical Ventilator 40.00 08/04/16 03:15 63 13 80/51 100 Mechanical Ventilator 40.00 08/04/16 03:00 63 13 81/48 100 Mechanical Ventilator 40.00 08/04/16 02:45 62 13 85/52 100 Mechanical Ventilator 40.00 08/04/16 02:30 63 13 90/54 100 Mechanical Ventilator 40.00 08/04/16 02:23 63 16 100 70 08/04/16 02:15 61 18 99/64 100 Mechanical Ventilator 70.00 08/04/16 02:00 62 15 86/58 100 Mechanical Ventilator 70.00 08/04/16 01:54 60 08/04/16 01:45 61 15 84/54 100 Mechanical Ventilator 70.00 08/04/16 01:30 62 15 81/52 100 Mechanical Ventilator 70.00 08/04/16 01:15 62 15 87/56 100 Mechanical Ventilator 70.00 08/04/16 01:00 60 15 83/56 100 Mechanical Ventilator 70.00 08/04/16 01:00 96.5 08/04/16 01:00 60 08/04/16 00:45 61 15 84/54 100 Mechanical Ventilator 70.00 08/04/16 00:30 62 15 90/56 100 Mechanical Ventilator 70.00 08/04/16 00:15 64 16 85/51 100 Mechanical Ventilator 70.00 08/04/16 00:00 100 70.00 100 08/04/16 00:00 75 16 92/57 100 Mechanical Ventilator 70.00 08/03/16 23:45 66 16 97/63 100 Mechanical Ventilator 70.00 08/03/16 23:30 68 08/03/16 23:30 68 16 98/60 100 Mechanical Ventilator 70.00 08/03/16 23:25 71 15 100 Mechanical Ventilator 70.00 08/03/16 23:25 16 100 80 08/03/16 23:15 80 30 122/76 100 Mechanical Ventilator 80.00 08/03/16 23:13 84 21 130/80 100 Mechanical Ventilator 80.00 08/03/16 23:02 70 08/03/16 23:00 67 14 100 08/03/16 22:35 69 16 100 100 08/03/16 20:03 88 18 100 100 08/03/16 19:30 84 18 100 100 08/03/16 19:27 95.6 84 12 105/66 100 Mechanical Ventilator 08/03/16 18:46 95.6 105 14 100/85 95 Room Air I & O 08/04/16 07:00 Intake Total 0 ml Output Total 1450 ml Balance -1450 ml General Appearance: WD/WN Mild Distress Other (sedated on vent) HEENT: PERRL/EOMI Pharynx Normal Neck: Full Range of Motion Normal Inspection Non Tender Supple Respiratory: Lungs Clear Normal Breath Sounds No Accessory Muscle Use No Respiratory Distress Cardiovascular: Regular Rate, Rhythm No Edema No Murmur Normal Peripheral Pulses Capillary Refill: Less Than 3 Seconds Extremity: Normal Inspection Non Tender No Pedal Edema Skin: Normal Color Warm/Dry Results Lab Laboratory Tests 08/03/16 19:15 08/04/16 04:30 Assessment/Plan Assessment/Plan Acute respiratory failure - requiring intubation -Will D/C diprivan and attempt ventilator weaning once patient is awake -I am off this weekend so I am going to consult hospitalist group to take over ICU management starting tomorrow. I will be back on Sunday. -CXR reviewed and shows no acute change Encephalopathy probably secondary to oversedation with home medications -UDS + for -CT of head is negative Hypernatremia -Change to 1/2 NS and D5 at 125cc/hr Anemia with gastric occult positive -Protonix 40mg IV BID -Monitor H&H Clinical Quality Measures DVT/VTE Risk/Contraindication: Risk Factor Score Per Nursin RFS Level Per Nursing on Admit: 4+=Very High TAMARA SHOEMAKER DO Aug 04, 2016 06:44 Risk Factor Score Per Nursin RFS Level Per Nursing on Admit: 4+=Very High TAMARA SHOEMAKER DO Aug 04, 2016 06:44
[2016-08-04] MEDS ORDERED: 1/2 NS IV SOLUTION 1,000 ML IV SCH (06:45)
[2016-08-04] MEDS: D5 1/2 NS 1000 ML IV SOLUTION 1,000 ML IV SCH ×3 (08:05→22:11)
[2016-08-04] MEDS: PANTOPRAZOLE 40 MG/10 ML (PROTONIX) VIAL IV SCH ×2 (08:06→20:07)
--- NOTE | 2016-08-04 08:38 | History & Physicial ---
History of Present Illness History of Present Illness Reason for visit/HPI 55 yo F well known to me as she is readmitted about every 2 weeks for hyperglycemia/dka. This time pt admitted for acute encephalopathy- Pt had called EMS multiple times and the last time she has altered mental status with decreased responsiveness. Pt was also found with tobacco appearing emesis. She has been given ondansetron without much improvement. Pt was intubated in the ER to protect airway. Pt has had previous admission in the past for suspected overmedication- since then I have d/c'd her baclofen, which apparently she still uses. Pt also uses gabapentin and amitriptyline. Last AMS admission for overmedication was in May. The last 4-5 have been for hyperglycemia/DKA. Pt has had a couple friends in the past 3 months- she had in the past denied any attempt to harm herself. Pt in the past has refused permanent retirement placement. This admission- pt intubated in ED. Dr. Amador consulted from ED regarding pt 's fall history - C-collar removed. Poison control called by ED physician- recommend 2-3 amp bicarb push for QRS > 100msec (for baclofen toxicity), 1- 2gram mag for QTC >500 (pt is already getting mag for hypomagnesemia), fat emulsion for TCA toxicity. Pt admitted to ICU for further care. Date of Admission Aug 03, 2016 at 21:54 I consulted on this patient on 08/04/16 08:27 Attending Physician Leonel Marquez MD Admitting Physician Leonel Marquez MD Consult Dr. Lai Allergies and Home Medications Allergies Coded Allergies: No Known Drug Allergies (Unverified , 11/24/09) Home Medications Amitriptyline HCl 100 Mg Tablet 100 MG PO HS (Reported) Baclofen 10 Mg Tablet 10 MG PO TID PRN PRN MUSCLE SPASMS (Reported) Gabapentin 800 Mg Tablet 800 MG PO QID (Reported) Insulin Aspart 300 Units/3 Ml Solution 10 UNITS SQ WM (Reported) Insulin Detemir 100 Unit/1 Ml Insuln.pen 30 UNIT SQ BID (Reported) Magnesium Oxide 400 Mg Tablet 400 MG PO BID (Reported) LAST FILLED 06/19/16 #60 Meloxicam 15 Mg Tablet 15 MG PO DAILY (Reported) Ondansetron 4 Mg Tab.rapdis 4-8 MG PO Q6H PRN PRN NAUSEA/VOMITING (Reported) TAKES 1-2 (4 MG) TABLETS Pravastatin Sodium 20 Mg Tablet 20 MG PO HS (Reported) LAST FILLED #30 05/12/16 Ranitidine HCl 150 Mg Tablet 75 MG PO BID (Reported) LAST FILLED #30 05-12-16 TAKE 1/2 (150MG) TABLET Sucralfate 1 Gm Tablet 1 GM PO ACHS (Reported) LAST FILLED #120 05/12/16 Past Uaxxpav-Jhyjcc-Lfrkkj Hx Patient Social History Alcohol Use: Denies Use Recreational Drug Use: Yes (TOBACCO) Type Used: Cigarettes Physical Abuse Screen: No Sexual Abuse: No Recent Foreign Travel: No Contact w/other who traveled: No Recent Hopitalizations: Yes Recent Infectious Disease Expo: No Immunizations Up To Date Tetanus Booster (TDap): Less than 5yrs Date of Pneumonia Vaccine: Apr 04, 2013 Date of Influenza Vaccine: Apr 29, 2016 Seasonal Allergies Seasonal Allergies: No Surgeries HX Surgeries: Yes (HERNIA REPAIR, URETHRAL DILATION? ; PORT RIGHT CHEST ) Surgeries: Abdominal, Appendectomy, Bladder Surgery, Gallbladder, Hysterectomy , Tonsillectomy Respiratory Hx Respiratory Disorders: Yes (O2 AT HS) Respiratory Disorders: COPD Cardiovascular Hx Cardiovascular Disorders: Yes Cardiac Disorders: High Cholesterol, Hypertension Neurological Hx Neurological Disorders: Yes Neurological Disorders: Headaches /Migraines Reproductive System Hx Reproductive Disorders: No Sexually Transmitted Disease: No HIV/AIDS: No Female Reproductive Disorders: Menstrual Problems Genitourinary Hx Genitourinary Disorders: Yes (URETHRAL DILATION) Genitourinary Disorders: Bladder Infection, UTI-Chronic Gastrointestinal Hx Gastrointestinal Disorders: Yes Gastrointestinal Disorders: Gastroesophageal Reflux, Liver Disease/Jaundice, Chronic Diarrhea, Gall Bladder Disease Musculoskeletal Hx Musculoskeletal Disorders: Yes (SCIATICA; CHRONIC PAIN COMPLAINTS) Musculoskeletal Disorders: Degenerate Disk Disease, Osteoporosis, Arthritis, Chronic Back Pain Endocrine Hx Endocrine Disorders: Yes Endocrine Disorders: Diabetes, Insulin dep HEENT HX ENT Disorders: No Cancer Hx Cancer: No Psychosocial Hx Psychiatric Problems: Yes (EXTENSIVE PSYCH ISSUES) Behavioral Health Disorders: Sleep Difficulties, Anxiety, Depression Integumentary HX Skin/Integumentary Disorder: No Blood Transfusions Hx Blood Disorders: Yes (ANEMIA OF CHRONIC DISEASE) Family Medical History Significant Family History: Asthma, CAD Under 55 Years Old, COPD, Diabetes, Hypertension, Migraines, Psychiatric Problems, Renal Disease, Seizures, Stroke Family Hx: Arthritis Asthma 19 MOTHER Cardiovascular disease 19 MOTHER Completed stroke Coronary thrombosis Diabetes mellitus 19 MOTHER Glaucoma 19 MOTHER Headache disorder 19 MOTHER Hypercholesterolemia 19 MOTHER Hypertension 19 MOTHER Kidney disease Myocardial infarction 19 FATHER 19 MOTHER Neoplasm Psychosocial problem Respiratory disorder Seizure disorder No Family History of: AIDS Abdominal aortic aneurysm [place]'s disease Alcoholism Alzheimer's disease Aphasia Cancer of mouth Cataracts Colon cancer Congenital disease Congenital heart disease Cystic fibrosis Deafness or hearing loss Dementia Drug abuse Dysphasia Fibrocystic disease of breast Gastroenteritis Infertility Not obtainable due to adoption Osteoporosis Parkinson's disease Prostate cancer Severe allergy Thyroid disease Tuberculosis Visual disorder ROS-Unable to Obtain: intubated- pt does follow commands of squeezing hands, moving eyes Constitutional: other (intubated) Physical Exam Vital Signs Vital Sign - Last 12Hours 08/03/16 08/03/16 08/03/16 18:46 19:30 23:13 Temp 95.6 Pulse 105 Resp 14 B/P 100/85 Pulse Ox 95 O2 Delivery Room Air O2 Flow Rate 80.00 FiO2 100 Capillary Refill : Less Than 3 Seconds General Appearance: Chronically ill HEENT: PERRL/EOMI Neck: Supple Respiratory: Chest Non Tender Lungs Clear Normal Breath Sounds (intubated) Cardiovascular: Regular Rate, Rhythm No Edema Gastrointestinal: Normal Bowel Sounds Non Tender Soft Extremity: Normal Inspection Neurologic/Psychiatric: Other (opens eyes, squeezes hand- awake) Skin: Warm/Dry Assessment/Plan Assessment and Plan 55 yo F admitted 08/03/16 *toxic encephalopathy likely due to overmedication- has baclofen, amitriptyline, gabapentin- UDS +tricyclics. -intubated, Dr. Owens consulted -weaning trial today. *Acute respiratory failure due to encephalopathy- intubated. *hematoemesis- monitor hgb, emesis- OGT in place -PPI IV reoccuring [place] probably due to medication, deconditioning and anemia- uncontrolled Diabetes Mellitus II with insulin dependence- 07/11/16 hga1c 11.8 07/11/16 - SSI q4hr- when taking po will need to resume levemir 25units BID , with sliding scale C hypomagnesemia- on admission- replacing hypokalemia- replacing hyperhyponatremia- IVF 1/2NS +D5W Bipolar disorder- monitor Anemia of chronic disease- 1unit pRBC 07/13/16 - will monitor hgb- may need a unit of blood. DVT ppx: scds, chemoppx contraindicated with hematoemesis Dispo: proprofol d/c'd attempt to extubate in near future. Lore LIMA and I will meet with pt after extubation in efforts to start working on permanent retirement placement as her frequent admissions are unacceptable. Clinical Quality Measures DVT/VTE Risk/Contraindication: Risk Factor Score Per Nursin RFS Level Per Nursing on Admit: 4+=Very High Contraindications-Pharm: Other *list below* (hematoemesis) LEONEL MARQUEZ MD Aug 04, 2016 08:38
[2016-08-04] MEDS ORDERED: LEVOFLOXACIN 750 MG/150 ML IV 150 ML IV SCH (09:00)
[2016-08-04] MEDS ORDERED: FAMOTIDINE 20MG/2ML IV (PEPCID) IV SCH (09:00)
[2016-08-04] MEDS: LEVOFLOXACIN 500 MG/D5W 100 ML (PRE-MIX) IV SCH (10:11)
--- NOTE | 2016-08-04 10:19 | Diagnostic Imaging Report ---
Portable upright radiograph of the chest. INDICATION: Altered mental status. FINDINGS: ET tube, NG tube and right IJ catheter are all seen again without significant change. There is development of medial left basilar small opacity likely related to atelectasis. The left suprahilar region demonstrates also minimal atelectasis. The heart size is normal. Mediastinum and angelic appear unremarkable. No effusion or pneumothorax. IMPRESSION: Subsegmental right basilar and left suprahilar atelectasis. Dictated by: Dictated on workstation # [id number]
--- NOTE | 2016-08-04 11:01 | Occ Therapy Progress Note ---
Therapy Progress Note Pt still in vent, non-responsive to verbal stimuli. Nursing recommended holding eval until tomorrow, when pt will do trial extubation. JOSI PATRICIA OT Aug 04, 2016 11:01
--- NOTE | 2016-08-04 11:27 | Physical Therapy Progress Note ---
Therapy Progress Note Chart review complete. Checked with nurse. Pt still on a vent, plan to wean today or tomorrow. Will check pt tomorrow and initiate PT eval once pt weaned off the vent. ALISSA BEASLEY PT Aug 04, 2016 11:27
--- NOTE | 2016-08-04 12:27 | Consultation ---
History of Present Illness History of Present Illness Patient Consulted On(valerie/time) 08/04/16 12:21 Date of Admission History of Present Illness Pt is a 55 yo female who was admitted last night with altered mental status. Surgery asked to consult regarding GI bleed. This hx is obtained from chart because pt is intubated. HPI: 55 yo female who gets readmitted about every 2 weeks for hyperglycemia/ dka. This time pt admitted for acute encephalopathy- Pt had called EMS multiple times and the last time she has altered mental status with decreased responsiveness. Pt was also found with tobacco appearing emesis. She has been given ondansetron without much improvement. Pt was intubated in the ER to protect airway. Pt has had previous admission in the past for suspected overmedication- since then d/c'd her baclofen, which apparently she still uses. Pt also uses gabapentin and amitriptyline. Last AMS admission for overmedication was in May. The last 4-5 have been for hyperglycemia/DKA. Pt has had a couple friends in the past 3 months- she had in the past denied any attempt to harm herself. Pt in the past has refused permanent group home placement. This admission- pt intubated in ED. Dr. Amador consulted from ED regarding pt 's fall history - C-collar removed. Poison control called by ED physician- recommend 2-3 amp bicarb push for QRS > 100msec (for baclofen toxicity), 1- 2gram mag for QTC >500 (pt is already getting mag for hypomagnesemia), fat emulsion for TCA toxicity. Pt admitted to ICU for further care. When seen now, pt is able to open her eyes and seems to respond appropriately to questions. She is being kept intubated for one more day because of suspected Baclofen overdose; which apparently can mimic brain . Allergies and Home Medications Allergies Coded Allergies: No Known Drug Allergies (Unverified , 11/24/09) Home Medications Amitriptyline HCl 100 Mg Tablet 100 MG PO HS (Reported) Baclofen 10 Mg Tablet 10 MG PO TID PRN PRN MUSCLE SPASMS (Reported) Gabapentin 800 Mg Tablet 800 MG PO QID (Reported) Insulin Aspart 300 Units/3 Ml Solution 10 UNITS SQ WM (Reported) Insulin Detemir 100 Unit/1 Ml Insuln.pen 30 UNIT SQ BID (Reported) Magnesium Oxide 400 Mg Tablet 400 MG PO BID (Reported) LAST FILLED 06/19/16 #60 Meloxicam 15 Mg Tablet 15 MG PO DAILY (Reported) Ondansetron 4 Mg Tab.rapdis 4-8 MG PO Q6H PRN PRN NAUSEA/VOMITING (Reported) TAKES 1-2 (4 MG) TABLETS Pravastatin Sodium 20 Mg Tablet 20 MG PO HS (Reported) LAST FILLED #30 05/12/16 Ranitidine HCl 150 Mg Tablet 75 MG PO BID (Reported) LAST FILLED #30 05-12-16 TAKE 1/2 (150MG) TABLET Sucralfate 1 Gm Tablet 1 GM PO ACHS (Reported) LAST FILLED #120 05/12/16 Past Nlpikho-Enyyen-Zpmjzh Hx Patient Social History Alcohol Use: Denies Use Recreational Drug Use: Yes (TOBACCO) Type Used: Cigarettes Recent Foreign Travel: No Contact w/Someone Who Travel: No Recent Infectious Disease Expo: No Recent Hopitalizations: Yes Physical Abuse Screen: No Sexual Abuse: No Immunizations Up To Date Tetanus Booster (TDap): Less than 5yrs PED Vaccines UTD: Yes Date of Pneumonia Vaccine: Apr 04, 2013 Date of Influenza Vaccine: Apr 29, 2016 Seasonal Allergies Seasonal Allergies: No Surgeries HX Surgeries: Yes (HERNIA REPAIR, URETHRAL DILATION? ; PORT RIGHT CHEST ) Surgeries: Abdominal, Appendectomy, Bladder Surgery, Gallbladder, Hysterectomy , Tonsillectomy Respiratory Hx Respiratory Disorders: Yes (O2 AT HS) Respiratory Disorders: Pneumonia, Sleep Apnea, COPD Cardiovascular Hx Cardiac Disorders: Yes Cardiac Disorders: High Cholesterol, Hypertension Neurological Hx Neurological Disorders: Yes Neurological Disorders: Headaches /Migraines Reproductive System Hx Reproductive Disorders: No Sexually Transmitted Disease: No HIV/AIDS: No Female Reproductive Disorders: Menstrual Problems INTENSIVE CARE AMBULANCE PARAMEDIC History: Hysterectomy, Menopausal Genitourinary Hx Genitourinary Disorders: Yes (URETHRAL DILATION) Genitourinary Disorders: Bladder Infection, UTI-Chronic Gastrointestinal Hx Gastrointestinal Disorders: Yes Gastrointestinal Disorders: Gastroesophageal Reflux, Liver Disease/Jaundice, Chronic Diarrhea, Gall Bladder Disease Musculoskeletal Hx Musculoskeletal Disorders: Yes (SCIATICA; CHRONIC PAIN COMPLAINTS) Musculoskeletal Disorders: Degenerate Disk Disease, Osteoporosis, Arthritis, Chronic Back Pain Endocrine Hx Endocrine Disorders: Yes Endocrine Disorders: Diabetes, Insulin dep HEENT HX ENT Disorders: No Cancer Hx Cancer: No Psychosocial Hx Psychiatric Problems: Yes (EXTENSIVE PSYCH ISSUES) Behavioral Health Disorders: Sleep Difficulties, Anxiety, Depression Integumentary HX Skin/Integumentary Disorder: No Blood Transfusions Hx Blood Disorders: Yes (ANEMIA OF CHRONIC DISEASE) Family Medical History Significant Family History: Asthma, CAD Under 55 Years Old, COPD, Diabetes, Hypertension, Migraines, Psychiatric Problems, Renal Disease, Seizures, Stroke Family Medial History: Arthritis Asthma 19 MOTHER Cardiovascular disease 19 MOTHER Completed stroke Coronary thrombosis Diabetes mellitus 19 MOTHER Glaucoma 19 MOTHER Headache disorder 19 MOTHER Hypercholesterolemia 19 MOTHER Hypertension 19 MOTHER Kidney disease Myocardial infarction 19 FATHER 19 MOTHER Neoplasm Psychosocial problem Respiratory disorder Seizure disorder No Family History of: AIDS Abdominal aortic aneurysm Jin's disease Alcoholism Alzheimer's disease Aphasia Cancer of mouth Cataracts Colon cancer Congenital disease Congenital heart disease Cystic fibrosis Deafness or hearing loss Dementia Drug abuse Dysphasia Fibrocystic disease of breast Gastroenteritis Infertility Not obtainable due to adoption Osteoporosis Parkinson's disease Prostate cancer Severe allergy Thyroid disease Tuberculosis Visual disorder Review of Systems-General ROS-Unable to Obtain: pt intubated Physical Exam-General Problems Physical Exam Vital Signs Vital Sign - Last 12Hours 08/03/16 08/03/16 08/03/16 18:46 19:30 23:13 Temp 95.6 Pulse 105 Resp 14 B/P 100/85 Pulse Ox 95 O2 Delivery Room Air O2 Flow Rate 80.00 FiO2 100 Capillary Refill : Less Than 3 Seconds General Appearance: WD/WN severe distress Eyes: Bilateral Eye EOMI, Bilateral Eye PERRL HEENT: pharynx normalNo scleral icterus (R), No scleral icterus (L), other ( ET tube in place, with oral gastric tube which has bilious drainage) Neck: non-tender supple Respiratory: lungs clear normal breath sounds Cardiovascular: regular rate, rhythm no murmur Gastrointestinal: normal bowel sounds soft no organomegaly no pulsatile mass Extremities: no pedal edema no calf tenderness swelling (in both hands) Neurologic/Psychiatric: other (pt appears alert cannot fully asses because she is intubated) Skin: normal color warm/dry Lymphatic: no adenopathy (neck, axilla or groin) Data Review Labs Laboratory Tests 08/03/16 18:50: Glucometer 229H 08/03/16 19:15: Acetaminophen Level < 10L, Alanine Aminotransferase (ALT/SGPT) 11, Albumin 2.8L , Alkaline Phosphatase 432H, Ammonia 24, Anion Gap 13, Aspartate Amino Transf ( AST/SGOT) 23, BUN/Creatinine Ratio 11, Basophils # (Auto) 0.0, Basophils (%) ( Auto) 0, Blood Urea Nitrogen 8, Calcium Level 8.3L, Carbon Dioxide Level 15L, Chloride Level 112H, Creatinine 0.74, Eosinophils # (Auto) 0.2, Eosinophils (%) (Auto) 5, Estimat Glomerular Filtration Rate > 60, Glucose Level 194H, Hematocrit 28L, Hemoglobin 9.0L, Lactic Acid Level 2.7*H, Lymphocytes # (Auto) 1.5, Lymphocytes (%) (Auto) 32, Magnesium Level 1.2L, Mean Corpuscular Hemoglobin 28, Mean Corpuscular Hemoglobin Concent 32, Mean Corpuscular Volume 87, Mean Platelet Volume 10.3, Monocytes # (Auto) 0.4, Monocytes (%) (Auto) 9, Neutrophils # (Auto) 2.5, Neutrophils (%) (Auto) 54, Platelet Count 120L, Potassium Level 3.6, Red Blood Count 3.27L, Red Cell Distribution Width 17.3H, Salicylates Level < 5.0L, Serum Alcohol < 10, Sodium Level 140, Total Bilirubin 0.2, Total Protein 5.5L, White Blood Count 4.7 08/03/16 19:23: Gastric Fluid Occult Blood POSITIVE, Ur Tricyclic Antidepressants Screen POSITIVEH, Urine Amphetamines Screen NEGATIVE, Urine Bacteria LARGEH, Urine Barbiturates Screen NEGATIVE, Urine Benzodiazepines Screen NEGATIVE, Urine Bilirubin NEGATIVE, Urine Cannabinoids Screen NEGATIVE, Urine Casts NONE, Urine Clarity SLIGHTLY CLOUDY, Urine Cocaine Screen NEGATIVE, Urine Color YELLOW, Urine Crystals NONE, Urine Culture Indicated YES, Urine Glucose (UA) 4+H, Urine Ketones NEGATIVE, Urine Leukocyte Esterase 1+H, Urine Methadone Screen NEGATIVE , Urine Methamphetamines Screen NEGATIVE, Urine Mucus NEGATIVE, Urine Nitrite POSITIVEH, Urine Opiates Screen NEGATIVE, Urine Oxycodone Screen NEGATIVE, Urine Phencyclidine Screen NEGATIVE, Urine Propoxyphene Screen NEGATIVE, Urine Protein 1+H, Urine RBC 2-5H, Urine RBC (Auto) 1+H, Urine Specific Mora 1.010L , Urine Squamous Epithelial Cells 0-2, Urine Urobilinogen NORMAL, Urine WBC 2-5 , Urine pH 6 08/03/16 20:26: Alexandr Test YES-POS, Arterial Blood Base Excess -5.1L, Arterial Blood HCO3 20L, Arterial Blood Oxygen Saturation 101H, Arterial Blood Partial Pressure CO2 34L, Arterial Blood Partial Pressure O2 263H, Arterial Blood Total CO2 20.7L, Arterial Blood pH 7.37, Blood Gas Inspired Oxygen 100%, Blood Gas Patient Temperature 95.6, Blood Gas Puncture Site LT RAD, Blood Gas Ventilator Setting YES 08/03/16 20:30: Glucometer 168H 08/03/16 22:14: Activated Partial Thromboplast Time 25, INR Comment 0.9, Lactic Acid Level 1.9, Prothrombin Time 12.3 08/04/16 01:20: Alexandr Test YES-POS, Arterial Blood Base Excess 5.4H, Arterial Blood HCO3 29H, Arterial Blood Oxygen Saturation 101H, Arterial Blood Partial Pressure CO2 39, Arterial Blood Partial Pressure O2 199H, Arterial Blood Total CO2 30.5, Arterial Blood pH 7.48H, Blood Gas Inspired Oxygen 70%, Blood Gas Patient Temperature 96.5, Blood Gas Puncture Site L RAD, Blood Gas Ventilator Setting YES 08/04/16 01:31: Glucometer 73 08/04/16 04:06: Glucometer 60*L 08/04/16 04:30: Alanine Aminotransferase (ALT/SGPT) 11, Albumin 2.7L, Alkaline Phosphatase 407H , Anion Gap 14, Aspartate Amino Transf (AST/SGOT) 22, BUN/Creatinine Ratio 11, Basophils # (Auto) 0.0, Basophils (%) (Auto) 0, Blood Urea Nitrogen 7, Calcium Level 8.2L, Carbon Dioxide Level 24, Chloride Level 112H, Creatinine 0.62, Eosinophils # (Auto) 0.1, Eosinophils (%) (Auto) 2, Estimat Glomerular Filtration Rate > 60, Glucose Level 59*L, Hematocrit 28L, Hemoglobin 9.1L, INR Comment 0.9, Lactic Acid Level 2.0, Lymphocytes # (Auto) 1.7, Lymphocytes (%) ( Auto) 37, Magnesium Level 2.2, Mean Corpuscular Hemoglobin 28, Mean Corpuscular Hemoglobin Concent 32, Mean Corpuscular Volume 87, Mean Platelet Volume 10.1, Monocytes # (Auto) 0.4, Monocytes (%) (Auto) 8, Neutrophils # (Auto) 2.5, Neutrophils (%) (Auto) 53, Phosphorus Level 3.8, Platelet Count 286, Potassium Level 3.3L, Prothrombin Time 12.0L, Red Blood Count 3.26L, Red Cell Distribution Width 17.2H, Sodium Level 150H, Total Bilirubin 0.2, Total Protein 5.2L, White Blood Count 4.7 08/04/16 05:33: Alexandr Test YES-POS, Arterial Blood Base Excess 3.7H, Arterial Blood HCO3 28H, Arterial Blood Oxygen Saturation 99, Arterial Blood Partial Pressure CO2 41, Arterial Blood Partial Pressure O2 85, Arterial Blood Total CO2 29.2, Arterial Blood pH 7.44H, Blood Gas Inspired Oxygen 30%, Blood Gas Patient Temperature 96.1, Blood Gas Puncture Site L RAD, Blood Gas Ventilator Setting YES Microbiology 08/03/16 Urine Culture - Preliminary, Resulted Probable Enterococcus Species Assessment/Plan Assessment/Plan Assessment/Plan 1. Altered Mental status - unknown reason, questionable Baclofen overdose 2. Anemia - appears to be chronic, however she did have positive hemoccult card on gastric contents 3. Suspected GI bleed - Hg stable, would recommed EGD as outpt. Can do EGD inpt if Hg drops precipitously 4. Uncontrolled DM - blood glucose not elevated this admission 5. Hypokalemia - replace 6. Hypernatremia - changed to 1/2 NS 7. Poor urine output - will increase fluids Will sign off and can reconsult as needed. Clinical Quality Measures DVT/VTE Risk/Contraindication: Risk Factor Score Per Nursin RFS Level Per Nursing on Admit: 4+=Very High Contraindications-Pharm: Other *list below* (hematoemesis) SHELBY PRESLEY DO Aug 04, 2016 12:27
[2016-08-04] MEDS: NYSTATIN CREAM (MYCOSTATIN) 30 GM TUBE TP SCH ×2 (13:43→20:09)
[2016-08-04] MEDS ORDERED: MICONAZOLE 2% POWDER (DESENEX AF) 90 GM TOP PRN (16:30)
[2016-08-04] MEDS ORDERED: fentaNYL INJECTION 100 MCG/2 ML AMP IVP PRN (20:00)
[2016-08-04] MEDS: MICONAZOLE 2% POWDER (DESENEX AF) 90 GM TOP SCH (20:08)
[2016-08-04] MEDS ORDERED: CATHETER FLUSH 10 ML SYR IV PRN (20:15)
[2016-08-04] MEDS ORDERED: cefTRIAXone INJECTION 1,000 MG in NS (IVPB) 50 ML IV SCH (21:00)
[2016-08-04] MEDS: fentaNYL INJECTION 100 MCG/2 ML AMP IV PRN ×2 (21:14→22:54)
[2016-08-04] MEDS ORDERED: NS IV 1000 ML 1,000 ML IV SCH ×2 (23:30)
[2016-08-05] VITALS (29 sets, daily range): BP systolic 99–147; BP diastolic 56–113
[2016-08-05] MEDS: D5 1/2 NS 1000 ML IV SOLUTION 1,000 ML IV SCH ×3 (00:58→17:18)
[2016-08-05] MEDS: fentaNYL INJECTION 100 MCG/2 ML AMP IV PRN ×5 (01:34→08:10)
[2016-08-05] MEDS ORDERED: NS IV 1000 ML 1,000 ML IV ONE (03:30)
[2016-08-05] MEDS: inSUlin (REGULAR) HUMAN 1 UNIT/0.01 ML (CHARGE PER UNIT) SC SCH ×6 (04:15→23:40)
[2016-08-05 05:02] LABS: ABG BASE EXCESS 0.1 MMOL/L (-2.5-2.5); ABG HCO3 24 MMOL/L (23-27); ABG OXYGEN SATURATION 97 % (94-100); ABG PCO2 39 MMHG (35-45); ABG PH 7.41 (7.37-7.43); ABG PO2 73 MMHG (79-93); ABG TCO2 25.4 MMOL/L (21.0-31.0)
[2016-08-05 05:05] LABS: ALLENS TEST YES-POS; PATIENT TEMP 98.2
[2016-08-05 05:10] LABS: BASOPHILS % (AUTO) 0 % (0-10); EOSINOPHILS # (AUTO) 0.1 10^3/uL (0.0-0.3); EOSINOPHILS % (AUTO) 1 % (0-10); LYMPHOCYTES # (AUTO) 1.6 X 10^3 (1.0-4.0); LYMPHOCYTES % (AUTO) 37 % (12-44); MEAN CORPUSCULAR HEMOGLOBIN 28 PG (25-34); MEAN CORPUSCULAR HGB CONC 31 G/DL (32-36); MEAN CORPUSCULAR VOLUME 90 FL (80-99); MEAN PLATELET VOLUME 9.8 FL (7.4-10.4); MONOCYTES # (AUTO) 0.4 X 10^3 (0.0-1.0); MONOCYTES % (AUTO) 9 % (0-12); NEUTROPHILS # (AUTO) 2.3 X 10^3 (1.8-7.8); NEUTROPHILS % (AUTO) 52 % (42-75); PLATELET COUNT 258 10^3/uL (130-400); RED BLOOD COUNT 3.14 10^6/uL (4.35-5.85); RED CELL DISTRIBUTION WIDTH 18.3 % (10.0-14.5); WHITE BLOOD COUNT 4.3 10^3/uL (4.3-11.0)
[2016-08-05 05:22] LABS: ANION GAP 10 MMOL/L (5-14); BLOOD UREA NITROGEN 9 MG/DL (7-18); BUN/CREATININE RATIO 13; CARBON DIOXIDE 21 MMOL/L (21-32); CHLORIDE 112 MMOL/L (98-107); CREATININE SERUM 0.69 MG/DL (0.60-1.30); GFR ESTIMATED > 60; GLUCOSE 216 MG/DL (70-105); MAGNESIUM 1.3 MG/DL (1.8-2.4); PHOSPHORUS 3.6 MG/DL (2.3-4.7); SODIUM 143 MMOL/L (135-145)
[2016-08-05] MEDS: CATHETER FLUSH 10 ML SYR IV SCH ×3 (05:49→20:33)
[2016-08-05] MEDS: POTASSIUM CL 10MEQ/50ML IVPB 50 ML IV SCH (05:50)
[2016-08-05] MEDS: PANTOPRAZOLE 40 MG/10 ML (PROTONIX) VIAL IV SCH ×2 (08:12→20:33)
[2016-08-05] MEDS: MICONAZOLE 2% POWDER (DESENEX AF) 90 GM TOP SCH ×3 (08:12→20:33)
[2016-08-05] MEDS: LEVOFLOXACIN 500 MG/D5W 100 ML (PRE-MIX) IV SCH (08:12)
--- NOTE | 2016-08-05 08:30 | Physical Therapy Progress Note ---
Therapy Progress Note Patient still intubated. Will check back to assess patient when she is off the vent. LINCOLN MUNIZ PT Aug 05, 2016 08:30
--- NOTE | 2016-08-05 08:36 | Progress Note (SOAP) ---
Subjective Subjective/Events-last exam PT IS A 55 Y/O FEMALE WHO IS A CLINIC PATIENT OF DR. 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 PT WAS ADMITTED WITH ALTERED MENTAL STATUS, GLOBAL ENCEPHALOPATHY, ANEMIA, AND FOUND TO HAVE ENTEROCOCCAL URINARY TRACT INFECTION. PT IS CURRENTLY INTUBATED, CANNOT PARTICIPATE IN HPI, ROS. PER STAFF REPORTS, SHE HAS BEEN INCREASINGLY ALERT OVER THE PAST FEW HOURS. THEY ALSO REPORT POOR URINARY OUTPUT FOR THE PATIENT. STAFF (RT AND NURSING) REPORT - DR. SHOEMAKER (MILITARY PROFESSIONAL) HAD WANTED PT EXTUBATED ONCE SHE WAS MORE ALERT. Review of Systems PT ON VENTILATOR - UNABLE TO ANSWER QUESTIONS. Objective Exam Vital Signs Date Time Temp Pulse Resp B/P Pulse Ox O2 Delivery O2 Flow Rate FiO2 08/05/16 08:24 97.6 08/05/16 08:01 85 15 100 21 08/05/16 07:00 88 08/05/16 06:41 87 15 100 21 08/05/16 06:00 93 114/74 100 Mechanical Ventilator 21.00 08/05/16 05:00 108 116/74 100 Mechanical Ventilator 21.00 08/05/16 04:02 93 14 100 21 08/05/16 04:00 100 21 08/05/16 04:00 91 14 120/75 100 Mechanical Ventilator 21.00 08/05/16 04:00 98.8 08/05/16 03:00 97 10 121/79 100 Mechanical Ventilator 21.00 08/05/16 02:20 96 16 100 21 08/05/16 02:00 98 15 112/72 99 Mechanical Ventilator 21.00 08/05/16 01:00 98 08/05/16 01:00 98 15 123/79 98 Mechanical Ventilator 21.00 08/05/16 00:33 95 17 100 21 08/05/16 00:00 93 15 111/73 92 Mechanical Ventilator 21.00 08/05/16 00:00 100 21 08/04/16 23:33 97.1 08/04/16 23:02 97 14 95 21 08/04/16 23:00 92 13 92/62 97 Mechanical Ventilator 21.00 08/04/16 22:00 92 14 112/74 97 Mechanical Ventilator 21.00 08/04/16 21:00 99 16 102/61 99 Mechanical Ventilator 21.00 08/04/16 20:45 100 14 99 21 08/04/16 20:00 97.1 08/04/16 20:00 97 21 08/04/16 20:00 105 16 112/66 100 Mechanical Ventilator 21.00 08/04/16 19:00 98 08/04/16 19:00 101 18 122/81 100 Mechanical Ventilator 21.00 08/04/16 18:18 99 17 100 21 08/04/16 18:00 103 17 117/62 100 Mechanical Ventilator 21.00 08/04/16 17:30 101 14 102/47 100 Mechanical Ventilator 21.00 08/04/16 16:33 99 15 100 21 08/04/16 16:30 100 16 116/66 100 Mechanical Ventilator 21.00 08/04/16 16:05 98 21 08/04/16 15:30 101 15 108/58 99 Mechanical Ventilator 21.00 08/04/16 15:10 103 16 100 21 08/04/16 14:00 105 18 99/62 100 Mechanical Ventilator 21.00 08/04/16 13:00 103 17 101/55 98 Mechanical Ventilator 21.00 08/04/16 12:59 106 16 100 21 08/04/16 12:55 106 08/04/16 12:03 98 21 08/04/16 12:03 98.1 08/04/16 12:00 109 15 96/62 98 Mechanical Ventilator 21.00 08/04/16 11:00 112 19 105/62 98 Mechanical Ventilator 21.00 08/04/16 10:39 111 16 97 21 08/04/16 09:00 107 15 97/58 100 Mechanical Ventilator 21.00 I & O 08/05/16 07:00 Intake Total 5100 ml Output Total 1190 ml Balance 3910 ml Capillary Refill : Less Than 3 Seconds General Appearance: WD/WN Other (ON VENTILATOR) HEENT: PERRL/EOMI Respiratory: Chest Non Tender Lungs Clear Normal Breath Sounds (ON VENT) Cardiovascular: Regular Rate, Rhythm Gastrointestinal: normal bowel sounds non tender soft no organomegaly no pulsatile mass Extremity: Normal Capillary Refill No Pedal Edema Neurologic/Psychiatric: Alert Skin: Warm/Dry Lymphatic: No Adenopathy Results Lab Laboratory Tests 08/04/16 12:02: Glucometer 185H 08/04/16 16:07: Glucometer 195H 08/04/16 18:17: Hematocrit 33L, Hemoglobin 10.5L 08/04/16 20:01: Glucometer 206H 08/04/16 23:31: Glucometer 147H 08/05/16 04:07: Glucometer 213H 08/05/16 04:30: Alexandr Test YES-POS, Arterial Blood Base Excess 0.1, Arterial Blood HCO3 24, Arterial Blood Oxygen Saturation 97, Arterial Blood Partial Pressure CO2 39, Arterial Blood Partial Pressure O2 73L, Arterial Blood Total CO2 25.4, Arterial Blood pH 7.41, Blood Gas Inspired Oxygen 21% FIO2, Blood Gas Patient Temperature 98.2, Blood Gas Puncture Site L RAD, Blood Gas Ventilator Setting YES 08/05/16 04:50: Anion Gap 10, BUN/Creatinine Ratio 13, Basophils # (Auto) 0.0, Basophils (%) ( Auto) 0, Blood Urea Nitrogen 9, Calcium Level 8.0L, Carbon Dioxide Level 21, Chloride Level 112H, Creatinine 0.69, Eosinophils # (Auto) 0.1, Eosinophils (%) (Auto) 1, Estimat Glomerular Filtration Rate > 60, Glucose Level 216H, Hematocrit 28L, Hemoglobin 8.7L, Lymphocytes # (Auto) 1.6, Lymphocytes (%) (Auto ) 37, Magnesium Level 1.3L, Mean Corpuscular Hemoglobin 28, Mean Corpuscular Hemoglobin Concent 31L, Mean Corpuscular Volume 90, Mean Platelet Volume 9.8, Monocytes # (Auto) 0.4, Monocytes (%) (Auto) 9, Neutrophils # (Auto) 2.3, Neutrophils (%) (Auto) 52, Phosphorus Level 3.6, Platelet Count 258, Potassium Level 4.0, Red Blood Count 3.14L, Red Cell Distribution Width 18.3H, Sodium Level 143, White Blood Count 4.3 Microbiology 08/03/16 Blood Culture - Preliminary, Resulted No growth 08/03/16 Urine Culture - Preliminary, Resulted Enterococcus Faecalis Staph, Coag Neg (Bottom Precipitator Operator) Assessment/Plan Assessment/Plan Assess & Plan/Chief Complaint ENCEPHALOPATHY MEDICATION OVERUSE DIABETES MELLITUS ENTEROCOCCAL URINARY TRACT INFECTION ANEMIA OF CHRONIC DISEASE LOW URINE OUTPUT ENCEPHALOPATHY DUE TO MEDICATION OVERUSE - PT IMPROVED - CONTINUE SUPPORTIVE CARE - DEFER EXTUBATION PLANS TO DR. RADER. DIABETES MELLITUS - SUPPORTIVE CARE - PT ON FLUIDS - WHEN TAKING PO - WILL NEED TO CONSIDER RESTARTING HOME MEDICATIONS. ENTEROCOCCAL URINARY TRACT INFECTION - ON IV ANTIBIOTICS - CONTINUE TREATMENT. - TRANSITION TO PO LEVAQUIN WHEN PT READY. ANEMIA OF CHRONIC DISEASE - MONITOR H AND H - SUPPORTIVE CARE. LOW URINE OUTPUT - BOLUS OF FLUIDS X 1 TODAY Clinical Quality Measures DVT/VTE Risk/Contraindication: Risk Factor Score Per Nursin RFS Level Per Nursing on Admit: 4+=Very High Contraindications-Pharm: Other *list below* (hematoemesis) JHONNY HIGH MD Aug 05, 2016 08:35
[2016-08-05] MEDS ORDERED: NS IV 500 ML 500 ML IV SCH (09:15)
--- NOTE | 2016-08-05 09:24 | Occ Therapy Progress Note ---
Therapy Progress Note Pt is still intubated so will attempt OT evaluation when she is extubated and more responsive. JOSI PATRICIA OT Aug 05, 2016 09:24
--- NOTE | 2016-08-05 10:21 | Diagnostic Imaging Report ---
INDICATION: Intubation. COMPARISON: 08/04/2016. FINDINGS: Upright portable view of the chest is obtained. Right central line is unchanged. Endotracheal tube and enteric tubes are stable as well. Heart size is normal. There is no pulmonary venous congestion. No pneumothorax, mediastinal widening, or pleural fluid. There is some persistent airspace disease at the medial right lung base which is moderately improved from the prior study. The left lung remains clear. No significant new abnormality is seen. IMPRESSION: Improved but persistent airspace disease in the medial right lung base. Otherwise stable chest. Dictated by: Dictated on workstation # [id number]
--- NOTE | 2016-08-05 11:14 | Consultation-Hospitalist ---
HPI History of Present Illness: HPI/Chief Complaint The patient is a 55-year-old white female well-known to me. She is a frequent admit to this hospital. Largely the troubles are that of deep dark depression and abuse of prescription medications. This was true of this admission. She was ultimately intubated and placed on the ventilator as her respiratory drive was reduced. She is now fully alert and making signs that she is here to have the endotracheal tube removed. Her parameters appear ready for such. Physical exam: She is alert and making gestures consistent with her wish to have the endotracheal tube removed. Lungs show clear and full breath sounds. CV was regular without murmur. SaO2 was 100 percent. Accordingly the patient was suctioned and the endotracheal tube balloon deflated and removed. Impression Respiratory insufficiency secondary to central nervous system depression by home medications Date Seen 08/05/16 Attending Physician Leonel Mejía MD PCP Leonel Mejía MD Referring Physician Date of Admission Aug 03, 2016 at 21:54 Home Medications & Allergies Home Medications Reviewed patient Home Medication Reconciliation Form Allergies Coded Allergies: No Known Drug Allergies (Unverified , 11/24/09) Past Lrwbenp-Grevtx-Uxhazt Hx Patient Social History Alcohol Use: Denies Use Recreational Drug Use: Yes (TOBACCO) Type Used: Cigarettes Physical Abuse Screen: No Sexual Abuse: No Recent Foreign Travel: No Contact w/other who traveled: No Recent Hopitalizations: Yes Recent Infectious Disease Expo: No Immunizations Up To Date Tetanus Booster (TDap): Less than 5yrs Date of Pneumonia Vaccine: Apr 04, 2013 Date of Influenza Vaccine: Apr 29, 2016 Seasonal Allergies Seasonal Allergies: No Surgeries HX Surgeries: Yes (HERNIA REPAIR, URETHRAL DILATION? ; PORT RIGHT CHEST ) Surgeries: Abdominal, Appendectomy, Bladder Surgery, Gallbladder, Hysterectomy , Tonsillectomy Respiratory Hx Respiratory Disorders: Yes (O2 AT HS) Respiratory Disorders: COPD Cardiovascular Hx Cardiovascular Disorders: Yes Cardiac Disorders: High Cholesterol, Hypertension Neurological Hx Neurological Disorders: Yes Neurological Disorders: Headaches /Migraines Reproductive System Hx Reproductive Disorders: No Sexually Transmitted Disease: No HIV/AIDS: No Female Reproductive Disorders: Menstrual Problems Genitourinary Hx Genitourinary Disorders: Yes (URETHRAL DILATION) Genitourinary Disorders: Bladder Infection, UTI-Chronic Gastrointestinal Hx Gastrointestinal Disorders: Yes Gastrointestinal Disorders: Gastroesophageal Reflux, Liver Disease/Jaundice, Chronic Diarrhea, Gall Bladder Disease Musculoskeletal Hx Musculoskeletal Disorders: Yes (SCIATICA; CHRONIC PAIN COMPLAINTS) Musculoskeletal Disorders: Degenerate Disk Disease, Osteoporosis, Arthritis, Chronic Back Pain Endocrine Hx Endocrine Disorders: Yes Endocrine Disorders: Diabetes, Insulin dep HEENT HX ENT Disorders: No Cancer Hx Cancer: No Psychosocial Hx Psychiatric Problems: Yes (EXTENSIVE PSYCH ISSUES) Behavioral Health Disorders: Sleep Difficulties, Anxiety, Depression Integumentary HX Skin/Integumentary Disorder: No Blood Transfusions Hx Blood Disorders: Yes (ANEMIA OF CHRONIC DISEASE) Family Medical History Significant Family History: Asthma, CAD Under 55 Years Old, COPD, Diabetes, Hypertension, Migraines, Psychiatric Problems, Renal Disease, Seizures, Stroke Family Hx: Arthritis Asthma 19 MOTHER Cardiovascular disease 19 MOTHER Completed stroke Coronary thrombosis Diabetes mellitus 19 MOTHER Glaucoma 19 MOTHER Headache disorder 19 MOTHER Hypercholesterolemia 19 MOTHER Hypertension 19 MOTHER Kidney disease Myocardial infarction 19 FATHER 19 MOTHER Neoplasm Psychosocial problem Respiratory disorder Seizure disorder No Family History of: AIDS Abdominal aortic aneurysm [place]'s disease Alcoholism Alzheimer's disease Aphasia Cancer of mouth Cataracts Colon cancer Congenital disease Congenital heart disease Cystic fibrosis Deafness or hearing loss Dementia Drug abuse Dysphasia Fibrocystic disease of breast Gastroenteritis Infertility Not obtainable due to adoption Osteoporosis Parkinson's disease Prostate cancer Severe allergy Thyroid disease Tuberculosis Visual disorder Review of Systems Constitutional: no symptoms reported Physical Exam Physical Exam Vital Signs Vital Sign - Last 12Hours 08/04/16 08/04/16 00:00 01:00 Temp 96.5 Pulse 75 Resp 16 B/P 92/57 Pulse Ox 100 O2 Delivery Mechanical Ventilator O2 Flow Rate 70.00 FiO2 100 Capillary Refill : Less Than 3 Seconds General Appearance: Other Eyes: Bilateral Eye Normal Inspection HEENT: Normal ENT Inspection Neck: Normal Inspection Respiratory: Chest Non Tender Lungs Clear Normal Breath Sounds No Accessory Muscle Use No Respiratory Distress Cardiovascular: Regular Rate, Rhythm No Edema No Gallop No JVD No Murmur Normal Peripheral Pulses Gastrointestinal: Normal Bowel Sounds No Organomegaly No Pulsatile Mass Non Tender Soft Results Results/Procedures Lab Laboratory Tests 08/09/16 04:12 Assessment/Plan Admission Diagnosis Respiratory insufficiency/protection of airway secondary to nonaccidental ingestion of home medications Assessment and Plan Extubation as above Clinical Quality Measures DVT/VTE Risk/Contraindication: Risk Factor Score Per Nursin RFS Level Per Nursing on Admit: 4+=Very High Contraindications-Pharm: Other *list below* (hematoemesis) IONA RADER MD Aug 05, 2016 11:14
[2016-08-05] MEDS: MAGNESIUM 1 GM/100 ML IVPB 100 ML IV SCH ×4 (16:44→18:49)
[2016-08-05] MEDS ORDERED: LORazepam 1 MG (ATIVAN) TAB PO ONE (21:15)
[2016-08-06] VITALS (14 sets, daily range): BP systolic 84–114; BP diastolic 51–83
[2016-08-06] MEDS: D5 1/2 NS 1000 ML IV SOLUTION 1,000 ML IV SCH ×4 (00:51→15:23)
[2016-08-06] MEDS: inSUlin (REGULAR) HUMAN 1 UNIT/0.01 ML (CHARGE PER UNIT) SC SCH ×5 (05:07→21:19)
[2016-08-06] MEDS: MAGNESIUM 1 GM/100 ML IVPB 100 ML IV SCH (06:00)
[2016-08-06] MEDS: POTASSIUM CL 10MEQ/50ML IVPB 50 ML IV SCH (06:00)
[2016-08-06] MEDS: CATHETER FLUSH 10 ML SYR IV SCH ×3 (06:16→20:38)
[2016-08-06] MEDS: PANTOPRAZOLE 40 MG/10 ML (PROTONIX) VIAL IV SCH ×2 (08:18→20:37)
[2016-08-06] MEDS: LEVOFLOXACIN 500 MG/D5W 100 ML (PRE-MIX) IV SCH (08:19)
[2016-08-06] MEDS: MICONAZOLE 2% POWDER (DESENEX AF) 90 GM TOP SCH ×3 (08:20→20:38)
--- NOTE | 2016-08-06 09:35 | Progress Note (SOAP) ---
Subjective Subjective/Events-last exam PT IS NOT VERY CONVERSANT AT THIS TIME. PER NURSING STAFF - SHE REPORTS THAT THE PATIENT IS NOT ALLOWING FOR BLOOD WORK AND IS REFUSING MEDICATIONS AND REFUSING TREATMENTS BY STAFF. Review of Systems General: Fatigue HEENT: No Head Aches Pulmonary: No Cough Cardiovascular: No: Chest Pain, Edema Gastrointestinal: No: Nausea Neurological: : Weakness Objective Exam Vital Signs Date Time Temp Pulse Resp B/P Pulse Ox O2 Delivery O2 Flow Rate FiO2 08/06/16 08:00 99 08/06/16 06:00 102 11 111/58 100 Room Air 08/06/16 05:00 100 11 103/53 100 Room Air 08/06/16 04:00 98 08/06/16 04:00 98.9 08/06/16 04:00 101 9 113/63 100 Room Air 08/06/16 03:00 97 8 101/68 97 Room Air 08/06/16 02:00 101 97/55 100 Room Air 08/06/16 01:00 105 15 84/76 100 Room Air 08/06/16 01:00 102 08/06/16 00:00 98 08/06/16 00:00 99.0 08/06/16 00:00 100 102/83 100 Room Air 08/05/16 23:00 101 19 126/68 100 Room Air 08/05/16 22:00 99 11 122/72 100 Room Air 08/05/16 21:00 97 11 119/63 100 Room Air 08/05/16 20:21 98.8 08/05/16 20:00 98 08/05/16 20:00 98 08/05/16 20:00 112 14 119/76 100 Room Air 08/05/16 19:00 108 08/05/16 19:00 108 10 110/66 100 Room Air 08/05/16 18:00 134/80 100 Room Air 08/05/16 17:00 96 18 142/81 95 Room Air 08/05/16 16:40 98.0 08/05/16 16:00 83 16 147/86 100 Room Air 08/05/16 15:00 87 14 141/56 90 Room Air 08/05/16 14:00 96 17 139/73 95 Room Air 08/05/16 13:00 91 17 99/61 91 Room Air 08/05/16 12:38 97.7 08/05/16 12:00 92 10 125/93 92 Room Air 08/05/16 11:00 97 13 108/75 98 Room Air 08/05/16 10:35 Room Air 08/05/16 10:00 108 26 137/113 100 Mechanical Ventilator I & O 08/06/16 07:00 Intake Total 3300 ml Output Total 1680 ml Balance 1620 ml Capillary Refill : Less Than 3 Seconds General Appearance: No Apparent Distress WD/WN Neck: Full Range of Motion Supple Respiratory: Chest Non Tender Lungs Clear Normal Breath Sounds No Accessory Muscle Use Cardiovascular: Regular Rate, Rhythm Gastrointestinal: normal bowel sounds non tender soft no organomegaly no pulsatile mass Extremity: No Pedal Edema Neurologic/Psychiatric: Alert Oriented x3 No Motor/Sensory Deficits Normal Mood/Affect Skin: Warm/Dry Lymphatic: No Adenopathy Results Lab Laboratory Tests 08/05/16 12:36: Glucometer 168H 08/05/16 16:40: Glucometer 160H 08/05/16 20:24: Glucometer 148H 08/05/16 23:38: Glucometer 154H 08/06/16 04:53: Glucometer 188H 08/06/16 07:58: Glucometer 166H Microbiology 08/03/16 Blood Culture - Preliminary, Resulted No growth 08/04/16 MRSA Screen - Final, Complete MRSA not isolated 08/03/16 Urine Culture - Preliminary, Resulted Enterococcus Faecalis Staph, Coag Neg (Telegraphic Typewriter Repairer) Assessment/Plan Assessment/Plan Assess & Plan/Chief Complaint ENCEPHALOPATHY MEDICATION OVERUSE DIABETES MELLITUS ENTEROCOCCAL URINARY TRACT INFECTION ANEMIA OF CHRONIC DISEASE LOW URINE OUTPUT ENCEPHALOPATHY DUE TO MEDICATION OVERUSE - PT IMPROVED - CONTINUE SUPPORTIVE CARE - PT EXTUBATED AND APPEARS TO BE BACK TO USUAL COGNITIVE FUNCTIONING. DIABETES MELLITUS - SUPPORTIVE CARE - PT ON IV FLUIDS - PT NOT EATING WELL- HOLD HOMED MEDICATIONS AT THIS TIME. ENTEROCOCCAL URINARY TRACT INFECTION - ON IV ANTIBIOTICS - CONTINUE TREATMENT. ANEMIA OF CHRONIC DISEASE - CONTINUE WITH SUPPORTIVE CARE. LOW URINE OUTPUT - RESOLVED. Clinical Quality Measures DVT/VTE Risk/Contraindication: Risk Factor Score Per Nursin RFS Level Per Nursing on Admit: 4+=Very High Contraindications-Pharm: Other *list below* (hematoemesis) JHONNY HIGH MD Aug 06, 2016 09:35
[2016-08-06 09:39] LABS: MEAN PLATELET VOLUME 9.8 FL (7.4-10.4); RED BLOOD COUNT 2.95 10^6/uL (4.35-5.85); RED CELL DISTRIBUTION WIDTH 17.7 % (10.0-14.5); WHITE BLOOD COUNT 5.3 10^3/uL (4.3-11.0)
[2016-08-06 10:00] LABS: ANION GAP 9 MMOL/L (5-14); BLOOD UREA NITROGEN 9 MG/DL (7-18); BUN/CREATININE RATIO 13; CALCIUM 8.3 MG/DL (8.5-10.1); CARBON DIOXIDE 19 MMOL/L (21-32); CHLORIDE 106 MMOL/L (98-107); CREATININE SERUM 0.68 MG/DL (0.60-1.30); GFR ESTIMATED > 60; GLUCOSE 179 MG/DL (70-105); MAGNESIUM 1.4 MG/DL (1.8-2.4); PHOSPHORUS 3.6 MG/DL (2.3-4.7); POTASSIUM 3.7 MMOL/L (3.6-5.0); SODIUM 134 MMOL/L (135-145)
--- NOTE | 2016-08-06 10:48 | Diagnostic Imaging Report ---
Indication: Extubation. Comparison made with prior examination from 08/05/16. Findings: The ET and NG tubes have been removed. The heart size is stable. There is bibasal atelectasis and/or pneumonitis left greater right. There is no pleural effusion or pneumothorax. The mediastinum is unremarkable. Impression: Bibasilar subsegmental atelectasis and/or pneumonitis left greater than right. Dictated by: Dictated on workstation # [id number]
[2016-08-06] MEDS: TRIM/SULFAMETH 160/800 (SEPTRA DS) TAB PO SCH ×2 (12:12→17:51)
[2016-08-07] VITALS: BP 105/68
[2016-08-07 04:00] VITALS: BP 112/70
[2016-08-07] MEDS: CATHETER FLUSH 10 ML SYR IV SCH ×3 (05:00→22:00)
[2016-08-07] MEDS: inSUlin (REGULAR) HUMAN 1 UNIT/0.01 ML (CHARGE PER UNIT) SC SCH ×4 (06:04→22:11)
[2016-08-07] MEDS: TRIM/SULFAMETH 160/800 (SEPTRA DS) TAB PO SCH ×2 (06:04→16:48)
[2016-08-07 07:07] LABS: MEAN PLATELET VOLUME 9.4 FL (7.4-10.4); RED BLOOD COUNT 3.14 10^6/uL (4.35-5.85); WHITE BLOOD COUNT 3.9 10^3/uL (4.3-11.0)
[2016-08-07 07:25] LABS: ALANINE AMINOTRANSFERASE 9 U/L (0-55); ALBUMIN 2.2 G/DL (3.2-4.5); ANION GAP 11 MMOL/L (5-14); ASPARTATE AMINO TRANSFERASE 17 U/L (5-34); BILIRUBIN,TOTAL 0.4 MG/DL (0.1-1.0); BLOOD UREA NITROGEN 9 MG/DL (7-18); BUN/CREATININE RATIO 12; CARBON DIOXIDE 20 MMOL/L (21-32); CHLORIDE 104 MMOL/L (98-107); CREATININE SERUM 0.73 MG/DL (0.60-1.30); GFR ESTIMATED > 60; GLUCOSE 186 MG/DL (70-105); POTASSIUM 3.5 MMOL/L (3.6-5.0); SODIUM 135 MMOL/L (135-145); TOTAL PROTEIN 4.5 G/DL (6.4-8.2)
[2016-08-07 08:00] VITALS: BP 104/70
[2016-08-07] MEDS: MICONAZOLE 2% POWDER (DESENEX AF) 90 GM TOP SCH ×3 (09:06→22:12)
[2016-08-07] MEDS: LEVOFLOXACIN 500 MG/D5W 100 ML (PRE-MIX) IV SCH (09:06)
[2016-08-07] MEDS: PANTOPRAZOLE 40 MG/10 ML (PROTONIX) VIAL IV SCH (09:06)
[2016-08-07] MEDS ORDERED: MAGNESIUM 1 GM/100 ML IVPB 100 ML IV ONE (09:15)
--- NOTE | 2016-08-07 10:22 | Physical Therapy Evaluation ---
PT Evaluation-General Medical Diagnosis Admission Date Aug 03, 2016 at 21:54 Medical Diagnosis: AMS Onset Date: Aug 03, 2016 Therapy Diagnosis Therapy Diagnosis: Generalized weakness/debility Height/Weight Height (Feet): 5 Height (Inches): 8.00 Weight (Pounds): 209 Weight (Ounces): 7.0 Precautions Precautions/Isolations: Fall Prevention, Standard Precautions Referral Physician: Joelle Reason for Referral: Evaluation/Treatment Medical History Pertinent Medical History: Arthritis, COPD, DM, GERD, HTN, Renal Insufficiency , Smoking Additional Medical History depression/anxiety; sciatica Current History noncompliant DM Reviewed History: Yes Social History Home: Single Level Current Living Status: Alone Prior/Core FIM Prior Level of Function Functional [place] Measure 0=Not Assessed/NA 4=Minimal Assistance 1=Total Assistance 5=Supervision or Setup 2=Maximal Assistance 6=Modified [place] 3=Moderate Assistance 7=Complete [place] Bed Mobility: 6 Transfers (B,C,W/C) (FIM): 6 Gait: 6 PT Evaluation-Current Subjective Patient states, "I'm tired of this all." When asked what specifically, patient replies, "All of it. I'm just tired." PT asked patient is she was still smoking , drinking regular pop and eating fast food and patient states that she has continued to all of it. Education with patient on probable negative health issues given. Pain Numeric Pain Scale: 0-No Pain Location: No Pain Reported Objective Patient Orientation: Person, Time, Situation Attachments: Barry Catheter, IV ROM/Strength ROM Lower Extremities WFL with noted edema bilaterally Strenght Lower Extremities right knee flexion/extension 4/5; hip flexion 4/5; ankle dorsi/plantarflexion 4/ 5 left knee flexion/extension 4/5; hip flexion 4/5; ankle dorsi/plantarflexion 4/5 Integumentary/Posture Integumentary refer to nursing notes Bowel Incontinence: No Bladder Incontinence: Barry Cath Posture hip flexed posture Neuromuscular (Tone, Coordination, Reflexes) intact coordination and tone Sensory Vision: Functional Hearing: Functional Sensation Right Lower Extremit: Impaired Sensation Left Lower Extremity: Impaired Transfers Functional [place] Measure 0=Not Assessed/NA 4=Minimal Assistance 1=Total Assistance 5=Supervision or Setup 2=Maximal Assistance 6=Modified [place] 3=Moderate Assistance 7=Complete [place] Transfers (B, C, W/C) (FIM): 5 Rollin Supine to/from Sit: 5 Gait Mode of Locomotion: Walk Anticipated Mode of Locomotion: Walk Gait (FIM): 2 Distance: 100' Gait Level of Assist: 4 Gait Persons Needed: 1 Gait Assistive Device: FWW Comments/Gait Description CGA for safety with gait belt; safe and functional gait sequence with FWW Balance Sitting Static: Normal Sitting Dynamic: Normal Standing Static: Normal Standing Dynamic: Normal Assessment/Needs 55 y.o. female, with recurrent readmits due to noncompliant DM, will benefit from short term skilled PT to address functional strength and mobility to improve current LOF. Rehab Potential: Fair Post Rehab Potential-Barriers: noncompliance PT Equipment Maintenance Engineer Goals Equipment Maintenance Engineer Goals PT Long-Term Goals Time Frame: Aug 14, 2016 Transfers (B,C,W/C) (FIM): 6 Gait (FIM): 6 Gait distance (FIM): 3=150 ft Distance: 150' Gait Level of Assist: 6 Gait Assistive Device: FWW PT Plan Problem List Problem List: Activity Tolerance, Functional Strength, Safety, Gait Treatment/Plan Treatment Plan: Continue Plan of Care Treatment Plan: Bed Mobility, Education, Functional Activity Fidel, Functional Strength, Gait, Safety, Therapeutic Exercise, Transfers Treatment Duration: Aug 14, 2016 # of days/week 5-6 Visits Per Week: 5-6 Pt/Family Agrees w/Plan: Yes Safety Risks/Education Patient Education: Disease Process, Safety Issues Teaching Recipient: Patient Teaching Methods: Discussion Response to Teaching: Verbalize Understanding Discharge Recommendations Therapy D/C Recommendations: Detention Placement Time/GCodes Time In: 935 Time Out: 1000 Total Billed Treatment Time: 25 Total Billed Treatment 1 visit [facility] 25 min JESSA JOHN PT Aug 07, 2016 10:22
[2016-08-07] MEDS: MAGNESIUM 1 GM/100 ML IVPB 100 ML IV SCH ×4 (11:30→15:11)
--- NOTE | 2016-08-07 11:40 | Occupational Therapy Eval ---
OT Evaluation-General/PLF Medical Diagnosis Admission Date Aug 03, 2016 at 21:54 Medical Diagnosis: AMS Onset Date: Aug 03, 2016 Therapy Diagnosis Therapy Diagnosis: decr self care, weakness, decr mobility, decr activity tolerance Height/Weight Height (Feet): 5 Height (Inches): 8.00 Weight (Pounds): 209 Weight (Ounces): 7.0 Precautions Precautions/Isolations: Fall Prevention, Standard Precautions Safety Interventions: Bed Exit Alarm, Reorient-PRN Referral Physician: Joelle Referral Reason: Evaluation/Treatment Medical History Pertinent Medical History: Arthritis, COPD, DM, GERD, HTN, Renal Insufficiency , Smoking Additional Medical History multiple admissions, pneumonia, sleep apnea, O2 overnight, headaches/migraines, bladder infection, chronic UTI, liver disease/jaundice, chronic diarrhea, sciatica, chronic pain, DJD, osteoporosis, low back pain, anxiety, depression, bipolar, anemia of chronic disease Current History Admitted to ICU with medication overdose, on vent for several days, transferred to floor 3-5-17. Reviewed History: Yes Social History Home: Single Level Current Living Status: Other Family (Lives with daughter, son-in-law, 2 grandchildren) ADL-Prior Level of Function ADL PLOF Comments Pt reported that she has been able to manage all of her basic ADLs. She does her own laundry, cares for the grandkids after school and still drives. 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 She said she has fallen multiple times and sometimes can't get up. 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 pain reported 5/10 in low back, not described Appearance Alert, cooperative, looks fatigued Mental Status/Objective Attachments: Central Line, Orta Catheter, IV, Oxygen Current Upper Extremity ROM Grossly WFL bilat Upper Extremity Strength Grossly 4/5 bilat Edema: Significant edema R UE, less in L UE. Pt demonstrated that she has been elevating R hand and making repetitive fist to help mobilize edema. Pt was provided with pink foam manager estate to use to encourage hand AROM and to help strengthen arms ADL-Treatment ADL-Current Pt was able to get a drink and reported that she can feed herself but "I'm not hungry" Functional [place] Measure 0=Not Assessed/NA 4=Minimal Assistance 1=Total Assistance 5=Supervision or Setup 2=Maximal Assistance 6=Modified [place] 3=Moderate Assistance 7=Complete IndependenceIRFPAI Quality Coding Scale 6 Independent with activity with or without an assistive device 5 Patient requires set up or clean up by helper. Patient completes activity by themselves 4 Supervision or touching assist (CGA). [place] provide cues , steadying assist 3 The helper provides less than half the effort to complete the activity 2 The helper provides more than half the effort to complete the activity 1 Dependent. The helper does all the effort to complete an activity 7 Patient refused to complete or attempt activity 9 The patient did not perform the activity before the current illness or injury 88 Not attempted due to Medical conditions or safety concerns Transfers (B, C, W/C) (FIM): 4 (From recliner, to bed, using FWW. Help to manage IV and orta tubes. Able to get both legs up into bed.) Education OT Patient Education: Disease process, Purpose of tx/functional activities, Rehab process, Safety issues, Transfer techniques Teaching Recipient: Patient Teaching Methods: Discussion Response to Teaching: Verbalize Understanding, Return Demonstration, Reinforcement Needed OT Mcc Goals Mcc Goals Time Frame: Aug 14, 2016 Eating (FIM): 6 Grooming(FIM): 6 Bathing(FIM): 6 Upper Body Dressing(FIM): 6 Lower Body Dressing(FIM): 6 Toileting(FIM): 6 Toilet/Commode Transfer(FIM): 6 Shower Transfer(FIM): 6 Decrease edema bilat Ues to WFL to help increase functional use bilat UEs Additional Goals: 2-Verbalize Understanding, 3-ImproveStrength/Fidel 1=Demonstrate adherence to instructed precautions during ADL tasks. 2=Patient will verbalize/demonstrate understanding of assistive devices/ modifications for ADL. 3=Patient will improve strength/tolerance for activity to enable patient to perform ADL's. OT Education/Plan Problem List/Assessment Assessment: Decreased Activ Tolerance, Decreased UE Strength, Dependent Transfers, Impaired Funct Balance, Impaired Self-Care Skills Pt would benefit from skilled OT to increase her independence in basic self care to allow her ot safely return home to live with her daughter and family and decrease caregiver burden. Discharge Recommendations Plan/Recommendations: Continue POC Treatment Plan/Plan of Care Treatment,Training & Education: Yes Patient would benefit from OT for education, treatment and training to promote independence in ADL's, mobility, safety and/or upper extremity function for ADL' s. Plan of Care: ADL Retraining, Functional Mobility, UE Funct Exercise/Act, UE Neuromus Re-Ed/Coord Treatment Duration: Aug 14, 2016 # of days/week 5 Visits Per Week: 5 Agreement: Yes Rehab Potential: Fair Time/GCodes Start Time: 10:55 Stop Time: 11:20 Total Time Billed (hr/min): 25 Billed Treatment Time visit, 15 minutes evaluation moderate, 10 minutes functional activities JOSI PATRICIA OT Aug 07, 2016 11:39 Total Time Billed (hr/min): 25 Billed Treatment Time visit, 15 minutes evaluation moderate, 10 minutes functional activities JOSI PATRICIA OT Aug 07, 2016 11:39
[2016-08-07 12:00] VITALS: BP 114/60
--- NOTE | 2016-08-07 12:21 | Progress Note (SOAP) ---
Subjective Subjective/Events-last exam 55 yo F doing better. Mg this AM was 1. Met with pt and Lore - plan to discharge to [facility] for senior living NH placement- will re-assess December 2016- potential for going back home. Pt has twin granddaughters due to in January. Pt denies any new issues today. Port is still not useful for blood draws. Pt would like a nicotine patch. Pt is agreeable to go to [facility]. Will need outpt PT. Review of Systems General: No Chills, No Night Sweats HEENT: No Head Aches, No Visual Changes Pulmonary: No Dyspnea, No Cough Cardiovascular: No: Chest Pain, Palpitations Gastrointestinal: : Abdominal PainNo: Nausea, Vomiting Musculoskeletal: No: neck pain, shoulder pain Neurological: : WeaknessNo: Numbness Objective Exam Vital Signs Date Time Temp Pulse Resp B/P Pulse Ox O2 Delivery O2 Flow Rate FiO2 08/07/16 08:00 96.7 93 18 104/70 98 Room Air 08/07/16 08:00 98 100 08/07/16 04:00 98.0 87 18 112/70 97 Room Air 08/07/16 00:00 98.1 96 18 105/68 96 Room Air 08/06/16 20:05 98.8 92 18 93/51 98 Room Air 08/06/16 16:02 97.1 91 18 97/53 98 Room Air I & O 08/07/16 07:00 Intake Total 1726 ml Output Total 4050 ml Balance -2324 ml Capillary Refill : Less Than 3 Seconds General Appearance: No Apparent Distress WD/WN HEENT: PERRL/EOMI Neck: Non Tender Supple Respiratory: Chest Non Tender Lungs Clear Normal Breath Sounds Cardiovascular: Regular Rate, Rhythm Gastrointestinal: normal bowel sounds non tender soft Extremity: Normal Range of Motion Pedal Edema (1+ pitting edema lower extremities- right arm. bruising noted on anterior shins) Neurologic/Psychiatric: Alert Oriented x3 Normal Mood/Affect Skin: Warm/Dry Other ( decub ulcer x5) Results Lab Laboratory Tests 08/06/16 16:05: Glucometer 237H 08/06/16 21:02: Glucometer 206H 08/07/16 05:23: Glucometer 178H 08/07/16 07:00: Alanine Aminotransferase (ALT/SGPT) 9, Albumin 2.2L, Alkaline Phosphatase 330H, Anion Gap 11, Aspartate Amino Transf (AST/SGOT) 17, BUN/Creatinine Ratio 12, Blood Urea Nitrogen 9, Calcium Level 8.0L, Carbon Dioxide Level 20L, Chloride Level 104, Creatinine 0.73, Estimat Glomerular Filtration Rate > 60, Glucose Level 186H, Hematocrit 27L, Hemoglobin 8.8L, Magnesium Level 1.0*L, Mean Corpuscular Hemoglobin 28, Mean Corpuscular Hemoglobin Concent 33, Mean Corpuscular Volume 86, Mean Platelet Volume 9.4, Platelet Count 217, Potassium Level 3.5L, Red Blood Count 3.14L, Red Cell Distribution Width 17.0H, Sodium Level 135, Total Bilirubin 0.4, Total Protein 4.5L, White Blood Count 3.9L 08/07/16 11:29: Glucometer 236H Microbiology 08/03/16 Blood Culture - Preliminary, Resulted No growth 08/04/16 MRSA Screen - Final, Complete MRSA not isolated 08/03/16 Urine Culture - Final, Complete Enterococcus Faecalis Staph, Coag Neg (Gun Synchronizer) Assessment/Plan Assessment/Plan Assess & Plan/Chief Complaint 55 yo F admitted 08/03/16 *toxic encephalopathy likely due to overmedication- has baclofen, amitriptyline, gabapentin, insulin- UDS +tricyclics. improved -extubated 08/05/16 *Acute respiratory failure due to encephalopathy- improved *hematoemesis- monitor hgb, emesis- pantoprazole 40mg BID po, may add carafate prn *enterococcus / Staph coag neg- UTI- levofloxacin, bactrim - d/c orta today. reoccuring Falls probably due to medication, deconditioning and anemia- needs placement at a halfway. uncontrolled Diabetes Mellitus II with insulin dependence- 07/11/16 hga1c 11.8 07/11/16 - SS resume levemir 20units qHS, with sliding scale C will adjust as pt's intake increases. hypomagnesemia- replacing hypokalemia- replacing hyperhyponatremia- resolved Bipolar disorder- monitor Anemia of chronic disease- 1unit pRBC 07/13/16 - will monitor hgb- may need a unit of blood. DVT ppx: scds, chemoppx contraindicated with hematoemesis Dispo: Lore PIPE CHIPPER and I met with pt as her frequent admissions are unacceptable. 9admissions in 6 months- NH placement necessary for pt's safety, her grandkids, as well as the public safety as she is not safe to drive until her medical conditions are better controlled. Referral for pt to go to [facility]- senior living, will reassess in December 2016- for potential return to home - will need outpt PT, OT, Nursing.. Clinical Quality Measures DVT/VTE Risk/Contraindication: Risk Factor Score Per Nursin RFS Level Per Nursing on Admit: 4+=Very High Contraindications-Pharm: Other *list below* (hematoemesis) NALDO MARQUEZ MD Aug 07, 2016 12:21
[2016-08-07] MEDS: NICOTINE 21 MG (NICODERM) PATCH TD SCH (12:29)
[2016-08-07] MEDS: KCL 10 MEQ TAB (MICRO K) PO SCH ×3 (15:13→17:59)
[2016-08-07 16:06] VITALS: BP 101/70
[2016-08-07] MEDS: GABAPENTIN 400 MG (NEURONTIN) CAP PO PRN ×2 (16:49→22:11)
[2016-08-07 20:00] VITALS: BP 123/69
[2016-08-07] MEDS: PANTOPRAZOLE 40 MG (PROTONIX) TAB PO SCH (22:11)
[2016-08-07] MEDS: AMITRIPTYLINE 50 MG (ELAVIL) TAB PO SCH (22:11)
[2016-08-07] MEDS: inSUlin DETERMIR 1 UNIT/0.01 ML (LEVEMIR) CHARGE PER UNIT SQ SCH (22:12)
[2016-08-08 00:46] VITALS: BP 103/55
[2016-08-08 04:00] VITALS: BP 112/65
[2016-08-08] MEDS: CATHETER FLUSH 10 ML SYR IV SCH ×3 (05:52→20:52)
[2016-08-08] MEDS: inSUlin (REGULAR) HUMAN 1 UNIT/0.01 ML (CHARGE PER UNIT) SC SCH ×4 (05:53→20:51)
[2016-08-08] MEDS: TRIM/SULFAMETH 160/800 (SEPTRA DS) TAB PO SCH ×2 (05:54→17:25)
[2016-08-08 06:04] LABS: BASOPHILS % (AUTO) 0 % (0-10); EOSINOPHILS # (AUTO) 0.1 10^3/uL (0.0-0.3); EOSINOPHILS % (AUTO) 3 % (0-10); LYMPHOCYTES # (AUTO) 1.4 X 10^3 (1.0-4.0); LYMPHOCYTES % (AUTO) 35 % (12-44); MEAN CORPUSCULAR HEMOGLOBIN 28 PG (25-34); MEAN CORPUSCULAR HGB CONC 33 G/DL (32-36); MEAN CORPUSCULAR VOLUME 86 FL (80-99); MEAN PLATELET VOLUME 9.6 FL (7.4-10.4); MONOCYTES # (AUTO) 0.4 X 10^3 (0.0-1.0); MONOCYTES % (AUTO) 11 % (0-12); NEUTROPHILS # (AUTO) 2.1 X 10^3 (1.8-7.8); NEUTROPHILS % (AUTO) 51 % (42-75); PLATELET COUNT 253 10^3/uL (130-400); RED BLOOD COUNT 2.98 10^6/uL (4.35-5.85); RED CELL DISTRIBUTION WIDTH 17.2 % (10.0-14.5); WHITE BLOOD COUNT 4.1 10^3/uL (4.3-11.0)
[2016-08-08 06:56] LABS: ANION GAP 10 MMOL/L (5-14); BLOOD UREA NITROGEN 7 MG/DL (7-18); BUN/CREATININE RATIO 9; CALCIUM 8.3 MG/DL (8.5-10.1); CARBON DIOXIDE 21 MMOL/L (21-32); CHLORIDE 108 MMOL/L (98-107); CREATININE SERUM 0.79 MG/DL (0.60-1.30); GFR ESTIMATED > 60; GLUCOSE 113 MG/DL (70-105); MAGNESIUM 1.6 MG/DL (1.8-2.4); POTASSIUM 4.2 MMOL/L (3.6-5.0); SODIUM 139 MMOL/L (135-145)
[2016-08-08 08:00] VITALS: BP 105/71
[2016-08-08] MEDS: NICOTINE PATCH REMOVAL TP SCH (09:35)
[2016-08-08] MEDS: PANTOPRAZOLE 40 MG (PROTONIX) TAB PO SCH ×2 (09:35→20:51)
[2016-08-08] MEDS: NICOTINE 21 MG (NICODERM) PATCH TD SCH (09:35)
[2016-08-08] MEDS: MICONAZOLE 2% POWDER (DESENEX AF) 90 GM TOP SCH ×3 (09:40→20:52)
[2016-08-08] MEDS: GABAPENTIN 400 MG (NEURONTIN) CAP PO PRN ×2 (09:40→20:54)
[2016-08-08] MEDS: MAGNESIUM 1 GM/100 ML IVPB 100 ML IV SCH ×3 (09:43→11:50)
[2016-08-08] MEDS ORDERED: LEVOFLOXACIN 500 MG TAB (LEVAQUIN) PO SCH (11:00)
--- NOTE | 2016-08-08 11:30 | Physical Therapy Daily Note ---
PT Daily Note-Current Subjective Pt sitting on BS upon arrival. Pt agrees to PT. Pain Numeric Pain Scale: 4 Location: Dorsal Location Body Site: Back Pain Description: Ache Mental Status Patient Orientation: Person, Place, Time, Situation Attachments: IV Transfers Functional [place] Measure 0=Not Assessed/NA 4=Minimal Assistance 1=Total Assistance 5=Supervision or Setup 2=Maximal Assistance 6=Modified [place] 3=Moderate Assistance 7=Complete IndependenceIRFPAI Quality Coding Scale 6 Independent with activity with or without an assistive device 5 Patient requires set up or clean up by helper. Patient completes activity by themselves 4 Supervision or touching assist (CGA). [place] provide cues , steadying assist 3 The helper provides less than half the effort to complete the activity 2 The helper provides more than half the effort to complete the activity 1 Dependent. The helper does all the effort to complete an activity 7 Patient refused to complete or attempt activity 9 The patient did not perform the activity before the current illness or injury 88 Not attempted due to Medical conditions or safety concerns Transfers (B, C, W/C) (FIM): 6 Scootin Sit to/from Stand: 6 Bed to/from Chair: 6 Weight Bearing Weight Bearing Restriction: Full Weight Bearing Location Restriction: LE Bilateral Gait Training Gait (FIM): 5 Distance (FIM): 3=150 ft Distance: 250' Gait Level of Assist: 5 Gait Persons Needed: 1 Gait Assistive Device: FWW Pt walks with slow but steady shavonne and no LOB. Treatments Pt transfers at [facility]. Pt ambulates using FWW at [facility]. Pt returns to room after walk and rests in recliner with feet raised and all needs met at end of tx. Assessment Current Status: Good Progress Pt tolerates tx well. Pt is increasing independence of transfers and ambulation. PT Group Home Goals Blueprint Engineer Goals PT Group Home Goals Time Frame: Aug 14, 2016 Transfers (B,C,W/C) (FIM): 6 Gait (FIM): 6 Gait distance (FIM): 3=150 ft Distance: 150' Gait Level of Assist: 6 Gait Assistive Device: FWW PT Plan Problem List Problem List: Activity Tolerance, Safety, Gait Treatment/Plan Treatment Plan: Continue Plan of Care Treatment Plan: Bed Mobility, Education, Functional Activity Fidel, Functional Strength, Gait, Safety, Therapeutic Exercise, Transfers Treatment Duration: Aug 14, 2016 Visits Per Week: 5-6 Safety Risks/Education Patient Education: Gait Training, Transfer Techniques, Correct Positioning, Safety Issues Teaching Recipient: Patient Teaching Methods: Discussion Response to Teaching: Verbalize Understanding Time/GCodes Time In: 945 Time Out: 1000 Total Billed Treatment Time: 15 Total Billed Treatment visit, GT (15m) NED CORBIN PTA Aug 08, 2016 11:30
--- NOTE | 2016-08-08 13:28 | Discharge Inst-Skilled Nursing ---
Discharge Inst-Skilled NF Consult/Follow Up/Orders Follow Up Appt.: Follow up in 2 weeks Skilled NF Admit to: [facility] Certification (SNF) I certify that SNF services are required to be given on an inpatient basis because of the above named patient's need for shelter care on a continuing basis for the conditions(s) for which he/she was receiving inpatient hospital services prior to his/her transfer to the SNF. Fdc Facility Order: Nursing Services, Assistant Foreman-Evaluate & Treat (will be getting outpt OT), Physical Therapy-Evaluate & Treat (will be getting outpt PT) Discharge Diet: ADA Diet Daily Activity as Tolerated: Yes New & Resume Previous Orders Leonel Marquez Aug 09, 2016 08:28 LEONEL MARQUEZ MD Aug 08, 2016 13:28
--- NOTE | 2016-08-08 13:30 | Occupational Ther Daily Note ---
OT Current Status-Daily Note Subjective Pt seen in room, up in recliner. More alert and participative today. Pt verbalized that she was leaving tomorrow to [facility] and said "I don't like it but its what I need to do." No pain mentioned. Pt did not want to change clothes - the clothes she has are for her discharge tomorrow. She didn't need to toilet and said she washed up with a back pack. She did say that she over exercises her R hand yesterday and hand was sore last night but it felt better today. Appearance Alert, cooperative Mental Status/Objective Functional [place] Measure 0=Not Assessed/NA 4=Minimal Assistance 1=Total Assistance 5=Supervision or Setup 2=Maximal Assistance 6=Modified [place] 3=Moderate Assistance 7=Complete [place] Other Treatment Pt education in home exercise program using red (medium resistance) theraband. Pt provided with handout and did 10 reps of each exercise, after instruction. Occasional verbal cues or physical assistance needed to do exercise correctly. Pt education in how to upgrade exercise program. Recommend continued OT - will do it as an OP at [facility]. Pt left up in recliner, all needs met. Education OT Patient Education: Exercise program, Home exercise program Teaching Recipient: Patient Teaching Methods: Demonstration, Discussion Response to Teaching: Verbalize Understanding, Return Demonstration, Reinforcement Needed OT Short Term Goals Short Term Goals 1=Demonstrate adherence to instructed precautions during ADL tasks. 2=Patient will verbalize/demonstrate understanding of assistive devices/ modifications for ADL. 3=Patient will improve strength/tolerance for activity to enable patient to perform ADL's. OT Linux Consultant Goals Linux Consultant Goals Time Frame: Aug 14, 2016 Eating (FIM): 6 Grooming(FIM): 6 Bathing(FIM): 6 Upper Body Dressing(FIM): 6 Lower Body Dressing(FIM): 6 Toileting(FIM): 6 Toilet/Commode Transfer(FIM): 6 Shower Transfer(FIM): 6 Decrease edema bilat Ues to WFL to help increase functional use bilat UEs Additional Goals: 2-Verbalize Understanding, 3-ImproveStrength/Fidel 1=Demonstrate adherence to instructed precautions during ADL tasks. 2=Patient will verbalize/demonstrate understanding of assistive devices/ modifications for ADL. 3=Patient will improve strength/tolerance for activity to enable patient to perform ADL's. OT Education/Plan Problem List/Assessment Pt would benefit from skilled OT to increase her independence in basic self care to allow her ot safely return home to live with her daughter and family and decrease caregiver burden. Discharge Recommendations Plan/Recommendations: Continue POC Treatment Plan/Plan of Care Patient would benefit from OT for education, treatment and training to promote independence in ADL's, mobility, safety and/or upper extremity function for ADL' s. Plan of Care: ADL Retraining, Functional Mobility, UE Funct Exercise/Act, UE Neuromus Re-Ed/Coord Treatment Duration: Aug 14, 2016 Visits Per Week: 5 Agreement: Yes Rehab Potential: Fair Time/GCodes Start Time: 11:35 Stop Time: 12:00 Total Time Billed (hr/min): 25 Billed Treatment Time visit, 25 minutes exercise JOSI PATRICIA OT Aug 08, 2016 13:30
[2016-08-08 16:00] VITALS: BP 124/71
[2016-08-08] MEDS: inSUlin DETERMIR 1 UNIT/0.01 ML (LEVEMIR) CHARGE PER UNIT SQ SCH (20:51)
[2016-08-08] MEDS: AMITRIPTYLINE 50 MG (ELAVIL) TAB PO SCH (20:51)
[2016-08-09] VITALS: BP 101/55
[2016-08-09 05:05] LABS: BASOPHILS % (AUTO) 0 % (0-10); EOSINOPHILS # (AUTO) 0.2 10^3/uL (0.0-0.3); EOSINOPHILS % (AUTO) 4 % (0-10); LYMPHOCYTES # (AUTO) 1.6 X 10^3 (1.0-4.0); LYMPHOCYTES % (AUTO) 39 % (12-44); MEAN CORPUSCULAR HEMOGLOBIN 28 PG (25-34); MEAN CORPUSCULAR HGB CONC 32 G/DL (32-36); MEAN CORPUSCULAR VOLUME 87 FL (80-99); MEAN PLATELET VOLUME 9.8 FL (7.4-10.4); MONOCYTES # (AUTO) 0.3 X 10^3 (0.0-1.0); MONOCYTES % (AUTO) 8 % (0-12); NEUTROPHILS % (AUTO) 50 % (42-75); PLATELET COUNT 276 10^3/uL (130-400); RED BLOOD COUNT 3.23 10^6/uL (4.35-5.85); RED CELL DISTRIBUTION WIDTH 17.1 % (10.0-14.5); WHITE BLOOD COUNT 4.1 10^3/uL (4.3-11.0)
[2016-08-09 05:20] LABS: ALBUMIN 2.6 G/DL (3.2-4.5); BILIRUBIN,TOTAL 0.3 MG/DL (0.1-1.0); CALCIUM 8.9 MG/DL (8.5-10.1); CREATININE SERUM 1.01 MG/DL (0.60-1.30); MAGNESIUM 1.6 MG/DL (1.8-2.4); POTASSIUM 4.6 MMOL/L (3.6-5.0); TOTAL PROTEIN 5.4 G/DL (6.4-8.2)
[2016-08-09] MEDS: inSUlin (REGULAR) HUMAN 1 UNIT/0.01 ML (CHARGE PER UNIT) SC SCH ×2 (05:38→10:42)
[2016-08-09] MEDS: CATHETER FLUSH 10 ML SYR IV SCH (06:10)
[2016-08-09] MEDS: TRIM/SULFAMETH 160/800 (SEPTRA DS) TAB PO SCH (06:10)
[2016-08-09 08:00] VITALS: BP 95/51
--- NOTE | 2016-08-09 08:18 | Discharge Summary ---
Diagnosis/Chief Complaint Date of Admission Aug 03, 2016 at 21:54 Date of Discharge August 09, 2016 Discharge Date: Admission Diagnosis Admission Diagnosis 55 yo F admitted 08/03/16 *toxic encephalopathy likely due to overmedication- has baclofen, amitriptyline, gabapentin- UDS +tricyclics. -intubated, Dr. Owens consulted -weaning trial today. *Acute respiratory failure due to encephalopathy- intubated. *hematoemesis- monitor hgb, emesis- OGT in place -PPI IV reoccuring [place] probably due to medication, deconditioning and anemia- uncontrolled Diabetes Mellitus II with insulin dependence- 07/11/16 hga1c 11.8 07/11/16 - SSI q4hr- when taking po will need to resume levemir 25units BID , with sliding scale C hypomagnesemia- on admission- replacing hypokalemia- replacing hyperhyponatremia- IVF 1/2NS +D5W Bipolar disorder- monitor Anemia of chronic disease- 1unit pRBC 07/13/16 - will monitor hgb- may need a unit of blood. DVT ppx: scds, chemoppx contraindicated with hematoemesis Dispo: proprofol d/c'd attempt to extubate in near future. Lore LIMA and I will meet with pt after extubation in efforts to start working on permanent long term placement as her frequent admissions are unacceptable. Discharge Diagnosis *toxic encephalopathy likely due to overmedication- *Acute respiratory failure *hematoemesis- *enterococcus / Staph coag neg- UTI- reoccuring [place] uncontrolled Diabetes Mellitus II with insulin dependence- hypomagnesemia- hypokalemia- hypernatremia- Bipolar disorder- Anemia of chronic disease- Reason Hospital Visit 55 yo F well known to me as she is readmitted about every 2 weeks for hyperglycemia/dka. This time pt admitted for acute encephalopathy- Pt had called EMS multiple times and the last time she has altered mental status with decreased responsiveness. Pt was also found with tobacco appearing emesis. She has been given ondansetron without much improvement. Pt was intubated in the ER to protect airway. Pt has had previous admission in the past for suspected overmedication- since then I have d/c'd her baclofen, which apparently she still uses. Pt also uses gabapentin and amitriptyline. Last AMS admission for overmedication was in May. The last 4-5 have been for hyperglycemia/DKA. Pt has had a couple friends in the past 3 months- she had in the past denied any attempt to harm herself. Pt in the past has refused permanent long term placement. This admission- pt intubated in ED. Dr. Amador consulted from ED regarding pt 's fall history - C-collar removed. Poison control called by ED physician- recommend 2-3 amp bicarb push for QRS > 100msec (for baclofen toxicity), 1- 2gram mag for QTC >500 (pt is already getting mag for hypomagnesemia), fat emulsion for TCA toxicity. Pt admitted to ICU for further care. Discharge Summary Hospital Course Hospital Course 55 yo F admitted to ICU intubated for altered mental status- She was given IV fluids, bicarbonate, D5 1/2 NS and time- she gradually improved and was extubated 08/05/16- suspected etiology was due to medication- she does take baclofen, amitriptyline, gabapentin and insulin. Also noted on admission per EMS reported dark coffee groun emesis. None during inpatient stay. She will continue pantoprazole and carafate. She needs to continue her magnesium supplement as she has hypomagnesemia. Her hemoglobin from anemia of chronic disease was stable - no need for transfusion- expect her hemoglobin to improve as we get better control over her medical co-morbidities. Her enteroccocus urinary tract infection was treated with levoquin. She will complete her bactrim course of antibiotics at [facility] for staph coag neg urinary tract infection. Her diabetes is not controlled at home which is the reason for majority of her admissions, DKA. With better controlled diet and insulin administration expect her admission rate to decrease drastically. She continued to improve through her stay, complete recovery of her altered mental status- discussed was undertaken with case management- about patient needing long term placement and patient agreed. See CM note for further details. Eri is deemed stable to be discharged to [facility] 08/09/16. She is scheduled for outpatient PT/OT. Labs Laboratory Tests 08/06/16 09:36: Calcium Level 8.3L, Carbon Dioxide Level 19L, Glucose Level 179H, Hematocrit 26L , Hemoglobin 8.4L, Magnesium Level 1.4L, Red Blood Count 2.95L, Red Cell Distribution Width 17.7H, Sodium Level 134L 08/06/16 11:48: Glucometer 231H 08/06/16 16:05: Glucometer 237H 08/06/16 21:02: Glucometer 206H 08/07/16 05:23: Glucometer 178H 08/07/16 07:00: Albumin 2.2L, Alkaline Phosphatase 330H, Calcium Level 8.0L, Carbon Dioxide Level 20L, Glucose Level 186H, Hematocrit 27L, Hemoglobin 8.8L, Magnesium Level 1.0*L, Potassium Level 3.5L, Red Blood Count 3.14L, Red Cell Distribution Width 17.0H, Total Protein 4.5L, White Blood Count 3.9L 08/07/16 11:29: Glucometer 236H 08/07/16 15:05: Magnesium Level 1.4L 08/07/16 16:51: Glucometer 214H 08/07/16 21:54: Glucometer 210H 08/08/16 05:52: Glucometer 121H 08/08/16 05:56: Calcium Level 8.3L, Chloride Level 108H, Glucose Level 113H, Hematocrit 26L, Hemoglobin 8.4L, Magnesium Level 1.6L, Red Blood Count 2.98L, Red Cell Distribution Width 17.2H, White Blood Count 4.1L 08/08/16 11:00: Glucometer 247H 08/08/16 16:06: Glucometer 215H 08/08/16 20:39: 08/09/16 04:12: Albumin 2.6L, Alkaline Phosphatase 356H, Hematocrit 28L, Hemoglobin 9.0L, Magnesium Level 1.6L, Red Blood Count 3.23L, Red Cell Distribution Width 17.1H, Total Protein 5.4L, White Blood Count 4.1L Procedures None. Consultations Dr. Joelle Escobar Discharge Physical Examination Allergies: Coded Allergies: No Known Drug Allergies (Unverified , 11/24/09) Vitals & I&Os Vital Signs Date Time Temp Pulse Resp B/P Pulse Ox O2 Delivery O2 Flow Rate FiO2 08/09/16 00:00 98.1 102 16 101/55 100 Room Air 08/07/16 08:00 100 08/05/16 08:00 21.00 General Appearance: Alert, Oriented X3 HEENT: Atraumatic Respiratory: Clear to Auscultation Cardiovascular: Regular Rate Abdominal: Normal Bowel Sounds Extremities: No Clubbing, Other (edema 1+ extremities) Skin: Other (sacral decubitus ulcers stage 2) Neuro: Normal Speech, Strength at 5/5 X4 Ext, Sensation Intact Psych/Mental Status: Mental Status NL, Mood NL Discharge Home Medications Reviewed and agree with Discharge Medication list on patient's Discharge Instruction sheet Condition at Discharge stable Instructions to Patient/Family Please see electronic discharge instructions given to patient. Clinical Quality Measures DVT/VTE Risk/Contraindication: Risk Factor Score Per Nursin RFS Level Per Nursing on Admit: 4+=Very High Contraindications-Pharm: Other *list below* (hematoemesis) NALDO MARQUEZ MD Aug 09, 2016 08:17
[2016-08-09] MEDS ORDERED: FUROSEMIDE 40 MG (LASIX) TAB PO PRN (08:30)
[2016-08-09] MEDS ORDERED: MAGNESIUM 1 GM/100 ML IVPB 100 ML IV NR (08:30)
[2016-08-09] MEDS ORDERED: FUROSEMIDE 40 MG (LASIX) TAB PO NR (08:30)
[2016-08-09] MEDS ORDERED: LORazepam 0.5 MG (ATIVAN) TABLET PO PRN (08:30)
[2016-08-09] MEDS ORDERED: INSU100V3 SC (08:34)
[2016-08-09] MEDS ORDERED: PANT40TA3 PO (08:34)
[2016-08-09] MEDS ORDERED: SULF1TAB35 PO (08:34)
[2016-08-09] MEDS ORDERED: GABA-490 PO (08:34)
[2016-08-09] MEDS ORDERED: INSU100V5 SQ (08:34)
[2016-08-09] MEDS ORDERED: LORA-404 PO (08:59)
[2016-08-09] MEDS: MICONAZOLE 2% POWDER (DESENEX AF) 90 GM TOP SCH (09:00)
[2016-08-09] MEDS ORDERED: MAGNESIUM OXIDE (MAG-OX)400 MG TAB PO SCH (09:00)
[2016-08-09] MEDS ORDERED: NCT21TD TD (09:05)
[2016-08-09] MEDS: PANTOPRAZOLE 40 MG (PROTONIX) TAB PO SCH (09:15)
[2016-08-09] MEDS: NICOTINE PATCH REMOVAL TP SCH (09:16)
[2016-08-09] MEDS: NICOTINE 21 MG (NICODERM) PATCH TD SCH (09:16)
[2016-08-09] MEDS: GABAPENTIN 400 MG (NEURONTIN) CAP PO PRN (09:16)
== END 2016-08-09 10:44 | DRG 917 ==
LOC: EDUNIT# 18:46 → ER 18:48 → ICU 21:54 → 4TH 08-06 10:00
PROVIDERS: ADMIT Family Medicine; ATTEND Family Medicine
PROC: 5A1945Z Respiratory Ventilation, 24-96 Consecutive Hours (ICD-10-PCS; principal; 2016-08-03)
DX: T42.8X1A Poisoning by antiparkinsonism drugs and other central muscle-tone depressants, accidental (unintentional), initial encounter (principal); G92 Toxic encephalopathy; J96.00 Acute respiratory failure, unspecified whether with hypoxia or hypercapnia; E11.65 Type 2 diabetes mellitus with hyperglycemia; N39.0 Urinary tract infection, site not specified; K92.0 Hematemesis; E87.0 Hyperosmolality and hypernatremia; E87.1 Hypo-osmolality and hyponatremia; J44.9 Chronic obstructive pulmonary disease, unspecified; I10 Essential (primary) hypertension; D63.8 Anemia in other chronic diseases classified elsewhere; R29.6 Repeated falls; E83.42 Hypomagnesemia; E87.6 Hypokalemia; K21.9 Gastro-esophageal reflux disease without esophagitis; F31.9 Bipolar disorder, unspecified; B95.2 Enterococcus as the cause of diseases classified elsewhere; Z91.14 Patient's other noncompliance with medication regimen; Z79.4 Long term (current) use of insulin
CPT/HCPCS: 36415; 51702; 70450; 71010; 72125; 80048; 80053; 80306; 80320; 80329; 81000; 82140; 82271; 82805; 82962; 83605; 83735; 84100; 85014; 85018; 85025; 85027; 85610; 85730; 86850; 86900; 86901; 86920; 87040; 87077; 87081; 87088; 87186; 93005; 93041; 94002; 94003; 94799; 96361; 96365; 96366; 96367; 96375

== ENCOUNTER → 2016-08-12 | Outpatient (CLI) | payer MEDICAID ==
[~2016-08-12] MED LIST changes: +GABA-490 PO; +LORA-404 PO; +NCT21TD TD; +NYST15CR TP; +SULF1TAB35 PO
--- OUTSIDE RECORDS SUMMARY | 2016-08-12 13:20 | XMS REPORT | Continuity of Care Document ---
Author Author [facility] Organization [facility] Address Unknown Phone Unavailable Care Team Providers Care Choral Teacher Name Role Phone Burt Rivera PCP [phone] Source Comments Some departments are not documenting in the electronic medical record. If you do not see the information that you expected, contact Release of Information in the Health Information Management department at [phone] for further assistance in locating additional records.[facility] Active Allergies and Adverse Reactions [...]
== END ==
LOC: HH 13:14
PROVIDERS: ATTEND Family Medicine
DX: Z53.9 Procedure and treatment not carried out, unspecified reason (principal)
CPT/HCPCS: 80048; 83735

== ENCOUNTER → 2016-08-13 | Outpatient (CLI) | payer MEDICAID ==
--- OUTSIDE RECORDS SUMMARY | 2016-08-13 07:30 | XMS REPORT | Continuity of Care Document ---
Author Author [facility] Organization [facility] Address Unknown Phone Unavailable Care Team Providers Care Failure Analysis Technician Name Role Phone Burt Rivera PCP [phone] Source Comments Some departments are not documenting in the electronic medical record. If you do not see the information that you expected, contact Release of Information in the Health Information Management department at [phone] for further assistance in locating additional records.[facility] Active Allergies and Adverse Reactions No [...]
== END ==
LOC: HH 07:26
PROVIDERS: ATTEND Family Medicine
DX: Z53.9 Procedure and treatment not carried out, unspecified reason (principal)
CPT/HCPCS: 80048; 83735

== ENCOUNTER 2016-08-14 12:08 | Outpatient (CLI) | payer MEDICAID ==
[~2016-08-14] VITALS: Ht 172.7 cm; Wt 93.0 kg
[~2016-08-14 12:08] MED LIST changes: -NYST15CR TP
--- OUTSIDE RECORDS SUMMARY | 2016-08-14 12:12 | XMS REPORT | Continuity of Care Document ---
Author Author [facility] Organization [facility] Address Unknown Phone Unavailable Care Team Providers Care Security Professionals Name Role Phone Burt Rivera PCP [phone] Source Comments Some departments are not documenting in the electronic medical record. If you do not see the information that you expected, contact Release of Information in the Health Information Management department at [phone] for further assistance in locating additional records.[facility] Active Allergies and Adverse Reactions No [...]
[2016-08-14] MEDS ORDERED: BUPIVACAINE 0.25% 30 ML (SENSORCAINE) VIAL ONE (12:33)
[2016-08-14] MEDS ORDERED: TRIAMCINOLONE ACET (KENALOG-40) 40 MG/ML 1 ML VIAL ONE (12:33)
[2016-08-14] MEDS ORDERED: LIDOCAINE 1% INJ 20 ML (XYLOCAINE) VIAL ONE (12:33)
[2016-08-14 12:41] VITALS: BP 126/80
[2016-08-14 13:06] VITALS: BP 122/87
--- NOTE | 2016-08-14 14:32 | Pain Medicine-Procedure ---
Procedure Pre-Op/Post-Op Diagnosis Diagnosis: hip osteoarthritis Indications for Operation Hip pain Attending Surgeon Brian Procedure Date of Service: Aug 14, 2016 PROCEDURE: Right hip injection under flouroscopic guidance PROCEDURE IN DETAIL: After obtaining informed consent from the patient, the patient's chart was reviewed. The patient was brought to the procedure room and placed in the supine position. The left hip was prepped with antiseptic solution. Then, the joint was identified under fluoroscopic guidance. 2 ml's of 1% Lidocaine was used to anesthetize the skin. A 22 gauge 3.5 inch spinal needle was inserted through the skin under fluoroscopic guidance until the needle touched the femur at the neck on the right side. Then, after negative aspiration, 2 ml of contrast was injected under fluoroscopic guidance which showed good spread of the dye inside the joint. Then, after negative aspiration, 80 mg of kenalog was injected mixed with 4 ml of 0.25% Marcaine. The needle was then flushed with 1 % lidocaine and removed. The patient tolerated the procedure well and a band-Aid was applied and the patient was taken to the recovery room in stable condition. Complications None SABRINA ROGERS MD Aug 14, 2016 2:32 pm
== END 2016-08-14 13:07 | disposition home or self-care (01) ==
LOC: CARD 12:08
PROVIDERS: ATTEND Pain Medicine Pain Medicine
DX: M16.11 Unilateral primary osteoarthritis, right hip (principal); Z79.899 Other long term (current) drug therapy; Z79.4 Long term (current) use of insulin
CPT/HCPCS: 20610; 77002

== ENCOUNTER → 2016-09-27 | Outpatient (CLI) | payer MEDICAID ==
[~2016-09-27] MED LIST changes: +NYST15CR TP
--- NOTE | 2016-09-27 13:55 | Diagnostic Imaging Report ---
Right hip. INDICATION: Hip pain. FINDINGS: There is no fracture, dislocation or acute bony abnormality evident. There is severe degenerative disease involving the hip joint, however. The degenerative changes do not appear to have progressed since the prior CT abdomen/pelvis exam of 06/16/16. The soft tissues are unremarkable. IMPRESSION: 1. There is severe degenerative disease involving the hip joint but there is no evidence for an acute bony abnormality. 2. If clinical concern regarding an underlying acute abnormality persists, then MRI would be recommended for further study. Dictated by: Dictated on workstation # [id number]
== END ==
LOC: RAD 13:13
PROVIDERS: ATTEND Family Medicine
DX: M16.11 Unilateral primary osteoarthritis, right hip (principal)
CPT/HCPCS: 73502

== ENCOUNTER 2016-09-29 09:15 | Outpatient (RCR) | payer MEDICAID ==
--- OUTSIDE RECORDS SUMMARY | 2016-08-10 13:59 | XMS REPORT | Continuity of Care Document ---
Author Author [facility] Organization [facility] Address Unknown Phone Unavailable Care Team Providers Care Spar Finisher Name Role Phone Burt Rivera PCP [phone] Source Comments Some departments are not documenting in the electronic medical record. If you do not see the information that you expected, contact Release of Information in the Health Information Management department at [phone] for further assistance in locating additional records.[facility] Active Allergies and Adverse Reactions [...]
[~2016-09-29 09:15] MED LIST changes: -NYST15CR TP
== END 2016-09-29 11:20 | disposition home or self-care (01) ==
PROVIDERS: ATTEND Family Medicine
DX: R29.6 Repeated falls (principal); E11.9 Type 2 diabetes mellitus without complications; Z79.4 Long term (current) use of insulin

== ENCOUNTER 2016-09-29 09:15 | Outpatient (RCR) | payer MEDICAID ==
[2016-10-11] MEDS ORDERED: NYST15CR TP (15:49)
== END 2016-10-10 14:59 | disposition home or self-care (01) ==
PROVIDERS: ATTEND Family Medicine
DX: R29.6 Repeated falls (principal); R41.82 Altered mental status, unspecified; Z91.14 Patient's other noncompliance with medication regimen

== ENCOUNTER 2016-10-09 10:53 | Outpatient (RCR) | payer SELFPAY ==
[~2016-10-09] VITALS: Ht 172.7 cm; Wt 93.0 kg
[2016-10-09] MEDS ORDERED: HEParin (CENTRAL IV FLUSH) 500 UNIT/5 ML SYR ONE (11:09)
[2016-10-09] MEDS ORDERED: CATHETER FLUSH 10 ML SYR IV PRN (11:15)
[2016-10-09 11:20] VITALS: BP 141/71
[2016-10-09] MEDS ORDERED: HEParin (CENTRAL IV FLUSH) 500 UNIT/5 ML SYR IV SCH (11:30)
[2016-10-11] MEDS ORDERED: NYST15CR TP (15:49)
[2016-11-07] MEDS ORDERED: LIDO15SO2 MM (11:20)
[2016-11-07] MEDS ORDERED: INSU100V16 SQ (11:20)
[2016-11-07] MEDS ORDERED: LOPE2CAP PO (11:20)
[2016-11-07] MEDS ORDERED: PANT40TA3 PO (11:20)
[2016-11-07] MEDS ORDERED: GABA-490 PO (11:20)
[2016-11-07] MEDS ORDERED: BACL10TA PO (11:20)
[2016-11-07] MEDS ORDERED: HYDR-3816 PO (11:20)
[2016-11-07] MEDS ORDERED: LORA0.5T PO (11:20)
[2016-11-07] MEDS ORDERED: RANI150T11 PO (11:20)
[2016-11-07] MEDS ORDERED: NYST1POW22 TP (11:20)
[2016-11-07] MEDS ORDERED: ALBU90AE IH (11:20)
[2016-11-07] MEDS ORDERED: INSU100I29 (11:20)
[2016-11-07] MEDS ORDERED: FURO40TA4 PO (11:20)
[2016-11-23] MEDS ORDERED: INSU100V5 SQ (08:52)
[2016-11-23] MEDS ORDERED: NITR-65 PO (12:16)
[2016-11-23] MEDS ORDERED: NITR50CA PO (12:33)
[2016-11-23] MEDS ORDERED: NCT21TD TD (12:33)
[2016-12-07] MEDS ORDERED: DICL100G31 TP (15:52)
[2016-12-07] MEDS ORDERED: RANI150T11 PO (15:52)
[2016-12-07] MEDS ORDERED: BACL10TA PO (15:52)
[2016-12-07] MEDS ORDERED: INSU100I29 SQ (15:52)
== END 2017-01-07 | disposition home or self-care (01) ==
LOC: SDC 10:53
PROVIDERS: ATTEND Family Medicine
DX: Z45.2 Encounter for adjustment and management of vascular access device (principal)
CPT/HCPCS: 96523

== ENCOUNTER 2016-10-11 13:21 | Emergency (ER) | payer SELFPAY ==
[~2016-10-11] VITALS: Ht 172.7 cm; Wt 97.5 kg
--- NOTE | 2016-10-11 13:43 | ED General ---
General Chief Complaint: General Problems/Pain Stated Complaint: PAIN ALL OVER Source of Information: Patient, EMS Exam Limitations: No Limitations History of Present Illness Time Seen by Provider: 13:42 Initial Comments To ER per EMS from home with reports of severe diffuse body pain. She states that she was just released from via [facility] on the sixth and she is unable to take care of herself at home since then and would like to go back there. She has been too weak to take her medications at home for the past 3 days. Timing/Duration: 1-2 Days Severity: Moderate Associated Systoms: Weakness Allergies and Home Medications Allergies Coded Allergies: No Known Drug Allergies (Unverified , 11/24/09) Home Medications Amitriptyline HCl 100 Mg Tablet, 100 MG PO HS, (Reported) Gabapentin 400 Mg Capsule, 400 MG PO BID PRN for BACK PAIN, #60 Ref 5 Prescribed by: NALDO MARQUEZ on 08/09/16833 Insulin Determir 1,000 Units/10 Ml Soln, 20 UNIT SQ HS, #2 Prescribed by: NALDO MARQUEZ on 08/09/1634 Insulin Regular, Human 1,000 Units/10 Ml Soln, 0 UNIT SC ACHS, #3 Prescribed by: NALDO MARQUEZ on 08/09/16 0834 Lorazepam 0.5 Mg Tablet, 0.5 MG PO BID PRN for ANXIETY, #60 Ref 2 Prescribed by: NALDO MARQUEZ on 08/09/16 0859 Magnesium Oxide 400 Mg Tablet, 400 MG PO BID, (Reported) LAST FILLED 06/19/16 #60 Meloxicam 15 Mg Tablet, 15 MG PO DAILY, (Reported) Nicotine 1 Each Patch.td24, 21 MG TD DAILY, #30 Ref 5 Prescribed by: NALDO MARQUEZ on 08/09/16 0905 Ondansetron 4 Mg Tab.rapdis, 4-8 MG PO Q6H PRN for NAUSEA/VOMITING, (Reported) TAKES 1-2 (4 MG) TABLETS Pantoprazole Sodium 40 Mg Tablet.dr, 40 MG PO BID, #60 Prescribed by: NALDO MARQUEZ on 08/09/16 0834 Pravastatin Sodium 20 Mg Tablet, 20 MG PO HS, (Reported) LAST FILLED #30 05/12/16 Sucralfate 1 Gm Tablet, 1 GM PO ACHS, (Reported) LAST FILLED #120 05/12/16 Sulfamethoxazole/Trimethoprim 1 Each Tablet, 1 EA PO BID WITH MEALS, #10 Prescribed by: NALDO MARQUEZ on 08/09/16 0834 Constitutional: see HPI EENTM: see HPI Respiratory: no symptoms reported Cardiovascular: no symptoms reported Genitourinary: no symptoms reported Musculoskeletal: no symptoms reported Skin: no symptoms reported Hematologic/Lymphatic: No Symptoms Reported Past Wzhdjtj-Lxipeu-Nerrek Hx Patient Social History Type Used: Cigarettes Recent Hopitalizations: Yes Immunizations Up To Date Tetanus Booster (TDap): Less than 5yrs PED Vaccines UTD: Yes Date of Pneumonia Vaccine: Apr 04, 2013 Date of Influenza Vaccine: Apr 29, 2016 Seasonal Allergies Seasonal Allergies: No Surgeries HX Surgeries: Yes (HERNIA REPAIR, URETHRAL DILATION? 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 Genitourinary Hx Genitourinary Disorders: Yes (URETHRAL DILATION) Genitourinary Disorders: Bladder Infection, UTI-Chronic Gastrointestinal Hx Gastrointestinal Disorders: Yes Gastrointestinal Disorders: Gastroesophageal Reflux, Liver Disease/Jaundice, Chronic Diarrhea, Gall Bladder Disease Musculoskeletal Hx Musculoskeletal Disorders: Yes (SCIATICA; CHRONIC PAIN COMPLAINTS) Musculoskeletal Disorders: Degenerate Disk Disease, Osteoporosis, Arthritis, Chronic Back Pain Endocrine Hx Endocrine Disorders: Yes Endocrine Disorders: Diabetes, Insulin dep HEENT HX ENT Disorders: No Cancer Hx Cancer: No Psychosocial Hx Psychiatric Problems: Yes (EXTENSIVE PSYCH ISSUES) Behavioral Health Disorders: Sleep Difficulties, Anxiety, Depression Integumentary HX Skin/Integumentary Disorder: No Blood Transfusions Hx Blood Disorders: Yes (ANEMIA OF CHRONIC DISEASE) Family Medical History Significant Family History: Asthma, CAD Under 55 Years Old, COPD, Diabetes, Hypertension, Migraines, Psychiatric Problems, Renal Disease, Seizures, Stroke Family Medial History: Arthritis Asthma 19 MOTHER Cardiovascular disease 19 MOTHER Completed stroke Coronary thrombosis Diabetes mellitus 19 MOTHER Glaucoma 19 MOTHER Headache disorder 19 MOTHER Hypercholesterolemia 19 MOTHER Hypertension 19 MOTHER Kidney disease Myocardial infarction 19 FATHER 19 MOTHER Neoplasm Psychosocial problem Respiratory disorder Seizure disorder No Family History of: AIDS Abdominal aortic aneurysm [place]'s disease Alcoholism Alzheimer's disease Aphasia Cancer of mouth Cataracts Colon cancer Congenital disease Congenital heart disease Cystic fibrosis Deafness or hearing loss Dementia Drug abuse Dysphasia Fibrocystic disease of breast Gastroenteritis Infertility Not obtainable due to adoption Osteoporosis Parkinson's disease Prostate cancer Severe allergy Thyroid disease Tuberculosis Visual disorder Physical Exam Vital Signs Vital Sign - Last 12Hours 10/11/16 14:15 Temp 98.1 Pulse 108 Resp 18 B/P (MAP) 139/99 Pulse Ox 100 O2 Delivery Room Air Capillary Refill : General Appearance: No Apparent Distress, WD/WN Eyes: Bilateral Eye EOMI, Bilateral Eye Normal Inspection, Bilateral Eye PERRL HEENT: PERRL/EOMI, TMs Normal Neck: Full Range of Motion, Normal Inspection Respiratory: No Accessory Muscle Use, No Respiratory Distress Cardiovascular: Normal Peripheral Pulses, Tachycardia Gastrointestinal: Normal Bowel Sounds, Non Tender, Soft Extremity: Normal Capillary Refill, Normal Inspection Neurologic/Psychiatric: Alert, Oriented x3, No Motor/Sensory Deficits Skin: Normal Color, Warm/Dry Date of ETT Placement: Aug 03, 2016 Progress/Results/Core Measures Results/Orders Lab Results Laboratory Tests Test 10/11/16 14:00 10/11/16 15:20 Range/Units White Blood Count 5.6 4.3-11.0 10^3/uL Red Blood Count 4.11 L 4.35-5.85 10^6/uL Hemoglobin 11.6 11.5-16.0 G/DL Hematocrit 35 35-52 % Mean Corpuscular Volume 85 80-99 FL Mean Corpuscular Hemoglobin 28 25-34 PG Mean Corpuscular Hemoglobin Concent 33 32-36 G/DL Red Cell Distribution Width 14.6 H 10.0-14.5 % Platelet Count 258 130-400 10^3/uL Mean Platelet Volume 9.8 7.4-10.4 FL Neutrophils (%) (Auto) 66 42-75 % Lymphocytes (%) (Auto) 26 12-44 % Monocytes (%) (Auto) 7 0-12 % Eosinophils (%) (Auto) 1 0-10 % Basophils (%) (Auto) 0 0-10 % Neutrophils # (Auto) 3.7 1.8-7.8 X 10^3 Lymphocytes # (Auto) 1.4 1.0-4.0 X 10^3 Monocytes # (Auto) 0.4 0.0-1.0 X 10^3 Eosinophils # (Auto) 0.1 0.0-0.3 10^3/uL Basophils # (Auto) 0.0 0.0-0.1 10^3/uL Sodium Level 134 L 135-145 MMOL/L Potassium Level 3.7 3.6-5.0 MMOL/L Chloride Level 100 98-107 MMOL/L Carbon Dioxide Level 18 L 21-32 MMOL/L Anion Gap 16 H 5-14 MMOL/L Blood Urea Nitrogen 22 H 7-18 MG/DL Creatinine 0.84 0.60-1.30 MG/DL Estimat Glomerular Filtration Rate > 60 BUN/Creatinine Ratio 26 Glucose Level 285 H 70-105 MG/DL Calcium Level 9.7 8.5-10.1 MG/DL Total Bilirubin 0.6 0.1-1.0 MG/DL Aspartate Amino Transf (AST/SGOT) 18 5-34 U/L Alanine Aminotransferase (ALT/SGPT) 23 0-55 U/L Alkaline Phosphatase 390 H 40-136 U/L Total Protein 6.8 6.4-8.2 G/DL Albumin 3.8 3.2-4.5 G/DL Urine Color YELLOW Urine Clarity CLEAR Urine pH 7 5-9 Urine Specific Jenners 1.015 L 1.016-1.022 Urine Protein 2+ H NEGATIVE Urine Glucose (UA) 2+ H NEGATIVE Urine Ketones 4+ H NEGATIVE Urine Nitrite NEGATIVE NEGATIVE Urine Bilirubin NEGATIVE NEGATIVE Urine Urobilinogen NORMAL NORMAL MG/DL Urine Leukocyte Esterase NEGATIVE NEGATIVE Urine RBC (Auto) NEGATIVE NEGATIVE Urine RBC NONE /HPF Urine WBC 0-2 /HPF Urine Crystals NONE /LPF Urine Bacteria NEGATIVE /HPF Urine Casts NONE /LPF Urine Mucus NEGATIVE /LPF Urine Culture Indicated NO My Orders Orders - DESIREE SEPULVEDA APRN Cbc With Automated Diff (10/11/16 13:38) Comprehensive Metabolic Panel (10/11/16 13:38) Ua Culture If Indicated (10/11/16 13:38) Saline Lock/Iv-Start (10/11/16 13:38) Ns Iv 1000 Ml (Sodium Chloride 0.9%) (10/11/16 13:45) Vital Signs/I&O Vital Sign - Last 12Hours 10/11/16 14:15 Temp 98.1 Pulse 108 Resp 18 B/P (MAP) 139/99 Pulse Ox 100 O2 Delivery Room Air Departure Impression Impression: Primary Impression: Diabetes mellitus Additional Impressions: Chronic low back pain Noncompliance with medication regimen Disposition: 03 XF SNF Condition: Stable Departure-Patient Inst. Decision time for Depature: 15:48 Referrals: NALDO MARQUEZ MD (PCP/Family) Primary Care Physician Patient Instructions: CHRONIC PAIN Add. Discharge Instructions: 1. Apply the cream to the abdominal folds and affected areas twice daily for 7 days. 2. All discharge instructions reviewed with patient and/or family. Voiced understanding. Scripts Nystatin (Nystatin) 15 Gm Cream..g. 1 GM TP BID for 7 Days, TUBE Prov: DESIREE SEPULVEDA APRN 10/11/16 Copy Copies To 1: NALDO MARQUEZ MD, PETER J APRN October 11, 2016 13:43
[2016-10-11] MEDS ORDERED: NS IV 1000 ML 1,000 ML IV SCH (13:45)
[2016-10-11 14:08] LABS: BASOPHILS % (AUTO) 0 % (0-10); EOSINOPHILS # (AUTO) 0.1 10^3/uL (0.0-0.3); EOSINOPHILS % (AUTO) 1 % (0-10); LYMPHOCYTES # (AUTO) 1.4 X 10^3 (1.0-4.0); LYMPHOCYTES % (AUTO) 26 % (12-44); MEAN CORPUSCULAR HEMOGLOBIN 28 PG (25-34); MEAN CORPUSCULAR HGB CONC 33 G/DL (32-36); MEAN CORPUSCULAR VOLUME 85 FL (80-99); MEAN PLATELET VOLUME 9.8 FL (7.4-10.4); MONOCYTES # (AUTO) 0.4 X 10^3 (0.0-1.0); MONOCYTES % (AUTO) 7 % (0-12); NEUTROPHILS # (AUTO) 3.7 X 10^3 (1.8-7.8); NEUTROPHILS % (AUTO) 66 % (42-75); PLATELET COUNT 258 10^3/uL (130-400); RED BLOOD COUNT 4.11 10^6/uL (4.35-5.85); RED CELL DISTRIBUTION WIDTH 14.6 % (10.0-14.5); WHITE BLOOD COUNT 5.6 10^3/uL (4.3-11.0)
[2016-10-11 14:32] LABS: ALANINE AMINOTRANSFERASE 23 U/L (0-55); ALBUMIN 3.8 G/DL (3.2-4.5); ANION GAP 16 MMOL/L (5-14); ASPARTATE AMINO TRANSFERASE 18 U/L (5-34); BILIRUBIN,TOTAL 0.6 MG/DL (0.1-1.0); BLOOD UREA NITROGEN 22 MG/DL (7-18); BUN/CREATININE RATIO 26; CALCIUM 9.7 MG/DL (8.5-10.1); CARBON DIOXIDE 18 MMOL/L (21-32); CHLORIDE 100 MMOL/L (98-107); CREATININE SERUM 0.84 MG/DL (0.60-1.30); GFR ESTIMATED > 60; GLUCOSE 285 MG/DL (70-105); POTASSIUM 3.7 MMOL/L (3.6-5.0); SODIUM 134 MMOL/L (135-145); TOTAL PROTEIN 6.8 G/DL (6.4-8.2)
[2016-10-11 15:33] LABS: BILIRUBIN,URINE NEGATIVE (NEGATIVE); KETONES,URINE 4+ (NEGATIVE); LEUKOCYTE ESTERASE ,URINE NEGATIVE (NEGATIVE); NITRITE,URINE NEGATIVE (NEGATIVE); PH,URINE 7 (5-9); PROTEIN,URINE 2+ (NEGATIVE); UROBILINOGEN,URINE NORMAL (NORMAL)
[2016-10-11 15:46] LABS: WBC,URINE 0-2 /HPF
[2016-10-11] MEDS ORDERED: NYST15CR TP (15:49)
[2016-10-11] MEDS ORDERED: inSUlin (REGULAR) HUMAN 1 UNIT/0.01 ML (CHARGE PER UNIT) SC ONE (17:30)
[2016-10-11] MEDS ORDERED: inSUlin DETERMIR 1 UNIT/0.01 ML (LEVEMIR) CHARGE PER UNIT SQ ONE (17:30)
[2016-10-11 17:44] VITALS: BP 138/96
== END 2016-10-11 17:44 ==
LOC: EDUNIT# 13:21 → ER 13:25
DX: E11.9 Type 2 diabetes mellitus without complications (principal); M54.5 Low back pain; J44.9 Chronic obstructive pulmonary disease, unspecified; I10 Essential (primary) hypertension; Z79.4 Long term (current) use of insulin; Z79.899 Other long term (current) drug therapy; Z91.14 Patient's other noncompliance with medication regimen
CPT/HCPCS: 36415; 51701; 80053; 81000; 85025

== ENCOUNTER 2016-10-13 09:00 | Outpatient (CLI) | payer MEDICAID ==
[~2016-10-13] VITALS: Ht 172.7 cm; Wt 97.5 kg
[~2016-10-13 09:00] MED LIST changes: +NYST15CR TP
[2016-10-13] MEDS ORDERED: TRIAMCINOLONE ACET (KENALOG-40) 40 MG/ML 1 ML VIAL ONE ×2 (09:41)
[2016-10-13] MEDS ORDERED: BUPIVACAINE 0.25% 30 ML (SENSORCAINE) VIAL ONE (09:41)
[2016-10-13 09:50] VITALS: BP 105/79
[2016-10-13 10:35] VITALS: BP 118/99
--- NOTE | 2016-10-13 13:18 | Pain Medicine-Procedure ---
Procedure Pre-Op/Post-Op Diagnosis Diagnosis: disc disorder with radiculopathy, lumbar Indications for Operation Low back and hip pain Attending Surgeon Brian Procedure Date of Service: October 13, 2016 Procedure: Lumbar Epidural Steroid Injection at the L5/S1 Level under Fluoroscopic Guidance and bilateral sacroiliac joint injections Procedure: Patient was identified in the holding area. After risks, benefits, and alternatives were discussed with the patient, informed consent was obtained. Patient was brought to the fluoroscopy suite and placed prone on the procedure room table. A time out was performed. Vital signs were monitored throughout the procedure. The patients low back was prepped and draped in the usual sterile fashion. The patients skin was anesthetized using 2% Lidocaine. A Tuohy needle was inserted and advanced to the L5-S1 epidural space under fluoroscopic guidance using the loss of resistance technique and intermittent projection of fluoroscopy. There was no paresthesia with needle placement. The needle position was confirmed in both the AP and lateral view. After negative aspiration 2ml of non-ionic contrast was injected under live fluoroscopy which showed good spread of the contrast in the epidural space at the appropriate level, there was no intravascular or subarachnoid spread. Again, after negative aspiration for heme or CSF, 2 ml of 0.25% Bupivicaine, 2ml of preservative free normal saline, and 80mg of Kenalog was injected. The needle was removed and a sterile bandage was placed. Attention was then directed to the right sacroiliac joint which was identified under fluoroscopic guidance. The skin overlying the posterior inferior one third of the sacroiliac joint was anesthetized with 1 percent lidocaine and a 22 -gauge 3-1/2 inch needle was inserted and advanced into the joint. Following negative aspiration a total of 20 mg of Kenalog and 2 mL of 0.25 percent bupivacaine was injected. Needle was flushed with lidocaine and removed. Attention was then directed to the left sacroiliac joint were the same procedure was performed and the same solution was injected. Sterile bandages were applied. Patient tolerated the procedures well with no apparent complications. Complications None SABRINA ROGERS MD October 13, 2016 1:18 pm
== END 2016-10-13 10:36 | disposition home or self-care (01) ==
LOC: CARD 09:00
PROVIDERS: ATTEND Pain Medicine Pain Medicine
DX: M51.16 Intervertebral disc disorders with radiculopathy, lumbar region (principal); M53.3 Sacrococcygeal disorders, not elsewhere classified; Z79.4 Long term (current) use of insulin; Z79.899 Other long term (current) drug therapy
CPT/HCPCS: 27096; 62323

== ENCOUNTER 2016-11-06 17:14 | Observation (INO) | payer MEDICAID ==
[~2016-11-06] VITALS: Ht 165.1 cm; Wt 83.9 kg
[~2016-11-06 17:14] MED LIST changes: +AMMONIA INHALATION 0.33 ML AMP ONE
[2016-11-06] MEDS ORDERED: NALOXONE 0.4 MG/ML 1 ML (NARCAN) VIAL ONE (17:25)
[2016-11-06] MEDS ORDERED: NS IV 1000 ML 1,000 ML IV ONE (17:27)
[2016-11-06] MEDS ORDERED: NALOXONE 0.4 MG/ML 1 ML (NARCAN) VIAL IV STA (17:27)
--- NOTE | 2016-11-06 18:30 | Diagnostic Imaging Report ---
INDICATION: Unresponsive. COMPARISON: Comparison with 08/06/2016. FINDINGS: Right-sided Port-A-Cath is present. There has been some migration of the catheter which now is somewhat looped in the neck. Distal limb however remains in good position overlying the superior vena cava. The lungs are well-aerated. Heart is not enlarged. There is no pulmonary edema. No hilar adenopathy. No pneumothorax. IMPRESSION: 1. Lungs are clear on today's exam and well-aerated. 2. There has been mild migration of the Port-A-Cath into the cervical region which shows mild looping though there is no kinking present and the distal limb is in good position in the superior vena cava. Dictated by: Dictated on workstation # [id number]
[2016-11-06 18:36] LABS: BASOPHILS % (AUTO) 0 % (0-10); EOSINOPHILS # (AUTO) 0.1 10^3/uL (0.0-0.3); EOSINOPHILS % (AUTO) 1 % (0-10); LYMPHOCYTES # (AUTO) 1.5 X 10^3 (1.0-4.0); LYMPHOCYTES % (AUTO) 22 % (12-44); MEAN CORPUSCULAR HEMOGLOBIN 29 PG (25-34); MEAN CORPUSCULAR HGB CONC 33 G/DL (32-36); MEAN CORPUSCULAR VOLUME 87 FL (80-99); MEAN PLATELET VOLUME 9.7 FL (7.4-10.4); MONOCYTES # (AUTO) 0.6 X 10^3 (0.0-1.0); MONOCYTES % (AUTO) 9 % (0-12); NEUTROPHILS # (AUTO) 4.6 X 10^3 (1.8-7.8); NEUTROPHILS % (AUTO) 68 % (42-75); PLATELET COUNT 241 10^3/uL (130-400); RED BLOOD COUNT 3.38 10^6/uL (4.35-5.85); RED CELL DISTRIBUTION WIDTH 14.7 % (10.0-14.5); WHITE BLOOD COUNT 6.8 10^3/uL (4.3-11.0)
[2016-11-06 18:45] LABS: PROTHROMBIN TIME PATIENT 12.9 SEC (12.2-14.7)
[2016-11-06 18:53] LABS: ALANINE AMINOTRANSFERASE 17 U/L (0-55); ALBUMIN 3.4 G/DL (3.2-4.5); ANION GAP 12 MMOL/L (5-14); ASPARTATE AMINO TRANSFERASE 17 U/L (5-34); BILIRUBIN,TOTAL 0.3 MG/DL (0.1-1.0); BLOOD UREA NITROGEN 24 MG/DL (7-18); BUN/CREATININE RATIO 15; CARBON DIOXIDE 22 MMOL/L (21-32); CHLORIDE 108 MMOL/L (98-107); CREATININE SERUM 1.61 MG/DL (0.60-1.30); GFR ESTIMATED 33; GLUCOSE 113 MG/DL (70-105); POTASSIUM 3.3 MMOL/L (3.6-5.0); SODIUM 142 MMOL/L (135-145); TOTAL PROTEIN 6.2 G/DL (6.4-8.2)
[2016-11-06 18:58] LABS: ACETAMINOPHEN < 10 UG/ML (10-30); ALCOHOL < 10 MG/DL (<10)
[2016-11-06 19:13] LABS: TROPONIN I < 0.30 NG/ML (<0.30)
--- NOTE | 2016-11-06 19:13 | Diagnostic Imaging Report ---
PROCEDURE: CT head and CT cervical spine without contrast. TECHNIQUE: Multiple contiguous axial images were obtained through the brain and cervical spine without the use of intravenous contrast. Sagittal and coronal reformations through the cervical spine were then performed. INDICATION: Unresponsive, questionable potential fall. CORRELATION STUDY: 08/03/2016. FINDINGS: CT HEAD: The ventricles and sulci are unremarkable. No definitive evidence for acute hemorrhage. There is questionable subtle low attenuation of the left cerebellum. However, there is significant amount of artifact through the posterior fossa as well. No intracranial hemorrhage. No midline shift or mass effect. Basilar cisterns are maintained. Bony calvarium is intact. Paranasal sinuses with probable cyst or polyp of the right maxillary sinus. No significant air-fluid level. CT CERVICAL SPINE: Spine imaging is limited. The alignment appears to be relatively anatomic. Vertebral body heights are maintained. There is rather significant disc space narrowing at C4-C5, C5-C6, and C6-C7 levels with endplate osteophyte formation with minimal encroachment of the foramina without significant high-degree canal stenosis. There is asymmetric foraminal narrowing on the left, particularly at C5-C6 and C6-C7 levels. Posterior alignment is intact with mild asymmetric hypertrophic facet arthropathy. There is noted a right-sided central line. There is significant redundancy of the catheter within the soft tissues of the neck. IMPRESSION: CT HEAD: 1. There is questionable low density of the left cerebellum. This may simply be artifactual with significant artifact through the posterior fossa. Subtle edema would be difficult to exclude. Depending on clinical findings, short-term followup imaging evaluation would be recommended. 2. Otherwise, negative for acute traumatic intracranial abnormality. CT CERVICAL SPINE: 1. Cervical spine imaging is somewhat limited with significant artifact. However, no evidence for acute fracture or traumatic subluxation. Multilevel cervical spondylosis with significant disc space narrowing and some degree of foraminal narrowing, particularly at C5-C6 and C6-C7 levels. Dictated by: Dictated on workstation # [id number]
--- NOTE | 2016-11-06 19:13 | ED Neurological Problem ---
General Chief Complaint: Abdominal/GI Problems Stated Complaint: N/V Nursing Triage Note: ARRIVED VIA EMS FROM HOME WITH N/V ET UNRESPONSIVE AT TIMES. PT HAS BEEN HERE MULTIPLE TIMES FOR THESE UNRESPONSIVE EPISODES. Nursing Sepsis Screen: No Definite Risk Source: patient Exam Limitations: clinical condition Allergies and Home Medications Allergies Coded Allergies: No Known Drug Allergies (Unverified , 11/24/09) Home Medications Amitriptyline HCl 100 Mg Tablet, 100 MG PO HS, (Reported) Gabapentin 400 Mg Capsule, 400 MG PO BID PRN for BACK PAIN, #60 Ref 5 Prescribed by: NALDO MARQUEZ on 08/09/16833 Insulin Determir 1,000 Units/10 Ml Soln, 20 UNIT SQ HS, #2 Prescribed by: NALDO MARQUEZ on 08/09/16833 Insulin Regular, Human 1,000 Units/10 Ml Soln, 0 UNIT SC ACHS, #3 Prescribed by: NALDO MARQUEZ on 08/09/16833 Lorazepam 0.5 Mg Tablet, 0.5 MG PO BID PRN for ANXIETY, #60 Ref 2 Prescribed by: NALDO MARQUEZ on 08/09/16858 Magnesium Oxide 400 Mg Tablet, 400 MG PO BID, (Reported) LAST FILLED 06/19/16 #60 Meloxicam 15 Mg Tablet, 15 MG PO DAILY, (Reported) Nicotine 1 Each Patch.td24, 21 MG TD DAILY, #30 Ref 5 Prescribed by: NALDO MARQUEZ on 08/09/16904 Nystatin 15 Gm Cream..g., 1 GM TP BID for 7 Days Prescribed by: DESIREE SEPULVEDA on 10/11/16 1549 Ondansetron 4 Mg Tab.rapdis, 4-8 MG PO Q6H PRN for NAUSEA/VOMITING, (Reported) TAKES 1-2 (4 MG) TABLETS Pantoprazole Sodium 40 Mg Tablet.dr, 40 MG PO BID, #60 Prescribed by: NALDO MARQUEZ on 08/09/16833 Pravastatin Sodium 20 Mg Tablet, 20 MG PO HS, (Reported) LAST FILLED #30 05/12/16 Sucralfate 1 Gm Tablet, 1 GM PO ACHS, (Reported) LAST FILLED #120 05/12/16 Sulfamethoxazole/Trimethoprim 1 Each Tablet, 1 EA PO BID WITH MEALS, #10 Prescribed by: NALDO MARQUEZ on 08/09/16833 Past Lmfuihr-Naqwbl-Tewujl Hx Patient Social History Alcohol Use: Denies Use Recreational Drug Use: Yes (TOBACCO) Smoking Status: Current Everyday Smoker Type Used: Cigarettes 2nd Hand Smoke Exposure: No Recent Foreign Travel: No Contact w/Someone Who Travel: No Recent Infectious Disease Expo: No Recent Hopitalizations: Yes Immunizations Up To Date Tetanus Booster (TDap): Less than 5yrs PED Vaccines UTD: Yes Date of Pneumonia Vaccine: Apr 04, 2013 Date of Influenza Vaccine: Apr 29, 2016 Seasonal Allergies Seasonal Allergies: No Surgeries HX Surgeries: Yes (HERNIA REPAIR, URETHRAL DILATION? 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 Genitourinary Hx Genitourinary Disorders: Yes (URETHRAL DILATION) Genitourinary Disorders: Bladder Infection, UTI-Chronic Gastrointestinal Hx Gastrointestinal Disorders: Yes Gastrointestinal Disorders: Gastroesophageal Reflux, Liver Disease/Jaundice, Chronic Diarrhea, Gall Bladder Disease Musculoskeletal Hx Musculoskeletal Disorders: Yes (SCIATICA; CHRONIC PAIN COMPLAINTS) Musculoskeletal Disorders: Degenerate Disk Disease, Osteoporosis, Arthritis, Chronic Back Pain Endocrine Hx Endocrine Disorders: Yes Endocrine Disorders: Diabetes, Insulin dep HEENT HX ENT Disorders: No Cancer Hx Cancer: No Psychosocial Hx Psychiatric Problems: Yes (EXTENSIVE PSYCH ISSUES) Behavioral Health Disorders: Sleep Difficulties, Anxiety, Depression Integumentary HX Skin/Integumentary Disorder: No Blood Transfusions Hx Blood Disorders: Yes (ANEMIA OF CHRONIC DISEASE) Family Medical History Significant Family History: Asthma, CAD Under 55 Years Old, COPD, Diabetes, Hypertension, Migraines, Psychiatric Problems, Renal Disease, Seizures, Stroke Family Medial History: Arthritis Asthma 19 MOTHER Cardiovascular disease 19 MOTHER Completed stroke Coronary thrombosis Diabetes mellitus 19 MOTHER Glaucoma 19 MOTHER Headache disorder 19 MOTHER Hypercholesterolemia 19 MOTHER Hypertension 19 MOTHER Kidney disease Myocardial infarction 19 FATHER 19 MOTHER Neoplasm Psychosocial problem Respiratory disorder Seizure disorder No Family History of: AIDS Abdominal aortic aneurysm [place]'s disease Alcoholism Alzheimer's disease Aphasia Cancer of mouth Cataracts Colon cancer Congenital disease Congenital heart disease Cystic fibrosis Deafness or hearing loss Dementia Drug abuse Dysphasia Fibrocystic disease of breast Gastroenteritis Infertility Not obtainable due to adoption Osteoporosis Parkinson's disease Prostate cancer Severe allergy Thyroid disease Tuberculosis Visual disorder Physical Exam Vital Signs Vital Sign - Last 12Hours 11/06/16 11/06/16 17:24 17:45 Temp 98.0 Pulse 95 Resp 18 B/P (MAP) 104/58 Pulse Ox 88 O2 Delivery Room Air O2 Flow Rate 2.00 Capillary Refill : Less Than 3 Seconds Stroke Stroke Thrombolytic Exclusion Age 18 or Over: Yes Acute intenal hemorrhage: No History of CVA: No Uncontrolled Coagulation Defec: No Intracranial Hemorrhage: No Severe Hypertension: No GI or Bleed: No Subarachnoid Hemorrhage: No Intracranial Neoplasm/Aneurysm: No Oral Anticoagulants: No Surgery or Trauma: No Puncture of Non-Compressible V: No Recent CPR: No Diabetic Hemorrhagic Retinopat: No Organ Biopsy: No Recent Obstetric Delivery: No Glucose: No Significant Hepatic Dysfunctio: No NIH Stoke Scale >22: No Bacterial Endocarditis: No Pericarditis: No Improving Symptoms: Yes Platelets: No Date of ETT Placement: Aug 03, 2016 Progress/Results/Core Measures Results/Orders Lab Results Laboratory Tests Test 11/06/16 17:45 11/06/16 18:24 Range/Units Glucometer 129 H 70-110 MG/DL White Blood Count 6.8 4.3-11.0 10^3/uL Red Blood Count 3.38 L 4.35-5.85 10^6/uL Hemoglobin 9.7 L 11.5-16.0 G/DL Hematocrit 30 L 35-52 % Mean Corpuscular Volume 87 80-99 FL Mean Corpuscular Hemoglobin 29 25-34 PG Mean Corpuscular Hemoglobin Concent 33 32-36 G/DL Red Cell Distribution Width 14.7 H 10.0-14.5 % Platelet Count 241 130-400 10^3/uL Mean Platelet Volume 9.7 7.4-10.4 FL Neutrophils (%) (Auto) 68 42-75 % Lymphocytes (%) (Auto) 22 12-44 % Monocytes (%) (Auto) 9 0-12 % Eosinophils (%) (Auto) 1 0-10 % Basophils (%) (Auto) 0 0-10 % Neutrophils # (Auto) 4.6 1.8-7.8 X 10^3 Lymphocytes # (Auto) 1.5 1.0-4.0 X 10^3 Monocytes # (Auto) 0.6 0.0-1.0 X 10^3 Eosinophils # (Auto) 0.1 0.0-0.3 10^3/uL Basophils # (Auto) 0.0 0.0-0.1 10^3/uL Prothrombin Time 12.9 12.2-14.7 SEC INR Comment 1.0 0.8-1.4 Activated Partial Thromboplast Time 26 24-35 SEC Sodium Level 142 135-145 MMOL/L Potassium Level 3.3 L 3.6-5.0 MMOL/L Chloride Level 108 H 98-107 MMOL/L Carbon Dioxide Level 22 21-32 MMOL/L Anion Gap 12 5-14 MMOL/L Blood Urea Nitrogen 24 H 7-18 MG/DL Creatinine 1.61 H 0.60-1.30 MG/DL Estimat Glomerular Filtration Rate 33 BUN/Creatinine Ratio 15 Glucose Level 113 H 70-105 MG/DL Calcium Level 9.0 8.5-10.1 MG/DL Total Bilirubin 0.3 0.1-1.0 MG/DL Aspartate Amino Transf (AST/SGOT) 17 5-34 U/L Alanine Aminotransferase (ALT/SGPT) 17 0-55 U/L Alkaline Phosphatase 285 H 40-136 U/L Total Protein 6.2 L 6.4-8.2 G/DL Albumin 3.4 3.2-4.5 G/DL Acetaminophen Level < 10 L 10-30 UG/ML Serum Alcohol < 10 <10 MG/DL My Orders Orders - CHLOE ALAS Acetaminophen (11/06/16 17:27) Alcohol (11/06/16 17:27) Cbc With Automated Diff (11/06/16 17:27) Comprehensive Metabolic Panel (11/06/16 17:27) Drug Screen Stat (Urine) (11/06/16 17:27) Protime With Inr (11/06/16 17:27) Partial Thromboplastin Time (11/06/16 17:27) Thyroid Analyzer (11/06/16 17:27) Troponin I (11/06/16 17:27) Ua Culture If Indicated (11/06/16 17:) Accucheck Stat ONCE (11/06/16 17:27) Saline Lock/Iv-Start (11/06/16 17:27) Ekg Tracing (11/06/16 17:27) O2 (11/06/16 17:27) Monitor-Rhythm Ecg Trace Only (11/06/16 17:27) Ns Iv 1000 Ml (Sodium Chloride 0.9%) (11/06/16 17:27) Naloxone Injection (Narcan Injection) (11/06/16 17:27) Naloxone Injection (Narcan Injection) (11/06/16 17:25) Chest 1 View, Ap/Pa Only (11/06/16 17:36) Ct Head/Cervical Spine Wo (11/06/16 18:20) Medications Given in ED Current Medications Medications Dose Ordered Sig/Aurea Route Start Time Stop Time Status Last Admin Dose Admin Ammonia (Aromatic Spirit) 0.33 ml STK-MED ONCE .ROUTE 11/06/16 17:14 11/06/16 17:19 DC 11/06/16 17:22 0.33 ML Vital Signs/I&O Vital Sign - Last 12Hours 11/06/16 11/06/16 17:24 17:45 Temp 98.0 Pulse 95 Resp 18 B/P (MAP) 104/58 Pulse Ox 88 O2 Delivery Room Air Nasal Cannula O2 Flow Rate 2.00 Blood Pressure Mean: 73 Point of Care Testing Blood Glucose Action Taken: RN notified Departure Departure-Patient Inst. Referrals: NALDO MARQUEZ MD (PCP/Family) Primary Care Physician CHLOE ALAS Nov 06, 2016 19:13
[2016-11-06 19:17] LABS: KETONES,URINE NEGATIVE (NEGATIVE); LEUKOCYTE ESTERASE ,URINE 1+ (NEGATIVE); NITRITE,URINE NEGATIVE (NEGATIVE); PH,URINE 5 (5-9); PROTEIN,URINE 2+ (NEGATIVE); UROBILINOGEN,URINE 1 MG/DL (NORMAL)
[2016-11-06 19:36] LABS: BILIRUBIN,URINE NEGATIVE (NEGATIVE); SQUAMOUS EPITHELIAL CELL,UR 0-2 /HPF
[2016-11-06 22:00] VITALS: BP 98/53
[2016-11-06] MEDS ORDERED: NS W/KCL 20 MEQ/L 1,000 ML IV ONE (22:18)
[2016-11-06] MEDS ORDERED: HALOPERIDOL 5 MG/ML (HALDOL) AMP IV PRN (22:30)
[2016-11-06] MEDS ORDERED: LORazepam INJ 2 MG/ML (ATIVAN) VIAL IV PRN (22:30)
[2016-11-06] MEDS ORDERED: ONDANSETRON 4 MG/2 ML (SDV) Z0FRAN IV PRN (22:30)
[2016-11-06] MEDS ORDERED: ACETAMINOPHEN 500 MG TAB (TYLENOL) PO PRN (22:30)
[2016-11-07] VITALS (7 sets, daily range): BP systolic 87–149; BP diastolic 62–88
[2016-11-07] MEDS: NS W/KCL 20 MEQ/L 1,000 ML IV SCH ×3 (00:30→11:20)
[2016-11-07 04:20] LABS: MEAN CORPUSCULAR HEMOGLOBIN 29 PG (25-34); MEAN CORPUSCULAR HGB CONC 33 G/DL (32-36); MEAN CORPUSCULAR VOLUME 87 FL (80-99); MEAN PLATELET VOLUME 10.5 FL (7.4-10.4); PLATELET COUNT 224 10^3/uL (130-400); RED BLOOD COUNT 3.73 10^6/uL (4.35-5.85); RED CELL DISTRIBUTION WIDTH 15.2 % (10.0-14.5); WHITE BLOOD COUNT 10.6 10^3/uL (4.3-11.0)
[2016-11-07 05:55] LABS: ALANINE AMINOTRANSFERASE 16 U/L (0-55); ALBUMIN 3.2 G/DL (3.2-4.5); ANION GAP 10 MMOL/L (5-14); ASPARTATE AMINO TRANSFERASE 17 U/L (5-34); BILIRUBIN,TOTAL 0.3 MG/DL (0.1-1.0); BLOOD UREA NITROGEN 20 MG/DL (7-18); BUN/CREATININE RATIO 22; CALCIUM 9.1 MG/DL (8.5-10.1); CARBON DIOXIDE 21 MMOL/L (21-32); CHLORIDE 112 MMOL/L (98-107); CREATININE SERUM 0.92 MG/DL (0.60-1.30); GFR ESTIMATED > 60; GLUCOSE 127 MG/DL (70-105); POTASSIUM 4.4 MMOL/L (3.6-5.0); SODIUM 143 MMOL/L (135-145); TOTAL PROTEIN 6.3 G/DL (6.4-8.2)
--- NOTE | 2016-11-07 08:15 | History & Physical ---
History of Present Illness History of Present Illness Reason for visit/HPI 55 yo F admitted for confusion, combativeness likely due to medication overuse. Pt has opioids, benzodiazepines, amitriptyline, gabapentin for her chronic pain, anxiety/mood, insomnia, and neuropathy respectively. I recently discharged her to home from [facility] on 11/02/16 as she was doing very well. Pt does not report what happened yesterday at home. Pt presented [facility]. A neighbor called to report she was not doing well. Pt does not think she hit her head but does not remember much- she reports she was taking her medications as prescribed but took them at the same time which was one reason pt was not happy at [facility] because the staff would not let her take these medications all at once. Pt has had multiple admission regarding altered mental status- some of which are due to diabetic ketoacidosis as well. CT head no acute findings. Labs were about as good as they have ever been. Decent blood sugar control. Elevated Creatinine resolved with IVF- same with hypokalemia. Pt slept through the night, not waking much. She has 3L oxygen on. I turned it down to 1L this AM. Pt was arousable and spoke with me this AM- she knew where she was and who I was; so she is improving. Date of Admission Nov 06, 2016 at 21:04 I consulted on this patient on 11/07/16 08:07 Attending Physician Leonel Marquez MD Admitting Physician Leonel Marquez MD Consult Allergies and Home Medications Allergies Coded Allergies: No Known Drug Allergies (Unverified , 11/24/09) Home Medications Albuterol Sulfate 90 Mcg Aer.pow.ba, 2 PUFF IH Q4H PRN for SHORTNESS OF BREATH, (Reported) Amitriptyline HCl 100 Mg Tablet, 100 MG PO HS, (Reported) Furosemide 40 Mg Tablet, 40 MG PO DAILY, (Reported) Gabapentin 400 Mg Capsule, 400 MG PO BID, (Reported) Hydrocodone/Acetaminophen 1 Each Tablet, 1 TAB PO BID PRN for PAIN-MODERATE, ( Reported) Insulin Aspart 100 Unit/1 Ml Susp, SQ SLIDING/SCALE, (Reported) 150-200 5 UNITS 201-250 10 UNITS [phone] 15 UNITS 301-350 20 UNITS 351+ CALL PHYSICIAN Insulin Detemir 100 Unit/1 Ml Insuln.pen, (Reported) DOSAGE UNKNOWN Lidocaine HCl 15 Ml Solution, MM UD, (Reported) Loperamide HCl 2 Mg Capsule, 2 MG PO QID PRN for DIARRHEA, (Reported) Lorazepam 0.5 Mg Tablet, 0.5 MG PO BID PRN for ANXIETY, (Reported) Magnesium Oxide 400 Mg Tablet, 400 MG PO BID, (Reported) Ondansetron 4 Mg Tab.rapdis, 4-8 MG PO Q6H PRN for NAUSEA/VOMITING, (Reported) TAKES 1-2 (4 MG) TABLETS Pantoprazole Sodium 40 Mg Tablet.dr, 40 MG PO DAILY, (Reported) Pravastatin Sodium 20 Mg Tablet, 20 MG PO HS, (Reported) Ranitidine HCl 150 Mg Tablet, 150 MG PO DAILY, (Reported) Sucralfate 1 Gm Tablet, 1 GM PO ACHS, (Reported) Past Ytsowks-Twgqmz-Noryos Hx Patient Social History Alcohol Use: Denies Use Recreational Drug Use: Yes (TOBACCO) Smoking Status: Current Everyday Smoker Type Used: Cigarettes 2nd Hand Smoke Exposure: No Physical Abuse Screen: No Sexual Abuse: No Recent Foreign Travel: No Contact w/other who traveled: No Recent Hopitalizations: Yes Recent Infectious Disease Expo: No Immunizations Up To Date Tetanus Booster (TDap): Less than 5yrs Date of Pneumonia Vaccine: Apr 04, 2013 Date of Influenza Vaccine: Apr 29, 2016 Seasonal Allergies Seasonal Allergies: No Surgeries HX Surgeries: Yes (HERNIA REPAIR, URETHRAL DILATION? ; PORT RIGHT CHEST ) Surgeries: Abdominal, Appendectomy, Bladder Surgery, Gallbladder, Hysterectomy , Tonsillectomy Respiratory Hx Respiratory Disorders: Yes (O2 AT HS) Respiratory Disorders: COPD Cardiovascular Hx Cardiovascular Disorders: Yes Cardiac Disorders: High Cholesterol, Hypertension Neurological Hx Neurological Disorders: Yes Neurological Disorders: Headaches /Migraines Reproductive System Hx Reproductive Disorders: No Sexually Transmitted Disease: No HIV/AIDS: No Female Reproductive Disorders: Menstrual Problems Genitourinary Hx Genitourinary Disorders: Yes (URETHRAL DILATION) Genitourinary Disorders: Bladder Infection, UTI-Chronic Gastrointestinal Hx Gastrointestinal Disorders: Yes Gastrointestinal Disorders: Gastroesophageal Reflux, Liver Disease/Jaundice, Chronic Diarrhea, Gall Bladder Disease Musculoskeletal Hx Musculoskeletal Disorders: Yes (SCIATICA; CHRONIC PAIN COMPLAINTS) Musculoskeletal Disorders: Degenerate Disk Disease, Osteoporosis, Arthritis, Chronic Back Pain Endocrine Hx Endocrine Disorders: Yes Endocrine Disorders: Diabetes, Insulin dep HEENT HX ENT Disorders: No Cancer Hx Cancer: No Psychosocial Hx Psychiatric Problems: Yes (EXTENSIVE PSYCH ISSUES) Behavioral Health Disorders: Sleep Difficulties, Anxiety, Depression Integumentary HX Skin/Integumentary Disorder: No Blood Transfusions Hx Blood Disorders: Yes (ANEMIA OF CHRONIC DISEASE) Family Medical History Significant Family History: Asthma, CAD Under 55 Years Old, COPD, Diabetes, Hypertension, Migraines, Psychiatric Problems, Renal Disease, Seizures, Stroke Family Hx: Arthritis Asthma 19 MOTHER Cardiovascular disease 19 MOTHER Completed stroke Coronary thrombosis Diabetes mellitus 19 MOTHER Glaucoma 19 MOTHER Headache disorder 19 MOTHER Hypercholesterolemia 19 MOTHER Hypertension 19 MOTHER Kidney disease Myocardial infarction 19 FATHER 19 MOTHER Neoplasm Psychosocial problem Respiratory disorder Seizure disorder No Family History of: AIDS Abdominal aortic aneurysm Jin's disease Alcoholism Alzheimer's disease Aphasia Cancer of mouth Cataracts Colon cancer Congenital disease Congenital heart disease Cystic fibrosis Deafness or hearing loss Dementia Drug abuse Dysphasia Fibrocystic disease of breast Gastroenteritis Infertility Not obtainable due to adoption Osteoporosis Parkinson's disease Prostate cancer Severe allergy Thyroid disease Tuberculosis Visual disorder Review of Systems Review of Systems Date Seen by Provider: Nov 07, 2016 Time Seen by Provider: 08:00 General: No Chills, No Night Sweats HEENT: Head Aches, No Visual Changes Pulmonary: No Dyspnea, No Cough Cardiovascular: No: Chest Pain, Palpitations Gastrointestinal: Abdominal Pain, No: Nausea, Vomiting Genitourinary: No Dysuria, No Frequency Musculoskeletal: back pain, leg pain Neurological: Confusion, Weakness, No: Seizures Physical Exam Vital Signs Vital Sign - Last 12Hours 11/06/16 11/06/16 17:24 17:45 Temp 98.0 Pulse 95 Resp 18 B/P (MAP) 104/58 Pulse Ox 88 O2 Delivery Room Air O2 Flow Rate 2.00 Capillary Refill : Less Than 3 Seconds General Appearance: No Apparent Distress, WD/WN HEENT: PERRL/EOMI Neck: Non Tender, Supple Respiratory: Chest Non Tender, Lungs Clear, Normal Breath Sounds, No Accessory Muscle Use, No Respiratory Distress Cardiovascular: Regular Rate, Rhythm, No Edema Gastrointestinal: Normal Bowel Sounds, Non Tender, Soft Rectal: Deferred Back: Normal Inspection Extremity: Non Tender, No Calf Tenderness Neurologic/Psychiatric: Alert (groggy, just woke up), Oriented x3 Skin: Warm/Dry Lymphatic: No Adenopathy Assessment/Plan Assessment/Plan Assessment/Plan 55 yo F Acute toxic encephalopathy- monitor - improving after sleeping overnight- holding her centrally acting medications- will be changing her medication regimen. I have done this in the past; will have to continue to decrease medications. acute renal insufficiency- likely due to poor po intake- resolved with ivf hypokalemia- resolved with IVF Diabetes mellitus -insulin dependent- continue sliding scale- levemir anxiety/depression- holding medications until she is more alert Dispo: monitor today- plan to d/c to home this afternoon- Will adjust medications. Very difficult situation as pt wants to be living at home but really needs to be in jail care facility. I discharged her 11/02/16 from [facility] care home care facility. [facility] will likely not take pt back as she been there multiple times and each time they are hesitant to accept her due to her leaving frequently- smelling of tobacco, etoh, missing meals, and medications. 5pm 11/07/16- pt near baseline mentation- ate lunch, and used the bathroom. I spoke with patient in ICU room 2. Patient reports she is not ready to go home as she has 3-4 steps to get into her house and feels like she cannot make it up them. Patient does live with her daughter and her daughter's and 2 children. Based on patient's vital signs and her labs patient is in the best condition she has been in quite awhile. Patient's current admission for encephalopathy was due to her taking her medications including hydrocodone baclofen amitriptyline gabapentin all at once or at least relatively close to one another, specifically the hydrocodone baclofen and gabapentin. Patient admitted to doing this. This was an issue at [facility] as pt would call my office requesting that [facility] staff give her medications at the same time. Pt has had multiple admission in the past 9 months due to DKA and medication overuse. She has not been admitted to [facility] since August because she has been at [facility]. I discontinued her baclofen and had a long discussion that taking mutiple central acting medications will result in adverse outcomes such as this admission. Patient continued to argue that she is not ready to go home and feels like we should continue to take care of her in the inpatient setting. Patient did not have a ride so [employer] was provided by [facility]. She was deemed stable for discharge on 11/07/2016. I will be checking on patient on 2016. She has an appointment at 2 p.m. at [facility] but I will likely do a welfare check and have a home visit as she reports she does not have transportation. Pt would benefit from jail placement but she always leaves facilities after a short while so difficult to find placement. Problems: Clinical Quality Measures DVT/VTE Risk/Contraindication: Risk Factor Score Per Nursin RFS Level Per Nursing on Admit: 4+=Very High LEONEL MARQUEZ MD Nov 07, 2016 08:15
[2016-11-07] MEDS ORDERED: FAMOTIDINE 20MG/2ML IV (PEPCID) IVP SCH (09:00)
[2016-11-07] MEDS: inSUlin ASPART (NovoLOG) 1 UNIT/0.01 ML (CHARGE PER UNIT) SC SCH ×2 (11:18→16:00)
[2016-11-07] MEDS ORDERED: BACL10TA PO (11:20)
[2016-11-07] MEDS ORDERED: INSU100I29 (11:20)
[2016-11-07] MEDS ORDERED: LORA0.5T PO (11:20)
[2016-11-07] MEDS ORDERED: PANT40TA3 PO (11:20)
[2016-11-07] MEDS ORDERED: LOPE2CAP PO (11:20)
[2016-11-07] MEDS ORDERED: GABA-490 PO (11:20)
[2016-11-07] MEDS ORDERED: RANI150T11 PO (11:20)
[2016-11-07] MEDS ORDERED: NYST1POW22 TP (11:20)
[2016-11-07] MEDS ORDERED: ALBU90AE IH (11:20)
[2016-11-07] MEDS ORDERED: HYDR-3816 PO (11:20)
[2016-11-07] MEDS ORDERED: FURO40TA4 PO (11:20)
[2016-11-07] MEDS ORDERED: LIDO15SO2 MM (11:20)
[2016-11-07] MEDS ORDERED: INSU100V16 SQ (11:20)
--- NOTE | 2016-11-07 15:17 | Discharge Inst-Simple/Standard ---
Discharge Inst-Standard Patient Instructions/Follow Up Plan of Care/Instructions/FU: stopped baclofen Do not take her medications at the same time- if she takes gabapentin do not take hydrocodone and/or lorazepam. Follow up appointment with Dr. Leonel Marquez at [facility] at 200pm 11/08/2016 Activity as Tolerated: Yes Discharge Diet: ADA Diet [facility] to [facility] For: new concerns LEONEL MARQUEZ MD Nov 07, 2016 15:17
== END 2016-11-07 15:14 | disposition home or self-care (01) ==
LOC: EDUNIT# 17:14 → ER 17:15 → UNDOADMOB 21:04 → ICU 21:04
PROVIDERS: ADMIT Family Medicine; ATTEND Family Medicine
DX: G92 Toxic encephalopathy (principal); N28.9 Disorder of kidney and ureter, unspecified; E87.6 Hypokalemia; E11.9 Type 2 diabetes mellitus without complications; Z79.4 Long term (current) use of insulin; F41.9 Anxiety disorder, unspecified; F32.9 Major depressive disorder, single episode, unspecified; T40.2X5A Adverse effect of other opioids, initial encounter; T42.8X5A Adverse effect of antiparkinsonism drugs and other central muscle-tone depressants, initial encounter; T42.75XA Adverse effect of unspecified antiepileptic and sedative-hypnotic drugs, initial encounter
CPT/HCPCS: 36415; 70450; 71010; 72125; 80053; 80306; 80320; 80329; 81000; 82962; 84443; 84484; 85025; 85610; 85730; 87070; 87491; 87591; 93005; 93041; G0378

== ENCOUNTER 2016-11-08 20:13 | Inpatient (IN) | payer MEDICAID ==
[~2016-11-08] VITALS: Ht 167.6 cm; Wt 104.3 kg
[~2016-11-08 20:13] MED LIST changes: +ALBU90AE IH; -AMMONIA INHALATION 0.33 ML AMP ONE; +FURO40TA4 PO; +INSU100I29; +LOPE2CAP PO; +LORA0.5T PO; +NYST1POW22 TP
[2016-11-08] MEDS ORDERED: NS IV 1000 ML 1,000 ML IV ONE (20:23)
[2016-11-08 20:50] LABS: ALANINE AMINOTRANSFERASE 16 U/L (0-55); ALBUMIN 3.7 G/DL (3.2-4.5); ANION GAP 20 MMOL/L (5-14); ASPARTATE AMINO TRANSFERASE 18 U/L (5-34); BILIRUBIN,TOTAL 0.5 MG/DL (0.1-1.0); BLOOD UREA NITROGEN 19 MG/DL (7-18); BUN/CREATININE RATIO 23; CALCIUM 9.8 MG/DL (8.5-10.1); CARBON DIOXIDE 14 MMOL/L (21-32); CHLORIDE 106 MMOL/L (98-107); CREATININE SERUM 0.81 MG/DL (0.60-1.30); GFR ESTIMATED > 60; GLUCOSE 218 MG/DL (70-105); POTASSIUM 3.8 MMOL/L (3.6-5.0); SODIUM 140 MMOL/L (135-145); TOTAL PROTEIN 7.2 G/DL (6.4-8.2)
[2016-11-08 20:52] LABS: CREATINE KINASE 86 U/L (29-168)
--- NOTE | 2016-11-08 20:53 | ED General ---
General Chief Complaint: Altered Mental Status Stated Complaint: ALTERED MENTAL STATE Nursing Triage Note: pt to er from home after being dc'd from hospital yesterday. she was seen in home by dr marquez today at 1030. reports no meds taken since discharge yesterday. reports she has been sitting on the toilet since 1000 today. pt aloof. not answering questions appropriately. repeating self. Nursing Sepsis Screen: No Definite Risk Source of Information: Patient Exam Limitations: No Limitations History of Present Illness Time Seen by Provider: 20:15 Initial Comments Here by EMS with report of altered mental status. She was discharged from the hospital yesterday. Apparently she hadn't taken any of her medicines or 8 or drink anything since 5 p.m. yesterday. She reportedly has been sitting on the toilet since 10 a.m. today. Her primary care physician, Dr. Marquez reportedly saw her at the house at 1030. She has progressively worsened since then and EMS was summoned by family members due to progressive altered mental status. EMS notes normal blood pressure with tachycardia and fever of 99.7. Patient will follow simple commands but is not really answering questions well and seems to be parroting responses. Timing/Duration: 24 Hours Severity: Moderate Associated Systoms: No Chest Pain, No Cough, Fever/Chills, No Nausea/Vomiting, No Shortness of Air, Weakness Allergies and Home Medications Allergies Coded Allergies: No Known Drug Allergies (Unverified , 11/24/09) Home Medications Albuterol Sulfate 90 Mcg Aer.pow.ba, 2 PUFF IH Q4H PRN for SHORTNESS OF BREATH, (Reported) Amitriptyline HCl 100 Mg Tablet, 100 MG PO HS, (Reported) Furosemide 40 Mg Tablet, 40 MG PO DAILY, (Reported) Gabapentin 400 Mg Capsule, 400 MG PO BID, (Reported) Hydrocodone/Acetaminophen 1 Each Tablet, 1 TAB PO BID PRN for PAIN-MODERATE, ( Reported) Insulin Aspart 100 Unit/1 Ml Susp, SQ SLIDING/SCALE, (Reported) 150-200 5 UNITS 201-250 10 UNITS 251-300 15 UNITS 301-350 20 UNITS 351+ CALL PHYSICIAN Insulin Detemir 100 Unit/1 Ml Insuln.pen, (Reported) DOSAGE UNKNOWN Lidocaine HCl 15 Ml Solution, MM UD, (Reported) Loperamide HCl 2 Mg Capsule, 2 MG PO QID PRN for DIARRHEA, (Reported) Lorazepam 0.5 Mg Tablet, 0.5 MG PO BID PRN for ANXIETY, (Reported) Magnesium Oxide 400 Mg Tablet, 400 MG PO BID, (Reported) Ondansetron 4 Mg Tab.rapdis, 4-8 MG PO Q6H PRN for NAUSEA/VOMITING, (Reported) TAKES 1-2 (4 MG) TABLETS Pantoprazole Sodium 40 Mg Tablet.dr, 40 MG PO DAILY, (Reported) Pravastatin Sodium 20 Mg Tablet, 20 MG PO HS, (Reported) Ranitidine HCl 150 Mg Tablet, 150 MG PO DAILY, (Reported) Sucralfate 1 Gm Tablet, 1 GM PO ACHS, (Reported) Constitutional: see HPI, weakness Respiratory: No short of breath, No wheezing Psychiatric/Neurological: Weakness Other Unable to complete review of systems due to altered mental status. Past Xnpobxn-Hqhscx-Uffyda Hx Patient Social History Alcohol Use: Rarely Uses Recreational Drug Use: No Smoking Status: Current Everyday Smoker Type Used: Cigarettes 2nd Hand Smoke Exposure: No Recent Foreign Travel: No Contact w/Someone Who Travel: No Recent Infectious Disease Expo: No Recent Hopitalizations: Yes Immunizations Up To Date Tetanus Booster (TDap): Less than 5yrs PED Vaccines UTD: Yes Date of Pneumonia Vaccine: Apr 04, 2013 Date of Influenza Vaccine: Apr 29, 2016 Seasonal Allergies Seasonal Allergies: No Surgeries HX Surgeries: Yes (HERNIA REPAIR, URETHRAL DILATION? ; PORT RIGHT CHEST ) Surgeries: Abdominal, Appendectomy, Bladder Surgery, Gallbladder, Hysterectomy , Tonsillectomy Respiratory Hx Respiratory Disorders: Yes (O2 AT HS) Respiratory Disorders: Pneumonia, Sleep Apnea, COPD Cardiovascular Hx Cardiac Disorders: Yes Cardiac Disorders: High Cholesterol, Hypertension Neurological Hx Neurological Disorders: Yes Neurological Disorders: Headaches /Migraines Reproductive System Hx Reproductive Disorders: No Sexually Transmitted Disease: No HIV/AIDS: No Female Reproductive Disorders: Menstrual Problems [employer] History: Hysterectomy, Menopausal Genitourinary Hx Genitourinary Disorders: Yes (URETHRAL DILATION) Genitourinary Disorders: Bladder Infection, UTI-Chronic Gastrointestinal Hx Gastrointestinal Disorders: Yes Gastrointestinal Disorders: Gastroesophageal Reflux, Liver Disease/Jaundice, Chronic Diarrhea, Gall Bladder Disease Musculoskeletal Hx Musculoskeletal Disorders: Yes (SCIATICA; CHRONIC PAIN COMPLAINTS) Musculoskeletal Disorders: Degenerate Disk Disease, Osteoporosis, Arthritis, Chronic Back Pain Endocrine Hx Endocrine Disorders: Yes Endocrine Disorders: Diabetes, Insulin dep HEENT HX ENT Disorders: No Cancer Hx Cancer: No Psychosocial Hx Psychiatric Problems: Yes (EXTENSIVE PSYCH ISSUES) Behavioral Health Disorders: Sleep Difficulties, Anxiety, Depression Integumentary HX Skin/Integumentary Disorder: No Blood Transfusions Hx Blood Disorders: Yes (ANEMIA OF CHRONIC DISEASE) Reviewed Nursing Assessment Reviewed/Agree w Nursing PMH: Yes Family Medical History Significant Family History: Asthma, CAD Under 55 Years Old, COPD, Diabetes, Hypertension, Migraines, Psychiatric Problems, Renal Disease, Seizures, Stroke Family Medial History: Arthritis Asthma 19 MOTHER Cardiovascular disease 19 MOTHER Completed stroke Coronary thrombosis Diabetes mellitus 19 MOTHER Glaucoma 19 MOTHER Headache disorder 19 MOTHER Hypercholesterolemia 19 MOTHER Hypertension 19 MOTHER Kidney disease Myocardial infarction 19 FATHER 19 MOTHER Neoplasm Psychosocial problem Respiratory disorder Seizure disorder Physical Exam-Suspected Sepsis Physical Exam Vital Signs Vital Sign - Last 12Hours 11/08/16 11/08/16 20:18 22:55 Temp 98.6 Pulse 120 Resp 20 B/P (MAP) 150/83 Pulse Ox 99 Capillary Refill : Less Than 3 Seconds General Appearance: No Apparent Distress, WD/WN HEENT: PERRL/EOMI, TMs Normal, Pharynx Normal Neck: Non Tender, Supple Respiratory: Lungs Clear, Normal Breath Sounds Cardiovascular: No Murmur, Tachycardia Gastrointestinal: Non Tender, Soft Extremity: Normal Capillary Refill, Non Tender, No Calf Tenderness Neurologic/Psychiatric: Alert, Disoriented x3, Other (parroting responses by answering with same answer over and over again. Some responses appropriate but some are disconnected to question. Moving all extremities. Weak overall. Assessment Limited due to patient's altered mental status and current clinical condition.) Skin: normal color, warm/dry, No rash Focused Exam Lactic Acid Level Date of ETT Placement: Aug 03, 2016 Progress/Results/Core Measures Suspected Sepsis Recent Fever Within 48 Hours: No Infection Criteria Present: None New/Unexplained Altered Menta: No Sepsis Screen: No Definite Risk Sepsis Diagnosis: SIRS Temperature:98.6 Pulse: 120 Respiratory Rate: 20 Laboratory Tests 11/08/16 20:45: White Blood Count 7.6 Blood Pressure / Mean: Laboratory Tests 11/08/16 20:20: Creatinine 0.81, Total Bilirubin 0.5 11/08/16 20:45: INR Comment 1.0, Platelet Count 240 Results/Orders Lab Results Laboratory Tests Test 11/08/16 20:20 11/08/16 20:45 11/08/16 21:10 Range/Units Sodium Level 140 135-145 MMOL/L Potassium Level 3.8 3.6-5.0 MMOL/L Chloride Level 106 98-107 MMOL/L Carbon Dioxide Level 14 L 21-32 MMOL/L Anion Gap 20 H 5-14 MMOL/L Blood Urea Nitrogen 19 H 7-18 MG/DL Creatinine 0.81 0.60-1.30 MG/DL Estimat Glomerular Filtration Rate > 60 BUN/Creatinine Ratio 23 Glucose Level 218 H 70-105 MG/DL Calcium Level 9.8 8.5-10.1 MG/DL Total Bilirubin 0.5 0.1-1.0 MG/DL Aspartate Amino Transf (AST/SGOT) 18 5-34 U/L Alanine Aminotransferase (ALT/SGPT) 16 0-55 U/L Alkaline Phosphatase 301 H 40-136 U/L Total Creatine Kinase 86 29-168 U/L Troponin I < 0.30 <0.30 NG/ML Total Protein 7.2 6.4-8.2 G/DL Albumin 3.7 3.2-4.5 G/DL White Blood Count 7.6 4.3-11.0 10^3/uL Red Blood Count 4.08 L 4.35-5.85 10^6/uL Hemoglobin 11.5 11.5-16.0 G/DL Hematocrit 35 35-52 % Mean Corpuscular Volume 86 80-99 FL Mean Corpuscular Hemoglobin 28 25-34 PG Mean Corpuscular Hemoglobin Concent 33 32-36 G/DL Red Cell Distribution Width 14.9 H 10.0-14.5 % Platelet Count 240 130-400 10^3/uL Mean Platelet Volume 10.1 7.4-10.4 FL Neutrophils (%) (Auto) 69 42-75 % Lymphocytes (%) (Auto) 20 12-44 % Monocytes (%) (Auto) 8 0-12 % Eosinophils (%) (Auto) 3 0-10 % Basophils (%) (Auto) 0 0-10 % Neutrophils # (Auto) 5.3 1.8-7.8 X 10^3 Lymphocytes # (Auto) 1.5 1.0-4.0 X 10^3 Monocytes # (Auto) 0.6 0.0-1.0 X 10^3 Eosinophils # (Auto) 0.3 0.0-0.3 10^3/uL Basophils # (Auto) 0.0 0.0-0.1 10^3/uL Prothrombin Time 12.4 12.2-14.7 SEC INR Comment 1.0 0.8-1.4 Activated Partial Thromboplast Time 21 L 24-35 SEC Lactic Acid Level 1.02 0.50-2.00 MMOL/L Magnesium Level 1.3 L 1.8-2.4 MG/DL Urine Color YELLOW Urine Clarity CLEAR Urine pH 6 5-9 Urine Specific Bath 1.020 1.016-1.022 Urine Protein 3+ H NEGATIVE Urine Glucose (UA) NEGATIVE NEGATIVE Urine Ketones 4+ H NEGATIVE Urine Nitrite NEGATIVE NEGATIVE Urine Bilirubin NEGATIVE NEGATIVE Urine Urobilinogen NORMAL NORMAL MG/DL Urine Leukocyte Esterase 3+ H NEGATIVE Urine RBC (Auto) 5+ H NEGATIVE Urine RBC >100 H /HPF Urine WBC >100 H /HPF Urine Crystals NONE /LPF Urine Bacteria FEW H /HPF Urine Casts NONE /LPF Urine Mucus NONE /LPF Urine Culture Indicated YES My Orders Orders - MILLIE COLLINS MD Cbc With Automated Diff (11/08/16 20:23) Comprehensive Metabolic Panel (11/08/16 20:23) Lactic Acid Analyzer (11/08/16 20:23) Blood Culture (11/08/16 20:23) Sputum Culture (11/08/16 20:23) Ua Culture If Indicated (11/08/16 20:23) Protime With Inr (11/08/16 20:23) Partial Thromboplastin Time (11/08/16 20:23) Chest 1 View, Ap/Pa Only (11/08/16 20:23) O2 (11/08/16 20:23) Saline Lock/Iv-Start (11/08/16 20:23) Saline Lock/Iv-Start (11/08/16 20:23) Ekg Tracing (11/08/16 20:23) Remove Rings In Anticipation O (11/08/16 20:23) Saline Lock/Iv-Start (11/08/16 20:23) Ns Iv 1000 Ml (Sodium Chloride 0.9%) (11/08/16 20:23) Ct Head Wo (11/08/16 20:26) Creatine Kinase (11/08/16 20:27) Troponin I (11/08/16 20:27) Urine Culture (11/08/16 21:10) Ceftriaxone Injection (Rocephin Injectio (11/08/16 21:45) Medications Given in ED Current Medications Medications Dose Ordered Sig/Aurea Route Start Time Stop Time Status Last Admin Dose Admin Ceftriaxone Sodium 1000 mg/ Sodium Chloride 50 ml @ 100 mls/hr ONCE ONCE IV 11/08/16 21:45 11/08/16 22:14 DC 11/08/16 22:09 100 MLS/HR Sodium Chloride 1,000 ml @ 0 mls/hr Q0M ONCE IV 11/08/16 20:23 11/08/16 20:25 DC 11/08/16 20:51 999 MLS/HR Vital Signs/I&O Vital Sign - Last 12Hours 11/08/16 11/08/16 11/08/16 11/08/16 20:18 22:55 22:55 23:15 Temp 98.6 98.4 98.4 Pulse 120 114 114 116 Resp 20 12 11 20 B/P (MAP) 150/83 134/72 Pulse Ox 99 99 11/09/16 11/09/16 01:50 01:50 Pulse Ox 95 95 Capillary Refill : Less Than 3 Seconds Progress Note : Progress Note Seen and evaluated on arrival by EMS. Port access by EMS. Labs, UA, normal saline 1 L bolus, chest x-ray, CT head and EKG ordered. Monitor patient. Blood cultures and lactic acid have been ordered due to febrile findings by EMS. 2140: UTI noted. Patient does have ketones but I do believe this is related to dehydration and starvation as she has not ate or drank since yesterday. Blood sugar 218. Dr. Marquez agrees. She has received 1 L normal saline and we will continue this at 150 an hour. Rocephin 1 g IV ordered. Patient to be admitted, inpatient status. Dr. Marquez agrees with plan. ECG Initial ECG Impression Date: Nov 08, 2016 Initial ECG Impression Time: 21:16 Initial ECG Rate: 113 Initial ECG Rhythm: S.Tach Comment Sinus tachycardia with left atrial abnormality. Normal axis. Overall similar to previous of 11/06/16 aside from increased rate. No evidence of ST elevation DE. Interpreted by me. Diagnostic Imaging Diagonstic Imaging: CT Plain Films/CT/US/NM/MRI: head Comments [facility]IA [facility]. [place], [place] [facility] [id number] PT STATUS: REG ER : 1960 PHYSICIAN: MILLIE COLLINS MD ADMIT DATE: 11/08/16/ER Draft Date of Exam:11/08/16 CT HEAD WO PROCEDURE: CT head without contrast. TECHNIQUE: Multiple contiguous axial images were obtained through the brain without the use of intravenous contrast. INDICATION: Altered mental state. Comparison with 11/06/2016. FINDINGS: The ventricles and cortical gyral pattern are normal. There is no intracranial hemorrhage. There is no mass effect. No extra-axial fluid collections. Basal cisterns are clear. CP angles appear normal. Pituitary is not enlarged. The mastoid air cells and paranasal sinuses are well-aerated. IMPRESSION: Negative CT head without contrast. No significant change since previous exam. Dictated on workstation # [id number] Dict: 11/08/162102 Trans: 11/08/162105 [id number] Interpreted by: SHELBY HALLMAN MD Electronically signed by: Selene Imaging: Xray Plain Films/CT/US/NM/MRI: chest Comments [facility]IA [facility]. [place], [place] [facility] [id number] PT STATUS: REG ER : 1960 PHYSICIAN: MILLIE COLLINS MD ADMIT DATE: 11/08/16/ER Draft Date of Exam:11/08/16 CHEST 1 VIEW, AP/PA ONLY INDICATION: Altered mental state. Comparison with 11/06/2016. FINDINGS: The lungs are well-aerated. There are no infiltrates or masses. The heart is not enlarged. There is no hilar adenopathy. No pneumothorax or pleural effusion. Port-A-Cath present unchanged. IMPRESSION: No acute abnormalities when compared with previous exam. Dictated on workstation # [id number] Dict: 11/08/162104 Trans: 11/08/162107 [id number] Interpreted by: SHELBY HALLMAN MD Electronically signed by: Departure Communication Time/Spoke to Admitting Phy: 21:40 Impression Impression: Primary Impression: urinary tract infection Additional Impressions: Noncompliance with medication regimen Altered mental status Qualified Codes: R41.82 - Altered mental status, unspecified Disposition: ADMITTED INPATIENT Condition: Stable Decision to Admit Reason: Admit from ER (General) Decision to Admit/Date: Nov 08, 2016 Time/Decision to Admit Time: 21:40 Departure-Patient Inst. Referrals: NALDO MARQUEZ MD (PCP/Family) Primary Care Physician MILLIE COLLINS MD Nov 08, 2016 20:53
[2016-11-08 20:58] LABS: TROPONIN I < 0.30 NG/ML (<0.30)
[2016-11-08 20:58] LABS: BASOPHILS % (AUTO) 0 % (0-10); EOSINOPHILS # (AUTO) 0.3 10^3/uL (0.0-0.3); EOSINOPHILS % (AUTO) 3 % (0-10); LYMPHOCYTES # (AUTO) 1.5 X 10^3 (1.0-4.0); LYMPHOCYTES % (AUTO) 20 % (12-44); MEAN CORPUSCULAR HEMOGLOBIN 28 PG (25-34); MEAN CORPUSCULAR HGB CONC 33 G/DL (32-36); MEAN CORPUSCULAR VOLUME 86 FL (80-99); MEAN PLATELET VOLUME 10.1 FL (7.4-10.4); MONOCYTES # (AUTO) 0.6 X 10^3 (0.0-1.0); MONOCYTES % (AUTO) 8 % (0-12); NEUTROPHILS # (AUTO) 5.3 X 10^3 (1.8-7.8); NEUTROPHILS % (AUTO) 69 % (42-75); PLATELET COUNT 240 10^3/uL (130-400); RED BLOOD COUNT 4.08 10^6/uL (4.35-5.85); RED CELL DISTRIBUTION WIDTH 14.9 % (10.0-14.5); WHITE BLOOD COUNT 7.6 10^3/uL (4.3-11.0)
--- NOTE | 2016-11-08 21:07 | Diagnostic Imaging Report ---
PROCEDURE: CT head without contrast. TECHNIQUE: Multiple contiguous axial images were obtained through the brain without the use of intravenous contrast. INDICATION: Altered mental state. Comparison with 11/06/2016. FINDINGS: The ventricles and cortical gyral pattern are normal. There is no intracranial hemorrhage. There is no mass effect. No extra-axial fluid collections. Basal cisterns are clear. CP angles appear normal. Pituitary is not enlarged. The mastoid air cells and paranasal sinuses are well-aerated. IMPRESSION: Negative CT head without contrast. No significant change since previous exam. Dictated by: Dictated on workstation # [id number]
--- NOTE | 2016-11-08 21:09 | Diagnostic Imaging Report ---
INDICATION: Altered mental state. Comparison with 11/06/2016. FINDINGS: The lungs are well-aerated. There are no infiltrates or masses. The heart is not enlarged. There is no hilar adenopathy. No pneumothorax or pleural effusion. Port-A-Cath present unchanged. IMPRESSION: No acute abnormalities when compared with previous exam. Dictated by: Dictated on workstation # [id number]
[2016-11-08 21:12] LABS: PROTHROMBIN TIME PATIENT 12.4 SEC (12.2-14.7)
[2016-11-08 21:18] LABS: BILIRUBIN,URINE NEGATIVE (NEGATIVE); KETONES,URINE 4+ (NEGATIVE); LEUKOCYTE ESTERASE ,URINE 3+ (NEGATIVE); NITRITE,URINE NEGATIVE (NEGATIVE); PH,URINE 6 (5-9); PROTEIN,URINE 3+ (NEGATIVE); UROBILINOGEN,URINE NORMAL (NORMAL)
[2016-11-08 21:26] LABS: WBC,URINE >100 /HPF
[2016-11-08] MEDS ORDERED: cefTRIAXone INJECTION 1,000 MG in NS (IVPB) 50 ML IV ONE (21:45)
[2016-11-08 23:15] VITALS: BP 134/72
[2016-11-09] MEDS: NS IV 1000 ML 1,000 ML IV SCH ×4 (02:43→18:54)
[2016-11-09] MEDS ORDERED: RT-ALBUTEROL/IPRATROPIUM 3 ML (DUONEB) VIAL INH PRN (03:15)
[2016-11-09 04:09] VITALS: BP 139/83
[2016-11-09] MEDS: inSUlin ASPART (NovoLOG) 1 UNIT/0.01 ML (CHARGE PER UNIT) SC SCH ×4 (06:09→19:30)
[2016-11-09 06:56] LABS: BASOPHILS % (AUTO) 0 % (0-10); EOSINOPHILS # (AUTO) 0.1 10^3/uL (0.0-0.3); EOSINOPHILS % (AUTO) 1 % (0-10); LYMPHOCYTES # (AUTO) 1.8 X 10^3 (1.0-4.0); LYMPHOCYTES % (AUTO) 28 % (12-44); MEAN CORPUSCULAR HEMOGLOBIN 28 PG (25-34); MEAN CORPUSCULAR HGB CONC 33 G/DL (32-36); MEAN CORPUSCULAR VOLUME 86 FL (80-99); MEAN PLATELET VOLUME 9.8 FL (7.4-10.4); MONOCYTES # (AUTO) 0.5 X 10^3 (0.0-1.0); MONOCYTES % (AUTO) 8 % (0-12); NEUTROPHILS % (AUTO) 64 % (42-75); PLATELET COUNT 262 10^3/uL (130-400); RED BLOOD COUNT 3.91 10^6/uL (4.35-5.85); RED CELL DISTRIBUTION WIDTH 14.7 % (10.0-14.5); WHITE BLOOD COUNT 6.3 10^3/uL (4.3-11.0)
--- NOTE | 2016-11-09 07:12 | History & Physical ---
History of Present Illness History of Present Illness Reason for visit/HPI 55 yo F Re-admitted for acute renal failure likely due to dehydration and urinary tract infection. Pt was found by family members to have sat on the toilet from 10am to 5pm yesterday- confused. I went and saw pt at her home yesterday around 1030am- She reports she was not done using the restroom and refused to get off the toilet. She was able to stand up but sat back down. I did place her walker in front of her. Pt was [facility] via [facility] because pt's daughter reported her confusion had worsened. Suspect her encephalopathy is from her UTI and medication overuse. EMS reported temp of 99F. Pt is unable to care for herself. UA indicated a UTI. Mag level was 1.3. 4+ketones in urine. Bicarb was low at 14. I did speak with pt's daughter yesterday and we are in the process of putting Eri in a custodial for senior living- I will not be writing orders for discharge to home- she would have to leave [facility]. Referrals have been sent to [facility] and [place]. Pt was admitted for overnight observation 11/06-11/07/16 for encephalopathy that improved and she was discharged to home - she did have a orta overnight of which she pulled out- this possibly may be why she has a UTI now. Date of Admission Nov 08, 2016 at 21:45 Time Seen by Provider: 07:57 I consulted on this patient on 11/09/16 07:09 Attending Physician Leonel Marquez MD Admitting Physician Leonel Marquez MD Consult Allergies and Home Medications Allergies Coded Allergies: No Known Drug Allergies (Unverified , 11/24/09) Home Medications Albuterol Sulfate 90 Mcg Aer.pow.ba, 2 PUFF IH Q4H PRN for SHORTNESS OF BREATH, (Reported) Amitriptyline HCl 100 Mg Tablet, 100 MG PO HS, (Reported) Furosemide 40 Mg Tablet, 40 MG PO DAILY, (Reported) Gabapentin 400 Mg Capsule, 400 MG PO BID, (Reported) Hydrocodone/Acetaminophen 1 Each Tablet, 1 TAB PO BID PRN for PAIN-MODERATE, ( Reported) Insulin Aspart 100 Unit/1 Ml Susp, SQ SLIDING/SCALE, (Reported) 150-200 5 UNITS 201-250 10 UNITS 251-300 15 UNITS 301-350 20 UNITS 351+ CALL PHYSICIAN Insulin Detemir 100 Unit/1 Ml Insuln.pen, (Reported) DOSAGE UNKNOWN Lidocaine HCl 15 Ml Solution, MM UD, (Reported) Loperamide HCl 2 Mg Capsule, 2 MG PO QID PRN for DIARRHEA, (Reported) Lorazepam 0.5 Mg Tablet, 0.5 MG PO BID PRN for ANXIETY, (Reported) Magnesium Oxide 400 Mg Tablet, 400 MG PO BID, (Reported) Ondansetron 4 Mg Tab.rapdis, 4-8 MG PO Q6H PRN for NAUSEA/VOMITING, (Reported) TAKES 1-2 (4 MG) TABLETS Pantoprazole Sodium 40 Mg Tablet.dr, 40 MG PO DAILY, (Reported) Pravastatin Sodium 20 Mg Tablet, 20 MG PO HS, (Reported) Ranitidine HCl 150 Mg Tablet, 150 MG PO DAILY, (Reported) Sucralfate 1 Gm Tablet, 1 GM PO ACHS, (Reported) Past Zimsgic-Tmoekc-Hxvrpr Hx Patient Social History Marrital Status: Alcohol Use: Rarely Uses Recreational Drug Use: No Smoking Status: Current Everyday Smoker Type Used: Cigarettes 2nd Hand Smoke Exposure: No Recent Foreign Travel: No Contact w/other who traveled: No Recent Hopitalizations: Yes Recent Infectious Disease Expo: No Immunizations Up To Date Tetanus Booster (TDap): Less than 5yrs Date of Pneumonia Vaccine: Apr 04, 2013 Date of Influenza Vaccine: Apr 29, 2016 Seasonal Allergies Seasonal Allergies: No Surgeries HX Surgeries: Yes (HERNIA REPAIR, URETHRAL DILATION? ; PORT RIGHT CHEST ) Surgeries: Abdominal, Appendectomy, Bladder Surgery, Gallbladder, Hysterectomy , Tonsillectomy Respiratory Hx Respiratory Disorders: Yes (O2 AT HS) Respiratory Disorders: COPD Cardiovascular Hx Cardiovascular Disorders: Yes Cardiac Disorders: High Cholesterol, Hypertension Neurological Hx Neurological Disorders: Yes Neurological Disorders: Headaches /Migraines Reproductive System Hx Reproductive Disorders: No Sexually Transmitted Disease: No HIV/AIDS: No Female Reproductive Disorders: Menstrual Problems Genitourinary Hx Genitourinary Disorders: Yes (URETHRAL DILATION) Genitourinary Disorders: Bladder Infection, UTI-Chronic Gastrointestinal Hx Gastrointestinal Disorders: Yes Gastrointestinal Disorders: Gastroesophageal Reflux, Liver Disease/Jaundice, Chronic Diarrhea, Gall Bladder Disease Musculoskeletal Hx Musculoskeletal Disorders: Yes (SCIATICA; CHRONIC PAIN COMPLAINTS) Musculoskeletal Disorders: Degenerate Disk Disease, Osteoporosis, Arthritis, Chronic Back Pain Endocrine Hx Endocrine Disorders: Yes Endocrine Disorders: Diabetes, Insulin dep HEENT HX ENT Disorders: No Cancer Hx Cancer: No Psychosocial Hx Psychiatric Problems: Yes (EXTENSIVE PSYCH ISSUES) Behavioral Health Disorders: Sleep Difficulties, Anxiety, Depression Integumentary HX Skin/Integumentary Disorder: No Blood Transfusions Hx Blood Disorders: Yes (ANEMIA OF CHRONIC DISEASE) Reviewed Nursing Assessment Reviewed/Agree w Nursing PMH: Yes Family Medical History Significant Family History: Asthma, CAD Under 55 Years Old, COPD, Diabetes, Hypertension, Migraines, Psychiatric Problems, Renal Disease, Seizures, Stroke Family Hx: Arthritis Asthma 19 MOTHER Cardiovascular disease 19 MOTHER Completed stroke Coronary thrombosis Diabetes mellitus 19 MOTHER Glaucoma 19 MOTHER Headache disorder 19 MOTHER Hypercholesterolemia 19 MOTHER Hypertension 19 MOTHER Kidney disease Myocardial infarction 19 FATHER 19 MOTHER Neoplasm Psychosocial problem Respiratory disorder Seizure disorder No Family History of: AIDS Abdominal aortic aneurysm [place]'s disease Alcoholism Alzheimer's disease Aphasia Cancer of mouth Cataracts Colon cancer Congenital disease Congenital heart disease Cystic fibrosis Deafness or hearing loss Dementia Drug abuse Dysphasia Fibrocystic disease of breast Gastroenteritis Infertility Not obtainable due to adoption Osteoporosis Parkinson's disease Prostate cancer Severe allergy Thyroid disease Tuberculosis Visual disorder Review of Systems Review of Systems ROS Unable to Obtain: Pt not thinking clearly. Date Seen by Provider: Nov 09, 2016 Time Seen by Provider: 07:58 General: No Chills, No Night Sweats HEENT: No Head Aches, No Visual Changes Pulmonary: No Dyspnea, No Cough Cardiovascular: No: Chest Pain, Palpitations Gastrointestinal: No: Abdominal Pain, Nausea, Vomiting Genitourinary: No Dysuria, No Frequency Musculoskeletal: back pain, No: shoulder pain Neurological: Weakness, No: Numbness Physical Exam Vital Signs Vital Sign - Last 12Hours 11/08/16 11/08/16 20:18 22:55 Temp 98.6 Pulse 120 Resp 20 B/P (MAP) 150/83 Pulse Ox 99 Capillary Refill : Less Than 3 Seconds General Appearance: No Apparent Distress, WD/WN HEENT: PERRL/EOMI Neck: Non Tender, Supple Respiratory: Chest Non Tender, Lungs Clear, Normal Breath Sounds, No Accessory Muscle Use, No Respiratory Distress Cardiovascular: Regular Rate, Rhythm, No Edema Gastrointestinal: Non Tender, Soft Rectal: Deferred Back: No CVA Tenderness Neurologic/Psychiatric: Alert, Other (slow mentation- confused) Skin: Warm/Dry Assessment/Plan Assessment/Plan Assessment/Plan 55 yo F *encephalopathy due to UTI and medication overuse- holding central acting meds - *UTI- rocephin- UC pending, IVF *DMII, hyperglycemia- levemir, SSI B *hypomagnesemia- replacing iv *weakness/deconditioning- PT eval/treat *bipolar disorder- monitor *anemia of chronic disease- stable- Dispo: case management consulted for placement- goal of 11/12/16 treating UTI, holding meds- monitoring mental status. Problems: LEONEL MARQUEZ MD Nov 09, 2016 07:12
[2016-11-09] MEDS ORDERED: inSUlin DETERMIR 1 UNIT/0.01 ML (LEVEMIR) CHARGE PER UNIT SQ NR (07:15)
[2016-11-09 07:16] LABS: BAND NEUTROPHILS 0 %; BASOPHILS % (MANUAL) 0 %; EOSINOPHILS % (MANUAL) 0 %; LYMPHOCYTES % (MANUAL) 31 %; NEUTROPHILS % (MANUAL) 65 %
[2016-11-09 07:17] LABS: ALANINE AMINOTRANSFERASE 15 U/L (0-55); ALBUMIN 3.6 G/DL (3.2-4.5); ANION GAP 14 MMOL/L (5-14); ASPARTATE AMINO TRANSFERASE 16 U/L (5-34); BILIRUBIN,TOTAL 0.4 MG/DL (0.1-1.0); BLOOD UREA NITROGEN 16 MG/DL (7-18); BUN/CREATININE RATIO 21; CALCIUM 9.4 MG/DL (8.5-10.1); CARBON DIOXIDE 16 MMOL/L (21-32); CHLORIDE 107 MMOL/L (98-107); CREATININE SERUM 0.75 MG/DL (0.60-1.30); GFR ESTIMATED > 60; GLUCOSE 190 MG/DL (70-105); POTASSIUM 3.8 MMOL/L (3.6-5.0); SODIUM 137 MMOL/L (135-145); TOTAL PROTEIN 6.9 G/DL (6.4-8.2)
[2016-11-09] MEDS ORDERED: CATHETER FLUSH 10 ML SYR IV PRN (07:30)
[2016-11-09 08:17] VITALS: BP 123/81
[2016-11-09] MEDS: MAGNESIUM 1 GM/100 ML IVPB 100 ML IV SCH ×4 (08:36→11:46)
[2016-11-09 12:34] VITALS: BP 138/87
[2016-11-09 15:41] VITALS: BP 155/82
[2016-11-09 19:25] VITALS: BP 149/73
[2016-11-09] MEDS ORDERED: cefTRIAXone 1 GM/NS 50 ML IVPB IV SCH ×2 (21:00)
[2016-11-09] MEDS: cefTRIAXone INJECTION 1,000 MG in NS (IVPB) 50 ML IV SCH (21:42)
[2016-11-09] MEDS: inSUlin DETERMIR 1 UNIT/0.01 ML (LEVEMIR) CHARGE PER UNIT SQ SCH (21:42)
[2016-11-09 23:30] VITALS: BP 162/86
[2016-11-10] MEDS: NS IV 1000 ML 1,000 ML IV SCH (02:18)
[2016-11-10 03:25] VITALS: BP 170/90
[2016-11-10] MEDS: inSUlin ASPART (NovoLOG) 1 UNIT/0.01 ML (CHARGE PER UNIT) SC SCH ×4 (05:41→21:10)
[2016-11-10 06:32] LABS: BASOPHILS % (AUTO) 0 % (0-10); EOSINOPHILS # (AUTO) 0.1 10^3/uL (0.0-0.3); EOSINOPHILS % (AUTO) 1 % (0-10); LYMPHOCYTES # (AUTO) 1.6 X 10^3 (1.0-4.0); LYMPHOCYTES % (AUTO) 25 % (12-44); MEAN CORPUSCULAR HEMOGLOBIN 28 PG (25-34); MEAN CORPUSCULAR HGB CONC 33 G/DL (32-36); MEAN CORPUSCULAR VOLUME 85 FL (80-99); MEAN PLATELET VOLUME 9.8 FL (7.4-10.4); MONOCYTES # (AUTO) 0.5 X 10^3 (0.0-1.0); MONOCYTES % (AUTO) 8 % (0-12); NEUTROPHILS # (AUTO) 4.2 X 10^3 (1.8-7.8); NEUTROPHILS % (AUTO) 65 % (42-75); PLATELET COUNT 253 10^3/uL (130-400); RED BLOOD COUNT 4.09 10^6/uL (4.35-5.85); RED CELL DISTRIBUTION WIDTH 14.7 % (10.0-14.5); WHITE BLOOD COUNT 6.4 10^3/uL (4.3-11.0)
[2016-11-10 06:54] LABS: ALBUMIN 3.4 G/DL (3.2-4.5); ANION GAP 17 MMOL/L (5-14); BLOOD UREA NITROGEN 10 MG/DL (7-18); BUN/CREATININE RATIO 15; CALCIUM 9.2 MG/DL (8.5-10.1); CARBON DIOXIDE 15 MMOL/L (21-32); CHLORIDE 107 MMOL/L (98-107); CREATININE SERUM 0.68 MG/DL (0.60-1.30); GFR ESTIMATED > 60; GLUCOSE 127 MG/DL (70-105); MAGNESIUM 1.3 MG/DL (1.8-2.4); POTASSIUM 3.4 MMOL/L (3.6-5.0); SODIUM 139 MMOL/L (135-145)
[2016-11-10 07:13] LABS: PHOSPHORUS 3.2 MG/DL (2.3-4.7)
[2016-11-10 08:08] VITALS: BP 147/70
[2016-11-10] MEDS: NS W/KCL 20 MEQ/L 1,000 ML IV SCH ×3 (09:18→23:49)
[2016-11-10] MEDS: MAGNESIUM OXIDE (MAG-OX)400 MG TAB PO SCH ×2 (09:19→21:19)
[2016-11-10] MEDS: MAGNESIUM 1 GM/100 ML IVPB 100 ML IV SCH ×4 (09:19→12:29)
[2016-11-10] MEDS ORDERED: RT-ALBUTEROL SULF 2.5 MG/3 ML PRE-MIX VIAL IH PRN (09:30)
[2016-11-10 12:38] VITALS: BP 148/86
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
[2016-11-10 16:00] VITALS: BP 136/65
--- NOTE | 2016-11-10 20:02 | Progress Note (SOAP) ---
Subjective Subjective Date Seen by Provider: Nov 10, 2016 Time Seen by Provider: 08:30 55 yo F admitted for encephalopathy- due to medication overuse and mental illness- Pt reports she is doing better this AM. Still repeating herself- ' yes, yes, yes' no no no Pt is not cooperative with staff- refused to get off the bedside commode. She is able to get up and walk unassisted despite her claim of being too weak to get up and do things for herself. Review of Systems ROS Unable to Obtain: Pt not thinking clearly. General: No Chills, No Night Sweats HEENT: No Head Aches, No Visual Changes Pulmonary: No Dyspnea, No Cough Cardiovascular: No: Chest Pain, Palpitations Gastrointestinal: No: Abdominal Pain, Nausea, Vomiting Genitourinary: No Dysuria, No Frequency Musculoskeletal: back pain, No: shoulder pain Neurological: Weakness, No: Numbness Objective Exam Vital Signs Vital Signs Date Time Temp Pulse Resp B/P (MAP) Pulse Ox O2 Delivery O2 Flow Rate FiO2 11/10/16 18:57 Room Air 11/10/16 16:00 98.0 122 136/65 100 11/10/16 12:38 98.4 117 20 148/86 96 11/10/16 08:08 99.0 107 18 147/70 96 11/10/16 07:09 95 11/10/16 03:25 97.6 118 20 170/90 95 11/09/16 23:30 99.0 110 16 162/86 95 I & O 11/10/16 07:00 Intake Total 2450 ml Output Total 800 ml Balance 1650 ml General Appearance: No Apparent Distress, WD/WN HEENT: PERRL/EOMI Neck: Non Tender, Supple Respiratory: Chest Non Tender, Lungs Clear, Normal Breath Sounds, No Accessory Muscle Use, No Respiratory Distress Cardiovascular: Regular Rate, Rhythm, No Edema Gastrointestinal: Non Tender, Soft Rectal: Deferred Back: No CVA Tenderness Extremity: Normal Capillary Refill, Non Tender, No Calf Tenderness Neurologic/Psychiatric: Alert, Other (slow mentation- confused- does recognized me as Dr. Marquez) Skin: Warm/Dry Results Lab Laboratory Tests 11/10/16 05:40: White Blood Count 6.4, Red Blood Count 4.09L, Hemoglobin 11.5, Hematocrit 35, Mean Corpuscular Volume 85, Mean Corpuscular Hemoglobin 28, Mean Corpuscular Hemoglobin Concent 33, Red Cell Distribution Width 14.7H, Platelet Count 253, Mean Platelet Volume 9.8, Neutrophils (%) (Auto) 65, Lymphocytes (%) (Auto) 25, Monocytes (%) (Auto) 8, Eosinophils (%) (Auto) 1, Basophils (%) (Auto) 0, Neutrophils # (Auto) 4.2, Lymphocytes # (Auto) 1.6, Monocytes # (Auto) 0.5, Eosinophils # (Auto) 0.1, Basophils # (Auto) 0.0, Sodium Level 139, Potassium Level 3.4L, Chloride Level 107, Carbon Dioxide Level 15L, Anion Gap 17H, Blood Urea Nitrogen 10, Creatinine 0.68, Estimat Glomerular Filtration Rate > 60, BUN/ Creatinine Ratio 15, Glucose Level 127H, Glucometer 137H, Calcium Level 9.2, Phosphorus Level 3.2, Magnesium Level 1.3L, Albumin 3.4 11/10/16 09:37: Glucometer 151H 11/10/16 14:12: Glucometer 158H Microbiology 11/08/16 Blood Culture - Preliminary, Resulted No growth 11/08/16 Urine Culture - Final, Complete Escherichia Coli Assessment/Plan Assessment/Plan Assessment/Plan 55 yo F *encephalopathy due to psych, UTI and medication overuse- holding central acting meds- treating uti- *UTI- continue rocephin- UC Ecoli, IVF *DMII, hyperglycemia- 10 units qhs levemir, SSI B - may need to go up to 20 units on levemir if she starts eating more- *hypomagnesemia- replacing iv- rechecking in AM *hypokalemia- replacing in IVF *weakness/deconditioning- would place a PT eval/treat order but pt is not cooperating with staff *recurrent depression- monitor status- psych eval 11/10/16- recommends inpatient admission- *anemia of chronic disease- stable- Dispo: case management consulted for placement (denied [place] [facility] [place], [facility] not interested either)- -goal of discharge 11/12/16 -Psych eval performed today recommendation of inpatient psych stay- as pt has suicidal thoughts. Over the weekend plan to make pt medically stable for transfer: currently treating UTI, replacing lytes, holding meds- monitoring mental status. Problems: Clinical Quality Measures DVT/VTE Risk/Contraindication: Risk Factor Score Per Nursin RFS Level Per Nursing on Admit: 4+=Very High NALDO MARQUEZ MD Nov 10, 2016 20:02
[2016-11-10] MEDS: inSUlin DETERMIR 1 UNIT/0.01 ML (LEVEMIR) CHARGE PER UNIT SQ SCH (21:19)
[2016-11-10] MEDS: AMITRIPTYLINE 50 MG (ELAVIL) TAB PO PRN (21:19)
[2016-11-10] MEDS: cefTRIAXone INJECTION 1,000 MG in NS (IVPB) 50 ML IV SCH (21:20)
[2016-11-10 23:25] VITALS: BP 162/95
[2016-11-11] MEDS: inSUlin ASPART (NovoLOG) 1 UNIT/0.01 ML (CHARGE PER UNIT) SC SCH ×4 (05:09→21:56)
[2016-11-11 07:02] LABS: BASOPHILS % (AUTO) 0 % (0-10); EOSINOPHILS # (AUTO) 0.1 10^3/uL (0.0-0.3); EOSINOPHILS % (AUTO) 2 % (0-10); LYMPHOCYTES # (AUTO) 1.5 X 10^3 (1.0-4.0); LYMPHOCYTES % (AUTO) 23 % (12-44); MEAN CORPUSCULAR HEMOGLOBIN 28 PG (25-34); MEAN CORPUSCULAR HGB CONC 33 G/DL (32-36); MEAN CORPUSCULAR VOLUME 85 FL (80-99); MEAN PLATELET VOLUME 9.7 FL (7.4-10.4); MONOCYTES # (AUTO) 0.6 X 10^3 (0.0-1.0); MONOCYTES % (AUTO) 8 % (0-12); NEUTROPHILS # (AUTO) 4.5 X 10^3 (1.8-7.8); NEUTROPHILS % (AUTO) 68 % (42-75); PLATELET COUNT 274 10^3/uL (130-400); RED BLOOD COUNT 3.91 10^6/uL (4.35-5.85); RED CELL DISTRIBUTION WIDTH 14.9 % (10.0-14.5); WHITE BLOOD COUNT 6.7 10^3/uL (4.3-11.0)
[2016-11-11 07:24] LABS: ALBUMIN 3.7 G/DL (3.2-4.5); ANION GAP 16 MMOL/L (5-14); BLOOD UREA NITROGEN 11 MG/DL (7-18); BUN/CREATININE RATIO 15; CALCIUM 9.4 MG/DL (8.5-10.1); CARBON DIOXIDE 14 MMOL/L (21-32); CHLORIDE 109 MMOL/L (98-107); CREATININE SERUM 0.71 MG/DL (0.60-1.30); GFR ESTIMATED > 60; GLUCOSE 121 MG/DL (70-105); MAGNESIUM 1.5 MG/DL (1.8-2.4); PHOSPHORUS 3.1 MG/DL (2.3-4.7); POTASSIUM 4.3 MMOL/L (3.6-5.0); SODIUM 139 MMOL/L (135-145)
[2016-11-11 08:00] VITALS: BP 108/59
[2016-11-11] MEDS: LORazepam 0.5 MG (ATIVAN) TABLET PO PRN ×2 (08:39→20:58)
[2016-11-11] MEDS: MAGNESIUM OXIDE (MAG-OX)400 MG TAB PO SCH ×2 (08:39→20:39)
[2016-11-11] MEDS: NS W/KCL 20 MEQ/L 1,000 ML IV SCH ×2 (10:09→22:51)
--- NOTE | 2016-11-11 13:49 | Progress Note (SOAP) ---
Subjective Date Seen by Provider: Nov 11, 2016 Time Seen by Provider: 13:44 Subjective/Events-last exam Fwup UTI and confusion r/t chronic narcotic use and underlying psychiatric illness; DMII; C/o frequent stools Objective Exam Vital Signs Date Time Temp Pulse Resp B/P (MAP) Pulse Ox O2 Delivery O2 Flow Rate FiO2 11/11/16 08:48 Room Air 11/11/16 08:00 98.2 111 20 108/59 97 Room Air 11/10/16 23:25 98.3 116 16 162/95 96 Room Air 11/10/16 20:00 Room Air 11/10/16 18:57 Room Air 11/10/16 16:00 98.0 122 136/65 100 I & O 11/11/16 07:00 Intake Total 2700 ml Output Total 3150 ml Balance -450 ml Capillary Refill : Less Than 3 Seconds General Appearance: No Apparent Distress, Obese HEENT: No PERRL/EOMI, No TMs Normal, No Normal ENT Inspection, No Pharynx Normal, No Pale Conjunctivae (L), No Pale Conjunctivae (R), No Pharyngeal Erythema, No Photophobia, No Scleral Icterus (L), No Scleral Icterus (R), No TM Abnormal (L), No TM Abnormal (R), No Tonsillar Exudate, No Tonsillar Enlargement , No Other Neck: Supple Respiratory: Lungs Clear, No Respiratory Distress Cardiovascular: Regular Rate, Rhythm Peripheral Pulses: 2+ Dorsalis Pedis (R), 2+ Left Dors-Pedis (L) Gastrointestinal: normal bowel sounds, soft Extremity: Non Tender, No Calf Tenderness, No Pedal Edema Neurologic/Psychiatric: Alert, Other (Flat affect) Skin: Normal Color, Warm/Dry Results Lab Laboratory Tests 11/10/16 14:12: Glucometer 158H 11/10/16 20:58: Glucometer 138H 11/11/16 05:07: Glucometer 125H 11/11/16 06:54: White Blood Count 6.7, Red Blood Count 3.91L, Hemoglobin 11.1L, Hematocrit 33L, Mean Corpuscular Volume 85, Mean Corpuscular Hemoglobin 28, Mean Corpuscular Hemoglobin Concent 33, Red Cell Distribution Width 14.9H, Platelet Count 274, Mean Platelet Volume 9.7, Neutrophils (%) (Auto) 68, Lymphocytes (%) (Auto) 23, Monocytes (%) (Auto) 8, Eosinophils (%) (Auto) 2, Basophils (%) (Auto) 0, Neutrophils # (Auto) 4.5, Lymphocytes # (Auto) 1.5, Monocytes # (Auto) 0.6, Eosinophils # (Auto) 0.1, Basophils # (Auto) 0.0, Sodium Level 139, Potassium Level 4.3, Chloride Level 109H, Carbon Dioxide Level 14L, Anion Gap 16H, Blood Urea Nitrogen 11, Creatinine 0.71, Estimat Glomerular Filtration Rate > 60, BUN/ Creatinine Ratio 15, Glucose Level 121H, Calcium Level 9.4, Phosphorus Level 3.1 , Magnesium Level 1.5L, Albumin 3.7 11/11/16 10:46: Glucometer 297H Microbiology 11/08/16 Blood Culture - Preliminary, Resulted No growth 11/08/16 Urine Culture - Final, Complete Escherichia Coli Assessment/Plan Assessment/Plan Assess & Plan/Chief Complaint 1. Confusion r/t r/t chronic narcotic use and underlying psychiatric illness- awaiting psych evaluation. 2. UTI c E. coli- Continue Rocephin. 3. DMII insulin requiring- Continue levemir and SSI. 4. Frequent stools- check C. diff stool culture and add lactobacillus. Clinical Quality Measures DVT/VTE Risk/Contraindication: Risk Factor Score Per Nursin RFS Level Per Nursing on Admit: 4+=Very High ANNETTE MAURICE DO Nov 11, 2016 13:49
[2016-11-11] MEDS: LACTOBACILLUS Acidoph/Bulgar (LACTINEX/FLORANEX) TAB PO SCH (15:10)
[2016-11-11 16:41] VITALS: BP 130/66
[2016-11-11] MEDS: cefTRIAXone INJECTION 1,000 MG in NS (IVPB) 50 ML IV SCH (20:38)
[2016-11-11] MEDS: AMITRIPTYLINE 50 MG (ELAVIL) TAB PO PRN (20:39)
[2016-11-11] MEDS: inSUlin DETERMIR 1 UNIT/0.01 ML (LEVEMIR) CHARGE PER UNIT SQ SCH (21:56)
[2016-11-12 00:29] VITALS: BP 123/66
[2016-11-12] MEDS: LACTOBACILLUS Acidoph/Bulgar (LACTINEX/FLORANEX) TAB PO SCH ×3 (05:52→15:35)
[2016-11-12] MEDS: inSUlin ASPART (NovoLOG) 1 UNIT/0.01 ML (CHARGE PER UNIT) SC SCH ×4 (06:45→21:07)
[2016-11-12] MEDS: MAGNESIUM OXIDE (MAG-OX)400 MG TAB PO SCH ×2 (08:15→20:49)
[2016-11-12 08:35] VITALS: BP 121/58
[2016-11-12] MEDS: NS W/KCL 20 MEQ/L 1,000 ML IV SCH ×2 (11:00→22:51)
--- NOTE | 2016-11-12 12:34 | Progress Note (SOAP) ---
Subjective Date Seen by Provider: Nov 12, 2016 Time Seen by Provider: 12:31 Subjective/Events-last exam Fwup UTI and confusion r/t chronic narcotic use and underlying psychiatric illness; DMI with history of noncompliance and frequent DKA; still with frequent stools--C. Diff negative. Review of Systems General: Fatigue Gastrointestinal: Diarrhea Neurological: Weakness Objective Exam Vital Signs Date Time Temp Pulse Resp B/P (MAP) Pulse Ox O2 Delivery O2 Flow Rate FiO2 11/12/16 09:00 Room Air 11/12/16 08:35 96.6 98 18 121/58 93 Room Air 11/12/16 07:52 92 11/12/16 00:29 96.3 104 20 123/66 94 Room Air 11/11/16 21:00 Room Air 11/11/16 18:39 Room Air 11/11/16 16:41 98.0 109 20 130/66 94 Room Air I & O 11/12/16 07:00 Intake Total 1670 ml Output Total 2300 ml Balance -630 ml Capillary Refill : Less Than 3 Seconds General Appearance: No Apparent Distress Neck: Supple Respiratory: Lungs Clear Cardiovascular: Regular Rate, Rhythm Gastrointestinal: normal bowel sounds, non tender, soft Extremity: Non Tender, No Calf Tenderness, No Pedal Edema Neurologic/Psychiatric: Alert, Oriented x3 Results Lab Laboratory Tests 11/11/16 14:50: Glucometer 217H 11/11/16 21:39: Glucometer 329H 11/12/16 05:54: Glucometer 178H 11/12/16 10:59: Glucometer 260H Microbiology 11/08/16 Blood Culture - Preliminary, Resulted No growth 11/12/16 C. difficile GDH Antigen & Toxins - Final, Complete 11/08/16 Urine Culture - Final, Complete Escherichia Coli Assessment/Plan Assessment/Plan Assess & Plan/Chief Complaint 1. Confusion r/t r/t chronic narcotic use and underlying psychiatric illness- awaiting psych evaluation placement tomorrow 2. UTI c E. coli- Continue Rocephin 3. DMII insulin requiring- Continue levemir and SSI. 4. Frequent stools- C. diff stool negative so likely from antibiotics so will give immodium and continue lactobacillus. Clinical Quality Measures DVT/VTE Risk/Contraindication: Risk Factor Score Per Nursin RFS Level Per Nursing on Admit: 4+=Very High ANNETTE MAURICE DO Nov 12, 2016 12:34
[2016-11-12] MEDS ORDERED: LOPERAMIDE 2 MG (IMODIUM) CAP PO NR (12:48)
[2016-11-12 16:03] VITALS: BP 107/73
[2016-11-12] MEDS: LORazepam 0.5 MG (ATIVAN) TABLET PO PRN (16:14)
[2016-11-12] MEDS: cefTRIAXone INJECTION 1,000 MG in NS (IVPB) 50 ML IV SCH (20:49)
[2016-11-12] MEDS: AMITRIPTYLINE 50 MG (ELAVIL) TAB PO PRN (20:49)
[2016-11-12] MEDS: inSUlin DETERMIR 1 UNIT/0.01 ML (LEVEMIR) CHARGE PER UNIT SQ SCH (21:07)
[2016-11-12 23:57] VITALS: BP 112/65
[2016-11-13] MEDS: inSUlin ASPART (NovoLOG) 1 UNIT/0.01 ML (CHARGE PER UNIT) SC SCH ×4 (05:10→21:14)
[2016-11-13] MEDS: LACTOBACILLUS Acidoph/Bulgar (LACTINEX/FLORANEX) TAB PO SCH ×3 (05:32→16:36)
[2016-11-13 06:42] LABS: ANION GAP 11 MMOL/L (5-14); BLOOD UREA NITROGEN 9 MG/DL (7-18); BUN/CREATININE RATIO 13; CALCIUM 9.2 MG/DL (8.5-10.1); CARBON DIOXIDE 21 MMOL/L (21-32); CHLORIDE 106 MMOL/L (98-107); GFR ESTIMATED > 60; GLUCOSE 131 MG/DL (70-105); MAGNESIUM 1.4 MG/DL (1.8-2.4); POTASSIUM 4.6 MMOL/L (3.6-5.0); SODIUM 138 MMOL/L (135-145)
[2016-11-13] MEDS: LORazepam 0.5 MG (ATIVAN) TABLET PO PRN ×2 (07:59→19:37)
[2016-11-13] MEDS: MAGNESIUM OXIDE (MAG-OX)400 MG TAB PO SCH ×2 (08:00→21:13)
[2016-11-13 08:06] VITALS: BP 98/63
--- NOTE | 2016-11-13 08:32 | Progress Note (SOAP) ---
Subjective Subjective Date Seen by Provider: Nov 13, 2016 Time Seen by Provider: 08:26 55 yo F admitted for encephalopathy- improving -Pt was a little tearful this AM- would rather than going to a psych unit- she is worried she won't get out. Currently the NH in [facility] has been saying no to admission. -Pt also has a headache and would like some acetaminophen. Review of Systems General: Fatigue HEENT: No Head Aches, No Visual Changes Pulmonary: No Dyspnea, No Cough Cardiovascular: No: Chest Pain, Palpitations Gastrointestinal: Diarrhea Genitourinary: No Dysuria, No Frequency Musculoskeletal: back pain, No: shoulder pain Neurological: Weakness Objective Exam Vital Signs Vital Signs Date Time Temp Pulse Resp B/P (MAP) Pulse Ox O2 Delivery O2 Flow Rate FiO2 11/13/16 08:06 97.5 102 18 98/63 96 Room Air 11/13/16 06:54 Room Air 11/13/16 04:00 97.6 11/12/16 23:57 100.0 101 18 112/65 92 Room Air 11/12/16 20:50 Room Air 11/12/16 18:22 Room Air 11/12/16 16:03 98.7 102 18 107/73 95 Room Air 11/12/16 09:00 Room Air 11/12/16 08:35 96.6 98 18 121/58 93 Room Air I & O 11/13/16 07:00 Intake Total 3660 ml Output Total 3600 ml Balance 60 ml General Appearance: No Apparent Distress HEENT: PERRL/EOMI Neck: Supple Respiratory: Chest Non Tender, Lungs Clear, Normal Breath Sounds, No Accessory Muscle Use, No Respiratory Distress Cardiovascular: Regular Rate, Rhythm, No Edema Gastrointestinal: Non Tender, Soft Rectal: Deferred Back: No CVA Tenderness Extremity: Non Tender, No Calf Tenderness, No Pedal Edema Neurologic/Psychiatric: Alert, Oriented x3 Skin: Normal Color, Warm/Dry Results Lab Laboratory Tests 11/12/16 10:59: Glucometer 260H 11/12/16 15:04: Glucometer 178H 11/12/16 20:55: Glucometer 285H 11/13/16 05:09: Glucometer 136H 11/13/16 05:45: Sodium Level 138, Potassium Level 4.6, Chloride Level 106, Carbon Dioxide Level 21, Anion Gap 11, Blood Urea Nitrogen 9, Creatinine 0.70, Estimat Glomerular Filtration Rate > 60, BUN/Creatinine Ratio 13, Glucose Level 131H, Calcium Level 9.2, Magnesium Level 1.4L Microbiology 11/08/16 Blood Culture - Preliminary, Resulted No growth 11/12/16 C. difficile GDH Antigen & Toxins - Final, Complete 11/08/16 Urine Culture - Final, Complete Escherichia Coli Assessment/Plan Assessment/Plan Assessment/Plan 55 yo F *encephalopathy due to psych, UTI and medication overuse- treating uti- mentation nearing baseline *UTI- continue rocephin- one more day UC Ecoli, IVF *DMII, hyperglycemia- 20 units qhs levemir, SSI B - *hypomagnesemia- replacing iv and po- rechecking in AM *hypokalemia- replacing prn *weakness/deconditioning- improving *recurrent depression- monitor status- psych eval 11/10/16- recommends inpatient admission- *anemia of chronic disease- stable- *diarrhea- probiotics, loperamide- Cdiff negative Dispo: case management consulted for placement (denied acceptance to [facility], [facility], [facility] not interested either)- -goal of discharge 11/12/16 -Psych eval performed 11/10/16 recommendation of inpatient psych stay- as pt has suicidal thoughts. -Patient is medically stable for transfer- UTI improved, encephalopathy resolved. Problems: Clinical Quality Measures DVT/VTE Risk/Contraindication: Risk Factor Score Per Nursin RFS Level Per Nursing on Admit: 4+=Very High NALDO MARQUEZ MD Nov 13, 2016 08:32
[2016-11-13] MEDS: MAGNESIUM 1 GM/100 ML IVPB 100 ML IV SCH ×3 (08:53→09:57)
[2016-11-13] MEDS: ACETAMINOPHEN 325 MG TABLET/CAPLET (TYLENOL) PO PRN ×2 (08:53→18:20)
[2016-11-13 16:21] VITALS: BP 104/70
[2016-11-13] MEDS: NICOTINE 21 MG (NICODERM) PATCH TD SCH (19:37)
[2016-11-13] MEDS: AMITRIPTYLINE 50 MG (ELAVIL) TAB PO PRN (21:14)
[2016-11-13] MEDS: cefTRIAXone INJECTION 1,000 MG in NS (IVPB) 50 ML IV SCH (21:14)
[2016-11-13] MEDS: inSUlin DETERMIR 1 UNIT/0.01 ML (LEVEMIR) CHARGE PER UNIT SQ SCH (21:15)
[2016-11-13] MEDS: LOPERAMIDE 2 MG (IMODIUM) CAP PO PRN (23:35)
[2016-11-14 00:32] VITALS: BP 139/67
[2016-11-14] MEDS: ACETAMINOPHEN 325 MG TABLET/CAPLET (TYLENOL) PO PRN ×2 (02:27→09:09)
[2016-11-14] MEDS: inSUlin ASPART (NovoLOG) 1 UNIT/0.01 ML (CHARGE PER UNIT) SC SCH ×4 (05:03→20:45)
[2016-11-14] MEDS: LACTOBACILLUS Acidoph/Bulgar (LACTINEX/FLORANEX) TAB PO SCH ×3 (05:17→15:51)
[2016-11-14 07:46] VITALS: BP 99/59
[2016-11-14] MEDS: NICOTINE 21 MG (NICODERM) PATCH TD SCH (09:09)
[2016-11-14] MEDS: MAGNESIUM OXIDE (MAG-OX)400 MG TAB PO SCH ×2 (09:09→20:45)
[2016-11-14] MEDS: NICOTINE PATCH REMOVAL TP SCH (09:10)
--- NOTE | 2016-11-14 09:27 | Progress Note (SOAP) ---
Subjective Subjective Date Seen by Provider: Nov 14, 2016 (N) Time Seen by Provider: 09:20 55 yo F admitted for encephalopathy- resolved- Pt is clear thinking. She reports if she went to a facility she would only get to keep $62 of her disability check. She reports she wants to go home and pay a friend to take care of her. Review of Systems General: Fatigue HEENT: No Head Aches, No Visual Changes Pulmonary: No Dyspnea, No Cough Cardiovascular: No: Chest Pain, Palpitations Gastrointestinal: No: Nausea, Vomiting Genitourinary: No Dysuria, No Frequency Musculoskeletal: back pain Neurological: Weakness Objective Exam Vital Signs Vital Signs Date Time Temp Pulse Resp B/P (MAP) Pulse Ox O2 Delivery O2 Flow Rate FiO2 11/14/16 07:46 97.3 92 16 99/59 92 Room Air 11/14/16 00:32 98.0 99 16 139/67 92 Room Air 0.00 11/13/16 20:01 Room Air 11/13/16 16:21 98.6 88 20 104/70 98 Room Air I & O 11/14/16 07:00 Intake Total 2262 ml Output Total 4425 ml Balance -2163 ml General Appearance: No Apparent Distress HEENT: PERRL/EOMI Neck: Supple Respiratory: Chest Non Tender, Lungs Clear, Normal Breath Sounds, No Accessory Muscle Use, No Respiratory Distress Cardiovascular: Regular Rate, Rhythm, No Edema Gastrointestinal: Non Tender, Soft Rectal: Deferred Back: No CVA Tenderness Extremity: Non Tender, No Calf Tenderness, No Pedal Edema Neurologic/Psychiatric: Alert, Oriented x3 Skin: Normal Color, Warm/Dry Results Lab Laboratory Tests 11/13/16 09:50: Glucometer 327H 11/13/16 14:25: Glucometer 160H 11/13/16 20:59: Glucometer 346H 11/14/16 05:00: Glucometer 109 Microbiology 11/08/16 Blood Culture - Preliminary, Resulted No growth 11/12/16 C. difficile GDH Antigen & Toxins - Final, Complete 11/08/16 Urine Culture - Final, Complete Escherichia Coli Assessment/Plan Assessment/Plan Assessment/Plan 55 yo F *encephalopathy due to psych, UTI and medication overuse- treating uti- mentation at baseline *UTI- continue rocephin- final dose UC Ecoli *DMII, hyperglycemia- 20 units qhs levemir, SSI B - *hypomagnesemia- replacing iv and po- rechecking *hypokalemia- replacing prn *weakness/deconditioning- improving *recurrent depression- monitor status- psych eval 11/10/16- recommends inpatient admission- *anemia of chronic disease- stable- *diarrhea- probiotics, loperamide- Cdiff negative Dispo: case management consulted for placement (denied acceptance to [facility] [place], - [facility], [facility] not interested either)- -Psych eval performed 11/10/16 recommendation of inpatient psych stay- as pt has suicidal thoughts. CM waiting to hear back. [facility] will accept pt after psych admission- -Patient is medically stable for transfer- UTI improved, encephalopathy resolved. -Pt is going to hire a friend as a HONEY PROCESSOR so she can stay home and not lose her SS/ disability check- Informed pt this is not a good plan as the failure rate is high as pt will be in her home environment and accountability will be lacking. Pt can make her own decisions when she is not acutely encephalopathic. Consideration given to proceeding with getting pt a guardian. I recommend pt to go to [facility] after her psych stay as we have proven her health can be managed as demonstrated by the ~3 months she was at [facility] without an admission. Pt has been admitted twice in the past 2 weeks of being out of [facility]. Pt is proceeding with autonomous decision of hiring a friend as a HONEY PROCESSOR (tax accounting assistant). Problems: Clinical Quality Measures DVT/VTE Risk/Contraindication: Risk Factor Score Per Nursin RFS Level Per Nursing on Admit: 4+=Very High NALDO MARQUEZ MD Nov 14, 2016 09:27
[2016-11-14 11:08] LABS: ALBUMIN 3.5 GM/DL (3.2-4.5); ANION GAP 11 MMOL/L (5-14); BLOOD UREA NITROGEN 10 MG/DL (7-18); BUN/CREATININE RATIO 10 (0-20); CALCIUM 9.3 MG/DL (8.5-10.1); CARBON DIOXIDE 26 MMOL/L (21-32); CHLORIDE 100 MMOL/L (98-107); CREATININE SERUM 1.04 MG/DL (0.60-1.30); GFR ESTIMATED 55; GLUCOSE 237 MG/DL (70-105); ICTERUS NN 0.3 (0); LIPEMIA NN 3 (0); MAGNESIUM 1.4 MG/DL (1.8-2.4); PHOSPHORUS 4.3 MG/DL (2.3-4.7); POTASSIUM 4.3 MMOL/L (3.6-5.0); SODIUM 137 MMOL/L (135-145)
[2016-11-14] MEDS: LORazepam 0.5 MG (ATIVAN) TABLET PO PRN ×2 (13:10→20:56)
[2016-11-14] MEDS: LOPERAMIDE 2 MG (IMODIUM) CAP PO PRN (14:58)
[2016-11-14 15:20] VITALS: BP 102/59
[2016-11-14] MEDS ORDERED: ONDANSETRON 4 MG (ZOFRAN) ORAL DISSOLVE TAB PO PRN (17:45)
[2016-11-14] MEDS: MAGNESIUM 1 GM/100 ML IVPB 100 ML IV SCH ×3 (17:48→19:18)
[2016-11-14] MEDS: inSUlin DETERMIR 1 UNIT/0.01 ML (LEVEMIR) CHARGE PER UNIT SQ SCH (20:45)
[2016-11-14] MEDS: cefTRIAXone INJECTION 1,000 MG in NS (IVPB) 50 ML IV SCH (20:45)
[2016-11-14] MEDS: AMITRIPTYLINE 50 MG (ELAVIL) TAB PO PRN (20:56)
[2016-11-14 23:20] VITALS: BP 114/60
[2016-11-15] MEDS: inSUlin ASPART (NovoLOG) 1 UNIT/0.01 ML (CHARGE PER UNIT) SC SCH ×2 (05:15→11:38)
[2016-11-15 05:37] LABS: ALBUMIN 3.6 GM/DL (3.2-4.5); ANION GAP 14 MMOL/L (5-14); BLOOD UREA NITROGEN 10 MG/DL (7-18); BUN/CREATININE RATIO 13 (0-20); CALCIUM 9.9 MG/DL (8.5-10.1); CARBON DIOXIDE 24 MMOL/L (21-32); CHLORIDE 100 MMOL/L (98-107); CREATININE SERUM 0.76 MG/DL (0.60-1.30); GFR ESTIMATED > 60; GLUCOSE 111 MG/DL (70-105); MAGNESIUM 1.9 MG/DL (1.8-2.4); PHOSPHORUS 4.2 MG/DL (2.3-4.7); SODIUM 138 MMOL/L (135-145)
[2016-11-15] MEDS: LACTOBACILLUS Acidoph/Bulgar (LACTINEX/FLORANEX) TAB PO SCH ×2 (05:52→11:38)
[2016-11-15] MEDS: ACETAMINOPHEN 325 MG TABLET/CAPLET (TYLENOL) PO PRN (05:55)
[2016-11-15 07:51] VITALS: BP 97/65
[2016-11-15] MEDS: MAGNESIUM OXIDE (MAG-OX)400 MG TAB PO SCH (09:48)
[2016-11-15] MEDS: NICOTINE PATCH REMOVAL TP SCH (09:48)
[2016-11-15] MEDS: NICOTINE 21 MG (NICODERM) PATCH TD SCH (09:48)
--- NOTE | 2016-11-15 11:53 | Discharge Summary ---
Diagnosis/Chief Complaint Date of Admission Nov 08, 2016 at 21:45 Date of Discharge November 15, 2016 Admission Diagnosis Admission Diagnosis *encephalopathy *UTI- *DMII, hyperglycemia- *hypomagnesemia- *hypokalemia- *weakness/deconditioning- *anemia of chronic disease- Discharge Diagnosis *encephalopathy *UTI- *DMII, hyperglycemia- *hypomagnesemia- resolved *hypokalemia- resolved *weakness/deconditioning- improving *recurrent depression- *anemia of chronic disease- stable- *diarrhea- resolved Reason Hospital Visit 55 yo F Re-admitted for acute renal failure likely due to dehydration and urinary tract infection. Pt was found by family members to have sat on the toilet from 10am to 5pm yesterday- confused. I went and saw pt at her home yesterday around 1030am- She reports she was not done using the restroom and refused to get off the toilet. She was able to stand up but sat back down. I did place her walker in front of her. [facility] because pt's daughter reported her confusion had worsened. Suspect her encephalopathy is from her UTI and medication overuse. EMS reported temp of 99F. Pt is unable to care for herself. UA indicated a UTI. Mag level was 1.3. 4+ketones in urine. Bicarb was low at 14. I did speak with pt's daughter yesterday and we are in the process of putting Eri in a halfway for long term- I will not be writing orders for discharge to home- she would have to leave [place]. Referrals have been sent to [facility] and [place]. Pt was admitted for overnight observation 11/06-11/07/16 for encephalopathy that improved and she was discharged to home - she did have a orta overnight of which she pulled out- this possibly may be why she has a UTI now. Discharge Summary Hospital Course Hospital Course 55 yo F admitted for *encephalopathy due to psych, UTI and medication overuse- Encephalopathy resolved with treating the underlying issues. At discharge her mentation was at baseline. Pt's urinary tract infection was treated with rocephin. Insulin was continued for her diabetes- will continue to adjust in outpt setting as her eating habits will return when she gets home requiring higher dosage of insulin. As for her electrolyte derangements we replaced both magnesium and potassium. Prior to discharge pt was able to get up and take care of herself with the use of a walker. Plans were made for an inpatient psych admission- We were unable to secure a bed at a facility. Of note pt did have a psych eval on 11/10/16 and did admit to suicidal ideation. She was no longer considering it as she has her family to live for. Pt denied a current plan but had mentioned to her boyfriend to get a gun. Pt does not want to go to a psych munoz nor does she want to go to a halfway. She would lose all but $62 dollars of income- she is going to hire a printer floor covering assistant to keep her out of the hospital. I and JULIANO Ma discussed multiple times with pt she should be in a halfway given her track record of admissions to [facility]. Pt understands but the finances is a big issue to her. Eri is a smart woman who is capable of making her own decisions as she does have good reasoning- so I will not be forcing her to go to a halfway. Pt was deemed stable for discharge 09/15/16. Follow up in 1 week with [facility]. Record blood sugars. Labs Laboratory Tests 11/14/16 14:55: Glucometer 269H 11/14/16 20:22: Glucometer 322H 11/15/16 03:52: Glucose Level 111H, Hemoglobin A1c < 4.0L 11/15/16 05:11: Glucometer 138H 11/15/16 11:06: Glucometer 328H 11/15/16 14:59: Glucometer 241H Procedures None. Discharge Physical Examination Allergies: Coded Allergies: No Known Drug Allergies (Unverified , 11/24/09) Vitals & I&Os Vital Signs Date Time Temp Pulse Resp B/P (MAP) Pulse Ox O2 Delivery O2 Flow Rate FiO2 11/15/16 15:20 87 16 97/65 92 Room Air 0.00 11/15/16 07:51 98.9 General Appearance: Alert, Oriented X3 HEENT: Atraumatic, PERRLA Respiratory: Clear to Auscultation Cardiovascular: Regular Rate Abdominal: Normal Bowel Sounds, Soft Extremities: No Clubbing Skin: No Rashes Neuro: Normal Gait Psych/Mental Status: Mental Status NL, Mood NL Discharge Home Medications Reviewed and agree with Discharge Medication list on patient's Discharge Instruction sheet Condition at Discharge stable Instructions to Patient/Family Please see electronic discharge instructions given to patient. Clinical Quality Measures DVT/VTE Risk/Contraindication: Risk Factor Score Per Nursin RFS Level Per Nursing on Admit: 4+=Very High NALDO MARQUEZ MD Nov 15, 2016 11:52
--- NOTE | 2016-11-15 11:58 | Discharge Inst-Simple/Standard ---
Discharge Inst-Standard Discharge Medications New, Converted or Re-Newed RX: Other (no new medications- d/c lorazepam, hydrocodone) Patient Instructions/Follow Up Plan of Care/Instructions/FU: Follow up at [facility] in 2 weeks Call [facility] tomorrow and report blood sugar readings. Essential that pt utilize her hired care provider to prevent re-admission; Activity as Tolerated: Yes Discharge Diet: Eat Small Frequent Meals Return to The Hospital For: new concerns NALDO MARQUEZ MD Nov 15, 2016 11:58
[2016-11-15 15:20] VITALS: BP 97/65
== END 2016-11-15 15:20 | disposition home or self-care (01) | DRG 71 ==
LOC: EDUNIT# 20:13 → ER 20:17 → 4TH 21:45
PROVIDERS: ADMIT Family Medicine; ATTEND Family Medicine
DX: G93.40 Encephalopathy, unspecified (principal); N17.9 Acute kidney failure, unspecified; N39.0 Urinary tract infection, site not specified; E86.0 Dehydration; F33.2 Major depressive disorder, recurrent severe without psychotic features; F05 Delirium due to known physiological condition; E11.65 Type 2 diabetes mellitus with hyperglycemia; E83.42 Hypomagnesemia; D63.8 Anemia in other chronic diseases classified elsewhere; F17.210 Nicotine dependence, cigarettes, uncomplicated; J44.9 Chronic obstructive pulmonary disease, unspecified; G47.30 Sleep apnea, unspecified; E78.00 Pure hypercholesterolemia, unspecified; I10 Essential (primary) hypertension; K21.9 Gastro-esophageal reflux disease without esophagitis; F41.9 Anxiety disorder, unspecified; R53.1 Weakness; Z79.4 Long term (current) use of insulin; Z91.14 Patient's other noncompliance with medication regimen; B96.20 Unspecified Escherichia coli [E. coli] as the cause of diseases classified elsewhere; F11.90 Opioid use, unspecified, uncomplicated; R19.7 Diarrhea, unspecified; E87.6 Hypokalemia
CPT/HCPCS: 36415; 70450; 71010; 80048; 80053; 80069; 81000; 82550; 82962; 83036; 83605; 83735; 84484; 85007; 85025; 85027; 85610; 85730; 87040; 87077; 87088; 87186; 87324; 87449; 93005; 94760; 96361; 96365

== ENCOUNTER 2016-11-19 20:51 | Inpatient (IN) | payer OTHER, MEDICAID ==
[2016-11-19] MEDS ORDERED: NS IV 1000 ML 1,000 ML ONE (22:31)
[2016-11-19] MEDS ORDERED: NS IV 1000 ML 1,000 ML IV ONE (22:35)
[2016-11-19] MEDS: MAGNESIUM 1 GM/100 ML IVPB 100 ML IV SCH (23:42)
[2016-11-20] MEDS: MAGNESIUM 1 GM/100 ML IVPB 100 ML IV SCH (00:14)
[2016-11-20] MEDS ORDERED: D5 1/2 NS W/KCL 10 MEQ/L 1,000 ML IV ONE (02:52)
[2016-11-20] MEDS ORDERED: D5 1/2 NS W/KCL 10 MEQ/L 1,000 ML IV SCH (03:15)
[2016-11-20] MEDS: inSUlin (REGULAR) HUMAN 1 UNIT/0.01 ML (CHARGE PER UNIT) SC SCH ×3 (07:32→18:48)
[2016-11-20] MEDS: NS W/KCL 20 MEQ/L 1,000 ML IV SCH ×2 (09:22→19:26)
[2016-11-20] MEDS: ENOXAPARIN 40 MG/0.4 ML (LOVENOX) SYR SC SCH (09:35)
[2016-11-20] MEDS: ACETAMINOPHEN 500 MG TAB (TYLENOL) PO PRN (23:58)
[2016-11-21] MEDS: inSUlin (REGULAR) HUMAN 1 UNIT/0.01 ML (CHARGE PER UNIT) SC SCH ×5 (00:03→20:33)
[2016-11-21] MEDS: NS W/KCL 20 MEQ/L 1,000 ML IV SCH (04:56)
[2016-11-21] MEDS: ENOXAPARIN 40 MG/0.4 ML (LOVENOX) SYR SC SCH (08:09)
[2016-11-21] MEDS: ACETAMINOPHEN 500 MG TAB (TYLENOL) PO PRN ×3 (08:09→23:54)
[2016-11-21] MEDS: MAGNESIUM 1 GM/100 ML IVPB 100 ML IV SCH ×4 (10:37→14:11)
[2016-11-22] MEDS: inSUlin (REGULAR) HUMAN 1 UNIT/0.01 ML (CHARGE PER UNIT) SC SCH (05:53)
[2016-11-22] MEDS: ACETAMINOPHEN 500 MG TAB (TYLENOL) PO PRN ×2 (08:00→17:25)
[2016-11-22] MEDS: ENOXAPARIN 40 MG/0.4 ML (LOVENOX) SYR SC SCH (08:00)
[2016-11-22] MEDS: MAGNESIUM OXIDE (MAG-OX)400 MG TAB PO SCH ×2 (09:04→17:23)
[2016-11-22] MEDS: MAGNESIUM 1 GM/100 ML IVPB 100 ML IV SCH ×2 (09:05→10:50)
[2016-11-22] MEDS: NICOTINE 21 MG (NICODERM) PATCH TD SCH (09:27)
[2016-11-22] MEDS: inSUlin ASPART (NovoLOG) 1 UNIT/0.01 ML (CHARGE PER UNIT) SC SCH ×3 (10:55→21:47)
[2016-11-22] MEDS: IBUPROFEN TABLET 200 MG TAB PO PRN (16:25)
[2016-11-22] MEDS ORDERED: inSUlin DETERMIR 1 UNIT/0.01 ML (LEVEMIR) CHARGE PER UNIT SQ SCH (21:00)
[2016-11-22] MEDS ORDERED: AMITRIPTYLINE 50 MG (ELAVIL) TAB PO SCH (21:00)
[2016-11-23] MEDS: IBUPROFEN TABLET 200 MG TAB PO PRN (00:16)
[2016-11-23] MEDS: ACETAMINOPHEN 500 MG TAB (TYLENOL) PO PRN ×2 (02:02→12:23)
[2016-11-23] MEDS: inSUlin ASPART (NovoLOG) 1 UNIT/0.01 ML (CHARGE PER UNIT) SC SCH ×2 (05:18→11:33)
[2016-11-23] MEDS: ENOXAPARIN 40 MG/0.4 ML (LOVENOX) SYR SC SCH (08:39)
[2016-11-23] MEDS: NICOTINE 21 MG (NICODERM) PATCH TD SCH (08:39)
[2016-11-23] MEDS: MAGNESIUM OXIDE (MAG-OX)400 MG TAB PO SCH (08:39)
[2016-11-23] MEDS ORDERED: INSU100V5 SQ (08:52)
[2016-11-23] MEDS ORDERED: NICOTINE PATCH REMOVAL TP SCH (08:59)
[2016-11-23] MEDS ORDERED: NITR-65 PO (12:16)
[2016-11-23] MEDS ORDERED: NCT21TD TD (12:33)
[2016-11-23] MEDS ORDERED: NITR50CA PO (12:33)
[2016-11-23] MEDS ORDERED: NITROFURANTOIN 50 MG (MACRODANTIN) CAP PO SCH (14:00)
== END 2016-11-23 14:25 | DRG 72 ==
DX: G93.40 Encephalopathy, unspecified (principal); E83.42 Hypomagnesemia; E87.6 Hypokalemia; S13.9XXA Sprain of joints and ligaments of unspecified parts of neck, initial encounter; R51 Headache; R53.1 Weakness; E11.65 Type 2 diabetes mellitus with hyperglycemia; F17.210 Nicotine dependence, cigarettes, uncomplicated; D63.8 Anemia in other chronic diseases classified elsewhere; J44.9 Chronic obstructive pulmonary disease, unspecified; E78.00 Pure hypercholesterolemia, unspecified; I10 Essential (primary) hypertension; K21.9 Gastro-esophageal reflux disease without esophagitis; M81.0 Age-related osteoporosis without current pathological fracture; F41.9 Anxiety disorder, unspecified; F32.9 Major depressive disorder, single episode, unspecified; V47.5XXA Car driver injured in collision with fixed or stationary object in traffic accident, initial encounter; Z79.4 Long term (current) use of insulin

== ENCOUNTER 2016-12-07 11:32 | Inpatient (IN) | payer MEDICAID ==
[~2016-12-07] VITALS: Ht 175.3 cm; Wt 91.6 kg
[2016-12-07] VITALS (9 sets, daily range): BP systolic 96–151; BP diastolic 59–87
[~2016-12-07 11:32] MED LIST changes: -NCT14P TD; -NCT21TD TD; +NICO-587 TD; +NICO-588 TD; +NITR50CA PO
--- OUTSIDE RECORDS SUMMARY | 2016-12-07 11:39 | XMS REPORT | Continuity of Care Document ---
Author Author [facility] Organization [facility] Address Unknown Phone Unavailable Care Team Providers Care Solar Sales Estimator Name Role Phone Burt Rivera PCP [phone] Source Comments Some departments are not documenting in the electronic medical record. If you do not see the information that you expected, contact Release of Information in the Health Information Management department at [phone] for further assistance in locating additional records.[facility] Active Allergies and Adverse Reactions No [...] Health Maintenance Due Date Last Done Comments Hepatitis C Screening 1962 Physical (Comprehensive) 1969 Exam Pertussis Vaccine 1973 Tetanus Vaccine 12/24/1979 Cervical Cancer Screening 12/24/1983 Breast Cancer Screening 2002 Colorectal Cancer 2012 Screening Influenza Vaccine 02/02/2017 Results from Last 3 Months Not on file
[2016-12-07 11:59] LABS: BILIRUBIN,URINE NEGATIVE (NEGATIVE); KETONES,URINE NEGATIVE (NEGATIVE); LEUKOCYTE ESTERASE ,URINE 2+ (NEGATIVE); NITRITE,URINE NEGATIVE (NEGATIVE); PH,URINE 6.5 (5-9); PROTEIN,URINE 1+ (NEGATIVE); UROBILINOGEN,URINE NORMAL (NORMAL)
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
[2016-12-07] MEDS ORDERED: NS IV 1000 ML 1,000 ML IV ONE (12:04)
[2016-12-07 12:07] LABS: SQUAMOUS EPITHELIAL CELL,UR 0-2 /HPF; WBC,URINE 0-2 /HPF
[2016-12-07] MEDS ORDERED: ONDANSETRON 4 MG/2 ML (SDV) Z0FRAN ONE (12:27)
[2016-12-07] MEDS ORDERED: ONDANSETRON 4 MG/2 ML (SDV) Z0FRAN IVP ONE (12:45)
[2016-12-07 13:03] LABS: BASOPHILS % (AUTO) 0 % (0-10); EOSINOPHILS # (AUTO) 0.1 10^3/uL (0.0-0.3); EOSINOPHILS % (AUTO) 1 % (0-10); LYMPHOCYTES # (AUTO) 2.1 X 10^3 (1.0-4.0); LYMPHOCYTES % (AUTO) 31 % (12-44); MEAN CORPUSCULAR HEMOGLOBIN 28 PG (25-34); MEAN CORPUSCULAR HGB CONC 33 G/DL (32-36); MEAN CORPUSCULAR VOLUME 84 FL (80-99); MEAN PLATELET VOLUME 10.3 FL (7.4-10.4); MONOCYTES # (AUTO) 0.5 X 10^3 (0.0-1.0); MONOCYTES % (AUTO) 7 % (0-12); NEUTROPHILS % (AUTO) 60 % (42-75); PLATELET COUNT 276 10^3/uL (130-400); RED BLOOD COUNT 4.52 10^6/uL (4.35-5.85); RED CELL DISTRIBUTION WIDTH 14.9 % (10.0-14.5); WHITE BLOOD COUNT 6.6 10^3/uL (4.3-11.0)
[2016-12-07 13:14] LABS: ALANINE AMINOTRANSFERASE 37 U/L (0-55); ALBUMIN 4.2 GM/DL (3.2-4.5); ALCOHOL < 10 MG/DL (<10); AMMONIA 19 UMOL/L (11-32); ANION GAP 13 MMOL/L (5-14); ASPARTATE AMINO TRANSFERASE 40 U/L (5-34); BILIRUBIN,TOTAL 0.3 MG/DL (0.1-1.0); BLOOD UREA NITROGEN 19 MG/DL (7-18); BUN/CREATININE RATIO 21; CALCIUM 10.2 MG/DL (8.5-10.1); CARBON DIOXIDE 25 MMOL/L (21-32); CHLORIDE 102 MMOL/L (98-107); GFR ESTIMATED > 60; GLUCOSE 171 MG/DL (70-105); POTASSIUM 4.2 MMOL/L (3.6-5.0); SALICYLATE < 5.0 MG/DL (5.0-20.0); SODIUM 140 MMOL/L (135-145); TOTAL PROTEIN 7.6 GM/DL (6.4-8.2)
[2016-12-07 13:15] LABS: ACETAMINOPHEN < 10 UG/ML (10-30)
[2016-12-07] MEDS ORDERED: CATHETER FLUSH 10 ML SYR IV PRN (15:15)
[2016-12-07] MEDS ORDERED: ACETAMINOPHEN 325 MG TABLET/CAPLET (TYLENOL) PO PRN (15:15)
[2016-12-07] MEDS ORDERED: DICL100G31 TP (15:52)
[2016-12-07] MEDS ORDERED: BACL10TA PO (15:52)
[2016-12-07] MEDS ORDERED: RANI150T11 PO (15:52)
[2016-12-07] MEDS ORDERED: INSU100I29 SQ (15:52)
[2016-12-07] MEDS: NS IV 1000 ML 1,000 ML IV SCH ×2 (16:48→23:40)
[2016-12-07] MEDS: LORazepam INJ 2 MG/ML (ATIVAN) VIAL IVP PRN ×2 (17:36→23:37)
[2016-12-07] MEDS ORDERED: ONDANSETRON 4 MG (ZOFRAN) ORAL DISSOLVE TAB PO PRN (18:30)
--- NOTE | 2016-12-07 18:32 | History & Physical ---
History of Present Illness History of Present Illness Reason for visit/HPI 55 yo F well known [facility] Inpatient stays- most recently twice in November- She has been resided at [facility] for past 2 weeks- Staff and daughter have reported pt leaves frequently for extended periods of time. Of note, a friend name Linda will take her out and she pointed out that Eri will go to her house and go inside to her old room where she has bags of prescription pills. Staff at [facility]- reports last seeing her normal at 7am. She was found this AM going through other patient's rooms and trash. Staff put her back to bed and then return to her and she was unresponsive but breathing normal. Some abnormal movements. Pt previously had refused to be taken to the ER. While in the ER pt was yelling but alert and oriented to herself. She did vomit. Labs were relatively normal- Alk Phos elevated and UDS +benzo and + TCA. Pt admitted to ICU for further monitoring. Pt was restless in the ICU so she was given 1mg lorazepam and calmed down. She is now lying in hospital bed nude. Date of Admission Dec 07, 2016 at 13:40 Date Seen by Provider: Dec 07, 2016 Time Seen by Provider: 18:15 I consulted on this patient on 12/07/16 18:25 Attending Physician Leonel Marquez MD Admitting Physician Leonel Marquez MD Consult Allergies and Home Medications Allergies Coded Allergies: No Known Drug Allergies (Unverified , 11/24/09) Home Medications Albuterol Sulfate 90 Mcg Aer.pow.ba, 2 PUFF IH Q4H PRN for SHORTNESS OF BREATH, (Reported) Amitriptyline HCl 100 Mg Tablet, 100 MG PO HS, (Reported) Baclofen 10 Mg Tablet, 10 MG PO BID PRN for MUSCLE SPASMS, (Reported) Diclofenac Sodium 100 Gm Gel..gram., 2 GM TP EVERY 2 HOURS PRN for PAIN, ( Reported) Gabapentin 400 Mg Capsule, 400 MG PO TID, (Reported) Insulin Aspart 100 Unit/1 Ml Susp, SQ SLIDING/SCALE, (Reported) 150-200 5 UNITS 201-250 10 UNITS 251-300 15 UNITS 301-350 20 UNITS 351+ CALL PHYSICIAN Insulin Detemir 100 Unit/1 Ml Insuln.pen, 20 UNITS SQ BID, (Reported) Magnesium Oxide 400 Mg Tablet, 400 MG PO BID, (Reported) Ondansetron 4 Mg Tab.rapdis, 4-8 MG PO Q6H PRN for NAUSEA/VOMITING, (Reported) TAKES 1-2 (4 MG) TABLETS Ranitidine HCl 150 Mg Tablet, 75 MG PO BID, (Reported) TAKES 1/2 OF A (150 MG) TABLET Sucralfate 1 Gm Tablet, 1 GM PO ACHS, (Reported) Past Wtgsosk-Beigtg-Buxpbl Hx Patient Social History Marrital Status: Alcohol Use: Denies Use Recreational Drug Use: Yes (TOBACCO) Smoking Status: Current Everyday Smoker Type Used: Cigarettes 2nd Hand Smoke Exposure: No Physical Abuse Screen: No Sexual Abuse: No Recent Foreign Travel: No Contact w/other who traveled: No Recent Hopitalizations: Yes Recent Infectious Disease Expo: No Immunizations Up To Date Tetanus Booster (TDap): Less than 5yrs Date of Pneumonia Vaccine: Apr 04, 2013 Date of Influenza Vaccine: Apr 29, 2016 Seasonal Allergies Seasonal Allergies: No Surgeries HX Surgeries: Yes (HERNIA REPAIR, URETHRAL DILATION? ; PORT RIGHT CHEST ) Surgeries: Abdominal, Appendectomy, Bladder Surgery, Gallbladder, Hysterectomy , Tonsillectomy Respiratory Hx Respiratory Disorders: Yes (O2 AT HS) Respiratory Disorders: COPD Cardiovascular Hx Cardiovascular Disorders: Yes Cardiac Disorders: High Cholesterol, Hypertension Neurological Hx Neurological Disorders: Yes Neurological Disorders: Headaches /Migraines Reproductive System Hx Reproductive Disorders: No Sexually Transmitted Disease: No HIV/AIDS: No Female Reproductive Disorders: Menstrual Problems Genitourinary Hx Genitourinary Disorders: Yes (URETHRAL DILATION) Genitourinary Disorders: Bladder Infection, UTI-Chronic Gastrointestinal Hx Gastrointestinal Disorders: Yes Gastrointestinal Disorders: Gastroesophageal Reflux, Liver Disease/Jaundice, Chronic Diarrhea, Gall Bladder Disease Musculoskeletal Hx Musculoskeletal Disorders: Yes (SCIATICA; CHRONIC PAIN COMPLAINTS) Musculoskeletal Disorders: Degenerate Disk Disease, Osteoporosis, Arthritis, Chronic Back Pain Endocrine Hx Endocrine Disorders: Yes (OBESITY) Endocrine Disorders: Diabetes, Insulin dep HEENT HX ENT Disorders: No Cancer Hx Cancer: No Psychosocial Hx Psychiatric Problems: Yes (EXTENSIVE PSYCH ISSUES; EXCESSIVE MEDICATION USE/ ABUSE/OVERDOSES) Behavioral Health Disorders: Sleep Difficulties, Anxiety, Depression Integumentary HX Skin/Integumentary Disorder: No Blood Transfusions Hx Blood Disorders: Yes (ANEMIA OF CHRONIC DISEASE) Reviewed Nursing Assessment Reviewed/Agree w Nursing PMH: Yes Family Medical History Significant Family History: Asthma, CAD Under 55 Years Old, COPD, Diabetes, Hypertension, Migraines, Psychiatric Problems, Renal Disease, Seizures, Stroke Family Hx: Arthritis Asthma 19 MOTHER Cardiovascular disease 19 MOTHER Completed stroke Coronary thrombosis Diabetes mellitus 19 MOTHER Glaucoma 19 MOTHER Headache disorder 19 MOTHER Hypercholesterolemia 19 MOTHER Hypertension 19 MOTHER Kidney disease Myocardial infarction 19 FATHER 19 MOTHER Neoplasm Psychosocial problem Respiratory disorder Seizure disorder No Family History of: AIDS Abdominal aortic aneurysm Jin's disease Alcoholism Alzheimer's disease Aphasia Cancer of mouth Cataracts Colon cancer Congenital disease Congenital heart disease Cystic fibrosis Deafness or hearing loss Dementia Drug abuse Dysphasia Fibrocystic disease of breast Gastroenteritis Infertility Not obtainable due to adoption Osteoporosis Parkinson's disease Prostate cancer Severe allergy Thyroid disease Tuberculosis Visual disorder Review of Systems Review of Systems ROS Unable to Obtain: pt refusing to talk. All Other Systems Reviewed All Other Systems Reviewed: Yes Physical Exam Vital Signs Vital Sign - Last 12Hours 12/07/16 11:35 Temp 98.2 Pulse 75 Resp 16 B/P (MAP) 141/76 Pulse Ox 98 O2 Delivery Room Air Capillary Refill : Less Than 3 Seconds General Appearance: No Apparent Distress, WD/WN, Other (restless) HEENT: Other (wouldn't not open her eyes) Neck: Non Tender, Supple Respiratory: Chest Non Tender, Lungs Clear, Normal Breath Sounds, No Accessory Muscle Use, No Respiratory Distress Cardiovascular: Regular Rate, Rhythm, No Edema Gastrointestinal: Normal Bowel Sounds, Non Tender, Soft Rectal: Deferred Back: Normal Inspection Extremity: Non Tender, No Calf Tenderness Neurologic/Psychiatric: Other (sedated, disoriented, combative) Skin: Normal Color, Warm/Dry Assessment/Plan Assessment/Plan Assessment/Plan 55 yo F toxic metabolic encephalopathy due to medication overuse- has taken these recently amitriptyline, benzo, baclofen- will monitor in ICU overnight, IVF, lorazepam 1mg IV for agitation or seizure. -Previously pt was on hydrocodone, ativan but I d/c those on last admission. She likely got the benzo from her stash at home. IDDMII with hyperglycemia- accuchecks q6hr, SSI , hga1c, recurrent depression- needs outpt counseling elevated alkaline phosphatase- chronic anemia of chronic disease- stable. DVT ppx: lovenox Dispo: same poor prognosis- [facility] has not proven to be any better than her living at home at this point as pt leaves whenever she wants. As noted in previous notes: [facility] had refused to take her again. Problems: Clinical Quality Measures DVT/VTE Risk/Contraindication: Risk Factor Score Per Nursin RFS Level Per Nursing on Admit: 3=High LEONEL MARQUEZ MD Dec 07, 2016 18:32
[2016-12-07] MEDS: ENOXAPARIN 40 MG/0.4 ML (LOVENOX) SYR SC SCH (19:44)
[2016-12-07] MEDS: MAGNESIUM OXIDE (MAG-OX)400 MG TAB PO SCH ×2 (20:27→21:00)
[2016-12-07] MEDS: FAMOTIDINE 20 MG (PEPCID) TABLET PO SCH ×2 (20:27→21:00)
[2016-12-07] MEDS: SUCRALFATE 1 GM (CARAFATE) TAB PO SCH (20:27)
[2016-12-07] MEDS ORDERED: AMITRIPTYLINE 50 MG (ELAVIL) TAB PO SCH (21:00)
[2016-12-07] MEDS ORDERED: raNItidine (ZANTAC) 150 MG TAB NON-FORMULARY PO SCH (21:00)
[2016-12-08] VITALS (24 sets, daily range): BP systolic 96–178; BP diastolic 58–110
[2016-12-08] MEDS ORDERED: NS (IVPB) 50 ML ONE (04:20)
[2016-12-08] MEDS: DEXMEDETOMIDINE INJECTION 200 MCG in NS (IVPB) 50 ML IV SCH ×2 (04:36→08:02)
[2016-12-08 04:39] LABS: BASOPHILS % (AUTO) 0 % (0-10); EOSINOPHILS # (AUTO) 0.1 10^3/uL (0.0-0.3); EOSINOPHILS % (AUTO) 2 % (0-10); LYMPHOCYTES # (AUTO) 2.3 X 10^3 (1.0-4.0); LYMPHOCYTES % (AUTO) 38 % (12-44); MEAN CORPUSCULAR HEMOGLOBIN 28 PG (25-34); MEAN CORPUSCULAR HGB CONC 33 G/DL (32-36); MEAN CORPUSCULAR VOLUME 85 FL (80-99); MEAN PLATELET VOLUME 10.6 FL (7.4-10.4); MONOCYTES # (AUTO) 0.4 X 10^3 (0.0-1.0); MONOCYTES % (AUTO) 6 % (0-12); NEUTROPHILS # (AUTO) 3.3 X 10^3 (1.8-7.8); NEUTROPHILS % (AUTO) 54 % (42-75); PLATELET COUNT 228 10^3/uL (130-400); RED BLOOD COUNT 4.21 10^6/uL (4.35-5.85); RED CELL DISTRIBUTION WIDTH 14.9 % (10.0-14.5); WHITE BLOOD COUNT 6.1 10^3/uL (4.3-11.0)
[2016-12-08 05:10] LABS: ALANINE AMINOTRANSFERASE 32 U/L (0-55); ALBUMIN 3.7 GM/DL (3.2-4.5); ANION GAP 13 MMOL/L (5-14); ASPARTATE AMINO TRANSFERASE 33 U/L (5-34); BILIRUBIN,TOTAL 0.5 MG/DL (0.1-1.0); BLOOD UREA NITROGEN 15 MG/DL (7-18); BUN/CREATININE RATIO 20; CALCIUM 9.7 MG/DL (8.5-10.1); CARBON DIOXIDE 20 MMOL/L (21-32); CHLORIDE 107 MMOL/L (98-107); CREATININE SERUM 0.76 MG/DL (0.60-1.30); GFR ESTIMATED > 60; GLUCOSE 213 MG/DL (70-105); MAGNESIUM 1.5 MG/DL (1.8-2.4); POTASSIUM 4.1 MMOL/L (3.6-5.0); SODIUM 140 MMOL/L (135-145); TOTAL PROTEIN 6.8 GM/DL (6.4-8.2)
[2016-12-08] MEDS: POTASSIUM CL 10MEQ/50ML IVPB 50 ML IV SCH (06:10)
[2016-12-08] MEDS: SUCRALFATE 1 GM (CARAFATE) TAB PO SCH ×4 (06:11→20:38)
[2016-12-08] MEDS: KCL 20 MEQ TAB (K-DUR) PO SCH (06:11)
[2016-12-08] MEDS: MAGNESIUM 1 GM/100 ML IVPB 100 ML IV SCH ×3 (06:11→07:19)
[2016-12-08] MEDS: inSUlin (REGULAR) HUMAN 1 UNIT/0.01 ML (CHARGE PER UNIT) SC SCH ×5 (09:23→23:58)
[2016-12-08] MEDS: FAMOTIDINE 20 MG (PEPCID) TABLET PO SCH ×2 (09:24→20:38)
[2016-12-08] MEDS: MAGNESIUM OXIDE (MAG-OX)400 MG TAB PO SCH ×2 (09:24→20:37)
[2016-12-08] MEDS: HALOPERIDOL 5 MG/ML (HALDOL) AMP IV PRN ×3 (11:53→20:37)
--- NOTE | 2016-12-08 12:45 | Progress Note (SOAP) ---
Subjective Subjective Date Seen by Provider: Dec 08, 2016 Time Seen by Provider: 08:30 Pt became agitation again- restless- started on precedex- titrated up to 0.5. Pt resting in bed this AM- will cry and holler then fall back to sleep. Review of Systems ROS Unable to Obtain: pt not answers questions All Other Systems Reviewed All Other Systems Reviewed: Yes Objective Exam Vital Signs Vital Sign - Last 12Hours 12/07/16 11:35 Temp 98.2 Pulse 75 Resp 16 B/P (MAP) 141/76 Pulse Ox 98 O2 Delivery Room Air Capillary Refill : Less Than 3 Seconds General Appearance: No Apparent Distress, WD/WN, Other (restless) HEENT: Other (wouldn't not open her eyes) Neck: Non Tender, Supple Respiratory: Chest Non Tender, Lungs Clear, Normal Breath Sounds, No Accessory Muscle Use, No Respiratory Distress Cardiovascular: Regular Rate, Rhythm, No Edema Gastrointestinal: Normal Bowel Sounds, Non Tender, Soft Rectal: Deferred Back: Normal Inspection Extremity: Non Tender, No Calf Tenderness Neurologic/Psychiatric: Other (sedated, disoriented) Skin: Normal Color, Warm/Dry Results Lab Laboratory Tests 12/07/16 12:41: White Blood Count 6.6, Red Blood Count 4.52, Hemoglobin 12.5, Hematocrit 38, Mean Corpuscular Volume 84, Mean Corpuscular Hemoglobin 28, Mean Corpuscular Hemoglobin Concent 33, Red Cell Distribution Width 14.9H, Platelet Count 276, Mean Platelet Volume 10.3, Neutrophils (%) (Auto) 60, Lymphocytes (%) (Auto) 31 , Monocytes (%) (Auto) 7, Eosinophils (%) (Auto) 1, Basophils (%) (Auto) 0, Neutrophils # (Auto) 4.0, Lymphocytes # (Auto) 2.1, Monocytes # (Auto) 0.5, Eosinophils # (Auto) 0.1, Basophils # (Auto) 0.0, Sodium Level 140, Potassium Level 4.2, Chloride Level 102, Carbon Dioxide Level 25, Anion Gap 13, Blood Urea Nitrogen 19H, Creatinine 0.90, Estimat Glomerular Filtration Rate > 60, BUN /Creatinine Ratio 21, Glucose Level 171H, Calcium Level 10.2H, Total Bilirubin 0.3, Aspartate Amino Transf (AST/SGOT) 40H, Alanine Aminotransferase (ALT/SGPT) 37, Alkaline Phosphatase 515H, Ammonia 19, Total Protein 7.6, Albumin 4.2, Salicylates Level < 5.0L, Acetaminophen Level < 10L, Serum Alcohol < 10 12/07/16 17:04: Glucometer 180H 12/07/16 20:28: Glucometer 194H 12/07/16 23:40: Glucometer 186H 12/08/16 04:23: White Blood Count 6.1, Red Blood Count 4.21L, Hemoglobin 11.8, Hematocrit 36, Mean Corpuscular Volume 85, Mean Corpuscular Hemoglobin 28, Mean Corpuscular Hemoglobin Concent 33, Red Cell Distribution Width 14.9H, Platelet Count 228, Mean Platelet Volume 10.6H, Neutrophils (%) (Auto) 54, Lymphocytes (%) (Auto) 38 , Monocytes (%) (Auto) 6, Eosinophils (%) (Auto) 2, Basophils (%) (Auto) 0, Neutrophils # (Auto) 3.3, Lymphocytes # (Auto) 2.3, Monocytes # (Auto) 0.4, Eosinophils # (Auto) 0.1, Basophils # (Auto) 0.0, Sodium Level 140, Potassium Level 4.1, Chloride Level 107, Carbon Dioxide Level 20L, Anion Gap 13, Blood Urea Nitrogen 15, Creatinine 0.76, Estimat Glomerular Filtration Rate > 60, BUN/ Creatinine Ratio 20, Glucose Level 213H, Calcium Level 9.7, Magnesium Level 1.5L , Total Bilirubin 0.5, Aspartate Amino Transf (AST/SGOT) 33, Alanine Aminotransferase (ALT/SGPT) 32, Alkaline Phosphatase 405H, Total Protein 6.8, Albumin 3.7 12/08/16 08:50: Glucometer 288H Assessment/Plan Assessment/Plan Assessment/Plan 55 yo F toxic metabolic encephalopathy due to medication overuse- has taken amitriptyline, benzo, baclofen- will monitor in ICU, IVF, lorazepam 1mg IV for agitation or seizure. haldol 2mg IV q4hr prn for agitation d/c precedex -Previously pt was on hydrocodone, ativan but I d/c those on last admission. She likely got the benzo from her stash at home. IDDMII with hyperglycemia- accuchecks q6hr, SSI , hga1c pending, recurrent depression- needs outpt counseling elevated alkaline phosphatase- chronic anemia of chronic disease- stable. hypomagnesemia- replacing DVT ppx: lovenox Dispo: Expect her to come out of this encephalopathy in the next few days- but overall same poor prognosis- Mainly just monitor her[facility] her [facility] at [facility] at this point as pt leaves whenever she wants. Nursing staff at [facility] - told systems testing laboratory technician that she thinks she needs a place with more supervision. -When pt encephalopathy improves enough that she is not requiring haldol and communicating with nursing in ICU- transfer to floor- d/c tele when transfers to floor. CM to think about a place with better supervision. As noted in previous notes: [facility] have refused to take her. So options are not looking good. Problems: Clinical Quality Measures DVT/VTE Risk/Contraindication: Risk Factor Score Per Nursin RFS Level Per Nursing on Admit: 3=High NALDO MARQUEZ MD Dec 08, 2016 12:45
[2016-12-08] MEDS: NS IV 1000 ML 1,000 ML IV SCH (13:25)
[2016-12-08] MEDS: ACETAMINOPHEN 500 MG TAB (TYLENOL) PO PRN (17:15)
[2016-12-08] MEDS: ENOXAPARIN 40 MG/0.4 ML (LOVENOX) SYR SC SCH (18:46)
[2016-12-08] MEDS: IBUPROFEN TABLET 200 MG TAB PO PRN (20:38)
[2016-12-08] MEDS: LORazepam INJ 2 MG/ML (ATIVAN) VIAL IVP PRN (23:11)
[2016-12-09] VITALS (15 sets, daily range): BP systolic 134–157; BP diastolic 69–100
[2016-12-09] MEDS: DEXMEDETOMIDINE INJECTION 200 MCG in NS (IVPB) 50 ML IV SCH (01:45)
[2016-12-09] MEDS: NS IV 1000 ML 1,000 ML IV SCH ×2 (03:06→16:45)
[2016-12-09] MEDS: inSUlin (REGULAR) HUMAN 1 UNIT/0.01 ML (CHARGE PER UNIT) SC SCH ×5 (05:00→21:16)
[2016-12-09] MEDS: KCL 20 MEQ TAB (K-DUR) PO SCH (06:00)
[2016-12-09] MEDS: MAGNESIUM 1 GM/100 ML IVPB 100 ML IV SCH ×3 (06:00→08:13)
[2016-12-09] MEDS: POTASSIUM CL 10MEQ/50ML IVPB 50 ML IV SCH (06:00)
[2016-12-09 06:30] LABS: ANION GAP 14 MMOL/L (5-14); BLOOD UREA NITROGEN 12 MG/DL (7-18); BUN/CREATININE RATIO 17; CALCIUM 9.1 MG/DL (8.5-10.1); CARBON DIOXIDE 18 MMOL/L (21-32); CHLORIDE 106 MMOL/L (98-107); GFR ESTIMATED > 60; GLUCOSE 157 MG/DL (70-105); MAGNESIUM 1.7 MG/DL (1.8-2.4); POTASSIUM 3.7 MMOL/L (3.6-5.0); SODIUM 138 MMOL/L (135-145)
[2016-12-09] MEDS: SUCRALFATE 1 GM (CARAFATE) TAB PO SCH ×4 (07:09→21:16)
[2016-12-09] MEDS: FAMOTIDINE 20 MG (PEPCID) TABLET PO SCH ×2 (08:13→21:16)
[2016-12-09] MEDS: MAGNESIUM OXIDE (MAG-OX)400 MG TAB PO SCH ×2 (08:13→21:16)
[2016-12-09] MEDS: ACETAMINOPHEN 500 MG TAB (TYLENOL) PO PRN ×3 (08:21→23:29)
--- NOTE | 2016-12-09 10:14 | Progress Note (SOAP) ---
Subjective Date Seen by Provider: Dec 09, 2016 Time Seen by Provider: 10:24 Subjective/Events-last exam Fwup metabolic encephalopathy, prescription drug abuse, Type I Diabetes with hyperglycemia, depression, hypomagnesemia. Awake and alert. Off precedex since yesterday. C/O right hip pain. Objective Exam Vital Signs Date Time Temp Pulse Resp B/P (MAP) Pulse Ox O2 Delivery O2 Flow Rate FiO2 12/09/16 08:00 98.2 Room Air 12/09/16 08:00 Room Air 12/09/16 07:00 105 12/09/16 06:00 90 17 150/100 97 Room Air 12/09/16 05:00 86 8 151/85 95 Room Air 12/09/16 04:00 73 21 152/85 98 Room Air 12/09/16 04:00 Room Air 12/09/16 03:00 66 9 140/85 99 Room Air 12/09/16 02:00 69 19 139/84 97 Room Air 12/09/16 01:00 68 15 141/85 94 Room Air 12/09/16 01:00 71 12/09/16 00:00 72 19 157/90 98 Room Air 12/09/16 00:00 Room Air 12/08/16 23:00 99 18 149/78 98 Room Air 12/08/16 22:00 102 18 178/110 98 Room Air 12/08/16 21:00 121 12 109/85 98 Room Air 12/08/16 20:00 Room Air 12/08/16 20:00 99.6 114 8 150/97 98 Room Air 12/08/16 19:00 122 12/08/16 19:00 101 18 150/87 98 Room Air 12/08/16 18:00 98 13 156/92 98 Room Air 12/08/16 17:00 94 14 122/60 97 Room Air 12/08/16 16:00 98.2 105 32 138/94 96 Room Air 12/08/16 16:00 Room Air 12/08/16 15:00 97 30 139/92 100 Room Air 12/08/16 14:00 71 19 134/78 100 Room Air 12/08/16 13:00 73 20 132/86 98 Room Air 12/08/16 13:00 75 12/08/16 12:00 97.9 Room Air 12/08/16 12:00 73 20 134/96 96 Room Air 12/08/16 12:00 Room Air 12/08/16 11:00 75 16 117/80 97 Room Air I & O 12/09/16 06:59 Intake Total 2962 ml Output Total 2500 ml Balance 462 ml Capillary Refill : Less Than 3 Seconds General Appearance: No Apparent Distress Neck: Supple Respiratory: Lungs Clear Cardiovascular: Tachycardia Gastrointestinal: normal bowel sounds, non tender, soft Extremity: Non Tender, No Calf Tenderness, No Pedal Edema Neurologic/Psychiatric: Alert, Oriented x3 Results Lab Laboratory Tests 12/08/16 12:10: Glucometer 186H 12/08/16 15:35: Glucometer 137H 12/08/16 19:55: Glucometer 294H 12/09/16 05:48: Sodium Level 138, Potassium Level 3.7, Chloride Level 106, Carbon Dioxide Level 18L, Anion Gap 14, Blood Urea Nitrogen 12, Creatinine 0.70, Estimat Glomerular Filtration Rate > 60, BUN/Creatinine Ratio 17, Glucose Level 157H, Hemoglobin A1c 6.6H, Calcium Level 9.1, Magnesium Level 1.7L Assessment/Plan Assessment/Plan Assess & Plan/Chief Complaint 1. toxic metabolic encephalopathy due to medication overuse--transfer to 4th floor, DC IVF, lorazepam 1mg IV for agitation or seizure, haldol 2mg IV q4hr prn for agitation 2. type 1 Diabetes with hyperglycemia- accuchecks q6hr, SSI, hga1c 6.6 3. recurrent depression- needs outpt counseling 4. elevated alkaline phosphatase- chronic 5. anemia of chronic disease- stable 6. hypomagnesemia- magnesium protocol 7. hypokalemia-potassium protocol 8. Hypertesion with tachycardia--start Toprol XL Clinical Quality Measures DVT/VTE Risk/Contraindication: Risk Factor Score Per Nursin RFS Level Per Nursing on Admit: 3=High ANNETTE MAURICE DO Dec 09, 2016 10:14
[2016-12-09] MEDS ORDERED: meTOproloL SUCCINATE 50 MG (TOPROL XL) TAB PO NR (10:30)
[2016-12-09] MEDS: IBUPROFEN TABLET 200 MG TAB PO PRN (10:52)
[2016-12-09] MEDS: DICLOFENAC 1% GEL 100 GM (VOLTAREN) TUBE TP PRN ×2 (12:39→18:42)
[2016-12-09] MEDS: ENOXAPARIN 40 MG/0.4 ML (LOVENOX) SYR SC SCH (18:42)
[2016-12-10] VITALS: BP 133/62
[2016-12-10] MEDS: DICLOFENAC 1% GEL 100 GM (VOLTAREN) TUBE TP PRN ×3 (00:39→18:03)
[2016-12-10] MEDS: POTASSIUM CL 10MEQ/50ML IVPB 50 ML IV SCH (03:05)
[2016-12-10] MEDS: KCL 20 MEQ TAB (K-DUR) PO SCH (03:06)
[2016-12-10] MEDS: MAGNESIUM 1 GM/100 ML IVPB 100 ML IV SCH (03:06)
[2016-12-10 04:00] VITALS: BP 135/89
[2016-12-10] MEDS: inSUlin (REGULAR) HUMAN 1 UNIT/0.01 ML (CHARGE PER UNIT) SC SCH ×4 (05:44→21:18)
[2016-12-10] MEDS: SUCRALFATE 1 GM (CARAFATE) TAB PO SCH ×4 (05:44→21:19)
[2016-12-10] MEDS: NS IV 1000 ML 1,000 ML IV SCH (06:14)
[2016-12-10 07:44] LABS: ANION GAP 13 MMOL/L (5-14); BLOOD UREA NITROGEN 9 MG/DL (7-18); BUN/CREATININE RATIO 11; CARBON DIOXIDE 22 MMOL/L (21-32); CHLORIDE 103 MMOL/L (98-107); CREATININE SERUM 0.81 MG/DL (0.60-1.30); GFR ESTIMATED > 60; GLUCOSE 212 MG/DL (70-105); MAGNESIUM 1.6 MG/DL (1.8-2.4); POTASSIUM 3.8 MMOL/L (3.6-5.0); SODIUM 138 MMOL/L (135-145)
[2016-12-10] MEDS: MAGNESIUM OXIDE (MAG-OX)400 MG TAB PO SCH ×2 (07:47→21:19)
[2016-12-10] MEDS: FAMOTIDINE 20 MG (PEPCID) TABLET PO SCH ×2 (07:47→21:19)
[2016-12-10] MEDS: ACETAMINOPHEN 500 MG TAB (TYLENOL) PO PRN ×2 (07:52→19:18)
[2016-12-10 08:00] VITALS: BP 144/94
--- NOTE | 2016-12-10 11:52 | Progress Note (SOAP) ---
Subjective Date Seen by Provider: Dec 10, 2016 Time Seen by Provider: 11:49 Subjective/Events-last exam Fwup metabolic encephalopathy, prescription drug abuse, Type I Diabetes with hyperglycemia, depression, hypomagnesemia. Much more alert today. Wants to go home. Objective Exam Vital Signs Date Time Temp Pulse Resp B/P (MAP) Pulse Ox O2 Delivery O2 Flow Rate FiO2 12/10/16 08:00 97.3 106 16 144/94 97 Room Air 12/10/16 07:01 Nasal Cannula 2.00 12/10/16 04:00 96.4 74 18 135/89 100 Room Air 12/10/16 01:00 74 12/10/16 00:00 98.6 69 22 133/62 92 Room Air 12/09/16 20:49 Nasal Cannula 2.00 12/09/16 19:13 98.4 70 12 152/78 99 Room Air 12/09/16 19:00 72 12/09/16 16:26 98.4 68 12 145/69 98 Room Air 12/09/16 13:00 76 12/09/16 12:00 98.5 89 18 154/82 99 Room Air 12/09/16 12:00 Room Air 12/09/16 11:55 98.5 89 18 154/82 99 Room Air I & O 12/10/16 07:00 Intake Total 3025 ml Output Total 1300 ml Balance 1725 ml Capillary Refill : Less Than 3 Seconds General Appearance: No Apparent Distress Neck: Supple Respiratory: Lungs Clear Cardiovascular: Regular Rate, Rhythm Gastrointestinal: normal bowel sounds, non tender, soft Extremity: No Calf Tenderness, No Pedal Edema Neurologic/Psychiatric: Alert, Oriented x3 Results Lab Laboratory Tests 12/09/16 16:12: Glucometer 269H 12/09/16 20:40: Glucometer 186H 12/10/16 05:29: Glucometer 219H 12/10/16 07:19: Sodium Level 138, Potassium Level 3.8, Chloride Level 103, Carbon Dioxide Level 22, Anion Gap 13, Blood Urea Nitrogen 9, Creatinine 0.81, Estimat Glomerular Filtration Rate > 60, BUN/Creatinine Ratio 11, Glucose Level 212H, Calcium Level 10.0, Magnesium Level 1.6L 12/10/16 11:08: Glucometer 335H Assessment/Plan Assessment/Plan Assess & Plan/Chief Complaint 1. toxic metabolic encephalopathy due to medication overuse--Back to baseline-- alert and oriented, lorazepam 1mg IV for agitation or seizure, haldol 2mg IV q4hr prn for agitation 2. type 1 Diabetes with hyperglycemia- accuchecks q6hr, SSI, hga1c 6.6 3. recurrent depression- needs outpt counseling--states has appointment on with counselor, currently living at [facility] 4. elevated alkaline phosphatase- chronic 5. anemia of chronic disease- stable 6. hypomagnesemia- magnesium protocol 7. hypokalemia-potassium protocol 8. Hypertesion with tachycardia--improved with Toprol XL Clinical Quality Measures DVT/VTE Risk/Contraindication: Risk Factor Score Per Nursin RFS Level Per Nursing on Admit: 3=High ANNETTE MAURICE DO Dec 10, 2016 11:51
[2016-12-10 12:00] VITALS: BP 110/87
[2016-12-10] MEDS ORDERED: inSUlin DETERMIR 1 UNIT/0.01 ML (LEVEMIR) CHARGE PER UNIT SQ NR (12:00)
[2016-12-10] MEDS: ONDANSETRON 4 MG/2 ML (SDV) Z0FRAN IV PRN (15:03)
[2016-12-10 16:44] VITALS: BP 136/76
[2016-12-10] MEDS: ENOXAPARIN 40 MG/0.4 ML (LOVENOX) SYR SC SCH (18:03)
[2016-12-10 19:11] VITALS: BP 140/80
[2016-12-10] MEDS ORDERED: meTOproloL SUCCINATE 50 MG (TOPROL XL) TAB PO SCH (19:30)
[2016-12-10] MEDS ORDERED: inSUlin DETERMIR 1 UNIT/0.01 ML (LEVEMIR) CHARGE PER UNIT SQ SCH (21:00)
[2016-12-10] MEDS ORDERED: GABAPENTIN 300 MG (NEURONTIN) CAP PO SCH (21:00)
[2016-12-10] MEDS: LORazepam INJ 2 MG/ML (ATIVAN) VIAL IVP PRN (21:18)
[2016-12-11 01:30] VITALS: BP 113/79
[2016-12-11] MEDS: MAGNESIUM 1 GM/100 ML IVPB 100 ML IV SCH (02:38)
[2016-12-11] MEDS: POTASSIUM CL 10MEQ/50ML IVPB 50 ML IV SCH (02:38)
[2016-12-11] MEDS: KCL 20 MEQ TAB (K-DUR) PO SCH (02:39)
[2016-12-11] MEDS: DICLOFENAC 1% GEL 100 GM (VOLTAREN) TUBE TP PRN (02:43)
[2016-12-11] MEDS: ACETAMINOPHEN 500 MG TAB (TYLENOL) PO PRN ×2 (03:42→11:24)
[2016-12-11 05:34] LABS: ANION GAP 14 MMOL/L (5-14); BLOOD UREA NITROGEN 12 MG/DL (7-18); BUN/CREATININE RATIO 16; CALCIUM 9.9 MG/DL (8.5-10.1); CARBON DIOXIDE 18 MMOL/L (21-32); CHLORIDE 102 MMOL/L (98-107); CREATININE SERUM 0.75 MG/DL (0.60-1.30); GFR ESTIMATED > 60; GLUCOSE 154 MG/DL (70-105); MAGNESIUM 1.5 MG/DL (1.8-2.4); POTASSIUM 4.2 MMOL/L (3.6-5.0); SODIUM 134 MMOL/L (135-145)
[2016-12-11] MEDS: SUCRALFATE 1 GM (CARAFATE) TAB PO SCH ×2 (05:44→11:36)
[2016-12-11] MEDS: inSUlin (REGULAR) HUMAN 1 UNIT/0.01 ML (CHARGE PER UNIT) SC SCH ×2 (05:44→11:36)
[2016-12-11 08:00] VITALS: BP 125/84
[2016-12-11] MEDS: MAGNESIUM OXIDE (MAG-OX)400 MG TAB PO SCH (08:59)
[2016-12-11] MEDS: FAMOTIDINE 20 MG (PEPCID) TABLET PO SCH (08:59)
[2016-12-11] MEDS ORDERED: IBUPROFEN TABLET 200 MG TAB PO PRN (09:15)
--- OUTSIDE RECORDS SUMMARY | 2016-12-11 10:16 | XMS REPORT | Continuity of Care Document ---
Author Author [facility] Organization [facility] Address Unknown Phone Unavailable Care Team Providers Care Occ Therapy Asst Name Role Phone Burt Rivera PCP [phone] Source Comments Some departments are not documenting in the electronic medical record. If you do not see the information that you expected, contact Release of Information in the Health Information Management department at [phone] for further assistance in locating additional records.[facility] Active Allergies and Adverse Reactions No [...]
[2016-12-11] MEDS ORDERED: GABAPENTIN 400 MG (NEURONTIN) CAP PO SCH (11:32)
[2016-12-11] MEDS: ONDANSETRON 4 MG/2 ML (SDV) Z0FRAN IV PRN (13:24)
--- NOTE | 2016-12-11 13:34 | Discharge Inst-Skilled Nursing ---
Discharge Inst-Skilled NF Patient Instructions Patient Problems: see previous records already on file Consult/Follow Up/Orders Follow Up Appt.: follow up in 1-2 weeks at [facility] Skilled NF Admit to: [facility] Certification (SNF) I certify that SNF services are required to be given on an inpatient basis because of the above named patient's need for fpc care on a continuing basis for the conditions(s) for which he/she was receiving inpatient hospital services prior to his/her transfer to the SNF. Snf Facility Order: Nursing Services, [employer] S[employer]ic-Evaluate & Treat, Physical Therapy-Evaluate & Treat Discharge Diet: ADA Diet Daily Activity as Tolerated: Yes New & Resume Previous Orders New & Resume Previous Orders resume previous orders Leonel Marquez Dec 11, 2016 13:30 LEONEL MARQUEZ MD Dec 11, 2016 13:34
[2016-12-11 15:50] VITALS: BP 125/84
--- NOTE | 2016-12-12 09:21 | Discharge Summary ---
Diagnosis/Chief Complaint Date of Admission Dec 07, 2016 at 14:15 Date of Discharge Dec 11, 2016 at 14:20 Admission Diagnosis Admission Diagnosis toxic metabolic encephalopathy due to medication overuse- IDDMII with hyperglycemia- recurrent depression- elevated alkaline phosphatase anemia of chronic disease- hypomagnesemia- Discharge Diagnosis toxic metabolic encephalopathy due to medication overuse- IDDMII with hyperglycemia- recurrent depression- elevated alkaline phosphatase anemia of chronic disease- hypomagnesemia- Reason Hospital Visit 55 yo F well known [facility] Inpatient stays- most recently twice in November- She has been resided at [facility] for past 2 weeks- Staff and daughter have reported pt leaves frequently for extended periods of time. Of note, a friend name Linda will take her out and she pointed out that Brandon will go to her house and go inside to her old room where she has bags of prescription pills. Staff at [facility]- reports last seeing her normal at 7am. She was found this AM going through other patient's rooms and trash. Staff put her back to bed and then return to her and she was unresponsive but breathing normal. Some abnormal movements. Pt previously had refused to be taken to the ER. While in the ER pt was yelling but alert and oriented to herself. She did vomit. Labs were relatively normal- Alk Phos elevated and UDS +benzo and + TCA. Pt admitted to ICU for further monitoring. Pt was restless in the ICU so she was given 1mg lorazepam and calmed down. She is now lying in hospital bed nude. Discharge Summary Hospital Course Hospital Course 55 yo F admitted for toxic metabolic encephalopathy due to medication overuse- she was given precedex for agitation as well as haldol early in the hospitalization but she continued to improve as the (unknown) medications got out of her system. Patient returned to her baseline mentation and was stable for discharge back to [facility]. Her medication stash was put in a place that Brandon does not have access to - this was done by her daughter. I once again reiterated most of her central acting medications are discontinued. Her room at [facility] does not have any of these medications per staff. See discharge medication records for list of current medications. IDDMII with hyperglycemia- accuchecks q6hr, SSI , hga1c 6.6 - diabetes has improved with her staying at [facility] as well as her frequent hospitalizations as previous Hga1c was >11 recurrent depression- needs outpt counseling ; she is to keep her follow up appt with psych counselor 12/14/16 elevated alkaline phosphatase- chronic- previous work up unfruitful. anemia of chronic disease- stable. hypomagnesemia- improved- replacing I am not sure if [facility] is the best option for her as she needs more supervision- Issue is other facilities have declined admission due to previous issues of patient leaving AMA. So currently [facility] is the only option. Labs Laboratory Tests 12/10/16 11:08: Glucometer 335H 12/10/16 17:07: Glucometer 198H 12/10/16 20:57: Glucometer 246H 12/11/16 04:35: Sodium Level 134L, Carbon Dioxide Level 18L, Glucose Level 154H, Magnesium Level 1.5L 12/11/16 11:10: Glucometer 243H Procedures None. Discharge Physical Examination Allergies: Coded Allergies: No Known Drug Allergies (Unverified , 11/24/09) Vitals & I&Os Vital Signs Date Time Temp Pulse Resp B/P (MAP) Pulse Ox O2 Delivery O2 Flow Rate FiO2 12/11/16 15:50 92 20 125/84 99 Room Air 12/11/16 08:00 97.2 12/10/16 07:01 2.00 General Appearance: Alert, Oriented X3, Cooperative HEENT: Atraumatic, PERRLA Respiratory: Clear to Auscultation Cardiovascular: Regular Rate Abdominal: Normal Bowel Sounds, Soft Extremities: No Clubbing, No Cyanosis Skin: No Rashes, No Breakdown Neuro: Normal Speech, Strength at 5/5 X4 Ext Psych/Mental Status: Mental Status NL, Mood NL (at her baseline) Discharge Home Medications Reviewed and agree with Discharge Medication list on patient's Discharge Instruction sheet Condition at Discharge stable poor prognosis overall though Instructions to Patient/Family Please see electronic discharge instructions given to patient. Clinical Quality Measures DVT/VTE Risk/Contraindication: Risk Factor Score Per Nursin RFS Level Per Nursing on Admit: 3=High Smoking Cessation Counseling: Counseling-Asymptomatic: 3-10 minutes Other Options patient does not plan on quiting as she says that [facility] allows smoking outside- this is better than [facility]. NALDO MARQUEZ MD Dec 12, 2016 09:21
--- OUTSIDE RECORDS SUMMARY | 2016-12-28 05:45 | XMS REPORT | Clinical Summary ---
Author Author [facility] Organization [facility] Address Unknown Phone Unavailable Care Team Providers Care Gold Frame Assembler Name Role Phone PCP Unavailable Source Comments Some departments are not documenting in the electronic medical record. If you do not see the information that you expected, contact Release of Information in the Health Information Management department at [phone] for further assistance in locating additional records.[facility] Allergies No Known Allergies Current Medications Prescription Sig. Disp. Refills Start End Date Status Date glimepiride (AMARYL) 4 mg Take 4 mg by mouth daily Active tablet with breakfast. metFORMIN (GLUCOPHAGE) Take 500 mg by mouth Active 500 mg tablet twice daily. Active Problems Not on file Family History Medical History Relation Name Comments Heart Attack Father Cancer Mother Heart problem Mother Hypertension Mother Relation Name Status Comments Father heart attack Mother heart problem Sister hepatitis Social History Tobacco Use Types Packs/Day Years Used Date Smoker, Current Status 1.5 Unknown Sex Assigned at Date Recorded Not on file Last Filed Vital Signs Vital Sign Reading Time Taken Blood Pressure 152/96 01/22/2007 2:17 PM CDT Pulse 80 01/22/2007 2:17 PM CDT Temperature 36.7 C (98.1 F) 01/22/2007 2:16 PM CDT Respiratory Rate - - Oxygen Saturation - - Inhaled Oxygen - - Concentration Weight 121.6 kg (268 lb) 01/22/2007 2:16 PM CDT Height - - Body Mass Index - - Plan of Treatment Health Maintenance Due Date Last Done Comments HEPATITIS C SCREENING 1962 PHYSICAL (COMPREHENSIVE) 1969 EXAM PERTUSSIS VACCINE 1973 TETANUS VACCINE 12/24/1979 CERVICAL CANCER SCREENING 1992 BREAST CANCER SCREENING 2002 COLORECTAL CANCER 2012 SCREENING INFLUENZA VACCINE 02/02/2017 Results Not on filefrom Last 3 Months
== END 2016-12-11 14:20 | DRG 71 ==
LOC: EDUNIT# 11:32 → ER 11:34 → OBSVTOIN 13:40 → INTOOBSV 13:40 → UNDOADMOB 13:40 → ICU 13:40 → UNDOADMOB 14:15 → INTOOBSV 14:15 → ICU 14:15 → OBSVTOIN 14:15 → 4TH 12-09 12:33 → ICU 12-09 12:33 → UNDODISIN 12-11 14:20
PROVIDERS: ADMIT Family Medicine; ATTEND Family Medicine
DX: E83.42 Hypomagnesemia; F33.9 Major depressive disorder, recurrent, unspecified; I10 Essential (primary) hypertension; J44.9 Chronic obstructive pulmonary disease, unspecified; Z79.4 Long term (current) use of insulin; R00.0 Tachycardia, unspecified; F41.9 Anxiety disorder, unspecified; F17.210 Nicotine dependence, cigarettes, uncomplicated; D63.8 Anemia in other chronic diseases classified elsewhere; E78.00 Pure hypercholesterolemia, unspecified; G93.40 Encephalopathy, unspecified; E87.6 Hypokalemia; T40.2X5A Adverse effect of other opioids, initial encounter; E10.65 Type 1 diabetes mellitus with hyperglycemia; K21.9 Gastro-esophageal reflux disease without esophagitis
CPT/HCPCS: 36415; 51701; 80048; 80053; 80306; 80320; 80329; 81000; 82140; 82962; 83036; 83735; 85025; 93005; 93041; 96361; 96374

== ENCOUNTER 2017-01-29 12:31 | Outpatient (RCR) | payer MEDICAID ==
[~2017-01-29] VITALS: Ht 175.3 cm; Wt 91.6 kg
[~2017-01-29 12:31] MED LIST changes: +DICL100G31 TP; +HEParin (CENTRAL IV FLUSH) 500 UNIT/5 ML SYR ONE; +NCT14P TD; +NCT21TD TD; -NICO-587 TD; -NICO-588 TD
[2017-01-29 13:00] VITALS: BP 107/74
[2017-01-29] MEDS ORDERED: HEParin (CENTRAL IV FLUSH) 500 UNIT/5 ML SYR IV ONE (13:00)
== END 2017-01-29 12:50 | disposition home or self-care (01) ==
LOC: SDC 12:31
PROVIDERS: ATTEND Family Medicine
DX: Z45.2 Encounter for adjustment and management of vascular access device (principal)
CPT/HCPCS: 96523

== ENCOUNTER → 2017-02-23 | Outpatient (CLI) | payer MEDICAID ==
[~2017-02-23] MED LIST changes: -HEParin (CENTRAL IV FLUSH) 500 UNIT/5 ML SYR ONE; -NCT14P TD; -NCT21TD TD; +NICO-587 TD; +NICO-588 TD
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
--- NOTE | 2017-02-23 18:30 | Diagnostic Imaging Report ---
INDICATION: Chronic low back pain radiating to the sacral region. TECHNIQUE: AP and bilateral oblique views of SI joints at 3:14 p.m. CORRELATION STUDY: None. FINDINGS: There is leftward curvature of the lumbar spine. Marked disc space narrowing at the L3-L4, L4-L5, and L5-S1 levels with asymmetric hypertrophic facet arthropathy. There is leftward subluxation of L4 in regards to L5. No significant effusion or tammy destructive change across the SI joints. There does appear to be slight asymmetric sclerosis on the left compared to the right. There is joint space narrowing in bilateral hips. Apparent suture line is suggested over the midline of the pelvis. Likely prior surgical changes of mesh repair. IMPRESSION: 1. Marked degenerative changes in the visualized lower lumbar spine. Mild asymmetric sclerosis of the left SI joint. Dictated by: Dictated on workstation # [id number]
== END ==
LOC: RAD 14:41
PROVIDERS: ATTEND Family Medicine
DX: M47.816 Spondylosis without myelopathy or radiculopathy, lumbar region (principal); M41.26 Other idiopathic scoliosis, lumbar region; M48.06 Spinal stenosis, lumbar region
CPT/HCPCS: 72148; 72202

== ENCOUNTER 2017-05-15 12:56 | Outpatient (RCR) | payer MEDICARE, MEDICAID ==
[2017-03-12] MEDS: CATHETER FLUSH 10 ML SYR IV PRN (12:50)
[2017-03-12 13:00] VITALS: BP 107/66
[2017-04-09] MEDS: CATHETER FLUSH 10 ML SYR IV PRN (13:10)
[2017-04-09 13:24] VITALS: BP 128/85
[~2017-05-15] VITALS: Ht 175.3 cm; Wt 91.6 kg
[~2017-05-15 12:56] MED LIST changes: +ACHD5005 PO; +HEParin (CENTRAL IV FLUSH) 500 UNIT/5 ML SYR IV ONE; +HEParin (CENTRAL IV FLUSH) 500 UNIT/5 ML SYR ONE; -HYDR-3812 PO
[2017-05-15] MEDS ORDERED: HEParin (CENTRAL IV FLUSH) 500 UNIT/5 ML SYR ONE (12:59)
[2017-05-15] MEDS ORDERED: HEParin (CENTRAL IV FLUSH) 500 UNIT/5 ML SYR IV ONE (13:00)
[2017-05-15] MEDS: CATHETER FLUSH 10 ML SYR IV PRN (13:05)
[2017-05-15 13:15] VITALS: BP 108/63
[2017-06-12] MEDS ORDERED: LORA0.5T PO (15:42)
[2017-06-12] MEDS ORDERED: LOPE2CAP PO (15:42)
[2017-06-12] MEDS ORDERED: HYDR-3816 PO (15:42)
[2017-06-12] MEDS ORDERED: LIDO1ADH41 TP (15:42)
[2017-06-12] MEDS ORDERED: RT-ALBUINH IH (15:42)
[2017-06-12] MEDS ORDERED: ACET-2267 PO (15:42)
[2017-06-12] MEDS ORDERED: IBUP-30 PO (15:42)
[2017-06-12] MEDS ORDERED: GABA600T2 PO (15:42)
[2017-06-12] MEDS ORDERED: LIDO700A45 TD (15:42)
[2017-06-12] MEDS ORDERED: CARI350T27 PO (15:42)
== END 2017-06-10 | disposition home or self-care (01) ==
LOC: SDC 12:56
PROVIDERS: ATTEND Family Medicine
DX: Z45.2 Encounter for adjustment and management of vascular access device (principal)
CPT/HCPCS: 96523

== ENCOUNTER 2017-05-31 12:54 | Outpatient (CLI) | payer MEDICARE, MEDICAID ==
[~2017-05-31] VITALS: Ht 172.7 cm; Wt 104.3 kg
[~2017-05-31 12:54] MED LIST changes: -HEParin (CENTRAL IV FLUSH) 500 UNIT/5 ML SYR IV ONE; -HEParin (CENTRAL IV FLUSH) 500 UNIT/5 ML SYR ONE
[2017-05-31] MEDS ORDERED: methylPREDNISolone 80 MG/ML (DEPO MEDROL) VIAL ONE (12:58)
[2017-05-31 13:45] VITALS: BP 95/89
[2017-05-31 14:21] VITALS: BP 96/66
--- NOTE | 2017-06-02 06:26 | OPERATIVE REPORT ---
DATE OF SERVICE: 05/31/2017 DIAGNOSIS: Lumbar radiculopathy. PROCEDURE: Fluoroscopic guided interlaminar epidural steroid injection. PROCEDURE IN DETAIL: After obtaining informed consent from the patient, the patient's chart was reviewed. The patient was then brought to the procedure room and placed in the prone position. A timeout was performed. The back was prepped with antiseptic solution and under fluoro guidance, the patient's lumbar spine was identified at the level of ____. The ____ vertebra was identified with fluoro guidance and approximately 2 mL of 1.5% lidocaine solution was used to anesthetize the skin directly down to the pedicle of the ____ and under fluoroscopic guidance, the tract was anesthetized up to the interlaminar space and the ligamentum flavum. This needle was withdrawn. Then, a 20-gauge 3.5 inch Tuohy needle was then directed following the same tract that was anesthetized with the spinal needle. Using loss of resistance, the epidural space was identified and then the syringe was switched for contrast solution which was injected, approximately 1 mL. After secondary confirmation of epidural access, another syringe was placed and 80 mg of Depo-Medrol was injected. The Tuohy needle was then flushed out with approximately 2 mL of the normal saline used from the loss of resistance syringe. Band-Aids were applied to all the procedure sites. The patient tolerated the procedure well and was taken to the recovery room in stable condition. COMPLICATIONS: None. Job ID: [id number] DocumentID: [id number] Dictated Date: 06/01/2017 19:06:32 Supervisor Fleshing Date: 06/02/2017 04:11:31 Dictated By: VISH WALL DO
== END 2017-05-31 14:22 | disposition home or self-care (01) ==
LOC: CARD 12:54
PROVIDERS: ATTEND Pain Medicine Interventional Pain Medicine
DX: M54.16 Radiculopathy, lumbar region (principal)
CPT/HCPCS: 62323